=== PATIENT | male | born 1950 | race Caucasian/White ===

== ENCOUNTER → 2020-02-13 14:30 | Outpatient (BNVA) | payer OTHER, SELFPAY | PROVIDERS: PCP Internal Medicine; Visit Provider Internal Medicine | DX: I26.99 Other pulmonary embolism without acute cor pulmonale (principal); Z79.01 Long term (current) use of anticoagulants; Z51.81 Encounter for therapeutic drug level monitoring | CPT/HCPCS: 85610 ==

== ENCOUNTER → 2020-02-27 14:15 | Outpatient (BNVA) | payer OTHER, SELFPAY | PROVIDERS: PCP Internal Medicine; Visit Provider Internal Medicine | DX: I26.99 Other pulmonary embolism without acute cor pulmonale (principal); Z79.01 Long term (current) use of anticoagulants; Z51.81 Encounter for therapeutic drug level monitoring | CPT/HCPCS: 85610 ==

== ENCOUNTER → 2020-03-12 16:04 | Outpatient (BNVA) | payer OTHER, SELFPAY | PROVIDERS: PCP Internal Medicine; Visit Provider Internal Medicine | DX: I26.99 Other pulmonary embolism without acute cor pulmonale (principal); Z51.81 Encounter for therapeutic drug level monitoring; Z79.01 Long term (current) use of anticoagulants | CPT/HCPCS: 85610; 99211 ==

== ENCOUNTER → 2020-04-09 16:26 | Outpatient (BNVA) | payer OTHER, SELFPAY | PROVIDERS: PCP Internal Medicine; Visit Provider Internal Medicine | DX: I26.99 Other pulmonary embolism without acute cor pulmonale (principal); Z79.01 Long term (current) use of anticoagulants; Z51.81 Encounter for therapeutic drug level monitoring | CPT/HCPCS: 85610 ==

== ENCOUNTER → 2020-06-04 09:57 | Outpatient (BNVA) | payer OTHER, SELFPAY | PROVIDERS: PCP Internal Medicine; Visit Provider Internal Medicine | DX: I26.99 Other pulmonary embolism without acute cor pulmonale (principal); Z51.81 Encounter for therapeutic drug level monitoring; Z79.01 Long term (current) use of anticoagulants | CPT/HCPCS: 85610; 99211 ==

== ENCOUNTER → 2020-06-09 11:05 | Outpatient (BNVA) | payer OTHER, SELFPAY | PROVIDERS: PCP Internal Medicine; Visit Provider Internal Medicine | DX: I26.99 Other pulmonary embolism without acute cor pulmonale (principal); Z51.81 Encounter for therapeutic drug level monitoring; Z79.01 Long term (current) use of anticoagulants | CPT/HCPCS: 85610; 99211 ==

== ENCOUNTER → 2020-06-15 10:11 | Outpatient (BNVA) | payer OTHER, SELFPAY | PROVIDERS: PCP Internal Medicine; Visit Provider Internal Medicine | DX: I26.99 Other pulmonary embolism without acute cor pulmonale (principal); Z51.81 Encounter for therapeutic drug level monitoring; Z79.01 Long term (current) use of anticoagulants | CPT/HCPCS: 85610; 99211 ==

== ENCOUNTER → 2020-08-02 12:26 | Outpatient (BNVA) | payer OTHER, SELFPAY | PROVIDERS: PCP Internal Medicine; Visit Provider Internal Medicine | DX: I26.99 Other pulmonary embolism without acute cor pulmonale (principal); Z79.01 Long term (current) use of anticoagulants; Z51.81 Encounter for therapeutic drug level monitoring | CPT/HCPCS: Q3014 ==

== ENCOUNTER → 2020-08-06 14:45 | Outpatient (BNVA) | payer OTHER, SELFPAY | PROVIDERS: PCP Internal Medicine; Visit Provider Internal Medicine | DX: I26.99 Other pulmonary embolism without acute cor pulmonale (principal); Z79.01 Long term (current) use of anticoagulants; Z51.81 Encounter for therapeutic drug level monitoring | CPT/HCPCS: Q3014 ==

== ENCOUNTER → 2020-08-13 12:04 | Outpatient (BNVA) | payer OTHER, SELFPAY | PROVIDERS: PCP Internal Medicine; Visit Provider Internal Medicine | DX: I26.99 Other pulmonary embolism without acute cor pulmonale (principal); Z79.01 Long term (current) use of anticoagulants; Z51.81 Encounter for therapeutic drug level monitoring | CPT/HCPCS: Q3014 ==

== ENCOUNTER → 2020-08-20 11:40 | Outpatient (BNVA) | payer OTHER, SELFPAY | PROVIDERS: PCP Internal Medicine; Visit Provider Internal Medicine | DX: Z51.81 Encounter for therapeutic drug level monitoring (principal); Z79.01 Long term (current) use of anticoagulants | CPT/HCPCS: Q3014 ==

== ENCOUNTER → 2020-08-27 11:23 | Outpatient (BNVA) | payer OTHER, SELFPAY | PROVIDERS: PCP Internal Medicine; Visit Provider Internal Medicine | DX: I26.99 Other pulmonary embolism without acute cor pulmonale (principal); Z79.01 Long term (current) use of anticoagulants; Z51.81 Encounter for therapeutic drug level monitoring | CPT/HCPCS: 85610; 99211 ==

== ENCOUNTER → 2020-09-09 15:03 | Outpatient (BNVA) | payer OTHER, SELFPAY | PROVIDERS: PCP Internal Medicine; Visit Provider Internal Medicine | DX: I26.99 Other pulmonary embolism without acute cor pulmonale (principal); Z51.81 Encounter for therapeutic drug level monitoring; Z79.01 Long term (current) use of anticoagulants | CPT/HCPCS: 85610; 99211 ==

== ENCOUNTER → 2020-10-07 15:58 | Outpatient (BNVA) | payer OTHER, SELFPAY | PROVIDERS: PCP Internal Medicine; Visit Provider Internal Medicine | DX: I26.99 Other pulmonary embolism without acute cor pulmonale (principal); Z51.81 Encounter for therapeutic drug level monitoring; Z79.01 Long term (current) use of anticoagulants | CPT/HCPCS: 85610; 99211 ==

== ENCOUNTER → 2020-11-09 16:08 | Outpatient (BNVA) | payer OTHER, SELFPAY | PROVIDERS: PCP Internal Medicine; Visit Provider Internal Medicine | DX: I26.99 Other pulmonary embolism without acute cor pulmonale (principal); Z51.81 Encounter for therapeutic drug level monitoring; Z79.01 Long term (current) use of anticoagulants | CPT/HCPCS: 85610; 99211 ==

== ENCOUNTER → 2020-12-07 16:00 | Outpatient (BNVA) | payer OTHER, SELFPAY | PROVIDERS: PCP Internal Medicine; Visit Provider Internal Medicine | DX: I26.99 Other pulmonary embolism without acute cor pulmonale (principal); Z51.81 Encounter for therapeutic drug level monitoring; Z79.01 Long term (current) use of anticoagulants | CPT/HCPCS: 85610; 99211 ==

== ENCOUNTER → 2020-12-10 09:50 | Outpatient (BNVA) | payer OTHER, SELFPAY | PROVIDERS: PCP Internal Medicine; Visit Provider Physician Assistant Medical | DX: S06.9X0A Unspecified intracranial injury without loss of consciousness, initial encounter (principal); S39.012A Strain of muscle, fascia and tendon of lower back, initial encounter; S43.402A Unspecified sprain of left shoulder joint, initial encounter; S70.02XA Contusion of left hip, initial encounter; W18.39XA Other fall on same level, initial encounter; W17.89XA Other fall from one level to another, initial encounter | CPT/HCPCS: 70450; 73030; 99204 ==

== ENCOUNTER → 2020-12-15 09:33 | Outpatient (BNVA) | payer OTHER, SELFPAY | PROVIDERS: PCP Internal Medicine; Visit Provider Physician Assistant Medical | DX: S06.9X0A Unspecified intracranial injury without loss of consciousness, initial encounter (principal); S49.92XA Unspecified injury of left shoulder and upper arm, initial encounter; S39.012A Strain of muscle, fascia and tendon of lower back, initial encounter; S70.02XA Contusion of left hip, initial encounter; W17.89XA Other fall from one level to another, initial encounter | CPT/HCPCS: 99213 ==

== ENCOUNTER → 2021-01-04 16:06 | Outpatient (BNVA) | payer OTHER, SELFPAY | PROVIDERS: PCP Internal Medicine; Visit Provider Internal Medicine | DX: I26.99 Other pulmonary embolism without acute cor pulmonale (principal); Z51.81 Encounter for therapeutic drug level monitoring; Z79.01 Long term (current) use of anticoagulants | CPT/HCPCS: 85610; 99211 ==

== ENCOUNTER → 2021-02-01 16:06 | Outpatient (BNVA) | payer OTHER, SELFPAY | PROVIDERS: PCP Internal Medicine; Visit Provider Internal Medicine | DX: I26.99 Other pulmonary embolism without acute cor pulmonale (principal); Z51.81 Encounter for therapeutic drug level monitoring; Z79.01 Long term (current) use of anticoagulants | CPT/HCPCS: 85610; 99211 ==

== ENCOUNTER → 2021-03-14 16:05 | Outpatient (BNVA) | payer OTHER, SELFPAY | PROVIDERS: PCP Internal Medicine; Visit Provider Internal Medicine | DX: I26.99 Other pulmonary embolism without acute cor pulmonale (principal); Z51.81 Encounter for therapeutic drug level monitoring; Z79.01 Long term (current) use of anticoagulants | CPT/HCPCS: 85610; 99211 ==

== ENCOUNTER → 2021-03-21 16:00 | Outpatient (BNVA) | payer OTHER, SELFPAY | PROVIDERS: PCP Internal Medicine; Visit Provider Internal Medicine | DX: I26.99 Other pulmonary embolism without acute cor pulmonale (principal); Z51.81 Encounter for therapeutic drug level monitoring; Z79.01 Long term (current) use of anticoagulants | CPT/HCPCS: 85610; 99211 ==

== ENCOUNTER → 2021-04-25 16:08 | Outpatient (BNVA) | payer OTHER, SELFPAY | PROVIDERS: PCP Internal Medicine; Visit Provider Internal Medicine | DX: I26.99 Other pulmonary embolism without acute cor pulmonale (principal); Z51.81 Encounter for therapeutic drug level monitoring; Z79.01 Long term (current) use of anticoagulants | CPT/HCPCS: 85610; 99211 ==

== ENCOUNTER → 2021-05-23 16:11 | Outpatient (BNVA) | payer OTHER, SELFPAY | PROVIDERS: PCP Internal Medicine; Visit Provider Internal Medicine | DX: I26.99 Other pulmonary embolism without acute cor pulmonale (principal); Z51.81 Encounter for therapeutic drug level monitoring; Z79.01 Long term (current) use of anticoagulants | CPT/HCPCS: 85610; 99211 ==

== ENCOUNTER → 2021-06-08 16:12 | Outpatient (BNVA) | payer OTHER, SELFPAY | PROVIDERS: PCP Internal Medicine; Visit Provider Internal Medicine | DX: I26.99 Other pulmonary embolism without acute cor pulmonale (principal); Z51.81 Encounter for therapeutic drug level monitoring; Z79.01 Long term (current) use of anticoagulants | CPT/HCPCS: 85610; 99211 ==

== ENCOUNTER → 2021-06-23 16:00 | Outpatient (BNVA) | payer OTHER, SELFPAY | PROVIDERS: PCP Internal Medicine; Visit Provider Internal Medicine | DX: I26.99 Other pulmonary embolism without acute cor pulmonale (principal); Z51.81 Encounter for therapeutic drug level monitoring; Z79.01 Long term (current) use of anticoagulants | CPT/HCPCS: 85610; 99211 ==

== ENCOUNTER → 2021-06-30 16:08 | Outpatient (BNVA) | payer OTHER, SELFPAY | PROVIDERS: PCP Internal Medicine; Visit Provider Internal Medicine | DX: I26.99 Other pulmonary embolism without acute cor pulmonale (principal); Z51.81 Encounter for therapeutic drug level monitoring; Z79.01 Long term (current) use of anticoagulants | CPT/HCPCS: 85610; 99211 ==

== ENCOUNTER → 2021-07-07 15:55 | Outpatient (BNVA) | payer OTHER, SELFPAY | PROVIDERS: PCP Internal Medicine; Visit Provider Internal Medicine | DX: I26.99 Other pulmonary embolism without acute cor pulmonale (principal); Z79.01 Long term (current) use of anticoagulants; Z51.81 Encounter for therapeutic drug level monitoring | CPT/HCPCS: 85610; 99211 ==

== ENCOUNTER → 2021-07-14 15:59 | Outpatient (BNVA) | payer OTHER, SELFPAY | PROVIDERS: PCP Internal Medicine; Visit Provider Internal Medicine | DX: I26.99 Other pulmonary embolism without acute cor pulmonale (principal); Z51.81 Encounter for therapeutic drug level monitoring; Z79.01 Long term (current) use of anticoagulants | CPT/HCPCS: 85610; 99211 ==

== ENCOUNTER → 2021-07-21 12:12 | Outpatient (BNVA) | payer OTHER, SELFPAY | PROVIDERS: PCP Internal Medicine; Visit Provider Internal Medicine | DX: I26.99 Other pulmonary embolism without acute cor pulmonale (principal); Z51.81 Encounter for therapeutic drug level monitoring; Z79.01 Long term (current) use of anticoagulants | CPT/HCPCS: Q3014 ==

== ENCOUNTER → 2021-07-26 15:42 | Outpatient (BNVA) | payer OTHER, SELFPAY | PROVIDERS: PCP Internal Medicine; Visit Provider Internal Medicine | DX: I26.99 Other pulmonary embolism without acute cor pulmonale (principal); Z51.81 Encounter for therapeutic drug level monitoring; Z79.01 Long term (current) use of anticoagulants | CPT/HCPCS: 85610; 99211 ==

== ENCOUNTER → 2021-08-05 13:44 | Outpatient (BNVA) | payer OTHER, SELFPAY | PROVIDERS: PCP Internal Medicine; Visit Provider Internal Medicine | DX: I26.99 Other pulmonary embolism without acute cor pulmonale (principal); Z79.01 Long term (current) use of anticoagulants; Z51.81 Encounter for therapeutic drug level monitoring | CPT/HCPCS: 85610; 99211 ==

== ENCOUNTER → 2021-08-19 16:04 | Outpatient (BNVA) | payer OTHER, SELFPAY | PROVIDERS: PCP Internal Medicine; Visit Provider Internal Medicine | DX: I26.99 Other pulmonary embolism without acute cor pulmonale (principal); Z79.01 Long term (current) use of anticoagulants; Z51.81 Encounter for therapeutic drug level monitoring | CPT/HCPCS: 85610; 99211 ==

== ENCOUNTER → 2021-09-01 15:59 | Outpatient (BNVA) | payer OTHER, SELFPAY | PROVIDERS: PCP Internal Medicine; Visit Provider Internal Medicine | DX: I26.99 Other pulmonary embolism without acute cor pulmonale (principal); Z79.01 Long term (current) use of anticoagulants; Z51.81 Encounter for therapeutic drug level monitoring | CPT/HCPCS: 85610; 99211 ==

== ENCOUNTER → 2021-09-15 16:03 | Outpatient (BNVA) | payer OTHER, SELFPAY | PROVIDERS: PCP Internal Medicine; Visit Provider Internal Medicine | DX: I26.99 Other pulmonary embolism without acute cor pulmonale (principal); Z79.01 Long term (current) use of anticoagulants; Z51.81 Encounter for therapeutic drug level monitoring | CPT/HCPCS: 85610; 99211 ==

== ENCOUNTER → 2021-10-06 16:02 | Outpatient (BNVA) | payer OTHER, SELFPAY | PROVIDERS: PCP Internal Medicine; Visit Provider Internal Medicine | DX: I26.99 Other pulmonary embolism without acute cor pulmonale (principal); Z79.01 Long term (current) use of anticoagulants; Z51.81 Encounter for therapeutic drug level monitoring | CPT/HCPCS: 85610; 99211 ==

== ENCOUNTER → 2021-11-07 09:53 | Outpatient (BNVA) | payer OTHER, SELFPAY | PROVIDERS: PCP Internal Medicine; Visit Provider Internal Medicine | DX: S61.210A Laceration without foreign body of right index finger without damage to nail, initial encounter (principal); W26.9XXA Contact with unspecified sharp object(s), initial encounter | CPT/HCPCS: 12002; 99203 ==

== ENCOUNTER → 2021-11-10 08:19 | Outpatient (BNVA) | payer OTHER, SELFPAY | PROVIDERS: PCP Internal Medicine; Visit Provider Internal Medicine | DX: I26.99 Other pulmonary embolism without acute cor pulmonale (principal); Z51.81 Encounter for therapeutic drug level monitoring; Z79.01 Long term (current) use of anticoagulants | CPT/HCPCS: 85610; 99211 ==

== ENCOUNTER → 2021-11-10 13:11 | Outpatient (BNVA) | payer OTHER, SELFPAY | PROVIDERS: PCP Internal Medicine; Visit Provider Internal Medicine | DX: S61.210A Laceration without foreign body of right index finger without damage to nail, initial encounter (principal); W26.9XXA Contact with unspecified sharp object(s), initial encounter | CPT/HCPCS: 99213 ==

== ENCOUNTER → 2021-11-15 07:39 | Outpatient (BNVA) | payer OTHER, SELFPAY | PROVIDERS: PCP Internal Medicine; Visit Provider Internal Medicine | DX: S61.210A Laceration without foreign body of right index finger without damage to nail, initial encounter (principal); W26.9XXA Contact with unspecified sharp object(s), initial encounter | CPT/HCPCS: 99212; 99213 ==

== ENCOUNTER → 2021-11-24 15:57 | Outpatient (BNVA) | payer OTHER, SELFPAY | PROVIDERS: PCP Internal Medicine; Visit Provider Internal Medicine | DX: I26.99 Other pulmonary embolism without acute cor pulmonale (principal); Z51.81 Encounter for therapeutic drug level monitoring; Z79.01 Long term (current) use of anticoagulants | CPT/HCPCS: 85610; 99211 ==

== ENCOUNTER → 2021-11-28 15:53 | Outpatient (BNVA) | payer OTHER, SELFPAY | PROVIDERS: PCP Internal Medicine; Visit Provider Internal Medicine | DX: I26.99 Other pulmonary embolism without acute cor pulmonale (principal); Z51.81 Encounter for therapeutic drug level monitoring; Z79.01 Long term (current) use of anticoagulants | CPT/HCPCS: 85610; 99211 ==

== ENCOUNTER → 2021-12-20 16:02 | Outpatient (BNVA) | payer OTHER, SELFPAY | PROVIDERS: PCP Internal Medicine; Visit Provider Internal Medicine | DX: I26.99 Other pulmonary embolism without acute cor pulmonale (principal); Z51.81 Encounter for therapeutic drug level monitoring; Z79.01 Long term (current) use of anticoagulants | CPT/HCPCS: 85610; 99211 ==

== ENCOUNTER → 2022-01-12 15:55 | Outpatient (BNVA) | payer OTHER, SELFPAY | PROVIDERS: PCP Internal Medicine; Visit Provider Internal Medicine | DX: I26.99 Other pulmonary embolism without acute cor pulmonale (principal); Z51.81 Encounter for therapeutic drug level monitoring; Z79.01 Long term (current) use of anticoagulants | CPT/HCPCS: 85610; 99211 ==

== ENCOUNTER → 2022-02-06 15:59 | Outpatient (BNVA) | payer OTHER, SELFPAY | PROVIDERS: PCP Internal Medicine; Visit Provider Internal Medicine | DX: I26.99 Other pulmonary embolism without acute cor pulmonale (principal); Z79.01 Long term (current) use of anticoagulants; Z51.81 Encounter for therapeutic drug level monitoring | CPT/HCPCS: 85610; 99211 ==

== ENCOUNTER → 2022-03-10 15:59 | Outpatient (BNVA) | payer OTHER, SELFPAY | PROVIDERS: PCP Internal Medicine; Visit Provider Internal Medicine | DX: I26.99 Other pulmonary embolism without acute cor pulmonale (principal); Z51.81 Encounter for therapeutic drug level monitoring; Z79.01 Long term (current) use of anticoagulants | CPT/HCPCS: 85610; 99211 ==

== ENCOUNTER → 2022-04-13 15:59 | Outpatient (BNVA) | payer OTHER, SELFPAY | PROVIDERS: PCP Internal Medicine; Visit Provider Internal Medicine | DX: I26.99 Other pulmonary embolism without acute cor pulmonale (principal); Z79.01 Long term (current) use of anticoagulants; Z51.81 Encounter for therapeutic drug level monitoring | CPT/HCPCS: 85610; 99211 ==

== ENCOUNTER → 2022-05-11 15:57 | Outpatient (BNVA) | payer OTHER, SELFPAY | PROVIDERS: PCP Internal Medicine; Visit Provider Internal Medicine | DX: I26.99 Other pulmonary embolism without acute cor pulmonale (principal); Z51.81 Encounter for therapeutic drug level monitoring; Z79.01 Long term (current) use of anticoagulants | CPT/HCPCS: 85610; 99211 ==

== ENCOUNTER → 2022-06-01 16:07 | Outpatient (BNVA) | payer BC, SELFPAY | PROVIDERS: PCP Internal Medicine; Visit Provider Internal Medicine | DX: I26.99 Other pulmonary embolism without acute cor pulmonale (principal); Z51.81 Encounter for therapeutic drug level monitoring; Z79.01 Long term (current) use of anticoagulants | CPT/HCPCS: 85610; 99211 ==

== ENCOUNTER → 2022-07-05 09:59 | Outpatient (BNVA) | payer OTHER, SELFPAY | PROVIDERS: PCP Internal Medicine; Visit Provider Internal Medicine | DX: I26.99 Other pulmonary embolism without acute cor pulmonale (principal); Z51.81 Encounter for therapeutic drug level monitoring; Z79.01 Long term (current) use of anticoagulants | CPT/HCPCS: 85610; 99211 ==

== ENCOUNTER → 2022-08-03 13:40 | Outpatient (BNVA) | payer OTHER, SELFPAY | PROVIDERS: PCP Internal Medicine; Visit Provider Internal Medicine | DX: I26.99 Other pulmonary embolism without acute cor pulmonale (principal); Z51.81 Encounter for therapeutic drug level monitoring; Z79.01 Long term (current) use of anticoagulants | CPT/HCPCS: 85610; 99211 ==

== ENCOUNTER → 2022-09-01 11:05 | Outpatient (BNVA) | payer MEDICARE, SELFPAY | PROVIDERS: PCP Internal Medicine; Visit Provider Internal Medicine | DX: I26.99 Other pulmonary embolism without acute cor pulmonale (principal); Z51.81 Encounter for therapeutic drug level monitoring; Z79.01 Long term (current) use of anticoagulants | CPT/HCPCS: 85610; 99211 ==

== ENCOUNTER → 2022-10-05 15:30 | Outpatient (BNVA) | payer OTHER, SELFPAY | PROVIDERS: PCP Internal Medicine; Visit Provider Internal Medicine | DX: Z51.81 Encounter for therapeutic drug level monitoring (principal); Z79.01 Long term (current) use of anticoagulants; I26.99 Other pulmonary embolism without acute cor pulmonale | CPT/HCPCS: 85610; 99211 ==

== ENCOUNTER 2022-11-07 15:17 | Outpatient (AMB) | payer MEDICARE, OTHER, SELFPAY ==
--- NOTE | 2022-11-07 15:22 | MHC.OFFVISCO ---
Intake Intake Visit Reasons: Anticoagulation Allergies No Known Allergies Allergy (Mild, Verified 10/05/22 15:30) N/A Medication List - Last Reconciled 11/07/22 by Macey Riley RN amoxicillin 2,000 mg PO ONCE cetirizine 10 mg PO DAILY folic acid 1 mg PO DAILY hydrochlorothiazide 12.5 mg PO DAILY insulin lispro subcut loperamide 4 mg PO BID metformin 1,000 mg PO BID omeprazole 20 mg PO DAILY pregabalin 150 mg PO BID simvastatin 10 mg PO BEDTIME tamsulosin 0.8 mg PO DAILY tirzepatide (Mounjaro) 5 mg subcut QWEEK tramadol 50 mg PO Q6H PRN warfarin 2.5 mg See Protocol PO DAILY warfarin 5 mg See Protocol PO DAILY Nursing Note INR: 2.3- in therapeutic range Medications and supplements reviewed No changes in health, diet, medications, or supplements, Denies any signs and symptoms of bleeding or bruising or clotting. Bleeding, bruising, clotting discussed Nutritional guidance given Dose: 7.5mg x 2, 5mg x 5 F/U INR: 4 weeks Patient verbalizes understanding of instructions given Coding Level of Care Code Est Patient Level 1 Diagnoses Current use of anticoagulant therapy Z79.01 Results AMB INR Fingerstick AMB INR Fingerstick 2.3 Last Edit by Macey Riley RN on 11/07/22 15:23 Assessment & Plan Assessment & Plan (1) Current use of anticoagulant therapy: Code(s): Z79.01 - parts counterman (current) use of anticoagulants Category: Medical
[2022-11-07 15:23] LABS: Prothrombin Time Whole Bld POC 27.8 sec (11.1-13.5); ~PT, ~INR - Anti Coag Clinic 2.3 (0.9-1.1)
== END 2022-11-07 15:28 | disposition home or self-care (01) ==
LOC: HO.ACS 15:17
PROVIDERS: PCP Internal Medicine; Visit Provider Internal Medicine
DX: Z79.01 Long term (current) use of anticoagulants (principal)

== ENCOUNTER → 2022-11-07 15:17 | Outpatient (BNVA) | payer MEDICARE, SELFPAY | PROVIDERS: PCP Internal Medicine; Visit Provider Internal Medicine | DX: I26.99 Other pulmonary embolism without acute cor pulmonale (principal); Z79.01 Long term (current) use of anticoagulants; Z51.81 Encounter for therapeutic drug level monitoring | CPT/HCPCS: 85610; 99211 ==

== ENCOUNTER 2022-12-08 15:04 | Outpatient (AMB) | payer MEDICARE, OTHER, SELFPAY ==
[2022-12-08 15:11] LABS: Prothrombin Time Whole Bld POC 32.5 sec (11.1-13.5); ~PT, ~INR - Anti Coag Clinic 2.7 (0.9-1.1)
--- NOTE | 2022-12-08 15:18 | MHC.OFFVISCO ---
Intake Intake Visit Reasons: Anticoagulation Allergies No Known Allergies Allergy (Mild, Verified 12/08/22 15:11) N/A Medication List - Last Reconciled 12/08/22 by Itzel Staley RN amoxicillin 2,000 mg PO ONCE cetirizine 10 mg PO DAILY folic acid 1 mg PO DAILY hydrochlorothiazide 12.5 mg PO DAILY insulin lispro subcut loperamide 4 mg PO BID metformin 1,000 mg PO BID omeprazole 20 mg PO DAILY pregabalin 150 mg PO BID simvastatin 10 mg PO BEDTIME tamsulosin 0.8 mg PO DAILY tirzepatide (Mounjaro) 5 mg subcut QWEEK tramadol 50 mg PO Q6H PRN warfarin 2.5 mg See Protocol PO DAILY warfarin 5 mg See Protocol PO DAILY Nursing Note INR: 2.7 in therapeutic range Medications and supplements reviewed No changes in health, diet, medications, or supplements, Denies any signs and symptoms of bleeding or bruising or clotting. Bleeding, bruising, clotting discussed Nutritional guidance given Dose: KEEP SAME DOSE- 7.5MG X 2 DAYS/ 5MG X 5 DAYS F/U INR: 1 MONTH Patient verbalizes understanding of instructions given PT STATED HIS DAUGHTER WAS BORN WITH HEART DEFECT AND JUST HAD A MECHANICAL HEART VALVE PLACE AND NOW IS ON WARFARIN. AN EDUCATION FOLDER WAS GIVEN TO HIM FOR HER (AND ALSO FOR HIM TO REVIEW) HE STATED HE REFERRED HER TO [facility] Coding Level of Care Code Est Patient Level 1 Diagnoses Current use of anticoagulant therapy Z79.01 Assessment & Plan Assessment & Plan (1) Current use of anticoagulant therapy: Code(s): Z79.01 - jail (current) use of anticoagulants Category: Medical
== END 2022-12-08 15:22 | disposition home or self-care (01) ==
LOC: HO.ACS 15:04
PROVIDERS: PCP Internal Medicine; Visit Provider Internal Medicine
DX: Z79.01 Long term (current) use of anticoagulants (principal)

== ENCOUNTER → 2022-12-08 15:04 | Outpatient (BNVA) | payer MEDICARE, SELFPAY | PROVIDERS: PCP Internal Medicine; Visit Provider Internal Medicine | DX: I26.99 Other pulmonary embolism without acute cor pulmonale (principal); Z79.01 Long term (current) use of anticoagulants; Z51.81 Encounter for therapeutic drug level monitoring | CPT/HCPCS: 85610; 99211 ==

== ENCOUNTER 2023-01-16 15:44 | Outpatient (AMB) | payer MEDICARE, SELFPAY ==
[2023-01-16 16:01] LABS: Prothrombin Time Whole Bld POC 41.5 sec (11.1-13.5); ~PT, ~INR - Anti Coag Clinic 3.5 (0.9-1.1)
--- NOTE | 2023-01-16 16:14 | MHC.OFFVISCO ---
Intake Intake Visit Reasons: Anticoagulation Allergies No Known Allergies Allergy (Mild, Verified 01/16/23 15:45) N/A Medication List - Last Reconciled 01/16/23 by Cintia Singh RN amoxicillin 2,000 mg PO ONCE cetirizine 10 mg PO DAILY folic acid 1 mg PO DAILY hydrochlorothiazide 12.5 mg PO DAILY insulin lispro subcut loperamide 4 mg PO BID metformin 1,000 mg PO BID omeprazole 20 mg PO DAILY pregabalin 150 mg PO BID simvastatin 10 mg PO BEDTIME tamsulosin 0.8 mg PO DAILY tirzepatide (Mounjaro) 5 mg subcut QWEEK tramadol 50 mg PO Q6H PRN warfarin 2.5 mg See Protocol PO DAILY warfarin 5 mg See Protocol PO DAILY Nursing Note Amb to [facility] feeling ok Medications and supplements reviewed, sts stopped his mounjaro (tirzepatide) about 2 weeks ago due to cost, sts his PCP is aware and is looking for alternatives for him No other changes in health, diet, medications, or supplements Denies any unusual signs and symptoms of bruising, bleeding Denies any new Chest pain, SOB, or clotting INR: 3.5 above therapeutic range Nutritional guidance given: good green today then balance greens and reds in diet Dose: decrease dose today to 2.5mg then resume usual dosing; 7.5mg x 2 days and 5mg x 5 days F/U INR: 2 weeks to monitor effects of no mounjaro (possible raise or longer) Patient verbalizes understanding of instructions given with accurate read back/ teach back of dosing Coding Level of Care Code Est Patient Level 1 Diagnoses Current use of anticoagulant therapy Z79.01 Time Spent (min) 15 Results AMB INR Fingerstick AMB INR Fingerstick 3.5 Last Edit by Cintia Singh RN on 01/16/23 16:02 interface failure Assessment & Plan Assessment & Plan (1) Current use of anticoagulant therapy: Code(s): Z79.01 - vermin exterminator (current) use of anticoagulants Category: Medical
== END 2023-01-16 16:25 | disposition home or self-care (01) ==
LOC: HO.ACS 15:44
PROVIDERS: PCP Internal Medicine; Visit Provider Internal Medicine
DX: Z79.01 Long term (current) use of anticoagulants (principal)

== ENCOUNTER → 2023-01-16 15:44 | Outpatient (BNVA) | payer MEDICARE, SELFPAY | PROVIDERS: PCP Internal Medicine; Visit Provider Internal Medicine | DX: I26.99 Other pulmonary embolism without acute cor pulmonale (principal); Z79.01 Long term (current) use of anticoagulants; Z51.81 Encounter for therapeutic drug level monitoring | CPT/HCPCS: 85610; 99211 ==

== ENCOUNTER 2023-02-02 15:54 | Outpatient (AMB) | payer MEDICARE, SELFPAY ==
--- NOTE | 2023-02-02 15:59 | MHC.OFFVISCO ---
Intake Intake Visit Reasons: Anticoagulation Allergies No Known Allergies Allergy (Mild, Verified 02/02/23 15:54) N/A Medication List - Last Reconciled 02/02/23 by Macey Riley RN amoxicillin 2,000 mg PO ONCE cetirizine 10 mg PO DAILY folic acid 1 mg PO DAILY hydrochlorothiazide 12.5 mg PO DAILY insulin lispro subcut lisinopril 10 mg PO DAILY loperamide 4 mg PO BID metformin 1,000 mg PO BID omeprazole 20 mg PO DAILY pregabalin 150 mg PO BID simvastatin 10 mg PO BEDTIME tamsulosin 0.8 mg PO DAILY tirzepatide (Mounjaro) 5 mg subcut QWEEK tramadol 50 mg PO Q6H PRN warfarin 2.5 mg See Protocol PO DAILY warfarin 5 mg See Protocol PO DAILY Nursing Note INR: 3.0-in therapeutic range Medications and supplements reviewed- pt back on lisinopril 10mg daily he states for kidney protection- no interaction with warfarin per micromedex No changes in health, diet, medications, or supplements, Denies any signs and symptoms of bleeding or bruising or clotting. Bleeding, bruising, clotting discussed Nutritional guidance given - eat greens today Dose: 7.5mg x 2, 5mg x 5 F/U INR: pt req 4 weeks Patient verbalizes understanding of instructions given Coding Level of Care Code Est Patient Level 1 Diagnoses Current use of anticoagulant therapy Z79.01 Assessment & Plan Assessment & Plan (1) Current use of anticoagulant therapy: Code(s): Z79.01 - ad terminal makeup operator (current) use of anticoagulants Category: Medical
[2023-02-02 16:00] LABS: Prothrombin Time Whole Bld POC 35.9 sec (11.1-13.5)
== END 2023-02-02 16:05 | disposition home or self-care (01) ==
LOC: HO.ACS 15:54
PROVIDERS: PCP Internal Medicine; Visit Provider Internal Medicine
DX: Z79.01 Long term (current) use of anticoagulants (principal)

== ENCOUNTER → 2023-02-02 15:54 | Outpatient (BNVA) | payer MEDICARE, SELFPAY | PROVIDERS: PCP Internal Medicine; Visit Provider Internal Medicine | DX: I26.99 Other pulmonary embolism without acute cor pulmonale (principal); Z79.01 Long term (current) use of anticoagulants; Z51.81 Encounter for therapeutic drug level monitoring | CPT/HCPCS: 85610; 99211 ==

== ENCOUNTER 2023-03-02 15:22 | Outpatient (AMB) | payer MEDICARE, SELFPAY ==
[2023-03-02 15:31] LABS: Prothrombin Time Whole Bld POC 35.8 sec (11.1-13.5)
--- NOTE | 2023-03-02 15:38 | MHC.OFFVISCO ---
Intake Intake Visit Reasons: Anticoagulation Allergies No Known Allergies Allergy (Mild, Verified 03/02/23 15:22) N/A Medication List - Last Reconciled 03/02/23 by Itzel Staley RN amoxicillin 2,000 mg PO ONCE cetirizine 10 mg PO DAILY erythromycin ophthalmic (eye) folic acid 1 mg PO DAILY hydrochlorothiazide 12.5 mg PO DAILY insulin lispro subcut lisinopril 10 mg PO DAILY loperamide 4 mg PO BID metformin 1,000 mg PO BID omeprazole 20 mg PO DAILY pregabalin 150 mg PO BID simvastatin 10 mg PO BEDTIME tamsulosin 0.8 mg PO DAILY tirzepatide (Mounjaro) 5 mg subcut QWEEK tramadol 50 mg PO Q6H PRN warfarin 2.5 mg See Protocol PO DAILY warfarin 5 mg See Protocol PO DAILY Nursing Note INR 3.0 out of therapeutic range Medications and supplements reviewed Patient status: WELL, HAD EYE CYST REMOVED Medications or supplements: EYE GTTS, Diet: GOOD, ENC OOKED GREENS Denies any signs and symptoms of bleeding or clotting or unusual bruising Bleeding, bruising, clotting discussed Nutritional guidance given: COOKED GREENS LOWE THE INR MORE Dose: 7.5MG X 2 DAYS/ 5MG X 5 DAYS F/U INR Date : 4 WEEKS ?? Patient verbalizing understanding of instructions given. Coding Level of Care Code Est Patient Level 1 Diagnoses Current use of anticoagulant therapy Z79.01 Assessment & Plan Assessment & Plan (1) Current use of anticoagulant therapy: Code(s): Z79.01 - manager terminal (current) use of anticoagulants Category: Medical
== END 2023-03-02 15:43 | disposition home or self-care (01) ==
LOC: HO.ACS 15:22
PROVIDERS: PCP Internal Medicine; Visit Provider Internal Medicine
DX: Z79.01 Long term (current) use of anticoagulants (principal)

== ENCOUNTER → 2023-03-02 15:22 | Outpatient (BNVA) | payer MEDICARE, SELFPAY | PROVIDERS: PCP Internal Medicine; Visit Provider Internal Medicine | DX: I26.99 Other pulmonary embolism without acute cor pulmonale (principal); Z79.01 Long term (current) use of anticoagulants; Z51.81 Encounter for therapeutic drug level monitoring | CPT/HCPCS: 85610; 99211 ==

== ENCOUNTER 2023-03-30 15:42 | Outpatient (AMB) | payer MEDICARE, SELFPAY ==
--- NOTE | 2023-03-30 15:46 | MHC.OFFVISCO ---
Intake Intake Visit Reasons: Anticoagulation Allergies No Known Allergies Allergy (Mild, Verified 03/30/23 15:43) N/A Medication List - Last Reconciled 03/30/23 by Macey Riley RN amoxicillin 2,000 mg PO ONCE cetirizine 10 mg PO DAILY erythromycin ophthalmic (eye) folic acid 1 mg PO DAILY hydrochlorothiazide 12.5 mg PO DAILY insulin lispro subcut lisinopril 10 mg PO DAILY loperamide 4 mg PO BID metformin 1,000 mg PO BID omeprazole 20 mg PO DAILY pregabalin 150 mg PO BID simvastatin 10 mg PO BEDTIME tamsulosin 0.8 mg PO DAILY tirzepatide (Mounjaro) 5 mg subcut QWEEK tramadol 50 mg PO Q6H PRN warfarin 2.5 mg See Protocol PO DAILY warfarin 5 mg See Protocol PO DAILY Nursing Note INR: 2.4- in therapeutic range of 2-3 Medications and supplements reviewed- no chagnes No changes in health, diet, medications, or supplements, Denies any signs and symptoms of bleeding or bruising or clotting. Bleeding, bruising, clotting discussed Nutritional guidance given Dose: 7.5mg x 2, 5mg x 5 F/U INR: 4 weeks Patient verbalizes understanding of instructions given Coding Level of Care Code Est Patient Level 1 Diagnoses Current use of anticoagulant therapy Z79.01 Results AMB INR Fingerstick AMB INR Fingerstick 2.4 Last Edit by Macey Riley RN on 03/30/23 15:47 Assessment & Plan Assessment & Plan (1) Current use of anticoagulant therapy: Code(s): Z79.01 - petroleum terminal plant operator (current) use of anticoagulants Category: Medical
[2023-03-30 15:48] LABS: Prothrombin Time Whole Bld POC 29.4 sec (11.1-13.5); ~PT, ~INR - Anti Coag Clinic 2.4 (0.9-1.1)
== END 2023-03-30 15:50 | disposition home or self-care (01) ==
LOC: HO.ACS 15:42
PROVIDERS: PCP Internal Medicine; Visit Provider Internal Medicine
DX: Z79.01 Long term (current) use of anticoagulants (principal)

== ENCOUNTER → 2023-03-30 15:42 | Outpatient (BNVA) | payer MEDICARE, SELFPAY | PROVIDERS: PCP Internal Medicine; Visit Provider Internal Medicine | DX: I26.99 Other pulmonary embolism without acute cor pulmonale (principal); Z79.01 Long term (current) use of anticoagulants; Z51.81 Encounter for therapeutic drug level monitoring | CPT/HCPCS: 85610; 99211 ==

== ENCOUNTER 2023-04-26 13:32 | Outpatient (AMB) | payer MEDICARE, SELFPAY ==
--- NOTE | 2023-04-26 13:54 | MHC.OFFVISCO ---
Intake Intake Visit Reasons: Anticoagulation Allergies No Known Allergies Allergy (Mild, Verified 04/26/23 13:40) N/A Medication List - Last Reconciled 04/26/23 by Itzel Staley RN amoxicillin 2,000 mg PO ONCE cetirizine 10 mg PO DAILY erythromycin ophthalmic (eye) fluticasone propionate 50 mcg/actuation 1 spray intranasal DAILY folic acid 1 mg PO DAILY hydrochlorothiazide 12.5 mg PO DAILY insulin lispro subcut lisinopril 5 mg PO DAILY loperamide 4 mg PO BID metformin 1,000 mg PO BID omeprazole 20 mg PO DAILY pregabalin 150 mg PO BID simvastatin 10 mg PO BEDTIME tamsulosin 0.8 mg PO DAILY tirzepatide (Mounjaro) 5 mg subcut QWEEK tramadol 50 mg PO Q6H PRN warfarin 2.5 mg See Protocol PO DAILY warfarin 5 mg See Protocol PO DAILY Nursing Note INR: 2.8 in therapeutic range Medications and supplements reviewed No changes in health, diet, medications, or supplements, Denies any signs and symptoms of bleeding or bruising or clotting. Bleeding, bruising, clotting discussed Nutritional guidance given Dose: 7.5MG X 2 DAYS/ 5MG X 5DAYS F/U INR: 1 MONTH Patient verbalizes understanding of instructions given Coding Level of Care Code Est Patient Level 1 Diagnoses Current use of anticoagulant therapy Z79.01 Results AMB INR Fingerstick AMB INR Fingerstick 2.8 Last Edit by Itzel Staley RN on 04/26/23 13:49 MANUAL ENTRY NO INTERACING Assessment & Plan Assessment & Plan (1) Current use of anticoagulant therapy: Code(s): Z79.01 - manager long term care (current) use of anticoagulants Category: Medical
== END 2023-04-26 13:58 | disposition home or self-care (01) ==
LOC: HO.ACS 13:32
PROVIDERS: PCP Internal Medicine; Visit Provider Internal Medicine
DX: Z79.01 Long term (current) use of anticoagulants (principal)

== ENCOUNTER → 2023-04-26 13:32 | Outpatient (BNVA) | payer MEDICARE, SELFPAY | PROVIDERS: PCP Internal Medicine; Visit Provider Internal Medicine | DX: I26.99 Other pulmonary embolism without acute cor pulmonale (principal); Z79.01 Long term (current) use of anticoagulants; Z51.81 Encounter for therapeutic drug level monitoring | CPT/HCPCS: 85610; 99211 ==

== ENCOUNTER 2023-04-27 15:31 | Outpatient (AMB) | payer MEDICARE, SELFPAY ==
--- NOTE | 2023-04-27 15:37 | MHC.OFFVIS ---
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 Pt is currently on CPAP. He reports he gets his equipment through [facility]. 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 He was evaluated for DEBI in 2018 in [facility]. Pt's PSG sleep study result was mild degree of sleep apnea. The AHI was 14/hr and oxygen prasanna was 83%. He has been using CPAP at [id number]. Pt reports his CPAP works fine, and he uses almost every night. However, he had sinus infection during March, and could not use it about 2 weeks. The CPAP compliance and therapy response (01/27/23-04/26/23) reviewed. The usage days 70% and the average usage hours 8 hrs. The max pressure was 9.4 and the AHI was 0.9/hr. Pt reports difficulty falling asleep. He is retired and does not need to go bed early, and stays late watching TV. He tried melatonin 10 mg in the past, and it helped him to sleep well. [facility] Surgical History (Updated 04/27/23 @ 16:00 by Kiya Escalera CMA) History of knee replacement History of nasal septoplasty Hx of tonsillectomy H/O uvulectomy H/O hernia repair History of intestinal surgery Family History (Updated 04/27/23 @ 16:02 by Kiya Escalera CMA) Father No problems noted. Mother No problems noted. Social History (Updated 04/27/23 @ 16:01 by Kiya Escaelra CMA) Household Members: Spouse Housing: House Alcohol intake: never Patient Tobacco Use Status: Never used Tobacco Review of Systems Const All systems reviewed & are unremarkable except as noted in HPI and below Physical Exam Vital Signs: Last Vital Signs Pulse 88 04/27/23 15:52 Resp 17 04/27/23 15:52 BP 122/64 04/27/23 15:52 Pulse Ox 96 04/27/23 15:52 Oxygen Delivery Method Room Air 04/27/23 15:52 BMI result Body Mass Index 34.4 Const General: cooperative Nutritional Appearance: obese Orientation/consciousness: patient oriented x3 Neck Neck: Yes full ROM and Yes supple Resp Effort & Inspection: normal respiratory effort Neuro General: patient oriented x3 and gait normal Cranial nerves: Yes CN's II-XII intact bilaterally Gait exam (Neuro): Normal gait present Motor exam (neuro): 5/5 motor strength present throughout, Pronator motor function not present and no tremor noted Psych Appearance: grossly normal Mental Status: mental status grossly normal Speech and movement: Normal speech and movement present Affect: normal affect Attitude: cooperative Assessment & Plan Assessment & Plan (1) DEBI on CPAP: Code(s): G47.33 - Obstructive sleep apnea (adult) (pediatric) (2) Difficulty sleeping: Code(s): G47.9 - Sleep disorder, unspecified Plan Advised patient to continue to use APAP at [id number] as patient experiences good clinical effects. He may eligible for a new CPAP, and advised patient to call his home care company to check what he needs to have new CPAP. Wt reduction advised. Sleep hygiene education provided. Encouraged patient to have routine sleep schedule. Try melatonin 10 mg q HS as needed. Medications: New melatonin 10 mg PO BEDTIME 90 days PRN 90 tabs 1RF sleep Coding Level of Care Code New Pt Level 3 (44845) Diagnoses DEBI on CPAP G47.33 Difficulty sleeping G47.9
[2023-04-27 15:52] VITALS: BP 122/64; PULSE 88; RESP 17; O2SAT 96; BMI 34.4
== END 2023-04-27 16:23 | disposition home or self-care (01) ==
PROVIDERS: PCP Internal Medicine; Visit Provider Nurse Practitioner Family
DX: G47.33 Obstructive sleep apnea (adult) (pediatric) (principal); G47.9 Sleep disorder, unspecified
CPT/HCPCS: 99203

== ENCOUNTER → 2023-04-27 15:31 | Outpatient (BNVA) | payer MEDICARE, SELFPAY | PROVIDERS: PCP Internal Medicine; Visit Provider Nurse Practitioner Family | DX: G47.33 Obstructive sleep apnea (adult) (pediatric) (principal); G47.9 Sleep disorder, unspecified | CPT/HCPCS: 99202 ==

== ENCOUNTER 2023-05-24 13:25 | Outpatient (AMB) | payer MEDICARE, SELFPAY ==
[2023-05-24 13:34] LABS: Prothrombin Time Whole Bld POC 21.5 sec (11.1-13.5); ~PT, ~INR - Anti Coag Clinic 1.8 (0.9-1.1)
--- NOTE | 2023-05-24 13:45 | MHC.OFFVISCO ---
Intake Intake Visit Reasons: Anticoagulation Allergies No Known Allergies Allergy (Mild, Verified 05/24/23 13:27) N/A Medication List - Last Reconciled 05/24/23 by Itzel Staley RN cetirizine 10 mg PO DAILY erythromycin ophthalmic (eye) fluticasone propionate 50 mcg/actuation 1 spray intranasal DAILY folic acid 1 mg PO DAILY hydrochlorothiazide 12.5 mg PO DAILY insulin lispro subcut lisinopril 5 mg PO DAILY loperamide 4 mg PO BID melatonin 10 mg PO BEDTIME PRN 90 days metformin 1,000 mg PO BID omeprazole 20 mg PO DAILY pregabalin 150 mg PO BID simvastatin 10 mg PO BEDTIME tamsulosin 0.8 mg PO DAILY tramadol 50 mg PO Q6H PRN warfarin 2.5 mg See Protocol PO DAILY warfarin 5 mg See Protocol PO DAILY Nursing Note INR 1.8 out of therapeutic range Medications and supplements reviewed Patient status: EXERCISINING MORE AND MAY HAVE HAD MORE CHOCOLATE Medications or supplements: NO CHANGES Diet: GOOD EATING HEALTHIER Denies any signs and symptoms of bleeding or clotting or unusual bruising Bleeding, bruising, clotting discussed Nutritional guidance given: EAT MORE ORANGE AND REDS WHILE EXERCISING MORE, LIKE CARROTS AND CELERY AND GRAPES TO HELP KEEP INR UP Dose: INCREASE DOSE THIS WEEK 7.5MG X 3 DAYS THEN RESUME 7.5MG X 2 DAYS/ 5MG X 5 DAYS , IF INR STILL OW NEXT VISIT INCREASE WEEKLY DOSE F/U INR Date : 4 WEEKS - REFUSED SOONER APPT DUE TO COST OF COPAYS, PT AWARE OR RISKS ?? Patient verbalizing understanding of instructions given. Anti-Coag Initial Assessment Social Hx Patient Tobacco Use Status: Never used Tobacco alcohol intake: never Coding Level of Care Code Est Patient Level 1 Diagnoses Current use of anticoagulant therapy Z79.01 Results AMB INR Fingerstick AMB INR Fingerstick 1.8 Last Edit by Itzel Staley RN on 05/24/23 13:37 MANUAL ENTRY Assessment & Plan Assessment & Plan (1) Current use of anticoagulant therapy: Code(s): Z79.01 - [facility] (current) use of anticoagulants Category: Medical
== END 2023-05-24 13:49 | disposition home or self-care (01) ==
LOC: HO.ACS 13:25
PROVIDERS: PCP Internal Medicine; Visit Provider Internal Medicine
DX: Z79.01 Long term (current) use of anticoagulants (principal)

== ENCOUNTER → 2023-05-24 13:25 | Outpatient (BNVA) | payer MEDICARE, SELFPAY | PROVIDERS: PCP Internal Medicine; Visit Provider Internal Medicine | DX: I26.99 Other pulmonary embolism without acute cor pulmonale (principal); Z51.81 Encounter for therapeutic drug level monitoring; Z79.01 Long term (current) use of anticoagulants | CPT/HCPCS: 85610; 99211 ==

== ENCOUNTER 2023-06-21 13:25 | Outpatient (AMB) | payer MEDICARE, SELFPAY ==
[2023-06-21 13:33] LABS: Prothrombin Time Whole Bld POC 20.9 sec (11.1-13.5); ~PT, ~INR - Anti Coag Clinic 1.7 (0.9-1.1)
--- NOTE | 2023-06-21 13:41 | MHC.OFFVISCO ---
Intake Intake Visit Reasons: Anticoagulation Allergies No Known Allergies Allergy (Mild, Verified 06/21/23 13:26) N/A Medication List - Last Reconciled 06/21/23 by Itzel Staley RN cetirizine 10 mg PO DAILY ergocalciferol (vitamin D2) PO erythromycin ophthalmic (eye) fluticasone propionate 50 mcg/actuation 1 spray intranasal DAILY folic acid 1 mg PO DAILY hydrochlorothiazide 12.5 mg PO DAILY insulin lispro subcut lisinopril 5 mg PO DAILY loperamide 4 mg PO BID melatonin 10 mg PO BEDTIME PRN 90 days metformin 1,000 mg PO BID omeprazole 20 mg PO DAILY pregabalin 150 mg PO BID simvastatin 10 mg PO BEDTIME tamsulosin 0.8 mg PO DAILY tramadol 50 mg PO Q6H PRN warfarin 2.5 mg See Protocol PO DAILY warfarin 5 mg See Protocol PO DAILY Nursing Note INR 1.7 out of therapeutic range Medications and supplements reviewed Patient status: EXERCISING MORE Medications or supplements: NO CHANGES Diet: GOOD Denies any signs and symptoms of bleeding or clotting or unusual bruising Bleeding, bruising, clotting discussed Nutritional guidance given: AVOID GREENS X 2 DAYS, EAT MORE ORANGE AND RED VEGETABLES Dose: DUE TO LOW INR X 2 MONTHS INCREASE WEEKLY DOSE 7.5MG X 3 DAYS/ 5MG X 4 DAYS F/U INR Date : PT REFUSES SOONER APPT K 4 WEEKS 07/19/23 ?? Patient verbalizing understanding of instructions given. Anti-Coag Initial Assessment Social Hx Patient Tobacco Use Status: Never used Tobacco alcohol intake: never Coding Level of Care Code Est Patient Level 1 Diagnoses Current use of anticoagulant therapy Z79.01 Assessment & Plan Assessment & Plan (1) Current use of anticoagulant therapy: Code(s): Z79.01 - prison (current) use of anticoagulants Category: Medical
== END 2023-06-21 13:55 | disposition home or self-care (01) ==
LOC: HO.ACS 13:25
PROVIDERS: PCP Internal Medicine; Visit Provider Internal Medicine
DX: Z79.01 Long term (current) use of anticoagulants (principal)

== ENCOUNTER → 2023-06-21 13:25 | Outpatient (BNVA) | payer MEDICARE, SELFPAY | PROVIDERS: PCP Internal Medicine; Visit Provider Internal Medicine | DX: I26.99 Other pulmonary embolism without acute cor pulmonale (principal); Z79.01 Long term (current) use of anticoagulants; Z51.81 Encounter for therapeutic drug level monitoring | CPT/HCPCS: 85610; 99211 ==

== ENCOUNTER 2023-07-23 13:01 | Outpatient (AMB) | payer MEDICARE, SELFPAY ==
[2023-07-23 13:07] LABS: Prothrombin Time Whole Bld POC 35.1 sec (11.1-13.5); ~PT, ~INR - Anti Coag Clinic 2.9 (0.9-1.1)
--- NOTE | 2023-07-23 13:10 | MHC.OFFVISCO ---
Intake Intake Visit Reasons: Anticoagulation Allergies No Known Allergies Allergy (Mild, Verified 07/23/23 13:02) N/A Medication List - Last Reconciled 07/23/23 by Cintia Martel RN cetirizine 10 mg PO DAILY ergocalciferol (vitamin D2) PO erythromycin ophthalmic (eye) fluticasone propionate 50 mcg/actuation 1 spray intranasal DAILY folic acid 1 mg PO DAILY hydrochlorothiazide 12.5 mg PO DAILY insulin lispro subcut lisinopril 5 mg PO DAILY loperamide 4 mg PO BID melatonin 10 mg PO BEDTIME PRN 90 days metformin 1,000 mg PO BID omeprazole 20 mg PO DAILY pregabalin 150 mg PO BID simvastatin 10 mg PO BEDTIME tamsulosin 0.8 mg PO DAILY tramadol 50 mg PO Q6H PRN warfarin 2.5 mg See Protocol PO DAILY warfarin 5 mg See Protocol PO DAILY Nursing Note INR: 2.9 in therapeutic range of 2-3 Medications and supplements reviewed: no changes No changes in health, diet, medications, or supplements, Denies any signs and symptoms of bleeding or bruising or clotting. Bleeding, bruising, clotting discussed Nutritional guidance given to cont to balance reds and greens Dose: 7.5mg X 3 days and 5mg X4 days F/U INR: 4 weeks, 08/20/23 Patient verbalizes understanding of instructions given Anti-Coag Initial Assessment Social Hx Patient Tobacco Use Status: Never used Tobacco alcohol intake: never Coding Level of Care Code Est Patient Level 1 Diagnoses Current use of anticoagulant therapy Z79.01 Assessment & Plan Assessment & Plan (1) Current use of anticoagulant therapy: Code(s): Z79.01 - group home (current) use of anticoagulants Category: Medical
== END 2023-07-23 13:12 | disposition home or self-care (01) ==
LOC: HO.ACS 13:01
PROVIDERS: PCP Internal Medicine; Visit Provider Internal Medicine
DX: Z79.01 Long term (current) use of anticoagulants (principal)

== ENCOUNTER → 2023-07-23 13:01 | Outpatient (BNVA) | payer MEDICARE, SELFPAY | PROVIDERS: PCP Internal Medicine; Visit Provider Internal Medicine | DX: I26.99 Other pulmonary embolism without acute cor pulmonale (principal); Z51.81 Encounter for therapeutic drug level monitoring; Z79.01 Long term (current) use of anticoagulants | CPT/HCPCS: 85610; 99211 ==

== ENCOUNTER 2023-09-07 11:17 | Outpatient (AMB) | payer MEDICARE, SELFPAY ==
[2023-09-07 11:25] LABS: Prothrombin Time Whole Bld POC 36.4 sec (11.1-13.5)
--- NOTE | 2023-09-07 11:29 | MHC.OFFVISCO ---
Intake Intake Visit Reasons: Anticoagulation Allergies No Known Allergies Allergy (Mild, Verified 09/07/23 11:18) N/A Medication List - Last Reconciled 09/07/23 by Cintia Singh RN cetirizine 10 mg PO DAILY ergocalciferol (vitamin D2) PO erythromycin ophthalmic (eye) fluticasone propionate 50 mcg/actuation 1 spray intranasal DAILY folic acid 1 mg PO DAILY hydrochlorothiazide 12.5 mg PO DAILY insulin lispro subcut lisinopril 5 mg PO DAILY loperamide 4 mg PO BID melatonin 10 mg PO BEDTIME PRN 90 days metformin 1,000 mg PO BID omeprazole 20 mg PO DAILY pregabalin 150 mg PO BID simvastatin 10 mg PO BEDTIME tamsulosin 0.8 mg PO DAILY tramadol 50 mg PO Q6H PRN warfarin 2.5 mg See Protocol PO DAILY warfarin 5 mg See Protocol PO DAILY Nursing Note Amb to [facility] feeling well has not been here since 07/22, sts he is retired but started a job to help pay for his diabetes medications and has had some issues with a neighbor and was unable to make scheduled appointment Medications and supplements reviewed No other changes in health, diet, medications, or supplements, Denies any signs and symptoms of bleeding, bruising or clotting. 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
== END 2023-09-07 11:38 | disposition home or self-care (01) ==
LOC: HO.ACS 11:17
PROVIDERS: PCP Internal Medicine; Visit Provider Internal Medicine
DX: Z79.01 Long term (current) use of anticoagulants (principal)

== ENCOUNTER → 2023-09-07 11:17 | Outpatient (BNVA) | payer MEDICARE, SELFPAY | PROVIDERS: PCP Internal Medicine; Visit Provider Internal Medicine | DX: I26.99 Other pulmonary embolism without acute cor pulmonale (principal); Z79.01 Long term (current) use of anticoagulants; Z51.81 Encounter for therapeutic drug level monitoring | CPT/HCPCS: 85610; 99211 ==

== ENCOUNTER 2023-10-08 10:46 | Outpatient (AMB) | payer MEDICARE, SELFPAY ==
[2023-10-08 11:05] LABS: Prothrombin Time Whole Bld POC 38.5 sec (11.1-13.5); ~PT, ~INR - Anti Coag Clinic 3.2 (0.9-1.1)
--- NOTE | 2023-10-08 11:15 | MHC.OFFVISCO ---
Intake Intake Visit Reasons: Anticoagulation Allergies No Known Allergies Allergy (Mild, Verified 10/08/23 10:49) N/A Medication List - Last Reconciled 10/08/23 by Itzel Staley RN cetirizine 10 mg PO DAILY ergocalciferol (vitamin D2) PO erythromycin ophthalmic (eye) fluticasone propionate 50 mcg/actuation 1 spray intranasal DAILY folic acid 1 mg PO DAILY hydrochlorothiazide 12.5 mg PO DAILY insulin lispro subcut lisinopril 5 mg PO DAILY loperamide 4 mg PO BID melatonin 10 mg PO BEDTIME PRN 90 days metformin 1,000 mg PO BID omeprazole 20 mg PO DAILY pregabalin 150 mg PO BID simvastatin 10 mg PO BEDTIME tamsulosin 0.8 mg PO DAILY tramadol 50 mg PO Q6H PRN warfarin 2.5 mg See Protocol PO DAILY warfarin 5 mg See Protocol PO DAILY Nursing Note INR: 3.2 ALMOST in therapeutic range Medications and supplements reviewed No changes in health, diet, medications, or supplements, Denies any signs and symptoms of bleeding or bruising or clotting. Bleeding, bruising, clotting discussed Nutritional guidance given - ENC TO EAT COOKED GREENS TO LOWER THE INR MORE Dose: 7.5MG X 3 DAYS/ 5MG X 4 DAYS F/U INR: 4 WEEKS Patient verbalizes understanding of instructions given Anti-Coag Initial Assessment Social Hx Patient Tobacco Use Status: Never used Tobacco alcohol intake: never Questionnaires HAS-BLED Does the patient had uncontrolled Hypertension?: No Does the patient have renal disease?: Yes Does the patient have liver disease?: No Does the patient have a history of stroke?: No Has the patient had major bleeding or predisposition to bleeding?: No Does the patient have labile INRs?: Yes Is the patient over 65 years of age?: Yes Is the patient on medications that gives them a predisposition to bleeding?: Yes Does the patient use alcohol?: No HAS-BLED Score: 4 CHADSVASC Age: 66-74 Gender: Male Does the patient have a history of CHF?: No Does the patient have a history of Hypertension?: Yes Does the patient have a history of Stroke/TIA/Thromboembolism?: Yes Does the patient have a history of Vascular Disease (prior AK, PAD or aortic plaque)?: No Does the patient have a history of Diabetes?: Yes CHADS VACS Score: 5 Bashir Prediction Score Rsk VTE Active Cancer: No Previous VTE, excluding superficial vein thrombosis: Yes Reduced mobility: No Already known Thrombophilic Condition: Yes With-in last month Trauma and/or Surgery: No Elderly 70 year or older: Yes Heart and/or Respiratory Failure: No Acute Myocardial infarction and/or Ischemic Stroke: No Acute Infection and/or Rheumatologic Disorder: No Obesity (BMI 30 or greater): No Ongoing Hormonal Treatment: No Score: 7 Bashir Score less than 4; Low Risk of VTE Bashir Score 4 or greater; High Risk of VTE Coding Level of Care Code Est Patient Level 1 Diagnoses Current use of anticoagulant therapy Z79.01 Results AMB INR Fingerstick AMB INR Fingerstick 3.2 Last Edit by Itzel Staley RN on 10/08/23 11:05 MANAUL ENTRY Assessment & Plan Assessment & Plan (1) Current use of anticoagulant therapy: Code(s): Z79.01 - emt intermediate (current) use of anticoagulants Category: Medical
== END 2023-10-08 11:25 | disposition home or self-care (01) ==
LOC: HO.ACS 10:46
PROVIDERS: PCP Internal Medicine; Visit Provider Internal Medicine
DX: Z79.01 Long term (current) use of anticoagulants (principal)

== ENCOUNTER → 2023-10-08 10:46 | Outpatient (BNVA) | payer MEDICARE, SELFPAY | PROVIDERS: PCP Internal Medicine; Visit Provider Internal Medicine | DX: I26.99 Other pulmonary embolism without acute cor pulmonale (principal); Z79.01 Long term (current) use of anticoagulants; Z51.81 Encounter for therapeutic drug level monitoring | CPT/HCPCS: 85610; 99211 ==

== ENCOUNTER 2023-11-09 11:00 | Outpatient (AMB) | payer MEDICARE, SELFPAY ==
[2023-11-09 11:08] LABS: Prothrombin Time Whole Bld POC 38.8 sec (11.1-13.5); ~PT, ~INR - Anti Coag Clinic 3.2 (0.9-1.1)
--- NOTE | 2023-11-09 11:08 | MHC.OFFVISCO ---
Intake Intake Visit Reasons: Anticoagulation Allergies No Known Allergies Allergy (Mild, Verified 11/09/23 11:03) N/A Medication List - Last Reconciled 11/09/23 by Macey Riley RN cetirizine 10 mg PO DAILY ergocalciferol (vitamin D2) PO erythromycin ophthalmic (eye) fluticasone propionate 50 mcg/actuation 1 spray intranasal DAILY folic acid 1 mg PO DAILY hydrochlorothiazide 12.5 mg PO DAILY insulin lispro subcut lisinopril 5 mg PO DAILY loperamide 4 mg PO BID melatonin 10 mg PO BEDTIME PRN 90 days metformin 1,000 mg PO BID omeprazole 20 mg PO DAILY pregabalin 150 mg PO BID simvastatin 10 mg PO BEDTIME tamsulosin 0.8 mg PO DAILY tramadol 50 mg PO Q6H PRN warfarin 2.5 mg See Protocol PO DAILY warfarin 5 mg See Protocol PO DAILY Nursing Note INR 3.2-? out of therapeutic range of 2-3 Medications and supplements reviewed Patient status: no c.o Medications or supplements: no changes Diet: same Denies any signs and symptoms of bleeding or clotting or unusual bruising Bleeding, bruising, clotting discussed Nutritional guidance given: food list provided and reviewed with pt- increase greens in weekly diet Dose: 7.5mg x 3, 5mg x 4 F/U INR Date : 3 weeks? Patient verbalizing understanding of instructions given. Anti-Coag Initial Assessment Social Hx Patient Tobacco Use Status: Never used Tobacco alcohol intake: never Coding Level of Care Code Est Patient Level 1 Diagnoses Current use of anticoagulant therapy Z79.01 Assessment & Plan Assessment & Plan (1) Current use of anticoagulant therapy: Code(s): Z79.01 - termite control technician (current) use of anticoagulants Category: Medical
== END 2023-11-09 11:17 | disposition home or self-care (01) ==
PROVIDERS: PCP Internal Medicine; Visit Provider Internal Medicine
DX: Z79.01 Long term (current) use of anticoagulants (principal)

== ENCOUNTER → 2023-11-09 11:00 | Outpatient (BNVA) | payer MEDICARE, SELFPAY | PROVIDERS: PCP Internal Medicine; Visit Provider Internal Medicine | DX: I26.99 Other pulmonary embolism without acute cor pulmonale (principal); Z79.01 Long term (current) use of anticoagulants; Z51.81 Encounter for therapeutic drug level monitoring | CPT/HCPCS: 85610; 99211 ==

== ENCOUNTER 2023-12-04 11:01 | Outpatient (AMB) | payer MEDICARE, SELFPAY ==
--- NOTE | 2023-12-04 11:06 | MHC.OFFVISCO ---
Intake Intake Visit Reasons: Anticoagulation Allergies No Known Allergies Allergy (Mild, Verified 12/04/23 11:02) N/A Medication List - Last Reconciled 12/04/23 by Macey Riley RN cetirizine 10 mg PO DAILY ergocalciferol (vitamin D2) PO erythromycin ophthalmic (eye) fluticasone propionate 50 mcg/actuation 1 spray intranasal DAILY folic acid 1 mg PO DAILY hydrochlorothiazide 12.5 mg PO DAILY insulin lispro subcut lisinopril 5 mg PO DAILY loperamide 4 mg PO BID melatonin 10 mg PO BEDTIME PRN 90 days metformin 1,000 mg PO BID omeprazole 20 mg PO DAILY pregabalin 150 mg PO BID simvastatin 10 mg PO BEDTIME tamsulosin 0.8 mg PO DAILY tramadol 50 mg PO Q6H PRN warfarin 2.5 mg See Protocol PO DAILY warfarin 5 mg See Protocol PO DAILY Nursing Note INR: 2.8- in therapeutic range of 2-3 Medications and supplements reviewed- no changes No changes in health, diet, medications, or supplements, Denies any signs and symptoms of bleeding or bruising or clotting. Bleeding, bruising, clotting discussed Nutritional guidance given Dose: 7.5mg x 3, 5mg x 4 F/U INR: pt req 4 week f/u Patient verbalizes understanding of instructions given Anti-Coag Initial Assessment Social Hx Patient Tobacco Use Status: Never used Tobacco alcohol intake: never Coding Level of Care Code Est Patient Level 1 Diagnoses Current use of anticoagulant therapy Z79.01 Assessment & Plan Assessment & Plan (1) Current use of anticoagulant therapy: Code(s): Z79.01 - assisted (current) use of anticoagulants Category: Medical
[2023-12-04 11:07] LABS: Prothrombin Time Whole Bld POC 33.4 sec (11.1-13.5); ~PT, ~INR - Anti Coag Clinic 2.8 (0.9-1.1)
== END 2023-12-04 11:13 | disposition home or self-care (01) ==
LOC: HO.ACS 11:01
PROVIDERS: PCP Internal Medicine; Visit Provider Internal Medicine
DX: Z79.01 Long term (current) use of anticoagulants (principal)

== ENCOUNTER → 2023-12-04 11:01 | Outpatient (BNVA) | payer MEDICARE, SELFPAY | PROVIDERS: PCP Internal Medicine; Visit Provider Internal Medicine | DX: I26.99 Other pulmonary embolism without acute cor pulmonale (principal); Z79.01 Long term (current) use of anticoagulants; Z51.81 Encounter for therapeutic drug level monitoring | CPT/HCPCS: 85610; 99211 ==

== ENCOUNTER 2023-12-18 11:45 | Outpatient (AMB) | payer MEDICARE, SELFPAY ==
[2023-12-18 11:47] VITALS: BP 118/60; PULSE 95; O2SAT 97; BMI 35.5
--- NOTE | 2023-12-18 11:47 | HO.NEPHOV ---
Vital Signs 12/18/23 11:47 Height 5 ft 6 in Weight 220 lb BMI 35.5 BP 118/60 Blood Pressure Location Lt brachial Position Sitting Pulse 95 Pulse Source Pulse Oximeter Pulse Oximetry (%) 97 Oxygen Delivery Method Room Air Intake Visit Reasons: Previous Patient/ Conf Monorail Helper Required: No Accompanied by: Self / Same As Patient Allergies No Known Allergies Allergy (Mild, Verified 12/18/23 11:52) N/A Medication List - Last Reconciled 12/18/23 by Neftaly Sorensen MD cetirizine 10 mg PO DAILY ergocalciferol (vitamin D2) PO DAILY erythromycin ophthalmic (eye) fluticasone propionate 50 mcg/actuation 1 spray intranasal DAILY folic acid 0.8 mg PO DAILY hydrochlorothiazide 12.5 mg PO DAILY insulin lispro subcut lisinopril 5 mg PO DAILY loperamide 4 mg PO BID magnesium glycinate 400 mg PO DAILY melatonin 10 mg PO BEDTIME PRN 90 days metformin 1,000 mg PO BID omeprazole 20 mg PO DAILY pregabalin 150 mg PO BID simvastatin 10 mg PO BEDTIME tamsulosin 0.8 mg PO DAILY tramadol 50 mg PO Q6H PRN warfarin 2.5 mg See Protocol PO DAILY warfarin 5 mg See Protocol PO DAILY HPI Comments Details: Fede is a 73-year-old man with history of hypertension diabetes mellitus and chronic kidney disease. He was usually in [facility] for a insect bite in his legs. He was asked to go for renal follow-up. He was seen by me for the last several years in my previous practice and he has decided to stay with me. He is unhappy with the care provided by the nurse practitioner at [facility] Surgical History History of knee replacement History of nasal septoplasty Hx of tonsillectomy H/O uvulectomy H/O hernia repair History of intestinal surgery Family History Father No problems noted. Mother No problems noted. Social History Household Members: Spouse Housing: House Alcohol intake: never Patient Tobacco Use Status: Never used Tobacco Physical Exam Vital Signs: Last Vital Signs Pulse 95 12/18/23 11:47 BP 118/60 12/18/23 11:47 Pulse Ox 97 12/18/23 11:47 Oxygen Delivery Method Room Air 12/18/23 11:47 BMI result Body Mass Index 35.5 Const General: comfortable; No acute distress Orientation/consciousness: patient oriented x3 Eyes General: appearance normal, both eyes and all related structures Visual John: normal visual john by confrontation Neck Neck: Yes supple and Yes no JVD Resp Effort & Inspection: normal respiratory effort and respiratory effort not decreased Auscultation: rhonchi Cardio Palpation: no palpable S3 and no palpable S4 Heart sounds: no rubs GI Inspection: Yes normal to inspection Palpation (GI): Soft to palpation Percussion: Yes normal to percussion Auscultation: normal bowel sounds General: Yes no CVA tenderness Back/Spine/Pelvis Back: no CVA tenderness Skin General skin exam: no petechiae and no purpura Neuro General: patient oriented x3 and no focal motor deficits Extrem General: No clubbing and No edema Results Reviewed Results Reviewed: Labs reviewed creatinine 1.2 Nephrology Results: No Data to Display Assessment & Plan Assessment & Plan (1) CKD (chronic kidney disease): Code(s): N18.9 - Chronic kidney disease, unspecified Category: Medical Plan 73-year-old man with CKD in a setting of longstanding diabetes mellitus hypertension. He has stage III CKD. Renal function stable. Goal is to slow the portion disease. Maintain blood pressure less than 130/80 and A1c less than 7%. Continue with Kentrell inhibitors for renal protection. He will benefit from SGLT2 inhibitors. I have encouraged him to stay on low-sodium diet. Continue to avoid nephrotoxic agents including NSAIDs. She will follow along with the team and monitor renal function as needed. Orders: Orders Complete Blood Count Auto Diff 3 Weeks N18.9 - Chronic kidney disease, unspecified UA and rflx microscopic 3 Weeks N18.9 - Chronic kidney disease, unspecified Creatinine Urine 3 Weeks N18.9 - Chronic kidney disease, unspecified Basic Metabolic Panel 3 Weeks N18.9 - Chronic kidney disease, unspecified Total Protein Urine Random 3 Weeks N18.9 - Chronic kidney disease, unspecified Coding Level of Care Code Est Pt Level 4 (20979) Diagnoses CKD (chronic kidney disease) N18.9
== END 2023-12-18 12:06 | disposition home or self-care (01) ==
PROVIDERS: PCP Internal Medicine; Visit Provider Internal Medicine Hypertension Specialist
DX: N18.9 Chronic kidney disease, unspecified (principal)
CPT/HCPCS: 99214

== ENCOUNTER → 2023-12-18 11:45 | Outpatient (BNVA) | payer MEDICARE, SELFPAY | PROVIDERS: PCP Internal Medicine; Visit Provider Internal Medicine Hypertension Specialist | DX: E11.22 Type 2 diabetes mellitus with diabetic chronic kidney disease (principal); I12.9 Hypertensive chronic kidney disease with stage 1 through stage 4 chronic kidney disease, or unspecified chronic kidney disease; N18.9 Chronic kidney disease, unspecified | CPT/HCPCS: 99212 ==

== ENCOUNTER 2024-01-01 11:03 | Outpatient (AMB) | payer MEDICARE, SELFPAY ==
--- NOTE | 2024-01-01 11:12 | MHC.OFFVISCO ---
Intake Intake Visit Reasons: Anticoagulation Allergies No Known Allergies Allergy (Mild, Verified 01/01/24 11:07) N/A Medication List - Last Reconciled 01/01/24 by Macey Riley RN cetirizine 10 mg PO DAILY ergocalciferol (vitamin D2) PO DAILY erythromycin ophthalmic (eye) fluticasone propionate 50 mcg/actuation 1 spray intranasal DAILY folic acid 0.8 mg PO DAILY hydrochlorothiazide 12.5 mg PO DAILY insulin lispro subcut lisinopril 5 mg PO DAILY loperamide 4 mg PO BID magnesium glycinate 400 mg PO DAILY melatonin 10 mg PO BEDTIME PRN 90 days metformin 1,000 mg PO BID omeprazole 20 mg PO DAILY pregabalin 150 mg PO BID simvastatin 10 mg PO BEDTIME tamsulosin 0.8 mg PO DAILY tramadol 50 mg PO Q6H PRN warfarin 2.5 mg See Protocol PO DAILY warfarin 5 mg See Protocol PO DAILY Nursing Note INR 3.5-? out of therapeutic range of 2-3 Medications and supplements reviewed Patient status: no c.o Medications or supplements: no changes, pt states finished antibiotics approx 2 weeks ago Diet: appetite is good Denies any signs and symptoms of bleeding or clotting or unusual bruising Bleeding, bruising, clotting discussed Nutritional guidance given: eat greens to lower inr, no reds for 2 days Dose: reduce today to 2.5mg then cont prev dosing 7.5mg x 3, 5mg x 4 F/U INR Date : pt ref earlier appt than 3 weeks? Patient verbalizing understanding of instructions given. Anti-Coag Initial Assessment Social Hx Patient Tobacco Use Status: Never used Tobacco alcohol intake: never Coding Level of Care Code Est Patient Level 1 Diagnoses Current use of anticoagulant therapy Z79.01 Results AMB INR Fingerstick AMB INR Fingerstick 3.5 Last Edit by Macey Riley RN on 01/01/24 11:14 interface delay Assessment & Plan Assessment & Plan (1) Current use of anticoagulant therapy: Code(s): Z79.01 - management scientist (current) use of anticoagulants Category: Medical
[2024-01-01 11:13] LABS: Prothrombin Time Whole Bld POC 41.5 sec (11.1-13.5); ~PT, ~INR - Anti Coag Clinic 3.5 (0.9-1.1)
== END 2024-01-01 11:22 | disposition home or self-care (01) ==
LOC: HO.ACS 11:03
PROVIDERS: PCP Internal Medicine; Visit Provider Internal Medicine
DX: Z79.01 Long term (current) use of anticoagulants (principal)

== ENCOUNTER → 2024-01-01 11:03 | Outpatient (BNVA) | payer MEDICARE, SELFPAY | PROVIDERS: PCP Internal Medicine; Visit Provider Internal Medicine | DX: I26.99 Other pulmonary embolism without acute cor pulmonale (principal); Z79.01 Long term (current) use of anticoagulants; Z51.81 Encounter for therapeutic drug level monitoring | CPT/HCPCS: 85610; 99211 ==

== ENCOUNTER 2024-01-22 11:05 | Outpatient (AMB) | payer MEDICARE, SELFPAY ==
[2024-01-22 11:11] LABS: Prothrombin Time Whole Bld POC 34.4 sec (11.1-13.5); ~PT, ~INR - Anti Coag Clinic 2.9 (0.9-1.1)
--- NOTE | 2024-01-22 11:11 | MHC.OFFVISCO ---
Intake Intake Visit Reasons: Anticoagulation Allergies No Known Allergies Allergy (Mild, Verified 01/22/24 11:06) N/A Medication List - Last Reconciled 01/22/24 by Macey Riley RN cetirizine 10 mg PO DAILY ergocalciferol (vitamin D2) PO DAILY erythromycin ophthalmic (eye) fluticasone propionate 50 mcg/actuation 1 spray intranasal DAILY folic acid 0.8 mg PO DAILY hydrochlorothiazide 12.5 mg PO DAILY insulin lispro subcut lisinopril 5 mg PO DAILY loperamide 4 mg PO BID magnesium glycinate 400 mg PO DAILY melatonin 10 mg PO BEDTIME PRN 90 days metformin 1,000 mg PO BID omeprazole 20 mg PO DAILY pregabalin 150 mg PO BID simvastatin 10 mg PO BEDTIME tamsulosin 0.8 mg PO DAILY tramadol 50 mg PO Q6H PRN warfarin 2.5 mg See Protocol PO DAILY warfarin 5 mg See Protocol PO DAILY Nursing Note INR: 2.9- in therapeutic range of 2-3 Medications and supplements reviewed No changes in health, diet, medications, or supplements, Denies any signs and symptoms of bleeding or bruising or clotting. Bleeding, bruising, clotting discussed Nutritional guidance given Dose: 7.5mg x 3, 5mg x 4 F/U INR: pt req 4 weeks Patient verbalizes understanding of instructions given Anti-Coag Initial Assessment Social Hx Patient Tobacco Use Status: Never used Tobacco alcohol intake: never Coding Level of Care Code Est Patient Level 1 Diagnoses Current use of anticoagulant therapy Z79.01 Assessment & Plan Assessment & Plan (1) Current use of anticoagulant therapy: Code(s): Z79.01 - oil heaterman (current) use of anticoagulants Category: Medical
== END 2024-01-22 11:19 | disposition home or self-care (01) ==
LOC: HO.ACS 11:05
PROVIDERS: PCP Internal Medicine; Visit Provider Internal Medicine
DX: Z79.01 Long term (current) use of anticoagulants (principal)

== ENCOUNTER → 2024-01-22 11:05 | Outpatient (BNVA) | payer MEDICARE, SELFPAY | PROVIDERS: PCP Internal Medicine; Visit Provider Internal Medicine | DX: I26.99 Other pulmonary embolism without acute cor pulmonale (principal); Z79.01 Long term (current) use of anticoagulants; Z51.81 Encounter for therapeutic drug level monitoring | CPT/HCPCS: 85610; 99211 ==

== ENCOUNTER 2024-02-19 11:01 | Outpatient (AMB) | payer MEDICARE, SELFPAY ==
[2024-02-19 11:09] LABS: Prothrombin Time Whole Bld POC 30.8 sec (11.1-13.5); ~PT, ~INR - Anti Coag Clinic 2.6 (0.9-1.1)
--- NOTE | 2024-02-19 11:14 | MHC.OFFVISCO ---
Intake Intake Visit Reasons: Anticoagulation Allergies No Known Allergies Allergy (Mild, Verified 02/19/24 11:04) N/A Medication List - Last Reconciled 02/19/24 by Cintia Martel RN cetirizine 10 mg PO DAILY ergocalciferol (vitamin D2) PO DAILY erythromycin ophthalmic (eye) fluticasone propionate 50 mcg/actuation 1 spray intranasal DAILY folic acid 0.8 mg PO DAILY hydrochlorothiazide 12.5 mg PO DAILY insulin lispro subcut lisinopril 5 mg PO DAILY loperamide 4 mg PO BID magnesium glycinate 400 mg PO DAILY melatonin 10 mg PO BEDTIME PRN 90 days metformin 1,000 mg PO BID omeprazole 20 mg PO DAILY pregabalin 150 mg PO BID simvastatin 10 mg PO BEDTIME tamsulosin 0.8 mg PO DAILY tramadol 50 mg PO Q6H PRN warfarin 2.5 mg See Protocol PO DAILY warfarin 5 mg See Protocol PO DAILY Nursing Note INR: 2.6 in therapeutic range of 2-3 Medications and supplements reviewed No changes in health, diet, medications, or supplements, Denies any signs and symptoms of bleeding or bruising or clotting. Bleeding, bruising, clotting discussed Nutritional guidance given Dose: 5mg X 4 and 7.5mg X 3 F/U INR: 4 weeks Patient verbalizes understanding of instructions given Anti-Coag Initial Assessment Social Hx Patient Tobacco Use Status: Never used Tobacco alcohol intake: never Coding Level of Care Code Est Patient Level 1 Diagnoses Current use of anticoagulant therapy Z79.01 Assessment & Plan Assessment & Plan (1) Current use of anticoagulant therapy: Code(s): Z79.01 - manager terminal (current) use of anticoagulants Category: Medical
== END 2024-02-19 11:21 | disposition home or self-care (01) ==
LOC: HO.ACS 11:01
PROVIDERS: PCP Internal Medicine; Visit Provider Internal Medicine
DX: Z79.01 Long term (current) use of anticoagulants (principal)

== ENCOUNTER → 2024-02-19 11:01 | Outpatient (BNVA) | payer MEDICARE, SELFPAY | PROVIDERS: PCP Internal Medicine; Visit Provider Internal Medicine | DX: I26.99 Other pulmonary embolism without acute cor pulmonale (principal); Z79.01 Long term (current) use of anticoagulants; Z51.81 Encounter for therapeutic drug level monitoring | CPT/HCPCS: 85610; 99211 ==

== ENCOUNTER 2024-03-24 11:18 | Outpatient (AMB) | payer MEDICARE, SELFPAY ==
[2024-03-24 11:32] LABS: Prothrombin Time Whole Bld POC 37.5 sec (11.1-13.5); ~PT, ~INR - Anti Coag Clinic 3.1 (0.9-1.1)
--- NOTE | 2024-03-24 11:37 | MHC.OFFVISCO ---
Intake Intake Visit Reasons: Anticoagulation Allergies No Known Allergies Allergy (Mild, Verified 03/24/24 11:19) N/A Medication List - Last Reconciled 03/24/24 by Cintia Martel RN cetirizine 10 mg PO DAILY ergocalciferol (vitamin D2) PO DAILY erythromycin ophthalmic (eye) fluticasone propionate 50 mcg/actuation 1 spray intranasal DAILY folic acid 0.8 mg PO DAILY hydrochlorothiazide 12.5 mg PO DAILY insulin lispro subcut lisinopril 5 mg PO DAILY loperamide 4 mg PO BID magnesium glycinate 400 mg PO DAILY melatonin 10 mg PO BEDTIME PRN 90 days metformin 1,000 mg PO BID omeprazole 20 mg PO DAILY pregabalin 150 mg PO BID simvastatin 10 mg PO BEDTIME tamsulosin 0.8 mg PO DAILY tramadol 50 mg PO Q6H PRN warfarin 2.5 mg See Protocol PO DAILY warfarin 5 mg See Protocol PO DAILY Nursing Note INR 3.1?out of therapeutic range of 2-3 Medications and supplements reviewed Patient status: well Medications or supplements: no changes Diet: usual diet for pt Denies any signs and symptoms of bleeding or clotting or unusual bruising Bleeding, bruising, clotting discussed Nutritional guidance given: to have a serving of greens today Dose: continue same dose of 5mg X 4 days and 7.5mg X 3 days F/U INR Date : 4 weeks Patient verbalizing understanding of instructions given. Anti-Coag Initial Assessment Social Hx Patient Tobacco Use Status: Never used Tobacco alcohol intake: never Coding Level of Care Code Est Patient Level 1 Diagnoses Current use of anticoagulant therapy Z79.01 Results AMB INR Fingerstick AMB INR Fingerstick 3.1 Last Edit by Cintia Martel RN on 03/24/24 11:24 interface delay Assessment & Plan Assessment & Plan (1) Current use of anticoagulant therapy: Code(s): Z79.01 - termite control service representative (current) use of anticoagulants Category: Medical
== END 2024-03-24 11:41 | disposition home or self-care (01) ==
LOC: HO.ACS 11:18
PROVIDERS: PCP Internal Medicine; Visit Provider Internal Medicine
DX: Z79.01 Long term (current) use of anticoagulants (principal)

== ENCOUNTER → 2024-03-24 11:18 | Outpatient (BNVA) | payer MEDICARE, SELFPAY | PROVIDERS: PCP Internal Medicine; Visit Provider Internal Medicine | DX: I26.99 Other pulmonary embolism without acute cor pulmonale (principal); Z79.01 Long term (current) use of anticoagulants; Z51.81 Encounter for therapeutic drug level monitoring | CPT/HCPCS: 85610; 99211 ==

== ENCOUNTER 2024-03-28 11:26 | Outpatient (AMB) | payer MEDICARE, SELFPAY ==
--- NOTE | 2024-03-28 11:46 | MHC.OFFVISCO ---
Intake Intake Visit Reasons: Anticoagulation Allergies No Known Allergies Allergy (Mild, Verified 03/28/24 11:27) N/A Medication List - Last Reconciled 03/28/24 by Itzel Staley RN cetirizine 10 mg PO DAILY ergocalciferol (vitamin D2) PO DAILY erythromycin ophthalmic (eye) fluticasone propionate 50 mcg/actuation 1 spray intranasal DAILY folic acid 0.8 mg PO DAILY hydrochlorothiazide 12.5 mg PO DAILY insulin lispro subcut lisinopril 5 mg PO DAILY loperamide 4 mg PO BID magnesium glycinate 400 mg PO DAILY melatonin 10 mg PO BEDTIME PRN 90 days metformin 1,000 mg PO BID omeprazole 20 mg PO DAILY pregabalin 150 mg PO BID simvastatin 10 mg PO BEDTIME tamsulosin 0.8 mg PO DAILY tramadol 50 mg PO Q6H PRN warfarin 2.5 mg See Protocol PO DAILY warfarin 5 mg See Protocol PO DAILY Nursing Note INR: 2.5 in therapeutic range Medications and supplements reviewed- NO CHANGES IN MEDS PT HAD HEMATURIA YESTERDAY LATER AFTER CUTTING BRANCHES- HE CALLED HIS PCP AND UROLOGIST WARFARIN IS BEING HELD BY MD X 2 WEEKS - AND TO HAVE CYSTOSCOPY DUE TO HX OF DVT AND PE PT ENC TO CALL MD BACK AND ASK IF OK TO START WARFARIN BACK IF NO BLEEDING 24-48 HOURS EXPLAINING THAT BLEEDING MAY HAVE BEEN CAUSED BY HEAVY LIFTING/ He was still enc to have the cystoscopy to make sure everything ok. Denies any signs and symptoms of bleeding or bruising or clotting. Bleeding, bruising, clotting discussed Nutritional guidance given Dose: WARFARIN ON HOLD PER MD IF RESUMES ENC TO START 5MG DAILY THEN IF NO BLEEDING RESUME USUAL DOSE 7.5MG X 3 DAYS/ 5MG X 4 DAYS F/U INR: 04/21/24 TENTATIVE DATE - OR PRN WHEN RESUME WARFARIN OR FOR PRIOR PROCEDURE Patient verbalizes understanding of instructions given Anti-Coag Initial Assessment Social Hx Patient Tobacco Use Status: Never used Tobacco alcohol intake: never Coding Level of Care Code Est Patient Level 1 Diagnoses Current use of anticoagulant therapy Z79.01 Results AMB INR Fingerstick AMB INR Fingerstick 2.5 Last Edit by Itzel Staley RN on 03/28/24 11:35 MANUAL ENTRY Assessment & Plan Assessment & Plan (1) Current use of anticoagulant therapy: Code(s): Z79.01 - detention (current) use of anticoagulants Category: Medical
[2024-03-28 12:34] LABS: Prothrombin Time Whole Bld POC 30.2 sec (11.1-13.5); ~PT, ~INR - Anti Coag Clinic 2.5 (0.9-1.1)
== END 2024-03-28 11:54 | disposition home or self-care (01) ==
LOC: HO.ACS 11:26
PROVIDERS: PCP Internal Medicine; Visit Provider Internal Medicine
DX: Z79.01 Long term (current) use of anticoagulants (principal)

== ENCOUNTER → 2024-03-28 11:26 | Outpatient (BNVA) | payer MEDICARE, SELFPAY | PROVIDERS: PCP Internal Medicine; Visit Provider Internal Medicine | DX: I26.99 Other pulmonary embolism without acute cor pulmonale (principal); Z79.01 Long term (current) use of anticoagulants; Z51.81 Encounter for therapeutic drug level monitoring | CPT/HCPCS: 85610; 99211 ==

== ENCOUNTER → 2024-04-14 10:15 | Outpatient (BNVA) | payer MEDICARE, SELFPAY | PROVIDERS: PCP Internal Medicine; Visit Provider Internal Medicine ==

== ENCOUNTER 2024-04-21 11:04 | Outpatient (AMB) | payer MEDICARE, SELFPAY ==
--- NOTE | 2024-04-21 11:09 | HO.NEPHOV_ITS ---
Vital Signs 04/21/24 11:10 Height 5 ft 6 in Weight 230 lb 2 oz BMI 37.1 BP 120/60 Blood Pressure Location Lt brachial Position Sitting Pulse 68 Pulse Source Pulse Oximeter Pulse Oximetry (%) 95 Oxygen Delivery Method Room Air Intake Visit Reasons: CKD/ LVM Turn Operator Required: No Accompanied by: Self / Same As Patient Allergies No Known Allergies Allergy (Mild, Verified 04/21/24 11:10) N/A Medication List - Last Reconciled 04/21/24 by Neftaly Sorensen MD cetirizine 10 mg PO DAILY ergocalciferol (vitamin D2) PO DAILY erythromycin ophthalmic (eye) fluticasone propionate 50 mcg/actuation 1 spray intranasal DAILY folic acid 0.8 mg PO DAILY hydrochlorothiazide 12.5 mg PO DAILY insulin lispro subcut lisinopril 5 mg PO DAILY loperamide 4 mg PO BID magnesium glycinate 400 mg PO DAILY melatonin 10 mg PO BEDTIME PRN 90 days metformin 1,000 mg PO BID omeprazole 20 mg PO DAILY pregabalin 150 mg PO BID simvastatin 10 mg PO BEDTIME tamsulosin 0.8 mg PO DAILY tramadol 50 mg PO Q6H PRN warfarin 2.5 mg See Protocol PO DAILY warfarin 5 mg See Protocol PO DAILY HPI Comments Details: Fede is a 73-year-old man with history of hypertension diabetes mellitus and chronic kidney disease. He was usually in [facility] for a insect bite in his legs. He was asked to go for renal follow-up. He was seen by me for the last several years in my previous practice and he has decided to stay with me. He is unhappy with the care provided by the nurse practitioner at [facility] 04/21/24 4 weeks ago he had hematuria Painless Underwent CT and Cystoscopy - reportedly normal Currently resolved [facility] Surgical History History of knee replacement History of nasal septoplasty Hx of tonsillectomy H/O uvulectomy H/O hernia repair History of intestinal surgery Family History Father No problems noted. Mother No problems noted. Social History Household Members: Spouse Housing: House Alcohol intake: never Patient Tobacco Use Status: Never used Tobacco Physical Exam Vital Signs: Last Vital Signs Pulse 68 04/21/24 11:10 BP 120/60 04/21/24 11:10 Pulse Ox 95 04/21/24 11:10 Oxygen Delivery Method Room Air 04/21/24 11:10 BMI result Body Mass Index 37.1 Comfortable Neck supple no JVD. Lungs entry equal no rales. Heart S1-S2 heard no gallop or rub. Abdomen soft nontender. Neuro alert awake oriented. No asterixis. Extremities no edema. Results Reviewed Results Reviewed: 04/01/24 Cr 1.21 Nephrology Results: No Data to Display Assessment & Plan Assessment & Plan (1) CKD (chronic kidney disease): Code(s): N18.9 - Chronic kidney disease, unspecified Category: Medical Plan 73-year-old man with CKD in a setting of longstanding diabetes mellitus hype rtension. He has stage III CKD. Renal function stable. Goal is to slow the portion disease. Maintain blood pressure less than 130/80 and A1c less than 7%. Continue with Kentrell inhibitors for renal protection. He will benefit from SGLT2 inhibitors. I have encouraged him to stay on low-sodium diet. Continue to avoid nephrotoxic agents including NSAIDs. I will follow along with the team and monitor renal function as needed. Orders: Orders Basic Metabolic Panel 4 Months N18.9 - Chronic kidney disease, unspecified Coding Level of Care Code Est Pt Level 4 (62095) Diagnoses CKD (chronic kidney disease) N18.9
[2024-04-21 11:10] VITALS: BP 120/60; PULSE 68; O2SAT 95; BMI 37.1
== END 2024-04-21 11:27 | disposition home or self-care (01) ==
PROVIDERS: PCP Internal Medicine; Visit Provider Internal Medicine Hypertension Specialist
DX: I12.9 Hypertensive chronic kidney disease with stage 1 through stage 4 chronic kidney disease, or unspecified chronic kidney disease (principal); E11.22 Type 2 diabetes mellitus with diabetic chronic kidney disease; N18.30 Chronic kidney disease, stage 3 unspecified
CPT/HCPCS: 99214

== ENCOUNTER → 2024-04-21 11:04 | Outpatient (BNVA) | payer MEDICARE, SELFPAY | PROVIDERS: PCP Internal Medicine; Visit Provider Internal Medicine Hypertension Specialist | DX: N18.9 Chronic kidney disease, unspecified (principal) | CPT/HCPCS: 99212 ==

== ENCOUNTER 2024-04-22 10:06 | Outpatient (AMB) | payer MEDICARE, SELFPAY ==
[2024-04-22 10:20] LABS: Prothrombin Time Whole Bld POC 22.9 sec (11.1-13.5); ~PT, ~INR - Anti Coag Clinic 1.9 (0.9-1.1)
--- NOTE | 2024-04-22 10:30 | MHC.OFFVISCO ---
Intake Intake Visit Reasons: Anticoagulation Allergies No Known Allergies Allergy (Mild, Verified 04/22/24 10:12) N/A Medication List - Last Reconciled 04/22/24 by Cleo Canales RN cetirizine 10 mg PO DAILY ergocalciferol (vitamin D2) PO DAILY erythromycin ophthalmic (eye) fluticasone propionate 50 mcg/actuation 1 spray intranasal DAILY folic acid 0.8 mg PO DAILY hydrochlorothiazide 12.5 mg PO DAILY insulin lispro subcut lisinopril 5 mg PO DAILY loperamide 4 mg PO BID magnesium glycinate 400 mg PO DAILY melatonin 10 mg PO BEDTIME PRN 90 days metformin 1,000 mg PO BID omeprazole 20 mg PO DAILY pregabalin 150 mg PO BID simvastatin 10 mg PO BEDTIME tamsulosin 0.8 mg PO DAILY tramadol 50 mg PO Q6H PRN warfarin 2.5 mg See Protocol PO DAILY warfarin 5 mg See Protocol PO DAILY Nursing Note PT.STATES THAT HE HAS HAD NO FURTHER HEMATURIA. HE WAS OFF WARFARIN FOR 2 WEEKS AND RESTARTED AT USUAL DOSE ON 04/10. PT.DENIES ANY CP,SOB ,MED CHANGES,FALLS OR FURTHER SX OF BLEEDING. BOOST TO 7.5MGM TODAY THEN RESUME USUAL DOSE AND FOLLOW-UP IN 4 WEEKS(PT.REFUSES SOONER APPT.DUE TO FINANCIAL CONCERNS AND CO-PAYS) GOOD UNDERSTANDING OF DOSING INSTR. TO CALL [facility] IF ANY QUESTIONS/CONCERNS ARISE. Anti-Coag Initial Assessment Social Hx Patient Tobacco Use Status: Never used Tobacco alcohol intake: never Coding Level of Care Code Est Patient Level 1 Diagnoses Current use of anticoagulant therapy Z79.01 Assessment & Plan Assessment & Plan (1) Current use of anticoagulant therapy: Code(s): Z79.01 - terminal gauger (current) use of anticoagulants Category: Medical
== END 2024-04-22 10:48 | disposition home or self-care (01) ==
LOC: HO.ACS 10:06
PROVIDERS: PCP Internal Medicine; Visit Provider Internal Medicine
DX: Z79.01 Long term (current) use of anticoagulants (principal)

== ENCOUNTER → 2024-04-22 10:06 | Outpatient (BNVA) | payer MEDICARE, SELFPAY | PROVIDERS: PCP Internal Medicine; Visit Provider Internal Medicine | DX: I26.99 Other pulmonary embolism without acute cor pulmonale (principal); Z79.01 Long term (current) use of anticoagulants; Z51.81 Encounter for therapeutic drug level monitoring | CPT/HCPCS: 85610; 99211 ==

== ENCOUNTER 2024-05-20 11:00 | Outpatient (AMB) | payer MEDICARE, SELFPAY ==
[2024-05-20 11:09] LABS: Prothrombin Time Whole Bld POC 35.2 sec (11.1-13.5); ~PT, ~INR - Anti Coag Clinic 2.9 (0.9-1.1)
--- NOTE | 2024-05-20 11:10 | MHC.OFFVISCO ---
Intake Intake Visit Reasons: Anticoagulation Allergies No Known Allergies Allergy (Mild, Verified 05/20/24 11:03) N/A Medication List - Last Reconciled 05/20/24 by Cintia Singh RN cetirizine 10 mg PO DAILY ergocalciferol (vitamin D2) PO DAILY fluticasone propionate 50 mcg/actuation 1 spray intranasal DAILY folic acid 0.8 mg PO DAILY hydrochlorothiazide 12.5 mg PO DAILY insulin lispro subcut lisinopril 5 mg PO DAILY loperamide 4 mg PO BID magnesium glycinate 400 mg PO DAILY melatonin 10 mg PO BEDTIME PRN 90 days metformin 1,000 mg PO BID omeprazole 20 mg PO DAILY pregabalin 150 mg PO BID simvastatin 10 mg PO BEDTIME tamsulosin 0.8 mg PO DAILY tramadol 50 mg PO Q6H PRN warfarin 2.5 mg See Protocol PO DAILY warfarin 5 mg See Protocol PO DAILY Nursing Note Amb to [facility] feeling well Medications and supplements reviewed No changes in health, diet, medications, or supplements, Denies any signs and symptoms of bleeding, bruising, or clotting. Bleeding, bruising, clotting discussed Nutritional guidance given INR: 2.9 in therapeutic range Dose: continue usual dosing 7.5mg x 3 days and 5mg x 4 days balancce greens and reds in diet, be consistent F/U INR: 4 weeks Patient verbalizes understanding of instructions given Anti-Coag Initial Assessment Social Hx Patient Tobacco Use Status: Never used Tobacco alcohol intake: never Coding Level of Care Code Est Patient Level 1 Diagnoses Current use of anticoagulant therapy Z79.01 Time Spent (min) 15 Assessment & Plan Assessment & Plan (1) Current use of anticoagulant therapy: Code(s): Z79.01 - terminal clerk (current) use of anticoagulants Category: Medical
--- OUTSIDE RECORDS SUMMARY | 2024-05-20 12:14 | XMS_ITS | Clinical Summary ---
Author Organization [address] [facility] Address [address] [place] [address] Phone Care Team Providers Care Hamper Maker Name Role Phone Unavailable Primary Care Provider Unavailabl e Encounters Date Type Department Care Team Description 04/03/2024 Lab Requisition [facility] - Main Lab [address] [facility] [place] [address] Edvin Pham PA Gross hematuria from Last 3 Months Surgical History Surgery Date Site/Laterality Comments OTHER SURGICAL HISTORY PROCEDURE: MD UVULECTOMY EXCISION UVULA; COMMENT: for sleep apnea Medical History Medical History Date Comments Unspecified sleep apnea 01/16/2006 DX:Unspe cified sleep apnea Other chronic sinusitis 01/16/2006 DX:Other chronic sinusitis Family History Medical History Relation Name Comments Diabetes Maternal Grandfather Other cancer Mother cancer of uteru s Relation Name Status Comments Maternal Grandfather Mother Social History Tobacco Use Types Packs/Day Years Used Date Smoking Tobacco: Never Alcohol Use Standard Drinks/Week Comments Not Asked 0 (1 standard drink = 0.6 oz pur e alcohol) Sex and Gender Information Value Date Recorded Sex Assigned at Not on file Gender Identity Not on file Sexual Orientation Not on file Obstetrics History Plan of Treatment Health Maintenance Due Date Last Done Comments Diabetes: Annual GFR (Glomer ular Filtration Rate) 1952 Diabetes: Annual Foot Exam 01/22/1962 Diabetes: Annual Retina Eye Exam 01/22/1962 DTaP,Tdap,and Td Vaccines (1 - Tdap) 01/22/1971 Zoster Vaccines (1 of 2) 01/22/2002 Pneumococcal Vaccine: 65+ Ye ars (2 of 2 - PCV) 01/22/2017 03/20/2003 Abdominal Aortic Aneurysm (A AA) Screen 03/22/2022 Cholesterol Screening (Lipid Panel) 03/22/2022 Colorectal Cancer Screening: Colonoscopy 03/22/2022 Depression Screening 03/22/2022 Falls Risk Assessment 03/22/2022 Hepatitis C Screening 03/22/2022 Medicare Annual Wellness Visit 03/22/2022 Social Influencers of Health Screening 03/22/2022 Diabetes: Annual Urine Albumin-Creatinine Ratio (uACR) 04/06/2022 Diabetes: Blood Sugar Contro l Test (HGBA1C) 04/06/2022 COVID-19 Vaccine ( - 2023-2 5 season) 2023 Influenza Vaccine (#1) 2023 RSV Immunization Patients 60 + Years Old (1 - 1-dose 75+ series) 01/22/2027 HIB Vaccines Aged Out No longer eligi ble based on patient's age to complete this topic HPV Vaccines Aged Out No longer eligi ble based on patient's age to complete this topic Hepatitis A Vaccines Aged Out No long er eligible based on patient's age to complete this topic Hepatitis B Vaccines Aged Out No long er eligible based on patient's age to complete this topic IPV Vaccines Aged Out No longer eligi ble based on patient's age to complete this topic MMR Vaccines Aged Out No longer eligi ble based on patient's age to complete this topic Meningococcal ACWY Vaccine Aged Out N o longer eligible based on patient's age to complete this topic RSV Immunization Patients Un angelito 20 months Aged Out No longer eligible b ased on patient's age to complete this topic Varicella Vaccines Aged Out No longer eligible based on patient's age to complete this topic Procedures Procedure Name Priority Date/Time Associated Diagnosis Comments AP OUTSIDE CONSULT Routine 03/27/2024 12 :00 AM EST Gross hematuria from Last 3 Months Results * Anatomic pathology outside consult (03/27/2024 12:00 AM EST) Addendum Results of UroVysion fluorescence in situ hybridization (FISH) testing: CEP3: Normal CEP7: Normal CEP17: Normal LSI 9p21: Normal Interpretation: Normal profile Controls stained appropriately. Note: The results are intended as a screening device and should be interpreted in association with other clinical and pathological findings. 04/21/2024 4:03 PM EST [facility] Addendum electronically signed by Becky Christian MD on 04/21/2024 at 4:03 PM Final Diagnosis Urine, Voided ([id number]): Negative for high grade urothelial carcinoma. Note: UroVysion testing to follow. 04/21/2024 4:03 PM EST [facility] Clinical Information [id number] Urine cytology/urine FISH 04/21/2024 4:03 PM [facility] Gross Description A. Urine, Voided, : [id number] RECD 1 TP CYTO 1 TP FISH. 04/21/2024 4:03 PM [facility] Disclaimer Unless otherwise specified, all tissue is 10% NB formalin fixed and paraffin embedded. Technical pathology services provided by [facility] [address] [address] (CLIA #[id number] Pittman MD, Consumer Safety Inspector) 04/21/2024 4:03 PM [facility] Tissue Urine specimen from urethra / Unknown 03/27/2024 04/03/2024 1:33 PM EST Edvin LYNCH LAB PATHOLOGY ORDERABLES [facility] [address] [place] [address], from Last 3 Months
--- OUTSIDE RECORDS SUMMARY | 2024-05-20 12:14 | XMS_ITS ---
[facility] Address [address] [facility] [place] [address] Care Team Providers Care Product Safety Compliance Leader Name Role Phone Dallin Flores Primary Care Provider Stefan Heller Unavailable [phone] Ruchi Castro Unavailable [phone] Allergies No Known Allergies REASON FOR VISIT At Risk Footcare Medications Medication SIG (Take, Route, Frequency, Duration) Notes Start Date End Date Status Pregabalin Not-Magdalene faustin Work Note . . . return to work o n 01/23/19 01/14/2019 Not-Taking Extra Depth Orthopedic Shoes (1 Pair) with Customized Heat Molded Multidensity Innersoles (3 Pair) as directed Dx: IDDM/Polyneuropathy (E10.42), Hammertoe Foot Deformity (M20.41,M20.42), Preulcerative Skin Lesion(s) (L85.1) 01/14/2019 Not-Taking Warfarin Sodium 5 MG 1 tablet Orally Onc e a day for 30 day(s) Not-Taking Simvastatin 10 MG 1 tablet in the even ing Orally Once a day for 30 day(s) Not-Taking Omeprazole 20 MG 1 capsule Orally Onc e a day for 30 day(s) Not-Taking metFORMIN HCl 1000 MG 1 tablet with a me al Orally Once a day for 30 day(s) 01/01/2019 Not-Taking Loperamide HCl 2 MG 1 tablet as needed Orally Four times a day 01/01/2019 Not-Sheela hunter amLODIPine Besy-Benazepril HCl 2.5-10 MG as directed Orally Not-Magdalene faustin Custom Orthotics as directed A ctive amLODIPine Besylate 2.5 MG 1 tablet Orally Once a day for 30 day(s) Active Insulin pump Active Folic Acid 1 MG 1 tablet Orally Once a day for 30 day(s) Not-Taking Lisinopril 10 MG 1 tablet Orally Once a day for 30 day(s) 01/01/2019 Not-Taking Clindamycin HCl Acti ve Warfarin Sodium 2.5 MG 1 tablet Orally O nce a day for 30 day(s) Active Folic Acid 1 MG 1 tablet Orally Once a day for 30 day(s) Active Simvastatin 10 MG 1 tablet in the even ing Orally Once a day for 30 day(s) Active Omeprazole 20 MG 1 capsule Orally Onc e a day for 30 day(s) Active Lisinopril 10 MG 1 tablet Orally Once a day for 30 day(s) Active Pregabalin 150 MG 1 capsule Orally Onc e a day Active Loperamide HCl 2 MG 1 tablet as needed Orally Four times a day Active metFORMIN HCl 1000 MG 1 tablet with a me al Orally Once a day for 30 day(s) Active Ozempic Active Social History Tobacco Use: Social History Observation Description Date Details (start date - stop date) Never Smoker NA - NA Tobacco Use/Smoking Question Answer Notes Are you a: nonsmoker Additional Findings: Tobacco Non-User Current no n-smoker Tobacco use other than smoking: Question Answer Notes Are you an other tobacco user? No AUDIT-C (Standard) Question Answer Notes Did you have a drink containing alcohol in the p ast year? No Points 0 Interpretation Negative Problems Problem Type SNOMED Code ICD Code Onset Dates Problem Status W/U Status Risk Notes Problem Polyneuropathy due to type 2 diabetes mellitus (378214913) Type 2 diabetes mellitus with diabetic polyneuropathy (E11.42) Active confirmed Vital Signs Height 5ft 7in in 03/18/2024 Weight 210 lbs 03/18/2024 BMI 32.89 kg/m2 03/18/2024 Procedures Procedure Date Ordered Date Performed Result Body Sit e 55547-EBUXRPX NAIL, 6 OR MORE 03/18/2024 N/A 84601-ALKO SKIN LESIONS, OVER 4 03/18/2024 N/A Encounters Encounter Location Date Provider Diagnosis [facility] [address] [address] 03/18/2024 Ruchi Castro Type 2 diabetes mellitus with diabetic polyneuropathy E11.42 and Tinea unguium B35.1 Assessments Encounter Date Diagnosis (ICD Code) Assessment Notes Treatment Notes Treatment Clinical Notes Section Notes 03/18/2024 Type 2 diabetes mellitus with diabetic polyneuropathy (ICD-10 - E11.42) 03/18/2024 Tinea unguium (ICD-10 - B35.1) Plan Of Treatment Pending Test Test Name Order Date [id number] NAIL, 6 OR MORE 03/18/2024 86729-XGDG SKIN LESIONS, OVER 4 03/18/20 24 Next Appt Details Follow Up: 4 Months, Reason: Provider Name:Ruchi chamberlain, 08/01/2024 11:15:00 AM, [address] , [address], [place], [address], Procedure Notes * Category Sub-Category Detail Notes Debride Nail 6-10 Nail debridement Performance o f this nail treatment by a nonprofessional would put this patients foot and overall health at risk. Therefore, debridement to affected nail(s), as described in exam, was performed extensively to reduce/remove overall nail length, girth, thickness, subungual debris, and necrotic tissue, by manual and/or electrical means through the use of a nail nipper and/or dremel-type floor grinder, to a more viable healthy nail plate or bed tissue 6-10 nails in total. Silver nitrate was used for any petechial bleeding as necessary. Definitive antifungal treatment options, both pharmaceutical and surgical, have been reviewed and discussed with the patient. The patient solely prefers the use of intermittent/as needed professional debridement services for their nail condition and understands the need for additional periodic treatments to maintain effectiveness in symptomatic relief - 08338 Keratoma Treatment Parring or Cutting o f Benign Hyperkeratotic Lesion(s) (-57) More than 4 Lesions - The Benign hyperkeratotic lesions, ( 5) in total, locations as stated and described in exam, were pared, and/or cut utilizing a sterile 15 blade, tissue nippers, and/or power dremel instrumentation - 45960 Progress Notes * Fede ESTRADADOB:1950 (74 yo M)Acc No.[id number]:03/18/2024 Progress Note Patient:?Fede ESTRADA Provider:?Ruchi Castro DPM :1950???Age:74 Y???Sex:Male Joseph e:03/18/2024 Address:[address], [place] Pcp:Dallin Flores Subjective: * Chief Complaints: * ???At Risk Footcare * HPI: ???At Risk footcare:?Pt States Last PCP Visit:?Date?02/11/2024 * ROS:?General/Constitutional:?Nausea?denies.?Vomiting?denies.?Hunger Thirst?denies.?Loss appetite?denies.?Chills?denies.?Fatigue?denies.?Fever?denies.?Night Sweats?denies.?Unexplained weight loss?denies.?Unexplained weight gain?denies.?HEENTM:?Dentures?denies.?Dizziness?denies.?Glasses/contacts?denies.?Retinopathy?de nies.?Blurred/double vision?denies.?TMJ?denies.?Discharge/drainage?denies.?Implants?denies.?Sore throat?denies.?Dental implants?denies.?Hard of hearing ?denies.?Difficulty chewing/swallowing/speaking?denies.?Nose bleeds?denies.?Sore mouth?denies.?Respiratory:?On Oxygen?denies.?Pneumonia/pleurisy?denies.?Bronchitis?denies.?Emphysema?denies.?C oughing?denies.?Cough blood?denies.?Shortness of breath?denies.?Wheezing?denies.?Cardiovascular:?Pacemaker?denies.?MVP?denies.?WPW?denies.?CHF?denies.?Heart attack?denies.?Septal defect?denies.?Rapid beat?denies.?Chest pain ?denies.?Atrial Fib.?denies.?Murmur/Palpitations?denies.?Gastrointestinal:?Hemorrhoids?denies.?Stomach/Abdominal pain?denies.?Dark blood stool?denies.?Irritable bowel ?denies.?Constipation?denies.?Diarrhea?denies.?Hematology:?Swelling?denies.?Clots?denies.?Varicose Veins?denies.?Bruising?denies.?Bleeding problem?denies.?Genitourinary:?Blood urine?denies.?Frequent/Painfu/urination/bladder control?denies.?Kidney stones?denies.?Infection (UTI)?denies.?Nephropathy?denies.?sex trans dis (STD)?denies.?Prostate?denies.?Musculoskeletal:?Hammertoes?admits.?Bunions?denies.?Back Pain?denies.?Muscle Cramps/ Resting?denies.?Muscle cramps / walking?denies.?Generalized aches and pains?denies.?Weakness?denies.?Integ.:?Young?denies.?Scars?denies.?Corns/calluses?denies.?Ingrown nails?denies.?Painful nails?denies.?Open Sores?denies.?Rashes?denies.?Neurologic:?Difficulty sleeping?denies.?Brain disorder?denies.?Numbness?denies.?Balance trouble?denies.?Confusion?denies.?Fainting/blackouts?denies.?Tingling?denies.?Tr emors?denies.? * Medical History:? * Surgical History:?intestinal surgery-large intestine removed 2014hernia 2017uvula removed * Hospitalization/Major Diagno stic Procedure:?[facility]- Infected toe 12/31/2018[facility]- wire caught on leg 01/2024 * Family History:?Mother: dece ased, diagnosed with Other malignant neoplasm of unspecified site.?Father: , high blood pressure, diagnosed with Unspecified essential hypertension.?Maternal Grand Father: Foot Problems, diagnosed with Diabetic - NIDDM.?Siblings: diagnosed with Diabetic - NIDDM.? * Social History:?Tobacco Use:?Tobacco Use/Smoking?Are you a:?nonsmoker ?Additional Findings: Tobacco Non-User?Current non-smoker ?Tobacco use other than smoking?Are you an other tobacco user??No ???Drugs/Alcohol:?Drugs?Have you used drugs other than those for medical reasons in the past 12 months??No ???Miscellaneous:?Caffeine: yes, 1-2 cups per day. ?Children: yes, 2. ?Exercise: yes. ?Marital status: single. ?Occupation: works full-time. ???Drug/Alcohol:?AUDIT-C (Standard)?Did you have a drink containing alcohol in the past year??No ?Points?0 ?Interpretation?Negative * Medications:?TakingOzempic m etFORMIN HCl 1000 MG Tablet 1 tablet with a meal Orally Once a day Loperamide HCl 2 MG Tablet 1 tablet as needed Orally Four times a day Pregabalin 150 MG Capsule 1 capsule Orally Once a day Lisinopril 10 MG Tablet 1 tablet Orally Once a day Omeprazole 20 MG Capsule Delayed Release 1 capsule Orally Once a day Simvastatin 10 MG Tablet 1 tablet in the evening Orally Once a day Folic Acid 1 MG Tablet 1 tablet Orally Once a day Warfarin Sodium 2.5 MG Tablet 1 tablet Orally Once a day amLODIPine Besylate 2.5 MG Tablet 1 tablet Orally Once a day Clindamycin HCl Insulin , Notes to Pharmacist: pumpCustom Orthotics as directed Taking Ozempic Taking metFORMIN HCl 1000 MG Tablet 1 tablet with a meal Orally Once a day Taking Loperamide HCl 2 MG Tablet 1 tablet as needed Orally Four times a day Taking Pregabalin 150 MG Capsule 1 capsule Orally Once a day Taking Lisinopril 10 MG Tablet 1 tablet Orally Once a day Taking Omeprazole 20 MG Capsule Delayed Release 1 capsule Orally Once a day Taking Simvastatin 10 MG Tablet 1 tablet in the evening Orally Once a day Taking Folic Acid 1 MG Tablet 1 tablet Orally Once a day Taking Warfarin Sodium 2.5 MG Tablet 1 tablet Orally Once a day Taking amLODIPine Besylate 2.5 MG Tablet 1 tablet Orally Once a day Taking Clindamycin HCl Taking Insulin , Notes to Pharmacist: pumpTaking Custom Orthotics as directed Not- Taking/PRNLisinopril 10 MG Tablet 1 tablet Orally Once a day Folic Acid 1 MG Tablet 1 tablet Orally Once a day amLODIPine Besy-Benazepril HCl 2.5-10 MG Capsule as directed Orally Loperamide HCl 2 MG Tablet 1 tablet as needed Orally Four times a day metFORMIN HCl 1000 MG Tablet 1 tablet with a meal Orally Once a day Omeprazole 20 MG Capsule Delayed Release 1 capsule Orally Once a day Pregabalin Simvastatin 10 MG Tablet 1 tablet in the evening Orally Once a day Warfarin Sodium 5 MG Tablet 1 tablet Orally Once a day Extra Depth Orthopedic Shoes (1 Pair) with Customized Heat Molded Multidensity Innersoles (3 Pair) as directed Dx: IDDM/Polyneuropathy (E10.42), Hammertoe Foot Deformity (M20.41,M20.42), Preulcerative Skin Lesion(s) (L85.1) Work Note . . . . return to work on 01/23/19 Medication List reviewed and reconciled with the patientNot-Taking/PRN Lisinopril 10 MG Tablet 1 tablet Orally Once a day Not-Taking/PRN Folic Acid 1 MG Tablet 1 tablet Orally Once a day Not-Taking/PRN amLODIPine Besy-Benazepril HCl 2.5-10 MG Capsule as directed Orally Not- Taking/PRN Loperamide HCl 2 MG Tablet 1 tablet as needed Orally Four times a day Not- Taking/PRN metFORMIN HCl 1000 MG Tablet 1 tablet with a meal Orally Once a day Not- Taking/PRN Omeprazole 20 MG Capsule Delayed Release 1 capsule Orally Once a day Not- Taking/PRN Pregabalin Not-Taking/PRN Simvastatin 10 MG Tablet 1 tablet in the evening Orally Once a day Not-Taking/PRN Warfarin Sodium 5 MG Tablet 1 tablet Orally Once a day Not-Taking/PRN Extra Depth Orthopedic Shoes (1 Pair) with Customized Heat Molded Multidensity Innersoles (3 Pair) as directed Dx: IDDM/Polyneuropathy (E10.42), Hammertoe Foot Deformity (M20.41,M20.42), Preulcerative Skin Lesion(s) (L85.1) Not-Taking/PRN Work Note . . . . return to work on 01/23/19 Medication List reviewed and reconciled with the patient * Allergies:?N.K.D.A.yes[Aller gies Verified] Objective: * Vitals:?Ht: 5ft 7in, Wt:210, BMI:32.89, Shoe size: 10 extra wide, BS: 140, Ht- cm: 170.18 cm, Wt-k.25 kg. * ???Past Orders: ???Lab:HEMOGLOBIN A1C (GLYCO HEMOGLOBIN) (Order Date - 03/18/2024) (Collection Date & Time - 03/18/2024 10:51 AM) ? Value Reference Range ?TOTAL HEMOGLOBIN (HGBA1C) 7.8 * Examination: ???General Examination: ?GENERAL APPEARANCE:?Reveals a pleasant, alert, well nourished, well- developed, well hydrated individual, who demonstrates proper attention to hygiene/body habitus, and is in no acute distress, Pt serves as own historian for office visit today.?ORIENTED:?person, place, and time.?Neurological: ?SENSORY:? Neurological exam demonstrates, reduced light touch sensation, reduced sharp/dull pin prick discrimination , B/L, 5.07 monofilament test performed at plantar aspects of 5 varied sites per foot shows sensation, reduced , B/L.?Dermatologic: ?SKIN FINDINGS:?Skin exam reveals Keratotic lesion(s) located at sub 1st metatarsal head B/L, plantar lateral heels B/L, medial IPJ T5.?Nails: ?NAILS are:?Elongated, overgrown, dystrophic, lytic, greater than 3mm thick, discolored and friable with crumbly malodorous subungual debris ,with dull to no pain on palpation due to neuropathy,?TA, T1, T2, T3, T4 ,T6, T7 , T8, T9.?Ophthalmology Referral: ?DIABETES EYE EXAM?Orthopedic: ?MUSCLE STRENGTH:?5/5 all groups in a symmetrical fashion, B/L.? Assessment: * Assessment: 1.?Type 2 diabetes mellitus with diabetic polyneuropathy - E11.42 (Primary)???2.?Tinea unguium - B35.1??? Plan: * Treatment: * Procedures:?Debride Nail 6-10:?Nail debridement?Performance of this nail treatment by a nonprofessional would put this patients foot and overall health at risk. Therefore, debridement to affected nail(s), as described in exam, was performed extensively to reduce/remove overall nail length, girth, thickness, subungual debris, and necrotic tissue, by manual and/or electrical means through the use of a nail nipper and/or dremel-type floor grinder, to a more viable healthy nail plate or bed tissue 6-10 nails in total. Silver nitrate was used for any petechial bleeding as necessary. Definitive antifungal treatment options, both pharmaceutical and surgical, have been reviewed and discussed with the patient. The patient solely prefers the use of intermittent/as needed professional debridement services for their nail condition and understands the need for additional periodic treatments to maintain effectiveness in symptomatic relief - 41209.?Keratoma Treatment:?Parring or Cutting of Benign Hyperkeratotic Lesion(s)?(-57) More than 4 Lesions - The Benign hyperkeratotic lesions, ( 5) in total, locations as stated and described in exam, were pared, and/or cut utilizing a sterile 15 blade, tissue nippers, and/or power dremel instrumentation - 61633.? * Procedure Codes:?31833 DEBRI DE NAIL, 6 OR MORE, Modifiers: XS 85737 TRIM SKIN LESIONS, OVER 4, Modifiers: XS * Follow Up:?4 Months * Images: * Sign off status: Completed true * Provider:?Ruchi Castro DPM Date:?1 05/18/2023 Generated for Matt hunter/Cecilio/Jake on:?05/20/2024 12:14 PM EST History and Physical Notes * HPI (History of Present Illness) Category Sub-Category Detail Notes Category Not es At Risk footcare Pt States Last PCP Visit: Date: 4 Examination Category Sub-Category Detail Notes Category Not es Neurological SENSORY: Neurological exa m demonstrates, reduced light touch sensation, reduced sharp/dull pin prick discrimination , B/L, 5.07 monofilament test performed at plantar aspects of 5 varied sites per foot shows sensation, reduced , B/L Dermatologic SKIN FINDINGS: Skin exam reveal s Keratotic lesion(s) located at sub 1st metatarsal head B/L, plantar lateral heels B/L, medial IPJ T5 Orthopedic MUSCLE STRENGTH: 5/5 all groups in a symmetrical fashion, B/L General Examination GENERAL APPEARANCE: Reveals a pleasant, alert, well nourished, well-developed, well hydrated individual, who demonstrates proper attention to hygiene/body habitus, and is in no acute distress, Pt serves as own historian for office visit today ORIENTED: person, place, and t blayne Ophthalmology Referral DIABETES EYE EXAM Diabetic Retinopa thy Screening:: Yes Findings of Diabetic Eye Exam:: no retin opathy Nails NAILS are: Elongated, overg rown, dystrophic, lytic, greater than 3mm thick, discolored and friable with crumbly malodorous subungual debris ,with dull to no pain on palpation due to neuropathy, TA, T1, T2, T3, T4 ,T6, T7 , T8, T9
--- OUTSIDE RECORDS SUMMARY | 2024-05-20 12:14 | XMS_ITS | Continuity of Care Document ---
Author Organization [facility] Address [address] [place] [address] Phone Care Team Providers Care Casting Associate Name Role Phone Oly ESPINOSA, Maureen Unavailable Unavailable Allergies, Adverse Reactions, Alerts Substance Reaction Status Criticality No Known Allergies Active No Inform ation Medications Medication Instructions Dosage Effective Dates (start - stop) Status Comments PRILOSEC OTC (unknown strength) as needed Not Available - Active Probiotic 10 billion cell capsule - Active Lipitor 10 mg tablet - Active Procedures Procedure Date Varithena, Single Truncal Vein Duplex Scan-extrem Veins; Uni/ Unlisted Proc Vascular Surg Endovenous Rf, 1st Vein Office/Oupt E&M New Pt 45 Mins Duplex Scan-extrem Veins; Comp Office/Outpt E&M Established 15 Mins May Duplex Scan-extrem Veins; Comp 20 No Charge For Services No Charge For Services No Charge For Services No Charge For Services Office/Outpt E&M Established 10 Mins Nov Duplex Scan-extrem Veins; Comp 19 Duplex Scan-extrem Veins; Uni/ 19 Inj Scleros Solut; Mx Veins 1 9 Ultrason Guidan Needle Bx-rad 9 Duplex Scan-extrem Veins; Comp 19 Inj Scleros Solut; Mx Veins 1 9 Ultrason Guidan Needle Bx-rad 9 Duplex Scan-extrem Veins; Uni/ 19 Unlisted Proc Vascular Surg Duplex Scan-extrem Veins; Uni/ Unlisted Proc Vascular Surg Endovenous Rf, 1st Vein Duplex Scan-extrem Veins; Uni/ Endovenous Rf, 1st Vein Unlisted Proc Vascular Surg Office/Outpt E&M Established 10 Mins August Office/Oupt E&M New Pt 45 Mins Duplex Scan-extrem Veins; Comp Advance Directives Directive Yes / No Effective Date File Name No Information Encounters Encounter Description Practice Location Reason(s) For Visit Diagnoses Date Provider Providers Copied on Encounter [facility], [address] [place] [address] [address], [id number], [place] tel:[phone] [facility]ose [facility] of left lower extremity with other complications 5 Oly Reddy. [address] [place] [address], [id number] , [place]. [phone] [facility], [address] [place] [address] Dr [address] 1000[place], [id number], tel:[phone] [place] Encounter for follow-up examination after completed treatment for conditions other than malignant neoplasmVaricose veins of right lower extremity with other complications 5 Oly Reddy. [address] [place] [address], [id number] , [place]. tel:[phone] Referring Provider: Maureen Aldridge MD, [address] [place] [address], [address] . 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 [facility] [facility], [place] [address], [place], [place], [id number] , [place]. tel: [phone] [facility], [address] [place] [address] Dr Ly 1000[facility] [place], [id number], tel:[phone] [place] Varicose veins of right lower extremity with other complications 5 Oly Reddy. [address] [place] [address], [id number] , [place]. tel:[phone] Office/Oupt E&M New Pt 45 Mins [facility], [address] [place] [address] Dr [address] [address], [id number], tel:[phone] [facility] Varicose veins of bilateral lower extremities with other complications 4 Jany Valdivia. [address] [place] [address], [place] [address], [place], [place], [id number] , [place]. tel:[phone] Referring Provider: Steph LYNCH, [address], [place], [address]. tel:[phone] [facility], [address] [place] [address] Dr Ly 1000Suite [place], [id number], [place] tel:[phone] [place] Varicose veins of bilateral lower extremities with other complications 4 Milind Finney. [address] [place], [place], [id number] , [place]. tel: [phone] Referring Provider: Steph LYNCH, [address], [place], [address]. tel:[phone] Office/Outpt E&M Established 15 Mins [facility], [address] [place] [address] Dr Ly [address] 1000[place], [id number], [place] tel:[phone] [facility] [place] Body mass index (BMI) 27.0-27.9, adultVenous insufficiency (chronic) (peripheral)Varico se veins of bilateral lower extremities with pain 0 Cristal [place] Archana. [address] [facility], [address] [place] [address], [facility], [place]. [phone] Referring Provider: Steph LYNCH, [address], [place], [address]. tel:[phone] [facility], [address] [place] [address] Dr [address] 1000[place], [id number], [place] [phone] [facility] [place] Varicose veins of bi low extrem w oth complications 0 Milind Finney. [address] [facility], [place], [place], [id number] , [place]. tel:[phone] Referring Provider: Steph LYNCH, [address], [place], [address]. tel:[phone] [facility], [address] [place] [address] Dr [address] 1000Suite 1000[place], [id number], [place] [phone] [facility] Spider Veins - (Telangiectasia) 9 [place] Archana. [address] [facility], Suite [facility], [place], [address], [place]. [phone] Referring Provider: Steph LYNCH, Ed[address], [place], [address]. tel:[phone] [facility], [address] [place] [address] Dr [address] 1000[place], [id number], [place] [phone] [facility] [place] Spider Veins - (Telangiectasia) [address] [place] Archana. [address] [facility], [address], [place], [address], . tel:[phone] Referring Provider: Steph LYNCH, [address], [place], [address]. tel:[phone] [facility], [address] [place] [address] Dr [address], [place], [id number], tel:[phone] [facility] Spider Veins - (Telangiectasia) 9 [facility]. [address] [facility], [address], [place], [facility], . [phone] Referring Provider: Steph LYNCH, [address], [address], [place], [address]. tel:[phone] [facility], [address] [place] [address] Dr [address], [place], [id number], [place] tel:[phone] [facility] [place] Spider Veins - (Telangiectasia) 9 [facility]. [address] [facility], [address], [place], [place], [facility], [place]. [phone] Referring Provider: Steph LYNCH, [address], [address], [place], [address]. tel:[phone] Office/Outpt E&M Established 10 Mins [facility], [address] [place] [address] Dr Ly 1000[address] 1000[place], [id number], [place] tel:[phone] [facility] [place] Essential (primary) hypertensionVarico se veins of bi low extrem w oth complicationsVenou s insufficiency (chronic) (peripheral) 9 [facility]. [address] [facility], [address], [place], [address], [place]. tel:[phone] Referring Provider: Steph LYNCH, [address], [address], [place], [address]. tel:[phone] [facility] [place], [address] [place] [address] Dr Ly [address], [place], [id number], [place] tel:[phone] [facility] [place] Varicose veins of bi low extrem w oth complications 9 Bud Robbins. [address] [facility], [address], [place], [place], [id number] , [place]. tel:[phone] Referring Provider: Steph LYNCH, [address], [place], [address]. tel:[phone] [facility], [address] [place] [address] Dr [address], [place], [id number], [place] tel:[phone] [facility] [place] Encntr for f/u exam aft trtmt for cond oth than malig neoplmVaricose veins of right low extrm w oth complications 9 Bud Robbins. [address] [facility], [address], [place], [place], [id number] , [place]. [phone] Referring Provider: Steph LYNCH, [address], [place], [address]. tel:[phone] [facility], [address] [place] [address] Dr [address], [place], [id number], [place] tel:[phone] [facility] [place] Varicose veins of right low extrm w oth complications 9 Oly Reddy. [address] [facility], [address], [place], [place], [id number] , [place]. [phone] Referring Provider: Steph LYNCH, [address], [place], [address]. tel:[phone] [facility], [address] [place] [address] Dr [address] 1000Suite 1000[place], [id number], [place] tel:[phone] [facility] Encntr for f/u exam aft trtmt for cond oth than malig neoplmVaricose veins of bi low extrem w oth complications 9 Bud Robbins. [address] [facility], [address], [place], [place], [id number] , [place]. [phone] Referring Provider: Steph LYNCH, [address], [place], [address]. tel:[phone] [facility], [address], [place], [id number], [place] tel:[phone] [facility] Varicose veins of left lower extremities w oth complications 9 Oly Reddy. [address] [place] [address], [address], [place], [place], [id number] , [place]. tel:[phone] Referring Provider: Steph LYNCH, [address], [place], [address]. tel:[phone] [facility], [address], [place], [id number], [place] tel:[phone] [facility] Pain in left leg 9 Bud Robbins. [address] [facility], [address], [place], [place], [id number] , [place]. [phone] Referring Provider: Steph LYNCH, [address], [place], [address]. tel:[phone] [facility], [address], [id number], [place] tel:[phone] [facility] Varicose veins of right low extrm w oth complications 9 Oly Reddy. [address] [facility], [address], [place], [place], [id number] , [place]. [phone] Referring Provider: Steph LYNCH, [address], [address], [place], [address]. tel:[phone] [facility], [address] [place] [address] Aliyah 1000[address] 1000[place], [id number], [place] tel:[phone] [facility] Encntr for f/u exam aft trtmt for cond oth than malig neoplmVaricose veins of right low extrm w oth complications 9 Bud Robbins. [address] [facility], [address], [place], [place], [id number] , [place]. [phone] Referring Provider: Steph LYNCH, [address], [address], [place], [address]. tel:[phone] [facility], [address] [place] [address] [address] 1000[place], [id number], [place] tel:[phone] [facility] Varicose veins of left lower extremities w oth complications 9 Oly Reddy. [facility] [facility], [address], [place], [place], [id number] , [place]. [phone] Referring Provider: Steph LYNCH, [address], [address], [place], [address]. tel:[phone] [facility], [address] [place] [address] Dr [address], [place], [id number], [place] tel:[phone] [facility] Varicose veins of right low extrm w oth complications 9 Oly Reddy. [address] [facility], [address], [place], [place], [id number] , [place]. [phone] Referring Provider: Steph LYNCH, [address], [place], [address]. tel:[phone] [facility], [address] [place] [address] Dr [address] 1000[place], [id number], [place] tel:[phone] [facility] [place] Encntr for f/u exam aft trtmt for cond oth than malig neoplmVaricose veins of left lower extremities w oth complications 9 Bud Robbins. [address] [facility], [address], [place], [place], [id number] , [place]. tel:[phone] Referring Provider: Steph LYNCH, [address], [place], [address]. tel:[phone] [facility], [address] [place] [address] [address], [place], [id number], [place] tel:[phone] [facility] Varicose veins of left lower extremities w oth complications 9 Oly Reddy. [address] [facility], [address], [place], [place], [id number] , [place]. tel:[phone] Referring Provider: Steph LYNCH, [address], [place], [address]. tel:[phone] Office/Outpt E&M Established 10 Mins [facility], [address] [place] [address] [address], [place], [id number], [place] tel:[phone] [facility] Chronic venous htn w oth comp of bilateral low extrmBody mass index (BMI) 26.0-26.9, adult 9 Silvestre Jay. [address] [place] [address], [address], [place], [address], [place]. tel:[phone] Referring Provider: Steph LYNCH, [address], [place], [address]. tel:[phone] Office/Oupt E&M New Pt 45 Mins [facility], [address], [place], [id number], [place] tel:[phone] [facility] Body mass index (BMI) 26.0-26.9, adultVaricose veins of bi low extrem w oth complicationsVenou s insufficiency (chronic) (peripheral) 9 Oly Reddy. [facility] [facility], [address], [place], [place], [id number] , [place]. tel:[phone] Referring Provider: Steph LYNCH, [address], [place], [address]. tel:[phone] [facility], [address] [place] [address] [address], [place], [id number], [place] tel:[phone] CVR - [facility] Varicose veins of bi low extrem w oth complications 9 Bud Robbins. [address] [facility], [facility] [place], [id number] , [place]. tel:[phone] Referring Provider: Steph LYNCH, [address], [place], [address]. tel:[phone] Family History Family Member Type Diagnosis Age At Onset No Information Payers Payer name Insurance type Covered green party ID Bruna mireles(s) BS [facility] Medicare Plus Blue [id number] Social History Type Description Quantity Date Captured Comments Sex Male Smoking Status No Information Chief Complaint And Reason For Visit No Information Reason For Referral Reason For Referral No Information Plan Of Treatment Date Type Action Status Goal Diet education completed Goal Tobacco cessation counseling completed Goal Diet education completed Goal Diet education completed Goal Tobacco cessation counseling completed Goal Diet education completed Goal Tobacco cessation counseling completed Goal Diet education completed Referral Ordered: Weight management: Referral to physician timeframe: 3 Months (related to Body mass index (BMI) 26.0-26.9, adult) ordered Referral Ordered: Steph LYNCH timeframe: 1 Month. (related to Essential (primary) hypertension) ordered Referral Ordered: Duplex Scan-extrem Veins; Comp ordered Referral Ordered: Duplex Scan-extrem Veins; Comp Bilateral ordered Appointment Fede Estrada *1-9 BOOKED Appointment Fede Estrada BOOKED Appointment Fede Estrada BOOKED Appointment Fede Estrada BOOKED Appointment Fede Estrada BOOKED Appointment Fede Estrada *r/s Appt On BOOKED Appointment Fede Estrada BOOKED Appointment Fede Estrada*unable To Reac h-disconnected #'s* BOOKED Appointment Fede Estrada BOOKED Appointment Fede Estrada BOOKED History Of Present Illness Encounter Date Complaint History Of Prese nt Illness No Information Functional Status Date Functional Assessmen t No Information Instructions Date Instruction Additional Infor luciana Diet education Related to Body mass index (BMI) 26.0-26.9, adult Giving Encouragement to exercise Related to Body mass index (BMI) 26.0-26.9, adult Lifestyle education Related to B monique mass index (BMI) 26.0-26.9, adult Patient education booklet given Related to Varicose veins of bilateral lower extremities with other complications Pre and post instruc tions reviewed and provided Related to Varicose veins of bilateral lower extremities with other complications Giving Encouragement to Exercise Related to Body mass index (BMI) 27.0-27.9, adult Diet education Related to Body mass index (BMI) 27.0-27.9, adult Patient education booklet given Related to Venous Insufficiency (Chronic / Peripheral) Continue compression stocking us e Related to Venous Insufficiency (Chronic / Peripheral) Exercise education Related to Es sential (primary) hypertension Diet education Related to Essen tial (primary) hypertension Lifestyle education Related to E ssential (primary) hypertension Pre and post instruc tions reviewed and provided Related to V V w/Othr Complictns (Kahn-Xldga-Ljsstzxa); BILAT Patient education booklet given Related to V V w/Othr Complictns (Xyjg-Hompu-Phlmtysb); BILAT Giving Encouragement to Exercise Related to Body mass index (BMI) 26.0-26.9, adult Diet education Related to Body mass index (BMI) 26.0-26.9, adult Pre and post instruc tions reviewed and provided Related to Chrn Vns Hyprtnsn w/Compl (Pain Edema Swelling); BILAT Continue compression stocking us e Related to Chrn Vns Hyprtnsn w/Compl (Pain Edema Swelling); BILAT Giving Encouragement to Exercise Related to Body mass index (BMI) 26.0-26.9, adult Diet education Related to Body mass index (BMI) 26.0-26.9, adult Patient education booklet given Related to V V w/Othr Complictns (Tnmz-Ekkja-Gphgcoln); BILAT Pre and post instruc tions reviewed and provided Related to V V w/Othr Complictns (Vlfa-Awsam-Fangaeyq); BIL Assessments Type Assessment Date No Information Patient Care Teams Name Effective Dates (start - stop) Status Members No Information
--- OUTSIDE RECORDS SUMMARY | 2024-05-20 12:14 | XMS_ITS | Patient Health Record ---
Author Organization [facility] Address [address] [place] [address] Care Team Providers Care Survey Supervisor Name Role Phone Dallin Flores Primary Care Provider Stefan Heller Unavailable [phone] Ruchi Castro Unavailable [phone] Allergies No Known Allergies Results Component Value Reference Range Notes HEMOGLOBIN A1C (GLYCOHEMOGLO BIN) Reviewed date:03/18/2024 10:51:47 AM Interpretation: Performing Lab: Notes/Report: TOTAL HEMOGLOBIN (HGBA1C) 7.8 Reason For Referral No Information Medications Medication SIG (Take, Route, Frequency, Duration) Notes Start Date End Date Status Lisinopril 10 MG 1 tablet Orally Once a day for 30 day(s) Active amLODIPine Besy-Benazepril HCl 2.5-10 MG as directed Orally Not-Takin g Pregabalin 150 MG 1 capsule Orally Onc e a day Active Custom Orthotics as directed A ctive Loperamide HCl 2 MG 1 tablet as needed Orally Four times a day Active Insulin pump Active metFORMIN HCl 1000 MG 1 tablet with a me al Orally Once a day for 30 day(s) Active Folic Acid 1 MG 1 tablet Orally Once a day for 30 day(s) Not-Taking Work Note . . . return to work o n 01/23/19 01/14/2019 Not-Taking Ozempic Active Lisinopril 10 MG 1 tablet Orally Once a day for 30 day(s) 01/01/2019 Not-Taking Extra Depth Orthopedic Shoes (1 Pair) with Customized Heat Molded Multidensity Innersoles (3 Pair) as directed Dx: IDDM/Polyneuropathy (E10.42), Hammertoe Foot Deformity (M20.41,M20.42), Preulcerative Skin Lesion(s) (L85.1) 01/14/2019 Not-Taking Clindamycin HCl Acti ve Warfarin Sodium 5 MG 1 tablet Orally Onc e a day for 30 day(s) Not-Taking Simvastatin 10 MG 1 tablet in the even ing Orally Once a day for 30 day(s) Not-Taking amLODIPine Besylate 2.5 MG 1 tablet Orally Once a day for 30 day(s) Active Warfarin Sodium 2.5 MG 1 tablet Orally O nce a day for 30 day(s) Active Pregabalin Not-Takin g Folic Acid 1 MG 1 tablet Orally Once a day for 30 day(s) Active Omeprazole 20 MG 1 capsule Orally Onc e a day for 30 day(s) Not-Taking Simvastatin 10 MG 1 tablet in the even ing Orally Once a day for 30 day(s) Active metFORMIN HCl 1000 MG 1 tablet with a me al Orally Once a day for 30 day(s) 01/01/2019 Not-Taking Omeprazole 20 MG 1 capsule Orally Onc e a day for 30 day(s) Active Loperamide HCl 2 MG 1 tablet as needed Orally Four times a day 01/01/2019 Not-Taki ng Social History Tobacco Use: Social History Observation [...] Polyneuropathy due to type 2 diabetes mellitus (725018563) Type 2 diabetes mellitus with diabetic polyneuropathy (E11.42) Active confirmed Problem Localized, primary osteoarthritis of the ankle and/or foot (982130960) Primary osteoarthritis, right ankle and foot (M19.071) Active confirmed Problem Acquired hammer toe of right foot (8933691277707378 ) Other hammer toe(s) (acquired), right foot (M20.41) Active confirmed Problem Acquired hammer toe of left foot (6085607465801895 ) Other hammer toe(s) (acquired), left foot (M20.42) Active confirmed Problem Polyneuropathy due to diabetes mellitus type I (208133425) Type 1 diabetes mellitus with diabetic polyneuropathy (E10.42) Active confirmed Problem 514871391 Hammer toe of right foot (M20.41) Active confirmed Vital Signs Height 5ft 7in in 03/18/2024 Weight 210 lbs 03/18/2024 BMI 32.89 kg/m2 03/18/2024 Procedures Procedure Date Ordered Date Performed Result Body Sit e 55482-IHJWXHG NAIL, 6 OR MORE 03/18/2024 N/A 78106-DLHW SKIN LESIONS, OVER 4 03/18/2024 N/A Encounters Encounter Location Date Provider Diagnosis [facility] [address] 12/21/2023 Stefan Marshall Type 1 diabetes mellitus with diabetic polyneuropathy E10.42 ; Pain in left toe(s) M79.675 ; Pain in right toe(s) M79.674 ; Tinea unguium B35.1 ; Other hammer toe(s) (acquired), right foot M20.41 ; Metatarsalgia, left foot M77.42 ; Metatarsalgia, right foot M77.41 ; Other hammer toe(s) (acquired), left foot M20.42 and Subungual hematoma of toenail of left foot, initial encounter S90.222A [facility] [address] 03/18/2024 Ruchi Castro Type 2 diabetes mellitus with diabetic polyneuropathy E11.42 and Tinea unguium B35.1 Assessments Encounter Date Diagnosis (ICD Code) Assessment Notes Treatment Notes Treatment Clinical Notes Section Notes 12/21/2023 Pain in left toe(s) (ICD-10 - M79.675) 12/21/2023 Type 1 diabetes mellitus with diabetic polyneuropathy (ICD-10 - E10.42) 03/18/2024 Type 2 diabetes mellitus with diabetic polyneuropathy (ICD-10 - E11.42) 03/18/2024 Tinea unguium (ICD-10 - B35.1) 12/21/2023 Pain in right toe(s) (ICD-10 - M79.674) 12/21/2023 Tinea unguium (ICD-10 - B35.1) 12/21/2023 Other hammer toe(s) (acquired), right foot (ICD-10 - M20.41) 12/21/2023 Metatarsalgia, left foot (ICD-10 - M77.42) 12/21/2023 Metatarsalgia, right foot (ICD-10 - M77.41) 12/21/2023 Other hammer toe(s) (acquired), left foot (ICD-10 - M20.42) 12/21/2023 Subungual hematoma of toenail of left foot, initial encounter (ICD-10 - S90.222A) Plan Of Treatment Pending Test Test Name Order Date X ray : Foot, left 3V 02/28/2022 X ray : Foot, right 3V 02/28/2022 X ray : Foot, right 3V 06/17/2019 35407-IHQXWND NAIL, 6 OR MORE 03/18/2024 71903- I&D ABSCESS-COMPLICATED,MULTI 02/2019 95850-XZWY SKIN LESIONS, OVER 4 01/15/20 19 29701-DKDC SKIN LESIONS, OVER 4 02/29/20 22 98070-QMFD SKIN LESIONS, OVER 4 08/30/19 23 24355-IYBN SKIN LESIONS, OVER 4 03/18/20 24 07124, I7400-RAQDP/INJECT, JOINT/BURSA 0 06/17/2019 Next Appt Details Provider Name:Ruchi Kerrwilly chamberlain, 08/01/2024 11:15:00 AM, [facility], [place] [address], [place], [address], Insurance Providers Payer Name Payer Address Payer Phone Subscriber Number Group Number Insured Name Patient Relationship to Insured Coverage Start Date Coverage End Date Medicare National [employer] [address] [place] [address] [id number] Fede Estrada Self - patient is the insured Medical (General) History Medical History History ICD Code Back,Hip,and Knee pain CAD (Cholesterol) Cataracts Diabetic High blood pressure Numbness Reflux ( GERD) chronic sinusitis Vascular phlebitis (clots) Measles Mumps Chicken pox Surgical History Surgery Date(Month/Year) intestinal surgery-large intestine remov ed 2014 hernia 2018 uvula removed Hospitalization History Reason Date(Month/Year) [facility]- wire caught on leg 01/2024 [facility]- Infected toe 01/2019
--- OUTSIDE RECORDS SUMMARY | 2024-05-20 12:14 | XMS_ITS | Encounter Summary ---
Author Organization [facility] Address [address] [place] [address] Phone Care Team Providers Care Supervisor Stitching Department Name Role Phone Dallin Flores MD Primary Care Provider [phone] Encounter Details Date Type Department Care Team (Late st Contact Info) Description 04/10/2022 Telephone [facility] [address] [place] [phone] Neftaly Sorensen MD Social History Tobacco Use Types Packs/Day Years Used Date Smoking Tobacco: Never Smokeless Tobacco: Never Alcohol Use Standard Drinks/Week Comments Yes 0 (1 standard drink = 0.6 oz pure alcohol) Alcoholic Drinks/day: Occasional social drink Sex and Gender Information Value Date Recorded Sex Assigned at Not on file Legal Sex Male 5:07 PM EST Gender Identity Not on file Sexual Orientation Not on file documented as of this encounter Miscellaneous Notes * Telephone Encounter - Lyudmila Fairbanks - 04/10/2022 11:03 AM EST I've advised xochilt and she's working on it * Telephone Encounter - Yessenia Prince - 04/10/2022 9:07 AM EST Pt called, he is requesting a back to work note for light duty. Please let him know once done. Thank you documented in this encounter Plan of Treatment Not on file documented as of this encounter Visit Diagnoses Not on filedocumented in this encounter Care Teams Supervisor Stitching Department Relationship Specialty Start Date End Date Dallin Flores MD [address] [place] [address], [address] [place] [id number] PCP - General 05/03/20 documented as of this encounter
--- OUTSIDE RECORDS SUMMARY | 2024-05-20 12:14 | XMS_ITS | Encounter Summary ---
Author Organization [facility] Address [address] [place] [address] Phone Care Team Providers Care Horse Rancher Name Role Phone Dallin Flores MD Primary Care Provider [phone] Encounter Details Date Type Department Care Team (Late st Contact Info) Description 09/15/2020 Orders Only [facility] [address] [place] [phone] Neftaly Sorensen MD Stage 3a chronic kidney disease (HCC) Social History Tobacco Use Types Packs/Day Years [...] on file documented as of this encounter Plan of Treatment Not on file documented as of this encounter Visit Diagnoses Diagnosis Stage 3a chronic kidney disease (HCC) documented in this encounter Care Teams Horse Rancher Relationship Specialty Start Date End Date Dallin Flores MD [address] [place] [address], [address] [place], [place] [id number] PCP - General 05/03/20 documented as of this encounter
--- OUTSIDE RECORDS SUMMARY | 2024-05-20 12:14 | XMS_ITS | Encounter Summary ---
Author Organization [facility] Address [address] [place] [address] Phone Care Team Providers Care Watch Adjuster Name Role Phone Dallin Flores MD Primary Care Provider [phone] Encounter Details Date Type Department Care Team (Late st Contact Info) Description 04/23/2024 Orders Only [facility] [address] [place] [address] Chayito Pearce ARNP [address] [facility] [address] [place] [phone] Chronic kidney disease, stage 2 (mild); Hypertension; Vitamin D deficiency, not otherwise specified Social History Tobacco Use Types Packs/Day Years [...] as of this encounter Visit Diagnoses Diagnosis Chronic kidney disease, stage 2 (mild) Hypertension Vitamin D deficiency, not otherwise specified documented in this encounter Care Teams Watch Adjuster Relationship Specialty Start Date End Date Dallin Flores MD [address] [place] [address], [address] [place], [place] [phone] PCP - General 05/03/20 documented as of this encounter
--- OUTSIDE RECORDS SUMMARY | 2024-05-20 12:15 | XMS_ITS | Encounter Summary ---
Author Organization [facility] Address [address] [place] [address] Care Team Providers Care Office Copy Selector Name Role Phone Unavailable Primary Care Provider Unavailabl e Encounter Details Date Type Department Care Team (Late st Contact Info) Description 04/03/2024 Lab Requisition [facility] - Main Lab [address] [facility] [place] [place] [address] Edvin Pham PA [address] [phone] Gross hematuria Social History Tobacco Use Types Packs/Day Years [...] on file documented as of this encounter Procedures Procedure Name Priority Date/Time Associated Diagnosis Comments AP OUTSIDE CONSULT Routine 03/27/2024 12 :00 AM EST Gross hematuria documented in this encounter Results * Anatomic pathology outside consult (03/27/2024 12:00 AM EST) Addendum Results of UroVysion fluorescence in situ hybridization (FISH) testing: CEP3: Normal CEP7: Normal CEP17: Normal LSI 9p21: Normal Interpretation: Normal profile Controls stained appropriately. Note: The results are intended as a screening device and should be interpreted in association with other clinical and pathological findings. 04/21/2024 4:03 PM EST [facility] ([facility]) [facility] Addendum electronically signed by Becky Christian MD on 04/21/2024 at 4:03 PM Final Diagnosis Urine, Voided ([id number]): Negative for high grade urothelial carcinoma. Note: UroVysion testing to follow. 04/21/2024 4:03 PM EST [facility] Clinical Information [id number] Urine cytology/urine FISH 04/21/2024 4:03 PM [facility] Gross Description A. Urine, Voided, : [id number] RECD 1 TP CYTO 1 TP FISH. 04/21/2024 4:03 PM [facility] Disclaimer Unless otherwise specified, all tissue is 10% NB formalin fixed and paraffin embedded. Technical pathology services provided by [facility] at [address] [place] [address] [address], [place] [address] (CLIA #[id number]/July Pittman MD, Residential Sales Executive) 04/21/2024 4:03 PM [facility] Tissue Urine specimen from urethra / Unknown 03/27/2024 04/03/2024 1:33 PM EST Edvin LYNCH LAB PATHOLOGY ORDERABLES [facility] [address] [place] [address], documented in this encounter Visit Diagnoses Diagnosis Gross hematuria documented in this encounter
--- OUTSIDE RECORDS SUMMARY | 2024-05-20 12:15 | XMS_ITS | Clinical Summary ---
Author Organization [facility] Address [address] [address] Phone Care Team Providers Care Butt Sawyer Name Role Phone Dallin Flores MD Primary Care Provider [phone] Allergies Active Allergy Reactions Criticality Noted Date Comments Azathioprine 08/04/2020 Medications insulin lispro (HumaLOG) 100 UNIT/ML injection Inject 70 Units under the skin daily 0 Active loperamide (IMODIUM A-D) 2 MG tablet Take 3 tablets by mouth 2 (two) times a day Active omeprazole (PriLOSEC) [address] capsule Take 20 mg by mouth daily 0 Active simvastatin (ZOCOR) 10 MG tablet Take 1 tablet by mouth 1 (one) time each day 0 Active tamsulosin (FLOMAX) 0.4 MG 24 hr capsule Take 0.4 mg by mouth daily Active cetirizine (ZyrTEC) 10 MG tablet Take 10 mg by mouth 1 (one) time each day 1 Active folic acid (FOLVITE) 1 MG tablet Take 1,000 mcg by mouth daily 1 Active warfarin (COUMADIN) 2.5 MG tablet Take 2.5 mg by mouth 1 (one) time each day 2 Active warfarin (COUMADIN) 5 MG tablet 2 Active metFORMIN (GLUCOPHAGE) 1000 MG tablet Take 1 tablet by mouth in the morning and 1 tablet in the evening. Take with meals. 2 Active pregabalin (LYRICA) 150 MG capsule Take 150 mg by mouth in the morning and 150 mg in the evening. 2 Active Tirzepatide 5 MG/0.5ML solution pen-injector Inject 5 mg under the skin 1 (one) time per week 3 Active ergocalciferol (Drisdol) 1.25 MG (25648 UT) capsuleIndicati ons:Chronic kidney disease, stage 2 (mild),Vitamin D deficiency, not otherwise specified Take 1 capsule (50,000 Units total) by mouth 1 (one) time per week 12 capsule 3 4 05/24/19 25 Active hydroCHLOROthia zide 12.5 MG tablet Take 1 tablet (12.5 mg total) by mouth 1 (one) time each day 90 tablet 3 4 Active fluticasone (FLONASE) 50 MCG/ACT nasal spray Administer 1 spray into each nostril 1 (one) time each day Active Magnesium 400 MG tablet Take 400 mg by mouth 1 (one) time each day Active Multiple Vitamin (multivitamin) capsule Take 1 capsule by mouth 1 (one) time each day Active Active Problems Problem Noted Date Diagnosed Date Type 2 diabetes mellitus wit h complication, not otherwise specified 09/21/2021 Edema, not otherwise specified 09/21/2021 Chronic kidney disease 08/04/2020 Acute nontraumatic kidney injury 08/04/2020 Hypertension 04/09/2017 Overview (08/04/2020): Last Assessment & Plan: Blood pressure is well controlled, continues on ACEi Resolved Problems Problem Noted Date Diagnosed Date Resolved Date History of total knee arthroplasty 07/12/2020 02/02/2021 Primary gonarthrosis, 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 He has a recent right forearm infection which has resolved. He is on chronic anticoagulant for history of recurrent pulmonary emboli, but he can hold his warfarin for 4-5 days preoperatively if desired by the surgeon. He is also a diabetic and uses an insulin pump as well as metformin. He should stop both on the morning of surgery to prevent hypoglycemia, and may resume after when eating and drinking. Renal disorder due to type 1 diabetes mellitus 09/24/2017 09/21/2021 Overview (08/04/2020): Proteinuria averaging 1.5g protein. Sees dr Gonsalez Last Assessment & Plan: Microalbuminuria Recent GFR 69 On lisinopril therapy Blood pressure is well controlled Type 2 diabetes mellitus 08/21/2017 Overview (08/04/2020): Doing quite well on his home insulin pump, has a CGM which controls his insulin dose Last Assessment & Plan: [place] continues to do his best with healthy lifestyle, his activity has been limited due to chronic knee pain from arthritis, he has had his first TKR recently and has his next upcoming He has maintained reasonable control and will likely see improvement in this after his upgrade to Tandem X2 with CIQ [place] has a localized skin infection related to infusion site, antibiotic prescription has been provided, encouraged to continue to keep area clean and apply antibacterial ointment Encouraged to contact me with any questions or concerns, we will follow up in September Family history of hemochromatosis 06/01/2017 02/02/2021 Overview (08/04/2020): Last Assessment & Plan: We discussed that there is no need to do genetic testing for Fede. His daughter is a mayers known to have the disease. He has no known history of hemochromatosis, but we could check a ferritin in the future. Doing while anticoagulated will make the test unreliable. Injury of right rotator cuff 06/01/2017 02/02/2021 Overview (08/04/2020): He is at low to moderate risk for the planned surgical procedure. He will come off of his anticoagulation today, and should be reversed with normal INR at the time of surgery. He has diabetes, which she controls with an insulin pump, and will be nothing by mouth on the day of surgery and can turn off his insulin basal rate and have his blood sugars monitored perioperatively. Further details of insulin management if needed can come from Dr. Rivas. Anticoagulant effect 04/09/2017 Overview (08/04/2020): INR being followed at home by [facility] after hosp dc. Gastroesophageal reflux disease 04/09/2017 02/02/2021 H/O: pulmonary embolus 04/09/201702/02 Overview (08/04/2020): Had 2 pulm emboli, one discovered incidentally. 2nd P.E. Was after his hernia surgery, started with DVT LE. Last Assessment & Plan: He has had 2 prior episodes, the most recent of which was 2 years ago. Sign of current disease. History of hypercoagulable state 04/09/2017 02/02/2021 Overview (08/04/2020): Last Assessment & Plan: Will stop Coumadin now, can be off for 4 days until surgery. He can have a PT/INR the day prior to surgery to make sure his anticoagulation is reversed. After surgery, he should be bridged with Lovenox as he restarts Coumadin. I will write a prescription for Lovenox for him to have to start the evening after surgery, if okayed by Dr. Christiansen. He is not taking Plavix. Hypertriglyceridemia 04/09/2017 Overview (08/04/2020): Last Assessment & Plan: Continues on low intensity statin therapy, LDL at goal TG was elevated on most recent lipid panel dated September 2018, due for updated routine labs including lipids Insulin pump present 04/09/2017 Overview (08/04/2020): Last Assessment & Plan: Current insulin pump setting Time Basal Rates? Time ICR Time ISF Time Target IOB 12am 2.0u/hr 12am 10 12am 40 12am 100mg/dl 4hrs ? 12pm 11 ? 430p 10 ? We discussed adjustment to afternoon/evening I:C ratio to reduce risk for low blood sugars in evenings Will be upgrading to Tandem X2 and Dexcom in CIQ tomorrow, aware that pump changes may need to be made based on patterns using the new system group home current use of insulin 04/09/2017 02/02/2021 Obesity 04/09/2017 02/02/2021 Prostate specific antigen ab ove reference range 04/09/2017 02/02/2021 Overview (08/04/2020): eval'd by Dr Box Repeat PSA 2.63 in 2016. TURP around 2001 with nl biopsies. Last Assessment & Plan: He had Urology eval with Dr Box, was told he is ok. PSA 2/3 in Apr 2016 Ulcerative colitis 04/09/2017 Overview (08/04/2020): Hx colectomy 2012. Now bowel fx is normal, with soft liquidy stools 5-8x/day Encounters Date Type Department Care Team Description 04/23/2024 Orders Only [facility] [address] [place] [address] Chayito Pearce ARNP Chronic kidney disease, stage 2 (mild); Hypertension; Vitamin D deficiency, not otherwise specified from Last 3 Months Immunizations Name Administration Dates Next Due Influenza (IM) Preservative Free 01/21/2015 Influenza Split High Dose Pr eservative Free IM 03/06/2019,02/20/2018,02/07/2017 Influenza Split Preservative Free ID 03/19/2016 Influenza, Quadrivalent, Pre servative Free 03/02/2021 Influenza, Unspecified 02/10/2020,02/24/2010 Pfizer SARS-COV-2 08/15/2020,07/24/2020 Pneumococcal Conjugate 13-Valent 09/24/2017 Pneumococcal Polysaccharide 09/30/2018,0 12/01/2013,02/24/2010,03/20 Td 10/29/2019 Tdap 06/23/2018 Zoster 10/30/2017, 8,03/19/2016,03/18 Family History Medical History Relation Comments Diabetes Brother Heart attack Brother Heart disease Brother Hyperlipidemia Brother Hypertension Brother Heart disease Child Alcohol abuse Father Hypertension Father Cancer Mother Diabetes Other 1 Hyperlipidemia Other 1 Hypertension Other 1 Diabetes Other 2 Hyperlipidemia Other 2 Hypertension Other 2 Diabetes Sibling 1 Gout Sibling 2 Relation Status Comments Brother Child Father Unknown Mother Other 1 Alive Other 2 Alive Sibling 1 Sibling 2 Social History Tobacco Use Types Packs/Day Years Used Date Smoking Tobacco: Never Smokeless Tobacco: Never Tobacco Cessation:Counseling Given: Not Answered Alcohol Use Standard Drinks/Week Comments Yes 0 (1 standard drink = 0.6 oz pure alcohol) Alcoholic Drinks/day: Occasional social drink Sex and Gender Information Value Date Recorded Sex Assigned at Not on file Legal Sex Male 5:07 PM EST Gender Identity Not on file Sexual Orientation Not on file Last Filed Vital Signs Vital Sign Reading Time Taken Comments Blood Pressure 115/58 11/20/2023 12:28 PM EDT Pulse 80 11/20/2023 12:28 PM EDT Temperature - - Respiratory Rate - - Oxygen Saturation 100% 05/15/2023 10:34 AM EST Inhaled Oxygen Concentration - - Weight 102 kg (225 lb) 11/20/2023 12:28 PM EDT Height 172.7 cm (5' 8 ) 08/04/2020 2:29 PM EDT Body Mass Index 34.21 08/04/2020 2:29 PM EDT Plan of Treatment Health Maintenance Due Date Last Done Comments Colorectal Cancer Screening: Annual FOBT 01/22/2001 Colorectal Cancer Screening: Colonoscopy 01/22/2001 Colorectal Cancer Screening: Sigmoidoscopy 01/22/2001 Diabetes: Ophthalmology Exam 08/04/2020 Diabetes: Pedal Pulse Checked 08/04/2020 Diabetes: Sensory Foot Exam 08/04/2020 Diabetes: Visual Foot Exam 08/04/2020 Influenza Vaccine (#1) 2023 3, 03/02/2021, 02/10/2020, Additional history exists Diabetes: Hemoglobin A1C 07/30/2024 025, 09/04/2023, 04/24/2023, Additional history exists Pneumococcal Vaccine: 65+ Years Completed 09/30/2018, 09/24/2017, 12/01/2013, Additional history exists Hepatitis B Vaccine Aged Out No longe r eligible based on patient's age to complete this topic Procedures Procedure Name Priority Date/Time Associated Diagnosis Comments EXT RESULT ENTRY Routine 04/01/2024 from Last 3 Months Results * (ABNORMAL) EXT RESULT ENTRY (04/01/2024) WBC 11.9(A) 3.3 - 10.0 10*3/ML Red Blood Cell Count 4.95 Hemoglobin 14.8 13.5 - 17.5 Hematocrit 44.8 41.0 - 53.0 Platelets 234 150 - 399 10*3/UL Sodium 142 137 - 147 Potassium 4.3 3.4 - 5.5 Anion Gap 16 <=30 MMOL/L Glucose 168 60 - 200 BUN 23(A) 4 - 21 mg/dL Creatinine 1.21 0.60 - 1.30 mg/dL Calcium 10.4 8.7 - 10.7 mg/dL eGFR Non-Afr [place] Island[place] 64 04/01/2024 us Historical Provider LAB BLOOD ORDERABLES Carolina l Result from Last 3 Months Insurance MEDICARE MEDICARE Care Teams Butt Sawyer Relationship Specialty Start Date End Date Dallin Flores MD [address] [place] [address], [address] [place] [address] PCP - General 05/03/20
--- OUTSIDE RECORDS SUMMARY | 2024-05-20 12:15 | XMS_ITS ---
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 Medications Medication SIG (Take, Route, Frequency, Duration) Notes Start Date End Date Status Work Note . . . return to work o n 01/23/19 01/14/2019 Not-Taking Simvastatin 10 MG 1 tablet in the even ing Orally Once a day for 30 day(s) Not-Taking Ozempic Active Extra Depth Orthopedic Shoes (1 Pair) with Customized Heat Molded Multidensity Innersoles (3 Pair) as directed Dx: IDDM/Polyneuropathy (E10.42), Hammertoe Foot Deformity (M20.41,M20.42), Preulcerative Skin Lesion(s) (L85.1) 01/14/2019 Not-Taking Warfarin Sodium 5 MG 1 tablet Orally Onc e a day for 30 day(s) Not-Taking amLODIPine Besy-Benazepril HCl 2.5-10 MG as directed Orally Not-Takin g Pregabalin Not-Takin g Omeprazole 20 MG 1 capsule Orally Onc e a day for 30 day(s) Not-Taking metFORMIN HCl 1000 MG 1 tablet with a me al Orally Once a day for 30 day(s) 01/01/2019 Not-Taking Loperamide HCl 2 MG 1 tablet as needed Orally Four times a day 01/01/2019 Not-Taki ng Insulin Active Folic Acid 1 MG 1 tablet Orally Once a day for 30 day(s) Active Custom Orthotics as directed A ctive Lisinopril 10 MG 1 tablet Orally Once a day for 30 day(s) 01/01/2019 Active Clindamycin HCl Acti ve amLODIPine Besylate 2.5 MG 1 tablet Orally [...] Once a day for 30 day(s) Active Lisinopril 10 MG 1 tablet Orally Once a day for 30 day(s) Active Pregabalin 150 MG 1 capsule Orally Onc e a day Active Social History Tobacco Use: Social History Observation Description Date Details (start date - stop date) Never Smoker NA - NA Tobacco Use/Smoking Question Answer Notes Are you a: nonsmoker Additional Findings: Tobacco Non-User Current no n-smoker Alcohol Screen Question Answer Notes Did you have a drink containing alcohol in the p ast year? Yes Points 0 Interpretation Negative Tobacco use other than smoking: Question Answer Notes Are you an other tobacco user? No Vital Signs Height 5ft 7in in 12/21/2023 Weight 218 lbs 12/21/2023 BMI 34.14 kg/m2 12/21/2023 Encounters Encounter Location Date Provider Diagnosis [facility] [address] [address] 12/21/2023 Stefan Marshall Type 1 diabetes mellitus [...] toenail of left foot, initial encounter S90.222A Assessments Encounter Date Diagnosis (ICD Code) Assessment Notes Treatment Notes Treatment Clinical Notes Section Notes 12/21/2023 Type 1 diabetes mellitus with diabetic polyneuropathy (ICD-10 - E10.42) 12/21/2023 Pain in left toe(s) (ICD-10 - M79.675) 12/21/2023 Pain in right toe(s) (ICD-10 - [...] encounter (ICD-10 - S90.222A) Plan Of Treatment Next Appt Details Follow Up: 3 Months, Reason: Provider Name:Ruchi Weinberg cintia, 08/01/2024 11:15:00 AM, [facility], [address], [place], [address], Procedure Notes * Category Sub-Category Detail Notes Debride Nail 6-10 Nail debridement Nail debridem ent performed extensively to reduce/remove overall nail length and girth, subungual debris, and necrotic tissue, by manual and electrical means with use of a nail nipper and/or dremel, to more viable healthy nail plate or bed tissue 6-10. Silver nitrate used for any petechial bleeding as necessary. Patient chooses, no pharmaceutical tx (13879) Keratoma Treatment Parring or Cutting o f Benign Hyperkeratotic Lesion(s) 02722 ( >4 Lesions) - The Benign hyperkeratotic lesions, as described above were pared, and/or cut utilizing a sterile #15 blade, tissue nippers, and/or dremel Progress Notes * Fede ESTRADADOB:1950 (73 yo M)Acc No.[id number]:12/21/2023 Progress Note Patient:?Fede Estrada Provider:?Stefan Marshall DPM :1950???Age:73 Y???Sex:Male Joseph e:12/21/2023 Address:[address] [place] [address], [id number] Pcp:Dallin Flores Subjective: * Chief Complaints: * ???PCP 07/2022 Painful nail(s ) aggrevated by shoes and causing difficulty standing/walking.PCP 07/2022 Painful nail(s) aggrevated by shoes and causing difficulty standing/walking. 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.?Painful Nails:?Pt States Last PCP Visit:?Date:?08/21/2023 * ROS:?General/Constitutional:?Nausea?denies, denies.?Vomiting?denies, denies.?Hunger Thirst?denies, denies.?Loss appetite?denies, denies.?Chills?denies, denies.?Fatigue?denies, denies.?Fever?denies, denies.?Night Sweats denies, denies.?Unexplained weight loss?denies, denies.?Unexplained weight gain?denies, denies.?HEENTM:?Dentures?denies, denies.?Dizziness?denies, denies.?Glasses/contacts?denies, denies.?Retinopathy?denies, denies.?Blurred/double vision?denies, denies.?TMJ?denies, denies.?Discharge/drainage?denies, denies.?Implants?denies, denies.?Sore throat?denies, denies.?Dental implants?denies, denies.?Hard of hearing ?denies, denies.?Difficulty chewing/swallowing/speaking?denies, denies.?Nose bleeds?denies, denies.?Sore mouth?denies, denies.?Respiratory:?On Oxygen?denies, denies.?Pneumonia/pleurisy?denies, denies.?Bronchitis?denies, denies.?Emphysema?denies, denies.?Coughing?denies, denies.?Cough blood?denies, denies.?Shortness of breath?denies, denies.?Wheezing?denies, denies.?Cardiovascular:?Pacemaker?denies, denies.?MVP?denies, denies.?WPW?denies, denies.?CHF?denies, denies.?Heart attack?denies, denies.?Septal defect?denies, denies.?Rapid beat?denies, denies.?Chest pain ?denies, denies.?Atrial Fib.?denies, denies.?Murmur/Palpitations?denies, denies.?Gastrointestinal:?Hemorrhoids?denies, denies.?Stomach/Abdominal pain?denies, denies.?Dark blood stool?denies, denies.?Irritable bowel ?denies, denies.?Constipation?denies, denies.?Diarrhea?denies, denies.?Hematology:?Swelling?denies, denies.?Clots?denies, denies.?Varicose Veins?denies, denies.?Bruising?denies, denies.?Bleeding problem?denies, denies.?Genitourinary:?Blood urine?denies, denies.?Frequent/Painfu/urination/bladder control?denies, denies.?Kidney stones?denies, denies.?Infection (UTI)?denies, denies.?Nephropathy?denies, denies.?sex trans dis (STD)?denies, denies.?Prostate?denies, denies.?Musculoskeletal:?Hammertoes?admits, admits.?Bunions?denies, denies.?Back Pain?denies, denies.?Muscle Cramps/ Resting?denies, denies.?Muscle cramps / walking?denies, denies.?Generalized aches and pains?denies, denies.?Weakness?denies, denies.?Integ.:?Young?denies, denies.?Scars?denies, denies.?Corns/calluses?denies, denies.?Ingrown nails?denies, denies.?Painful nails?denies, denies.?Open Sores?denies, denies.?Rashes?denies, denies.?Neurologic:?Difficulty sleeping?denies, denies.?Brain disorder?denies, denies.?Numbness?denies, denies.?Balance trouble?denies, denies.?Confusion?denies, denies.?Fainting/blackouts?denies, denies.?Tingling?denies, denies.?Tremors?denies, denies.? * Medical History:? * Surgical History:?intestinal surgery-large intestine removed 2014hernia 2018uvula removed * Hospitalization/Major Diagno stic Procedure:?[facility]- Infected toe 12/31/2018 * Family History:?Mother: dece ased, diagnosed with Other malignant neoplasm of unspecified site.?Father: , high blood pressure, diagnosed with Unspecified essential hypertension.?Maternal Grand Father: Foot Problems, diagnosed with Diabetic - NIDDM.?Siblings: diagnosed with Diabetic - NIDDM.? * Social History:?Tobacco Use:?Tobacco Use/Smoking?Are you a:?nonsmoker ?Additional Findings: Tobacco Non-User?Current non-smoker ?Tobacco use other than smoking?Are you an other tobacco user??No ???Sexual History:?Tobacco Use/Smoking: Are you a:: nonsmoker , Additional Findings: Tobacco Non-User: Current non-smoker. ?Tobacco use other than smoking: Are you an other tobacco user? No. ???Miscellaneous:?Caffeine: yes, 1-2 cups per day. ?Children: yes, 2. ?Exercise: yes. ?Marital status: single. ?Occupation: works full-time. * Medications:?TakingOzempic m etFORMIN HCl 1000 MG Tablet 1 tablet with a meal Orally Once a dayLoperamide HCl 2 MG Tablet 1 tablet as needed Orally Four times a dayPregabalin 150 MG Capsule 1 capsule Orally Once a dayLisinopril 10 MG Tablet 1 tablet Orally Once a dayOmeprazole 20 MG Capsule Delayed Release 1 capsule Orally Once a daySimvastatin 10 MG Tablet 1 tablet in the evening Orally Once a dayFolic Acid 1 MG Tablet 1 tablet Orally Once a dayWarfarin Sodium 2.5 MG Tablet 1 tablet Orally Once a dayamLODIPine Besylate 2.5 MG Tablet 1 tablet Orally Once a dayClindamycin HCl Lisinopril 10 MG Tablet 1 tablet Orally Once a dayFolic Acid 1 MG Tablet 1 tablet Orally Once a dayInsulin Custom Orthotics as directed Taking Ozempic Taking metFORMIN HCl 1000 MG Tablet 1 tablet with a meal Orally Once a dayTaking Loperamide HCl 2 MG Tablet 1 tablet as needed Orally Four times a dayTaking Pregabalin 150 MG Capsule 1 capsule Orally Once a dayTaking Lisinopril 10 MG Tablet 1 tablet Orally Once a dayTaking Omeprazole 20 MG Capsule Delayed Release 1 capsule Orally Once a dayTaking Simvastatin 10 MG Tablet 1 tablet in the evening Orally Once a dayTaking Folic Acid 1 MG Tablet 1 tablet Orally Once a dayTaking Warfarin Sodium 2.5 MG Tablet 1 tablet Orally Once a dayTaking amLODIPine Besylate 2.5 MG Tablet 1 tablet Orally Once a dayTaking Clindamycin HCl Taking Lisinopril 10 MG Tablet 1 tablet Orally Once a dayTaking Folic Acid 1 MG Tablet 1 tablet Orally Once a dayTaking Insulin Taking Custom Orthotics as directed Not-Taking/PRNamLODIPine Besy-Benazepril HCl 2.5-10 MG Capsule as directed Orally Loperamide HCl 2 MG Tablet 1 tablet as needed Orally Four times a daymetFORMIN HCl 1000 MG Tablet 1 tablet with a meal Orally Once a dayOmeprazole 20 MG Capsule Delayed Release 1 capsule Orally Once a dayPregabalin Simvastatin 10 MG Tablet 1 tablet in the evening Orally Once a dayWarfarin Sodium 5 MG Tablet 1 tablet Orally Once a dayExtra Depth Orthopedic Shoes (1 Pair) with Customized Heat Molded Multidensity Innersoles (3 Pair) as directed Dx: IDDM/Polyneuropathy (E10.42), Hammertoe Foot Deformity (M20.41,M20.42), Preulcerative Skin Lesion(s) (L85.1)Work Note . . . . return to work on 01/23/19Medication List reviewed and reconciled with the patientNot-Taking/PRN amLODIPine Besy- Benazepril HCl 2.5-10 MG Capsule as directed Orally Not-Taking/PRN Loperamide HCl 2 MG Tablet 1 tablet as needed Orally Four times a dayNot-Taking/PRN metFORMIN HCl 1000 MG Tablet 1 tablet with a meal Orally Once a dayNot-Taking/PRN Omeprazole 20 MG Capsule Delayed Release 1 capsule Orally Once a dayNot-Taking/PRN Pregabalin Not-Taking/PRN Simvastatin 10 MG Tablet 1 tablet in the evening Orally Once a dayNot-Taking/PRN Warfarin Sodium 5 MG Tablet 1 tablet Orally Once a dayNot-Taking/PRN Extra Depth Orthopedic Shoes (1 Pair) with Customized Heat Molded Multidensity Innersoles (3 Pair) as directed Dx: IDDM/Polyneuropathy (E10.42), Hammertoe Foot Deformity (M20.41,M20.42), Preulcerative Skin Lesion(s) (L85.1)Not-Taking/PRN Work Note . . . . return to work on 01/23/19Medication List reviewed and reconciled with the patient * Allergies:?N.K.D.A.yes[Aller gies Verified] Objective: * Vitals:?Ht: 5ft 7in, Wt:218, BMI:34.14, Shoe size:10 extra wide, BS:130. * ???Past Orders: ???Lab:HEMOGLOBIN A1C (GLYCO HEMOGLOBIN) (Order Date - 08/29/2022) (Collection Date - 08/29/2022) ? Value Reference Range ?HEMOGLOBIN A1C % (HH) 6.1 * Examination: ???Ophthalmology Referral: ?DIABETES EYE EXAM?Orthopedic: ?MUSCLE STRENGTH:?5/5 all groups in a symmetrical fashion , B/L.?MPJ PATHOLOGY:? Pain, swelling, and inflammation to dorsal MPJ(s), 2-5 charles.?General Examination: ?GENERAL APPEARANCE:?Reveals a pleasant, alert, well nourished, well developed, well hydrated individual, who demonstrates proper attention to hygene/body habitus, and is in no acute distress.?ORIENTED:?person, place, and time.?FOOT EXAM:?Neurological: ?SENSORY:?Neurological exam demonstrates, 5.07 monofilament test performed at plantar aspects of 5 varied sites per foot shows sensation, reduced , B/L.?DEEP TENDON REFLEXES:?Achilles, 2/4, B/L.?Neuroma Pain: ?PALPATION:? Pain with direct palpation of the intermetatarsal space, 4th interspace, RIGHT.?Vascular: ?DP PULSES:? 2/4, B/L.?PT PULSES:? 2/4, B/L.?CAPILLARY FILL TIME:?immediate, all digits, B/L.?SKIN TEMPERTURE GRADIENT OF THE LOWER EXTERMITIES:?warm to cool, proximal to distal, B/L.?HAIR GROWTH/TEXTURE/ELASTICITY/TURGOR:?normal, B/L.?PIGMENTATION:?normal, B/L.?EDEMA:?absent, B/L.?Dermatologic: ?SKIN FINDINGS:? Skin exam reveals Keratotic lesion(s) located at, Medial plantar, IPJ, TA, T5, SUB MTH (s), 1, B/L , Heel(s), B/L .?Nails: ?NAILS are:?Elongated, overgrown, dystrophic, lytic, greater than 3mm thick, discolored and friable with crumbly malodorous subungual debris, with dull to no pain on palpation due to neuropathy, 1-3 B/L, There is evidence of pain on palpation, and an area of subungual HEMORRAGHIC fluid with a pre-operative size measuring approximately (?6 ) mm square, T1.? Assessment: * Assessment: 1.?Pain in left toe(s) - M79 .675?2.?Type 1 diabetes mellitus with diabetic polyneuropathy - E10.42 (Primary)?3.?Pain in right toe(s) - M79.674?4.?Tinea unguium - B35.1?5.?Other hammer toe(s) (acquired), right foot - M20.41?6.?Metatarsalgia, left foot - M77.42?7.?Metatarsalgia, right foot - M77.41?8.?Other hammer toe(s) (acquired), left foot - M20.42?9.?Subungual hematoma of toenail of left foot, initial encounter - S90.222A? Plan: * Treatment: * Procedures:?Debride Nail 6-10:?Nail debridement?Nail debridement performed extensively to reduce/remove overall nail length and girth, subungual debris, and necrotic tissue, by manual and electrical means with use of a nail nipper and/or dremel, to more viable healthy nail plate or bed tissue 6-10. Silver nitrate used for any petechial bleeding as necessary. Patient chooses, no pharmaceutical tx (78010).?Keratoma Treatment:?Parring or Cutting of Benign Hyperkeratotic Lesion(s)?79577 ( >4 Lesions) - The Benign hyperkeratotic lesions, as described above were pared, and/or cut utilizing a sterile #15 blade, tissue nippers, and/or dremel.? * Procedure Codes:?53875 DEBRI DE NAIL, 6 OR MORE, Modifiers: XS 70771 TRIM SKIN LESIONS, OVER 4, Modifiers: XS * Preventive Medicine:? ??Counseling:?Discussion:?-13: Office or other outpatient visit for the evaluation and management of an established patient, which required a medically appropriate history and/or examination and LOW level of DECISION MAKING for: 1 STABLE ACUTE UNCOMPLICATED PROBLEM, 2 OR MORE MINOR PROBLEMS, OR 1 STABLE CHRONIC PROBLEM, THAT POSE(S) A LOW RISK FOR MORBIDITY/MORTALITY. The visit on the day of the encounter encompassed interpreting the data and educating the patient as to the nature of their condition, treatment options available according to their individual PMH, meds, allergies, and overall health/living conditions, as well as any potential risks or complications that may occur from a failure to adhere to, and participate in, the recommended course of therapy. The discussion included a complete verbal, and/or written explanation of the examination results, any x-rays taken, the proposed diagnosis, and outline of the treatment plan. A schedule for future care needs was also explained. The patient verbalized an understanding of the instructions at this time and agreed to be an active participant in their treatment. If the patient should think of any questions or concerns after the visit, I have encouraged the patient to call the office.? * Follow Up:?3 Months * Images: * Sign off status: Completed true * Provider:?Stefan Marshall DPM Date:? 024 Generated for Matt hunter/Faxing/eTransmitting on:?05/20/2024 12:14 PM EST History and Physical Notes * HPI (History of Present Illness) Category Sub-Category Detail Notes Category Not es Painful Nails Pt States Last PCP Visit: Date:: 08/21/2023 Foot Pain Nature: sharp Location: B/L, Forefoot, Top, Bottom Duration: several years Onset: DPN Course: improved with p4k10 cream Aggravated: any pressure, standi ng, walking Treatments: change in shoes, innersoles ; p4k10 cream Severity/Quality: 6, scale 1-10 Misc: pt works in [employer] shoes standing on concrete all day long Examination Category Sub-Category Detail Notes Category Not es Neuroma Pain PALPATION: Pain with direct palpation of the intermetatarsal space, 4th interspace, RIGHT Neurological SENSORY: Neurological exa m demonstrates, 5.07 monofilament test performed at plantar aspects of 5 varied sites per foot shows sensation, reduced , B/L DEEP TENDON REFLEXES: Achilles, 2/4, B/L Dermatologic SKIN FINDINGS: Skin exam reveal s Keratotic lesion(s) located at, Medial plantar, IPJ, TA, T5, SUB MTH (s), 1, B/L , Heel(s), B/L Orthopedic MPJ PATHOLOGY: Pain, swelling, and inflammation to dorsal MPJ(s), 2-5 charles MUSCLE STRENGTH: 5/5 all groups in a symmetrical fashion , B/L General Examination GENERAL APPEARANCE: Reveals a pleasant, alert, well nourished, well developed, well hydrated individual, who demonstrates proper attention to hygene/body habitus, and is in no acute distress FOOT EXAM: Lower Extremity Neurological Exa m performed:: Yes Visual exam of foot performed:: Yes Date: 12/21/2023 Sensory testing performed:: sensations d iminished Pedal pulse taking performed:: 2+ ORIENTED: person, place, and t blayne Ophthalmology Referral DIABETES EYE EXAM Diabetic Retinopa thy Screening:: No Findings of Diabetic Eye Exam:: no retin opathy Vascular DP PULSES (B): 2/4, B/L PT PULSES (B): 2/4, B/L CAPILLARY FILL TIME: immediate, all digi ts, B/L TEMPERTURE GRADIENT (C): warm to cool, p roximal to distal, B/L TROPHIC CONDITION-TEXTURE/ELASTICITY/TURGOR/HAIR GROWTH (B): normal, B/L EDEMA (C): absent, B/L PIGMENTATION: normal, B/L Nails NAILS are: Elongated, overg rown, dystrophic, lytic, greater than 3mm thick, discolored and friable with crumbly malodorous subungual debris, with dull to no pain on palpation due to neuropathy, 1-3 B/L, There is evidence of pain on palpation, and an area of subungual HEMORRAGHIC fluid with a pre-operative size measuring approximately ( 6 ) mm square, T1
--- OUTSIDE RECORDS SUMMARY | 2024-05-20 12:15 | XMS_ITS ---
Author Organization [facility] Address [address] [address] Care Team Providers Care Artificial Glass Eye Maker Name Role Phone Dallin Flores Primary Care Provider Stefan Heller Unavailable [phone] REASON FOR VISIT PCP 07/2022, Painful nail(s) aggrevated by shoes and causing difficulty standing/walking. Encounters Encounter Location Date [facility] [address] [address] 11/21/2022 Stefan Marshall Type 1 diabetes mellitus with diabetic polyneuropathy E10.42 ; Pain in left toe(s) M79.675 ; Pain in right toe(s) M79.674 ; Tinea unguium B35.1 ; Other hammer toe(s) (acquired), right foot M20.41 ; Metatarsalgia, left foot M77.42 ; Metatarsalgia, right foot M77.41 and Other hammer toe(s) (acquired), left foot M20.42 Assessments Encounter Date Diagnosis (ICD Code) Assessment Notes Treatment Notes Treatment Clinical Notes Section Notes 11/21/2022 Type 1 diabetes mellitus with diabetic polyneuropathy (ICD-10 - E10.42) 11/21/2022 Pain in left toe(s) (ICD-10 - M79.675) 11/21/2022 Pain in right toe(s) (ICD-10 - M79.674) 11/21/2022 Tinea unguium (ICD-10 - B35.1) 11/21/2022 Other hammer toe(s) (acquired), right foot (ICD-10 - M20.41) 11/21/2022 Metatarsalgia, left foot (ICD-10 - M77.42) 11/21/2022 Metatarsalgia, right foot (ICD-10 - M77.41) 11/21/2022 Other hammer toe(s) (acquired), left foot (ICD-10 - M20.42) Plan Of Treatment Next Appt Details Follow Up: 3 Months, Reason: Provider Name:Ruchi Weinberg cintia, 08/01/2024 11:15:00 AM, [address] , [address], [place], [address], Procedure Notes * Category Sub-Category Detail Notes [...] as necessary. Patient chooses, no pharmaceutical tx (15087) Keratoma Treatment Parring or Cutting o f Benign Hyperkeratotic Lesion(s) 47907 ( >4 Lesions) - The Benign hyperkeratotic lesions, as described above were pared, and/or cut utilizing a sterile #15 blade, tissue nippers, and/or dremel Progress Notes * Fede ESTRADADOB:1950 (74 yo M)Acc No.[id number]:11/21/2022 Progress Note Patient:?Fede ESTRADA Provider:?Stefan Marshall DPM :1950???Age:72 Y???Sex:Male Joseph e:11/21/2022 Address:[address] [place] [address], [place], [place] Pcp:Dallin Flores Subjective: * Chief Complaints: * ???1. PCP 07/2022. 2. Painful nail(s) aggrevated by shoes and causing difficulty standing/walking.. 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denies.?Sore mouth?denies.?Respiratory:?On Oxygen?denies.?Pneumonia/pleurisy?denies.?Bronchitis?denies.?Emphysema?denies.?C oughing?denies.?Cough blood?denies.?Shortness of breath?denies.?Wheezing?denies.?Cardiovascular:?Pacemaker?denies.?MVP?denies.?WPW?denies.?CHF?denies.?Heart attack?denies.?Septal defect?denies.?Rapid beat?denies.?Chest pain ?denies.?Atrial Fib.?denies.?Murmur/Palpitations?denies.?Gastrointestinal:?Hemorrhoids?denies.?Stomach/Abdominal pain?denies.?Dark blood stool?denies.?Irritable bowel ?denies.?Constipation?denies.?Diarrhea?denies.?Hematology:?Swelling?denies.?Clots?denies.?Varicose Veins?denies.?Bruising?denies.?Bleeding problem?denies.?Genitourinary:?Blood urine?denies.?Frequent/Painfu/urination/bladder control?denies.?Kidney stones?denies.?Infection (UTI)?denies.?Nephropathy?denies.?sex trans dis (STD)?denies.?Prostate?denies.?Musculoskeletal:?Hammertoes?admits.?Bunions?denies.?Back Pain?denies.?Muscle Cramps/ Resting?denies.?Muscle cramps / walking?denies.?Generalized aches and pains?denies.?Weakness?denies.?Integ.:?Young?denies.?Scars?denies.?Corns/calluses?denies.?Ingrown nails?denies.?Painful nails?denies.?Open Sores?denies.?Rashes?denies.?Neurologic:?Difficulty sleeping?denies.?Brain disorder?denies.?Numbness?denies.?Balance trouble?denies.?Confusion?denies.?Fainting/blackouts?denies.?Tingling?denies.?Tr emors?denies.? * Medical History:? Objective: * Vitals:? * Examination: ???Ophthalmology Referral: ?DIABETES EYE EXAM?Orthopedic: ?MUSCLE STRENGTH:?5/5 all groups in a symmetrical fashion , B/L.?MPJ PATHOLOGY:? Pain, swelling, and inflammation to dorsal MPJ(s), 2-5 charles.?General Examination: ?GENERAL APPEARANCE:?Reveals a pleasant, alert, well nourished, well developed, well hydrated individual, who demonstrates proper attention to hygene/body habitus, and is in no acute distress.?ORIENTED:?person, place, and time.?Neurological: ?SENSORY:?Neurological exam demonstrates, 5.07 monofilament test performed at plantar aspects of 5 varied sites per foot shows sensation, reduced , B/L, Neurological exam demonstrates mild?pop plantar charles 2-5 mtpj's.?DEEP TENDON REFLEXES:?Achilles, 2/4, B/L.?Neuroma Pain: ?PALPATION:? Pain with direct palpation of the intermetatarsal space, 4th interspace, RIGHT.?Vascular: ?DP PULSES (B):? 2/4, B/L.?PT PULSES (B):? 2/4, B/L.?CAPILLARY FILL TIME:?immediate, all digits, B/L.?TROPHIC CONDITION-TEXTURE/ELASTICITY/TURGOR/HAIR GROWTH (B):?normal, B/L.?TEMPERTURE GRADIENT (C):?warm to cool, proximal to distal, B/L.?PIGMENTATION:?normal, B/L.?EDEMA (C):?absent, B/L.?Dermatologic: ?SKIN FINDINGS:? Skin exam reveals Keratotic lesion(s) located at, Medial plantar, IPJ, TA, T5, SUB MTH (s), 1, B/L , Heel(s), B/L .?ULCER:? preulcer distal , T6.?Nails: ?NAILS are:?Elongated, overgrown, dystrophic, lytic, greater than 3mm thick, discolored and friable with crumbly malodorous subungual debris, with dull to no pain on palpation due to neuropathy, 1-3 B/L.? Assessment: * Assessment: 1.?Type 1 diabetes mellitus with diabetic polyneuropathy - E10.42 (Primary)???2.?Pain in left toe(s) - M79.675???3.?Pain in right toe(s) - M79.674???4.?Tinea unguium - B35.1???5.?Other hammer toe(s) (acquired), right foot - M20.41???6.?Metatarsalgia, left foot - M77.42???7.?Metatarsalgia, right foot - M77.41???8.?Other hammer toe(s) (acquired), left foot - M20.42??? Plan: * Treatment: * Procedures:?Debride Nail 6-10:?Nail debridement?Nail debridement performed extensively to reduce/remove overall nail length and girth, subungual debris, and necrotic tissue, by manual and electrical means with use of a nail nipper and/or dremel, to more viable healthy nail plate or bed tissue 6-10. Silver nitrate used for any petechial bleeding as necessary. Patient chooses, no pharmaceutical tx (22135).?Keratoma Treatment:?Parring or Cutting of Benign Hyperkeratotic Lesion(s)?86335 ( >4 Lesions) - The Benign hyperkeratotic lesions, as described above were pared, and/or cut utilizing a sterile #15 blade, tissue nippers, and/or dremel.? * Procedure Codes:?46157 DEBRI DE NAIL, 6 OR MORE, Modifiers: XS , 85566 TRIM SKIN LESIONS, OVER 4, Modifiers: XS * Follow Up:?3 Months * Images: * The named appointment provid er may or may not be the originator of this progress note, and it is not deemed complete until electronically signed by the appointment provider. Sign off status: Pending * Provider:Sissy Marshall DPM Date:? 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 Examination Category Sub-Category Detail Notes Category Not es Neuroma Pain PALPATION: Pain with direct palpation of the intermetatarsal space, 4th interspace, RIGHT Neurological SENSORY: Neurological exa m demonstrates, 5.07 monofilament test performed at plantar aspects of 5 varied sites per foot shows sensation, reduced , B/L, Neurological exam demonstrates mild pop plantar charles 2-5 mtpj's DEEP TENDON REFLEXES: Achilles, 2/4, B/L Dermatologic SKIN FINDINGS: Skin exam reveal s Keratotic lesion(s) located at, Medial plantar, IPJ, TA, T5, SUB MTH (s), 1, B/L , Heel(s), B/L ULCER: preulcer distal , T6 Orthopedic MPJ PATHOLOGY: Pain, swelling, and inflammation to dorsal MPJ(s), 2-5 charles MUSCLE STRENGTH: 5/5 all groups in a symmetrical fashion , B/L General Examination GENERAL APPEARANCE: Reveals a pleasant, alert, well nourished, well developed, well hydrated individual, who demonstrates proper attention to hygene/body habitus, and is in no acute distress ORIENTED: person, place, and t blayne Ophthalmology Referral DIABETES EYE EXAM Diabetic Retinopa thy Screening:: Yes Vascular DP PULSES (B): 2/4, B/L PT [...] pain on palpation due to neuropathy, 1-3 B/L
== END 2024-05-20 11:16 | disposition home or self-care (01) ==
LOC: HO.ACS 11:00
PROVIDERS: PCP Internal Medicine; Visit Provider Internal Medicine
DX: Z79.01 Long term (current) use of anticoagulants (principal)

== ENCOUNTER 2024-06-18 11:11 | Outpatient (AMB) | payer MEDICARE, SELFPAY ==
[2024-06-18 11:16] LABS: Prothrombin Time Whole Bld POC 28.1 sec (11.1-13.5); ~PT, ~INR - Anti Coag Clinic 2.3 (0.9-1.1)
--- NOTE | 2024-06-18 11:18 | MHC.OFFVISCO ---
Intake Intake Visit Reasons: Anticoagulation Allergies No Known Allergies Allergy (Mild, Verified 05/20/24 11:03) N/A Nursing Note NO CP,SOB,DIET/MED CHANGES,FALLS OR SX OF BLEEDING. CONTINUE PRESENT DOSE AND FOLLOW2-UP IN 4 WEEKS. GOOD UNDERSTANDING OF DOSING INSTR. Anti-Coag Initial Assessment Social Hx Patient Tobacco Use Status: Never used Tobacco alcohol intake: never Coding Level of Care Code Est Patient Level 1 Diagnoses Current use of anticoagulant therapy Z79.01 Assessment & Plan Assessment & Plan (1) Current use of anticoagulant therapy: Code(s): Z79.01 - skilled nursing (current) use of anticoagulants Category: Medical
--- OUTSIDE RECORDS SUMMARY | 2024-06-18 14:00 | XMS_ITS ---
Author Organization [facility] Address [address] [place] [address] Care Team Providers Care Founder Name Role Phone Dallin Flores Primary Care Provider Stefan Heller Unavailable [phone] Ruchi Castro Unavailable [phone] Allergies No Known Allergies REASON FOR VISIT [...] Polyneuropathy due to type 2 diabetes mellitus (280971381) Type 2 diabetes mellitus with diabetic polyneuropathy (E11.42) Active confirmed Vital Signs Height 5ft 7in in 03/18/2024 Weight 210 lbs 03/18/2024 BMI 32.89 kg/m2 03/18/2024 Procedures Procedure Date Ordered Date Performed Result Body Sit e 32437-MQLOTGG NAIL, 6 OR MORE 03/18/2024 N/A 62618-PNVN SKIN LESIONS, OVER 4 03/18/2024 N/A Encounters Encounter Location Date Provider Diagnosis [facility] [address] [address] 03/18/2024 Ruchi Castro Type 2 diabetes mellitus with diabetic polyneuropathy E11.42 and Tinea unguium B35.1 Assessments Encounter Date Diagnosis (ICD Code) Assessment Notes Treatment Notes Treatment Clinical Notes Section Notes 03/18/2024 Type 2 diabetes mellitus with diabetic polyneuropathy (ICD-10 - E11.42) 03/18/2024 Tinea unguium (ICD-10 - B35.1) Plan Of Treatment Pending Test Test Name Order Date 32714-YUEQWEB NAIL, 6 OR MORE 03/18/2024 33776-EZLO SKIN LESIONS, OVER 4 03/18/20 24 Next Appt Details Follow Up: 4 Months, Reason: Provider Name:Ruchi chamberlain, 08/01/2024 11:15:00 AM, [address] , [address], [place], [address], Procedure Notes * Category Sub-Category Detail Notes [...] use of a nail nipper and/or dremel-type rubber roller grinder operator, to a more viable healthy nail plate [...] to maintain effectiveness in symptomatic relief - 63370 Keratoma Treatment Parring or Cutting o f Benign Hyperkeratotic Lesion(s) (-57) More than 4 Lesions - The Benign hyperkeratotic lesions, ( 5) in total, locations as stated and described in exam, were pared, and/or cut utilizing a sterile 15 blade, tissue nippers, and/or power dremel instrumentation - 06545 Progress Notes * Fede ESTRADADOB:1950 (74 yo M)Acc No.[id number]:03/18/2024 Progress Note Patient:?Fede ESTRADA Provider:?Ruchi Castro DPM :1950???Age:74 Y???Sex:Male Joseph e:03/18/2024 Address:[address], [place] Pcp:Dallin Flores Subjective: * Chief Complaints: * [...] 2014hernia 2017uvula removed * Hospitalization/Major Diagno stic Procedure:?[facility]- Infected toe 12/31/2018[facility]- wire caught on [...] T7 , T8, T9.?Ophthalmology Referral: ?DIABETES EYE EXAM?Diabetic Retinopathy Screening:?Yes ?Findings of Diabetic Eye Exam:?no retinopathy?Orthopedic: ?MUSCLE STRENGTH:?5/5 all groups in a symmetrical [...] use of a nail nipper and/or dremel-type rubber roller grinder operator, to a more viable healthy nail plate [...] to maintain effectiveness in symptomatic relief - 37861.?Keratoma Treatment:?Parring or Cutting of Benign Hyperkeratotic Lesion(s)?(-57) More than 4 Lesions - The Benign hyperkeratotic lesions, ( 5) in total, locations as stated and described in exam, were pared, and/or cut utilizing a sterile 15 blade, tissue nippers, and/or power dremel instrumentation - 43044.? * Procedure Codes:?82247 DEBRI DE NAIL, 6 OR MORE, Modifiers: XS 86445 TRIM SKIN LESIONS, OVER 4, Modifiers: XS * Follow Up:?4 Months * Images: * Sign off status: Completed true * Provider:?Ruchi Castro DPM Date:?05/18/2023 Generated for Matt hunter/Cecilio/Jake on:?06/18/2024 02:00 PM EST History and Physical Notes * [...]
--- OUTSIDE RECORDS SUMMARY | 2024-06-18 14:00 | XMS_ITS | Encounter Summary ---
Author Organization [facility] Address [address] [place] [address] Phone Care Team Providers Care Inter Com Servicer Name Role Phone Dallin Flores MD Primary Care Provider Encounter Details Date Type Department Care Team (Late st Contact Info) Description 04/10/2022 Telephone [facility] [address] [place] [id number] Neftaly Sorensen MD Social History Tobacco Use [...] on filedocumented in this encounter Care Teams Inter Com Servicer Relationship Specialty Start Date End Date Dallin Flores MD [address] [place] [address], [address] [place] [phone] PCP - General 05/03/20 documented as of this encounter
--- OUTSIDE RECORDS SUMMARY | 2024-06-18 14:00 | XMS_ITS | Patient Health Record ---
Author Organization [facility] Address [address] [place] [address] Care Team Providers Care Corporate Director Name Role Phone Dallin Flores Primary Care Provider Stefan Heller Unavailable [phone] Ruchi Castro Unavailable [phone] Allergies No Known Allergies Results Component Value [...] Polyneuropathy due to type 2 diabetes mellitus (739671462) Type 2 diabetes mellitus with diabetic polyneuropathy (E11.42) Active confirmed Problem Localized, primary osteoarthritis of the ankle and/or foot (415966962) Primary osteoarthritis, right ankle and foot (M19.071) Active confirmed Problem Acquired hammer toe of right foot (8981346931494927 ) Other hammer toe(s) (acquired), right foot (M20.41) Active confirmed Problem Acquired hammer toe of left foot (7248912483869742 ) Other hammer toe(s) (acquired), left foot (M20.42) Active confirmed Problem Polyneuropathy due to diabetes mellitus type I (058264930) Type 1 diabetes mellitus with diabetic polyneuropathy (E10.42) Active confirmed Problem 784072592 Hammer toe of right foot (M20.41) Active confirmed Vital Signs Height 5ft 7in in 03/18/2024 Weight 210 lbs 03/18/2024 BMI 32.89 kg/m2 03/18/2024 Procedures Procedure Date Ordered Date Performed Result Body Sit e 59945-OZWKAGW NAIL, 6 OR MORE 03/18/2024 N/A 99212-FNFW SKIN LESIONS, OVER 4 03/18/2024 N/A Encounters Encounter Location Date Provider Diagnosis [facility] [address] 12/21/2023 Stefan Marshall Type 1 diabetes mellitus [...] toenail of left foot, [facility].222[facility] [address] 03/18/2024 Ruchi Castro Type 2 diabetes mellitus [...] X ray : Foot, right 3V 06/17/2019 10381-RTTVNBO NAIL, 6 OR MORE 03/18/2024 46937- I&D ABSCESS-COMPLICATED,MULTI 02/2019 99720-EJQF SKIN LESIONS, OVER 4 01/15/20 19 48460-ZHJK SKIN LESIONS, OVER 4 02/29/20 22 84867-QTDF SKIN LESIONS, OVER 4 08/30/19 23 19595-NKTT SKIN LESIONS, OVER 4 03/18/20 24 80997, Z5372-DMFDD/INJECT, JOINT/BURSA 0 06/17/2019 Next Appt Details Provider Name:Ruchi Kerrwilly chamberlain, 08/01/2024 11:15:00 AM, [facility], [address] [place] [address], [place], [address], Insurance Providers Payer Name Payer Address Payer Phone Subscriber Number Group Number Insured Name Patient Relationship to Insured Coverage Start Date Coverage End Date Medicare National [employer] [address] [place] [address] [id number] Fede Estrada Self - patient is the insured Medical (General) History Medical History History ICD Code Back,Hip,and Knee pain CAD (Cholesterol) Cataracts Diabetic High blood pressure Numbness Reflux ( GERD) chronic sinusitis Vascular phlebitis (clots) Measles Mumps Chicken pox Surgical History Surgery Date(Month/Year) intestinal surgery-large intestine remov ed 2014 hernia 2018 uvula removed Hospitalization History Reason Date(Month/Year) [facility]- wire caught on leg 01/2024 [facility]- Infected toe 01/2019
--- OUTSIDE RECORDS SUMMARY | 2024-06-18 14:00 | XMS_ITS | Clinical Summary ---
Author Organization [address] [facility] Address [address] [place] [address] Phone Care Team Providers Care Pearl Stringer Name Role Phone Unavailable Primary Care Provider Unavailabl e Encounters Date Type Department Care Team Description 04/03/2024 Lab Requisition [facility] Lab [address] [facility] [address] Edvin Pham PA Gross hematuria from Last 3 Months Surgical History Surgery Date Site/Laterality Comments OTHER SURGICAL HISTORY PROCEDURE: [place] UVULECTOMY EXCISION UVULA; COMMENT: for sleep apnea [...] at Not on file Legal Sex Male 6:57 AM EST Gender Identity Not on file Sexual Orientation Not on file Obstetrics History Plan of Treatment Health Maintenance Due Date Last Done Comments Diabetes: Annual GFR (Glomer ular Filtration Rate) 1950 Diabetes: Annual Foot Exam 01/22/1962 Diabetes: Annual Retina Eye Exam 01/22/1962 DTaP,Tdap,and Td Vaccines (1 - Tdap) 01/22/1971 Zoster Vaccines (1 of 2) 01/22/2002 Pneumococcal Vaccine: 50+ Ye ars (2 of 2 - PCV) 03/20/2004 03/20/2003 Abdominal Aortic Aneurysm (A AA) Screen 03/22/2022 Cholesterol Screening (Lipid Panel) 03/22/2022 Colorectal Cancer Screening: Colonoscopy 03/22/2022 Depression Screening 03/22/2022 Falls Risk Assessment 03/22/2022 Hepatitis C Screening 03/22/2022 Medicare Annual Wellness Visit 03/22/2022 Social Influencers of Health Screening 03/22/2022 Diabetes: Annual Urine Albumin-Creatinine Ratio (uACR) 04/06/2022 Diabetes: Blood Sugar Contro l Test (HGBA1C) 04/06/2022 COVID-19 Vaccine (2023-2 5 season) 2023 Influenza Vaccine (#1) 2023 [...] patient's age to complete this topic Meningococcal B Vacine Aged Out No lo nger eligible based on patient's age to complete [...] and pathological findings. 04/21/2024 4:03 PM EST [facility] Addendum electronically signed by Becky Christian MD on 04/21/2024 at 4:03 PM Final Diagnosis Urine, Voided ([id number]): Negative for high grade urothelial carcinoma. Note: UroVysion testing to follow. 04/21/2024 4:03 PM [facility] Clinical Information [id number] Urine cytology/urine FISH 04/21/2024 4:03 PM [facility] Gross Description A. Urine, Voided, : [id number] RECD 1 TP CYTO 1 TP FISH. 04/21/2024 4:03 PM [facility] Disclaimer Unless otherwise specified, all tissue is 10% NB formalin fixed and paraffin embedded. Technical pathology services provided by [facility] [address] [address] (CLIA #[id number] Pittman MD, Appeals Specialist) 04/21/2024 4:03 PM [facility] Tissue Urine specimen from urethra / Unknown 03/27/2024 04/03/2024 1:33 PM EST [facility] PATHOLOGY ORDERAB LES Edited Result - Final [facility] [address] [place] [address], from Last 3 Months Insurance MEDICARE
--- OUTSIDE RECORDS SUMMARY | 2024-06-18 14:01 | XMS_ITS ---
Author Organization [facility] Address [address] [address] Care Team Providers Care Crossbow Maker Name Role Phone Dallin Flores Primary Care Provider Stefan Heller Unavailable [phone] Allergies No Known Allergies REASON FOR VISIT [...] 12/21/2023 Encounters Encounter Location Date Provider Diagnosis [facility] [address] [address] 12/21/2023 Stefan Marshall Type 1 diabetes mellitus [...] Provider Name:Ruchi Weinberg cintia, 08/01/2024 11:15:00 AM, [facility], [address], [place], [address], Procedure Notes * Category Sub-Category Detail Notes [...] as necessary. Patient chooses, no pharmaceutical tx (48240) Keratoma Treatment Parring or Cutting o f Benign Hyperkeratotic Lesion(s) 06950 ( >4 Lesions) - The Benign hyperkeratotic lesions, as described above were pared, and/or cut utilizing a sterile #15 blade, tissue nippers, and/or dremel Progress Notes * Fede ESTRADADOB:1950 (73 yo M)Acc No.[id number]:12/21/2023 Progress Note Patient:?Fede Estrada Provider:?Stefan Marshall DPM :1950???Age:73 Y???Sex:Male Joseph e:12/21/2023 Address:[address] [place] [address], [facility] Pcp:Dallin Flores Subjective: * Chief Complaints: * [...] 2014hernia 2018uvula removed * Hospitalization/Major Diagno stic Procedure:?[facility]- Infected toe 12/31/2018 * Family History:?Mother: dece [...] 6.1 * Examination: ???Ophthalmology Referral: ?DIABETES EYE EXAM?Diabetic Retinopathy Screening:?No ?Findings of Diabetic Eye Exam:?no retinopathy?Orthopedic: ?MUSCLE STRENGTH:?5/5 all groups in a symmetrical fashion , B/L.?MPJ PATHOLOGY:? Pain, swelling, and inflammation to dorsal MPJ(s), 2-5 charles.?General Examination: ?GENERAL APPEARANCE:?Reveals a pleasant, alert, well nourished, well developed, well hydrated individual, who demonstrates proper attention to hygene/body habitus, and is in no acute distress.?ORIENTED:?person, place, and time.?FOOT EXAM:?Lower Extremity Neurological Exam performed:?Yes ?Visual exam of foot performed:?Yes ?Date?12/21/2023 ?Sensory testing performed:?sensations diminished ?Pedal pulse taking performed:?2+?Neurological: ?SENSORY:?Neurological exam demonstrates, 5.07 monofilament test performed [...] as necessary. Patient chooses, no pharmaceutical tx (56845).?Keratoma Treatment:?Parring or Cutting of Benign Hyperkeratotic Lesion(s)?73568 ( >4 Lesions) - The Benign hyperkeratotic lesions, as described above were pared, and/or cut utilizing a sterile #15 blade, tissue nippers, and/or dremel.? * Procedure Codes:?39745 DEBRI DE NAIL, 6 OR MORE, Modifiers: XS 67890 TRIM SKIN LESIONS, OVER 4, Modifiers: XS [...] Provider:?Stefan Marshall DPM Date:? 024 Generated for Printi ng/Faxing/eTransmitting on:?06/18/2024 02:00 PM EST History and Physical [...]
--- OUTSIDE RECORDS SUMMARY | 2024-06-18 14:01 | XMS_ITS | Clinical Summary ---
Author Organization [facility] Address [address] [address] Phone Care Team Providers Care Key Account Manager Name Role Phone Dallin Flroes MD Primary Care Provider [phone] Allergies Active Allergy Reactions Criticality Noted Date [...] 1 (one) time per week 3 Active hydroCHLOROthia zide 12.5 MG tablet Take [...] mouth 1 (one) time each day Active ergocalciferol (Drisdol) 1.25 MG (15836 UT) capsuleIndicati ons:Chronic kidney disease, stage 2 (mild),Vitamin D deficiency, not otherwise specified Take 1 capsule (50,000 Units total) by mouth 1 (one) time per week 12 capsule 3 4 05/24/19 25 Active Problems Problem Noted Date Diagnosed Date [...] (08/04/2020): INR being followed at home by [facility] after hosp dc. Gastroesophageal reflux disease [...] based on patterns using the new system ferry terminal agent current use of insulin 04/09/2017 02/02/2021 Obesity [...] Of [place] [address] [place] [address] Chayito Pearce ARNP Chronic kidney [...] 10.4 8.7 - 10.7 mg/dL eGFR Non-Afr Kosovan 64 04/01/2024 Historical Provider LAB BLOOD ORDERABLES Carolina l Result from Last 3 Months Insurance MEDICARE MEDICARE Care Teams Key Account Manager Relationship Specialty Start Date End Date Dallin Flores MD [address] [place] [address], [address] [place], [place] [phone] PCP - General 05/03/20
--- OUTSIDE RECORDS SUMMARY | 2024-06-18 14:01 | XMS_ITS | Encounter Summary ---
Author Organization [facility] Address [address] [place] [address] Care Team Providers Care Walking Dragline Oiler Name Role Phone Unavailable Primary Care Provider Unavailabl e Encounter Details Date Type Department Care Team (Late st Contact Info) Description 04/03/2024 Lab Requisition [facility] - Main Lab [address] [facility] [place] [address] Edvin Pham PA [address] [address] Gross hematuria Social History Tobacco Use Types [...] pathological findings. 04/21/2024 4:03 PM EST [facility] ([facility]) [facility] Addendum electronically signed by Becky Christian MD on 04/21/2024 at 4:03 PM Final Diagnosis Urine, Voided ([id number]): Negative for high grade urothelial carcinoma. Note: UroVysion testing to follow. 04/21/2024 4:03 PM EST [facility] Clinical Information [id number] Urine cytology/urine FISH 04/21/2024 4:03 PM [facility] Gross Description A. Urine, Voided, : [id number] RECD 1 TP CYTO 1 TP FISH. 04/21/2024 4:03 PM [facility] Disclaimer Unless otherwise specified, all tissue is 10% NB formalin fixed and paraffin embedded. Technical pathology services provided by [facility] at [address] [place] [address] [address], [place] [address] (CLIA #[id number] Pittman MD, Database Specialist) 04/21/2024 4:03 PM EST [facility] Tissue Urine specimen from urethra / Unknown 03/27/2024 04/03/2024 1:33 PM EST us Edvin LYNCH LAB PATHOLOGY ORDERAB LES Edited Result - Final [facility] [address] [place] [address], documented in this encounter Visit Diagnoses Diagnosis Gross hematuria documented in this encounter
--- OUTSIDE RECORDS SUMMARY | 2024-06-18 14:01 | XMS_ITS | Encounter Summary ---
Author Organization [facility] Address [address] [place] [address] Phone Care Team Providers Care Concrete Block Plant Supervisor Name Role Phone Daliln Flores MD Primary Care Provider Encounter Details Date Type Department Care Team (Late st Contact Info) Description 09/15/2020 Orders Only [facility] [address] [place] [address] Neftaly Sorensen MD Stage 3a chronic kidney [...] (HCC) documented in this encounter Care Teams Concrete Block Plant Supervisor Relationship Specialty Start Date End Date Dallin Flores MD [address] [place] [address], [address] [place], [place] [phone] PCP - General 05/03/20 documented as of this encounter
== END 2024-06-18 11:27 | disposition home or self-care (01) ==
LOC: HO.ACS 11:11
PROVIDERS: PCP Internal Medicine; Visit Provider Internal Medicine
DX: Z79.01 Long term (current) use of anticoagulants (principal)

== ENCOUNTER → 2024-06-18 11:11 | Outpatient (BNVA) | payer MEDICARE, SELFPAY | PROVIDERS: PCP Internal Medicine; Visit Provider Internal Medicine | DX: I26.99 Other pulmonary embolism without acute cor pulmonale (principal); Z79.01 Long term (current) use of anticoagulants; Z51.81 Encounter for therapeutic drug level monitoring | CPT/HCPCS: 85610; 99211 ==

== ENCOUNTER 2024-07-16 11:06 | Outpatient (AMB) | payer MEDICARE, SELFPAY ==
[2024-07-16 11:20] LABS: Prothrombin Time Whole Bld POC 40.5 sec (11.1-13.5); ~PT, ~INR - Anti Coag Clinic 3.4 (0.9-1.1)
--- NOTE | 2024-07-16 11:25 | MHC.OFFVISCO ---
Intake Intake Visit Reasons: Anticoagulation Allergies No Known Allergies Allergy (Mild, Verified 07/16/24 11:11) N/A Medication List - Last Reconciled 07/16/24 by Cleo Canales RN cetirizine 10 mg PO DAILY ergocalciferol (vitamin D2) PO DAILY fluticasone propionate 50 mcg/actuation 1 spray intranasal DAILY folic acid 0.8 mg PO DAILY hydrochlorothiazide 12.5 mg PO DAILY insulin lispro subcut lisinopril 5 mg PO DAILY loperamide 4 mg PO BID magnesium glycinate 400 mg PO DAILY melatonin 10 mg PO BEDTIME PRN 90 days metformin 1,000 mg PO BID omeprazole 20 mg PO DAILY pregabalin 150 mg PO BID simvastatin 10 mg PO BEDTIME tamsulosin 0.8 mg PO DAILY tramadol 50 mg PO Q6H PRN warfarin 2.5 mg See Protocol PO DAILY warfarin 5 mg See Protocol PO DAILY Nursing Note PT.STATES THAT HE MAY HAVE HAD SOME DIET CHANGES IN THE PAST WEEK. NO CP,SOB ,MED CHANGES OR SX OF BLEEDING. HOLD WARFARIN TODAY THEN RESUME USUAL DOSING AND FOLLOW-UP IN 4 WEEKS. GOOD UNDERSTANDING OF DOSING INSTR. Anti-Coag Initial Assessment Social Hx Patient Tobacco Use Status: Never used Tobacco alcohol intake: never Coding Level of Care Code Est Patient Level 1 Diagnoses Current use of anticoagulant therapy Z79.01 Assessment & Plan Assessment & Plan (1) Current use of anticoagulant therapy: Code(s): Z79.01 - USP (current) use of anticoagulants Category: Medical
--- OUTSIDE RECORDS SUMMARY | 2024-07-16 13:23 | XMS_ITS | Clinical Summary ---
Author Organization [address] [facility] Address [address] [place] [address] Phone Care Team Providers Care Dental Office Coordinator Name Role Phone Unavailable Primary Care Provider Unavailabl e Surgical History Surgery Date Site/Laterality Comments OTHER SURGICAL HISTORY PROCEDURE: [place] UVULECTOMY EXCISION UVULA; COMMENT: for sleep apnea [...] on patient's age to [place] [id number]
--- OUTSIDE RECORDS SUMMARY | 2024-07-16 13:23 | XMS_ITS | Patient Health Record ---
Author Organization [facility] Address [address] [place] [address] Care Team Providers Care Professor Of Physics Name Role Phone Dallin Flores Primary Care Provider Stefan Heller Unavailable [phone] Ruchi Castro Unavailable [phone] Allergies No Known Allergies Results Component Value [...] Polyneuropathy due to type 2 diabetes mellitus (400481638) Type 2 diabetes mellitus with diabetic polyneuropathy (E11.42) Active confirmed Problem Localized, primary osteoarthritis of the ankle and/or foot (982310106) Primary osteoarthritis, right ankle and foot (M19.071) Active confirmed Problem Acquired hammer toe of right foot (4339725740487124 ) Other hammer toe(s) (acquired), right foot (M20.41) Active confirmed Problem Acquired hammer toe of left foot (8242070141311869 ) Other hammer toe(s) (acquired), left foot (M20.42) Active confirmed Problem Polyneuropathy due to diabetes mellitus type I (235658684) Type 1 diabetes mellitus with diabetic polyneuropathy (E10.42) Active confirmed Problem 970662417 Hammer toe of right foot (M20.41) Active confirmed Vital Signs Height 5ft 7in in 03/18/2024 Weight 210 lbs 03/18/2024 BMI 32.89 kg/m2 03/18/2024 Procedures Procedure Date Ordered Date Performed Result Body Sit e 28338-QHGFVRT NAIL, 6 OR MORE 03/18/2024 N/A 18216-TZHW SKIN LESIONS, OVER 4 03/18/2024 N/A Encounters Encounter Location Date Provider Diagnosis [facility] [address] 12/21/2023 Stefan Marshall Type 1 diabetes mellitus [...] toenail of left foot, [facility] [address] 03/18/2024 Ruchi Castro Type 2 diabetes mellitus [...] X ray : Foot, right 3V 06/17/2019 53707-DGQBWCR NAIL, 6 OR MORE 03/18/2024 94768- I&D ABSCESS-COMPLICATED,MULTI 02/2019 70868-LDLC SKIN LESIONS, OVER 4 01/15/20 19 10915-YWEV SKIN LESIONS, OVER 4 02/29/20 22 36809-NLWX SKIN LESIONS, OVER 4 08/30/19 23 26683-QHAP SKIN LESIONS, OVER 4 03/18/20 24 95555, M7642-AQBLI/INJECT, JOINT/BURSA 0 06/17/2019 Next Appt Details Provider Name:Ruchi Kerrwilly chamberlain, 08/01/2024 11:15:00 AM, [facility], [place] [address], [place], [address], Insurance Providers Payer Name Payer Address Payer Phone Subscriber Number Group Number Insured Name Patient Relationship to Insured Coverage Start Date Coverage End Date Medicare National Govt Sv[employer] [address] [place] [address] [id number] Fede Estrada Self - patient is the insured Medical (General) History Medical History History ICD Code Back,Hip,and Knee pain CAD (Cholesterol) Cataracts Diabetic High blood pressure Numbness Reflux ( GERD) chronic sinusitis Vascular phlebitis (clots) Measles Mumps Chicken pox Surgical History Surgery Date(Month/Year) intestinal surgery-large intestine remov ed 2014 hernia 2018 uvula removed Hospitalization History Reason Date(Month/Year) [facility]- wire caught on leg 01/2024 [facility]- Infected toe 01/2019
--- OUTSIDE RECORDS SUMMARY | 2024-07-16 13:24 | XMS_ITS | Encounter Summary ---
Author Organization [facility] Address [address] [place] [address] Phone Care Team Providers Care Veterinary Toxicologist Name Role Phone Dallin Flores MD Primary Care Provider [phone] Encounter Details Date Type Department Care Team (Late st Contact Info) Description 09/15/2020 Orders Only [facility] [address] [place] [address] Neftaly Sorensen MD Stage 3a chronic kidney [...] (HCC) documented in this encounter Care Teams Veterinary Toxicologist Relationship Specialty Start Date End Date Dallin Flores MD [address] [place] [address], [address] [place], [place] [phone] PCP - General 05/03/20 documented as of this encounter
--- OUTSIDE RECORDS SUMMARY | 2024-07-16 13:24 | XMS_ITS | Encounter Summary ---
Author Organization [facility] Address [address] [place] [address] Phone Care Team Providers Care Flight Operations Coordinator Name Role Phone Dallin Flores MD Primary Care Provider [phone] Encounter Details Date Type Department Care Team (Late st Contact Info) Description 04/10/2022 Telephone [facility] [address] [place] [address] Neftaly Sorensen MD Social History Tobacco Use [...] on filedocumented in this encounter Care Teams Flight Operations Coordinator Relationship Specialty Start Date End Date Dallin Flores MD [address] [place] [address], [address] [place] [id number] PCP - General 05/03/20 documented as of this encounter
--- OUTSIDE RECORDS SUMMARY | 2024-07-16 13:24 | XMS_ITS | Encounter Summary ---
Author Organization [facility] Address [address] [place] [address] Care Team Providers Care Regional Vice President Surgical Sales Name Role Phone Unavailable Primary Care Provider Unavailabl e Encounter Details Date Type Department Care Team (Late st Contact Info) Description 04/03/2024 Lab Requisition [facility] - Main Lab [address] [facility] [place] [address] Edvin Pham PA [address] [address] Gross hematuria Social History Tobacco [...] and pathological findings. 04/21/2024 4:03 PM EST [facility] Addendum electronically signed by Becky Christian MD on 04/21/2024 at 4:03 PM Final Diagnosis Urine, Voided ([id number]): Negative for high grade urothelial carcinoma. Note: UroVysion testing to follow. 04/21/2024 4:03 PM EST [facility] Clinical Information [id number] Urine cytology/urine FISH 04/21/2024 4:03 PM [facility] Gross Description A. Urine, Voided, : [id number] RECD 1 TP CYTO 1 TP FISH. 04/21/2024 4:03 PM [facility] Disclaimer Unless otherwise specified, all tissue is 10% NB formalin fixed and paraffin embedded. Technical pathology services provided by [facility] at [address] [place] [address] [address], [place] [address] (CLIA #[id number] Pittman MD, Fagot Maker) 04/21/2024 4:03 PM EST [facility] Tissue Urine specimen from urethra / Unknown 03/27/2024 04/03/2024 1:33 PM EST us Edvin LYNCH LAB PATHOLOGY ORDERAB LES Edited Result - Final [facility] [address] [place] [address], documented in this encounter Visit Diagnoses Diagnosis Gross hematuria documented in this encounter
--- OUTSIDE RECORDS SUMMARY | 2024-07-16 13:24 | XMS_ITS | Encounter Summary ---
Author Organization [facility] Address [address] [facility] [address] [place] [address] Phone Care Team Providers Care Fine Grade Bulldozer Operator Name Role Phone Dallin Flores MD Primary Care Provider [phone] Reason for Visit * Reason Comments Med Refill Encounter Details Date Type Department Care Team (Late st Contact Info) Description 07/08/2024 Refill [facility] [address] [place] [address] Chayito Pearce ARNP [address] [facility] [address] [place] [address] Social History Tobacco Use Types Packs/Day Years [...] on filedocumented in this encounter Care Teams Fine Grade Bulldozer Operator Relationship Specialty Start Date End Date Dallin Flores MD [address] [place] [address], [address] [place] [address] PCP - General 05/03/20 documented as of this encounter
--- OUTSIDE RECORDS SUMMARY | 2024-07-16 13:24 | XMS_ITS ---
Author Organization [facility] Address [address] [facility] [place] [address] Care Team Providers Care Tumbling Instructor Name Role Phone Dallin Flores Primary Care Provider Stefan Heller Unavailable [phone] Ruchi Castro Unavailable [phone] Allergies No Known Allergies REASON FOR VISIT [...] Polyneuropathy due to type 2 diabetes mellitus (977740842) Type 2 diabetes mellitus with diabetic polyneuropathy (E11.42) Active confirmed Vital Signs Height 5ft 7in in 03/18/2024 Weight 210 lbs 03/18/2024 BMI 32.89 kg/m2 03/18/2024 Procedures Procedure Date Ordered Date Performed Result Body Sit e 71087-BNEVKQW NAIL, 6 OR MORE 03/18/2024 N/A 77581-TGZV SKIN LESIONS, OVER 4 03/18/2024 N/A Encounters Encounter Location Date Provider Diagnosis [facility] [address] [address] 03/18/2024 Ruchi Castro Type 2 diabetes mellitus with diabetic polyneuropathy E11.42 and Tinea unguium B35.1 Assessments Encounter Date Diagnosis (ICD Code) Assessment Notes Treatment Notes Treatment Clinical Notes Section Notes 03/18/2024 Type 2 diabetes mellitus with diabetic polyneuropathy (ICD-10 - E11.42) 03/18/2024 Tinea unguium (ICD-10 - B35.1) Plan Of Treatment Pending Test Test Name Order Date 45742-UAYZGLD NAIL, 6 OR MORE 03/18/2024 11248-NKSP SKIN LESIONS, OVER 4 03/18/20 24 Next Appt Details Follow Up: 4 Months, Reason: Provider Name:Ruchi chamberlain, 08/01/2024 11:15:00 AM, [address], [place], [address], Procedure Notes * Category Sub-Category Detail Notes [...] a nail nipper and/or dremel-type rubber roller grinder, to a more viable healthy nail [...] to maintain effectiveness in symptomatic relief - 92294 Keratoma Treatment Parring or Cutting o f Benign Hyperkeratotic Lesion(s) (-57) More than 4 Lesions - The Benign hyperkeratotic lesions, ( 5) in total, locations as stated and described in exam, were pared, and/or cut utilizing a sterile 15 blade, tissue nippers, and/or power dremel instrumentation - 83398 Progress Notes * Fede ESTRADADOB:1950 (74 yo M)Acc No.[id number]:03/18/2024 Progress Note Patient:?Fede ESTRADA Provider:?Ruchi Castro DPM :1950???Age:74 Y???Sex:Male Joseph e:03/18/2024 Address:[address], [place] Pcp:Dallin Flores Subjective: * Chief Complaints: * [...] 2014hernia 2017uvula removed * Hospitalization/Major Diagno stic Procedure:?[facility]- Infected toe 12/31/2018[facility]- wire caught on [...] a nail nipper and/or dremel-type rubber roller grinder, to a more viable healthy nail [...] to maintain effectiveness in symptomatic relief - 70584.?Keratoma Treatment:?Parring or Cutting of Benign Hyperkeratotic Lesion(s)?(-57) More than 4 Lesions - The Benign hyperkeratotic lesions, ( 5) in total, locations as stated and described in exam, were pared, and/or cut utilizing a sterile 15 blade, tissue nippers, and/or power dremel instrumentation - 40196.? * Procedure Codes:?01350 DEBRI DE NAIL, 6 OR MORE, Modifiers: XS 63118 TRIM SKIN LESIONS, OVER 4, Modifiers: XS * Follow Up:?4 Months * Images: * Sign off status: Completed true * Provider:?Rucih Castro DPM Date:?05/18/2023 Generated for Matt hunter/Cecilio/eTkiannaitting on:?07/16/2024 01:23 PM EDT History and Physical Notes * HPI (History [...]
--- OUTSIDE RECORDS SUMMARY | 2024-07-16 13:24 | XMS_ITS ---
Author Organization [facility] Address [address] [address] Care Team Providers Care Data Center Architect Name Role Phone Dallin Flores Primary Care Provider Stefan Heller Unavailable [phone] Allergies No Known Allergies REASON FOR VISIT [...] 12/21/2023 Encounters Encounter Location Date Provider Diagnosis [facility] [address] [address] 12/21/2023 Stefan Marshall Type 1 diabetes mellitus [...] Provider Name:Ruchi Weinberg cintia, 08/01/2024 11:15:00 AM, [facility] [place], [address], [place], [address], Procedure Notes * Category Sub-Category Detail Notes [...] as necessary. Patient chooses, no pharmaceutical tx (06187) Keratoma Treatment Parring or Cutting o f Benign Hyperkeratotic Lesion(s) 23464 ( >4 Lesions) - The Benign hyperkeratotic lesions, as described above were pared, and/or cut utilizing a sterile #15 blade, tissue nippers, and/or dremel Progress Notes * Fede ESTRADADOB:1950 (73 yo M)Acc No.[id number]:12/21/2023 Progress Note Patient:?Fede Estrada Provider:?Stefan Marshall DPM :1950???Age:73 Y???Sex:Male Joseph e:12/21/2023 Address:[address] [place] [address], [facility] Pcp:Dallin Flores Subjective: * Chief Complaints: * [...] 2014hernia 2018uvula removed * Hospitalization/Major Diagno stic Procedure:?[facility]- Infected toe 12/31/2018 * Family History:?Mother: dece [...] as necessary. Patient chooses, no pharmaceutical tx (89092).?Keratoma Treatment:?Parring or Cutting of Benign Hyperkeratotic Lesion(s)?03588 ( >4 Lesions) - The Benign hyperkeratotic lesions, as described above were pared, and/or cut utilizing a sterile #15 blade, tissue nippers, and/or dremel.? * Procedure Codes:?16766 DEBRI DE NAIL, 6 OR MORE, Modifiers: XS 65624 TRIM SKIN LESIONS, OVER 4, Modifiers: XS [...] DPM Date:? 024 Generated for Printi ng/Faxing/eTransmitting on:?07/16/2024 01:23 PM EDT History and Physical [...]
--- OUTSIDE RECORDS SUMMARY | 2024-07-16 13:24 | XMS_ITS | Clinical Summary ---
Author Organization [facility] Address [address] [address] Phone Care Team Providers Care Manager Inspection Name Role Phone Dallin Flores MD Primary Care Provider [phone] Allergies Active Allergy Reactions Criticality Noted Date Comments Azathioprine 08/04/2020 Medications insulin lispro (HumaLOG) 100 UNIT/ML injection Inject 70 Units under the skin daily 04/20/20 20 Active loperamide (IMODIUM A-D) 2 MG tablet Take 3 tablets by mouth 2 (two) times a day Active omeprazole (PriLOSEC) [address] capsule Take 20 mg by mouth daily 11/13/19 20 Active simvastatin (ZOCOR) 10 MG tablet Take 1 tablet by mouth 1 (one) time each day 12/05/19 20 Active tamsulosin (FLOMAX) 0.4 MG 24 hr capsule Take 0.4 mg by mouth daily Active cetirizine (ZyrTEC) 10 MG tablet Take 10 mg by mouth 1 (one) time each day 08/17/19 21 Active folic acid (FOLVITE) 1 MG tablet Take 1,000 mcg by mouth daily 09/11/19 21 Active warfarin (COUMADIN) 2.5 MG tablet Take 2.5 mg by mouth 1 (one) time each day 08/19/19 22 Active warfarin (COUMADIN) 5 MG tablet 08/17/19 22 Active metFORMIN (GLUCOPHAGE) 1000 MG tablet Take 1 tablet by mouth in the morning and 1 tablet in the evening. Take with meals. 12/20/19 22 Active pregabalin (LYRICA) 150 MG capsule Take 150 mg by mouth in the morning and 150 mg in the evening. 07/13/19 22 Active Tirzepatide 5 MG/0.5ML solution pen-injector Inject 5 mg under the skin 1 (one) time per week 07/28/19 23 Active fluticasone (FLONASE) 50 MCG/ACT nasal spray Administer 1 spray into each nostril 1 (one) time each day Active Magnesium 400 MG tablet Take 400 mg by mouth 1 (one) time each day Active Multiple Vitamin (multivitamin) capsule Take 1 capsule by mouth 1 (one) time each day Active hydroCHLOROthi azide 12.5 MG tablet TAKE 1 TABLET DAILY 90 tablet 3 07/09/19 25 Active hydroCHLOROthi azide 12.5 MG tablet Take 1 tablet (12.5 mg total) by mouth 1 (one) time each day 90 tablet 3 07/24/19 24 025 Discontinued Active Problems Problem Noted Date Diagnosed Date [...] Primary gonarthrosis, 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 Gastroesophageal reflux [...] labs including lipids Insulin pump present 04/09/2017 021 Overview (08/04/2020): Last Assessment & Plan: Current [...] based on patterns using the new system [facility] current use of insulin 04/09/2017 02/02/2021 Obesity [...] Encounters Date Type Department Care Team Description 07/08/2024 Refill [facility] [address] [place] [address] Chayito Pearce ARNP 04/23/2024 Orders Only [facility] [address] [place] [address] Chayito Pearce ARNP Chronic kidney disease, stage [...] age to complete this topic Insurance [place] [id number] Care Teams Manager Inspection Relationship Specialty Start Date End Date Dallin Flores MD [address] [place] [address], [address] [place] [address] PCP - General 05/03/20
== END 2024-07-16 11:28 | disposition home or self-care (01) ==
LOC: HO.ACS 11:06
PROVIDERS: PCP Internal Medicine; Visit Provider Internal Medicine Medical Oncology
DX: Z79.01 Long term (current) use of anticoagulants (principal)

== ENCOUNTER → 2024-07-16 11:06 | Outpatient (BNVA) | payer MEDICARE, SELFPAY | PROVIDERS: PCP Internal Medicine; Visit Provider Internal Medicine Medical Oncology | DX: I26.99 Other pulmonary embolism without acute cor pulmonale (principal); Z79.01 Long term (current) use of anticoagulants; Z51.81 Encounter for therapeutic drug level monitoring | CPT/HCPCS: 85610; 99211 ==

== ENCOUNTER 2024-07-23 11:27 | Outpatient (AMB) | payer MEDICARE, SELFPAY ==
--- NOTE | 2024-07-23 11:28 | A.OFFVIS_ITS ---
Vital Signs 07/23/24 11:33 Height 5 ft 6 in Weight 238 lb BMI 38.4 BP 124/72 Blood Pressure Location Rt brachial Position Sitting Pulse 70 Pulse Source Pulse Oximeter Pulse Oximetry (%) 93 Oxygen Delivery Method Room Air Intake Visit Reasons: Follow up Intake Note: Patient presents follow up DEBI medication. No compliance patient states he hasn't been using machine in over 7 months due to congestion Allergies No Known Allergies Allergy (Mild, Verified 07/23/24 11:34) N/A Medication List - Last Reconciled 07/23/24 by MAURY Scruggs cetirizine 10 mg PO DAILY ergocalciferol (vitamin D2) PO DAILY fluticasone propionate 50 mcg/actuation 1 spray intranasal DAILY folic acid 0.8 mg PO DAILY hydrochlorothiazide 12.5 mg PO DAILY insulin lispro subcut lisinopril 5 mg PO DAILY loperamide 4 mg PO BID magnesium glycinate 400 mg PO DAILY melatonin 10 mg PO BEDTIME PRN 90 days metformin 1,000 mg PO BID omeprazole 20 mg PO DAILY pregabalin 150 mg PO BID simvastatin 10 mg PO BEDTIME tamsulosin 0.8 mg PO DAILY tramadol 50 mg PO Q6H PRN warfarin 2.5 mg See Protocol PO DAILY warfarin 5 mg See Protocol PO DAILY HPI Comments Details: History of Present Illness The patient is a 74-year-old male presenting with obstructive sleep apnea. He reports a 7-8 month history of nasal congestion inhibiting CPAP use. Recent improvement noted after using Mucinex at bedtime, unaware of exact formulation strength. He uses Flonase with doubts about its efficacy. Allergic rhinitis history confirmed by prior tests showing environmental allergies. Past allergy shots discontinued due to financial reasons. Surgical history includes UPPP, potentially decreasing in efficacy with age. Reports excessive snoring. Desires to resume CPAP use. Shows interest in new antihistamine nasal spray for congestion. Review of Systems - Respiratory: Reports chronic nasal blockage; improvement with OTC Mucinex. - ENT: Reports excessive mucus production, history of allergic rhinitis. CPAP compliance review: Does patient have sufficient PAP supplies? Yes Does patient clean PAP supplies on a regular basis? Yes Does the patient use distilled water in their PAP machine water reservoir? Patient does not currently use water in his CPAP water reservoir, as he found it difficult to regularly obtain distilled water. however, he states he tolerates it well, when he does use it, even without using water PAP compliance report: no recent report available [facility] Surgical History History of knee replacement History of nasal septoplasty Hx of tonsillectomy H/O uvulectomy H/O hernia repair History of intestinal surgery Family History Father No problems noted. Mother No problems noted. Social History Household Members: Spouse Housing: House Alcohol intake: never Patient Tobacco Use Status: Never used Tobacco Physical Exam Vital Signs: Last Vital Signs Pulse 70 07/23/24 11:33 BP 124/72 07/23/24 11:33 Pulse Ox 93 07/23/24 11:33 Oxygen Delivery Method Room Air 07/23/24 11:33 BMI result Body Mass Index 38.4 Const General: no acute distress Orientation/consciousness: patient oriented x3 Resp Effort & Inspection: normal respiratory effort and able to speak in complete sentences Neuro General: patient oriented x3 Psych Mental Status: mental status grossly normal Speech and movement: Clear speech present Attitude: cooperative Assessment & Plan Assessment & Plan (1) DEBI on CPAP: Code(s): G47.33 - Obstructive sleep apnea (adult) (pediatric) Category: Medical (2) Environmental and seasonal allergies: Code(s): J30.89 - Other allergic rhinitis Category: Medical (3) Allergic rhinitis: Code(s): J30.9 - Allergic rhinitis, unspecified Category: Medical Plan Discussion Notes I discussed with the patient the importance of resuming CPAP therapy given a history of obstructive sleep apnea and cardiac issues. We considered further management of nasal congestion using a new antihistamine nasal spray to facilitate CPAP use, emphasizing the technique and potential side effects, such as sleepiness. I recommended thorough cleaning of CPAP equipment using hot soapy water and line drying techniques. I advised the patient to ensure the use of distilled water, if he does resume using water with his CPAP reservoir, to avoid contamination. Follow-up in six months was suggested to assess CPAP efficacy and nasal spray?s impact on tolerance. We also considered prescription arrangements through potential local pharmacy options. Plan Management includes resuming CPAP therapy for obstructive sleep apnea. Continue Mucinex at bedtime; initiate antihistamine nasal spray post-Flonase with side effects briefing. Ensure CPAP cleanliness and distilled water use if/when patient begins to use humidification feature again. Evaluate sleep apnea therapy tolerance and efficacy in six months. Arrange prescription dispensing locally for convenience. - Resume use of APAP 5-13phA1K nightly with a goal of greater than 4 hours nightly, as patient is experiencing good clinical effect from use. - Clean and change PAP supplies routinely, including filters, masks, tubing, and water reservoir. - Use distilled water in PAP water reservoir- if/when you begin to use humidification feature again Patient was informed and verbally consented to the use of an ambient scribe for clinic note documentation during this visit. Medications: New azelastine administer into each nostril 2 sprays intranasal Q12H 30 days 30 mL 6RF Coding Level of Care Code Est Pt Level 4 (34922) Diagnoses DEBI on CPAP G47.33 Environmental and seasonal allergies J30.89 Allergic rhinitis J30.9
[2024-07-23 11:33] VITALS: BP 124/72; PULSE 70; O2SAT 93; BMI 38.4
--- OUTSIDE RECORDS SUMMARY | 2024-07-23 14:00 | XMS_ITS | Clinical Summary ---
Author Organization [address] [facility] Address [address] [place] [address] Phone Care Team Providers Care Telephone Interceptor Operator Name Role Phone Unavailable Primary Care Provider Unavailabl e Surgical History Surgery Date Site/Laterality Comments OTHER SURGICAL HISTORY PROCEDURE: CT UVULECTOMY EXCISION UVULA; COMMENT: for sleep apnea [...] 2023 Influenza Vaccine (#1) 2023 RSV Immunization Adult Patie nts (1 - 1-dose 75+ series) 01/22/2027 HIB [...]
--- OUTSIDE RECORDS SUMMARY | 2024-07-23 14:00 | XMS_ITS ---
Author Organization [facility] Address [address] [facility] [place] [address] Care Team Providers Care Corporate Representative Name Role Phone Dallin Flores Primary Care Provider Stefan Heller Unavailable [phone] Ruchi Castro Unavailable [phone] Allergies No Known Allergies REASON FOR VISIT [...] Polyneuropathy due to type 2 diabetes mellitus (960976727) Type 2 diabetes mellitus with diabetic polyneuropathy (E11.42) Active confirmed Vital Signs Height 5ft 7in in 03/18/2024 Weight 210 lbs 03/18/2024 BMI 32.89 kg/m2 03/18/2024 Procedures Procedure Date Ordered Date Performed Result Body Sit e 44427-PSURRPV NAIL, 6 OR MORE 03/18/2024 N/A 41244-FUUK SKIN LESIONS, OVER 4 03/18/2024 N/A Encounters Encounter Location Date Provider Diagnosis [facility] [address] [address] 03/18/2024 Ruchi Castro Type 2 diabetes mellitus with diabetic polyneuropathy E11.42 and Tinea unguium B35.1 Assessments Encounter Date Diagnosis (ICD Code) Assessment Notes Treatment Notes Treatment Clinical Notes Section Notes 03/18/2024 Type 2 diabetes mellitus with diabetic polyneuropathy (ICD-10 - E11.42) 03/18/2024 Tinea unguium (ICD-10 - B35.1) Plan Of Treatment Pending Test Test Name Order Date 10053-IWNCHBC NAIL, 6 OR MORE 03/18/2024 35494-AWKX SKIN LESIONS, OVER 4 03/18/20 24 Next Appt Details Follow Up: 4 Months, Reason: Provider Name:Ruchi chamberlain, 08/01/2024 11:15:00 AM, [address], [place], [address], Procedure Notes * Category Sub-Category Detail Notes [...] use of a nail nipper and/or dremel-type surface grinder, to a more viable healthy nail [...] to maintain effectiveness in symptomatic relief - 40030 Keratoma Treatment Parring or Cutting o f Benign Hyperkeratotic Lesion(s) (-57) More than 4 Lesions - The Benign hyperkeratotic lesions, ( 5) in total, locations as stated and described in exam, were pared, and/or cut utilizing a sterile 15 blade, tissue nippers, and/or power dremel instrumentation - 67949 Progress Notes * Fede ESTRADADOB:1950 (74 yo M)Acc No.[id number]:03/18/2024 Progress Note Patient:?Fede ESTRADA Provider:?Ruchi Castro DPM :1950???Age:74 Y???Sex:Male Joseph e:03/18/2024 Address:[address], [place] Pcp:Dallin Flores Subjective: * Chief Complaints: * [...] 2014hernia 2017uvula removed * Hospitalization/Major Diagno stic Procedure:?[facility]- Infected toe 12/31/2018[facility]- wire caught on [...] use of a nail nipper and/or dremel-type surface grinder, to a more viable healthy nail [...] to maintain effectiveness in symptomatic relief - 39102.?Keratoma Treatment:?Parring or Cutting of Benign Hyperkeratotic Lesion(s)?(-57) More than 4 Lesions - The Benign hyperkeratotic lesions, ( 5) in total, locations as stated and described in exam, were pared, and/or cut utilizing a sterile 15 blade, tissue nippers, and/or power dremel instrumentation - 71750.? * Procedure Codes:?97078 DEBRI DE NAIL, 6 OR MORE, Modifiers: XS 04750 TRIM SKIN LESIONS, OVER 4, Modifiers: XS * Follow Up:?4 Months * Images: * Sign off status: Completed true * Provider:?Ruchi Castro DPM Date:?05/18/2023 Generated for Matt hunter/Cecilio/eTransmitting on:?07/23/2024 02:00 PM EDT History and Physical Notes * [...]
--- OUTSIDE RECORDS SUMMARY | 2024-07-23 14:00 | XMS_ITS | Patient Health Record ---
Author Organization [facility] Address [address] [place] [address] Care Team Providers Care Traffic Circuit Engineer Name Role Phone Dallin Flores Primary Care Provider Stefan Heller Unavailable [phone] Ruchi Castro Unavailable [phone] Allergies No Known Allergies Results Component Value [...] Polyneuropathy due to type 2 diabetes mellitus (037063096) Type 2 diabetes mellitus with diabetic polyneuropathy (E11.42) Active confirmed Problem Localized, primary osteoarthritis of the ankle and/or foot (757109625) Primary osteoarthritis, right ankle and foot (M19.071) Active confirmed Problem Acquired hammer toe of right foot (8291481594770398 ) Other hammer toe(s) (acquired), right foot (M20.41) Active confirmed Problem Acquired hammer toe of left foot (3580901182803333 ) Other hammer toe(s) (acquired), left foot (M20.42) Active confirmed Problem Polyneuropathy due to diabetes mellitus type I (675478133) Type 1 diabetes mellitus with diabetic polyneuropathy (E10.42) Active confirmed Problem 634880209 Hammer toe of right foot (M20.41) Active confirmed Vital Signs Height 5ft 7in in 03/18/2024 Weight 210 lbs 03/18/2024 BMI 32.89 kg/m2 03/18/2024 Procedures Procedure Date Ordered Date Performed Result Body Sit e 71049-ZHKEWEZ NAIL, 6 OR MORE 03/18/2024 N/A 44632-QPIZ SKIN LESIONS, OVER 4 03/18/2024 N/A Encounters Encounter Location Date Provider Diagnosis [facility] [address] 12/21/2023 Stefan Marshall Type 1 diabetes mellitus [...] toenail of left foot, [facility] [address] 03/18/2024 Ruchi Castro Type 2 diabetes mellitus [...] X ray : Foot, right 3V 06/17/2019 38253-LCKWOGF NAIL, 6 OR MORE 03/18/2024 95197- I&D ABSCESS-COMPLICATED,MULTI 02/2019 64373-IYMS SKIN LESIONS, OVER 4 01/15/20 19 53692-MCYZ SKIN LESIONS, OVER 4 02/29/20 22 18118-ADUT SKIN LESIONS, OVER 4 08/30/19 23 20176-GVPR SKIN LESIONS, OVER 4 03/18/20 24 24716, A8251-JEWDI/INJECT, JOINT/BURSA 0 06/17/2019 Next Appt Details Provider Name:Ruchi Kerrwilly chamberlain, 08/01/2024 11:15:00 AM, On license of [facility], [place] [address], [place], [address], Insurance Providers Payer Name Payer Address Payer Phone Subscriber Number Group Number Insured Name Patient Relationship to Insured Coverage Start Date Coverage End Date Medicare National [employer] [address] [place] [address] [id number] Fede Estrada Self - patient is the insured Medical (General) History Medical History History ICD Code Back,Hip,and Knee pain CAD (Cholesterol) Cataracts Diabetic High blood pressure Numbness Reflux ( GERD) chronic sinusitis Vascular phlebitis (clots) Measles Mumps Chicken pox Surgical History Surgery Date(Month/Year) intestinal surgery-large intestine remov ed 2014 hernia 2018 uvula removed Hospitalization History Reason Date(Month/Year) [facility]- wire caught on leg 01/2024 [facility] [place]- Infected toe 01/2019
--- OUTSIDE RECORDS SUMMARY | 2024-07-23 14:01 | XMS_ITS ---
Author Organization [facility] Address [address] [address] Care Team Providers Care Research Manager Name Role Phone Dallin Flores Primary Care Provider Stefan Heller Unavailable [phone] Allergies No Known Allergies REASON FOR VISIT [...] 12/21/2023 Encounters Encounter Location Date Provider Diagnosis [facility] [address] [address] 12/21/2023 Stefan Marshall Type 1 diabetes mellitus [...] Provider Name:Ruchi Weinberg cintia, 08/01/2024 11:15:00 AM, [facility], [address], [place], [address], Procedure Notes * Category Sub-Category Detail Notes [...] as necessary. Patient chooses, no pharmaceutical tx (88608) Keratoma Treatment Parring or Cutting o f Benign Hyperkeratotic Lesion(s) 17992 ( >4 Lesions) - The Benign hyperkeratotic lesions, as described above were pared, and/or cut utilizing a sterile #15 blade, tissue nippers, and/or dremel Progress Notes * Fede ESTRADADOB:1950 (73 yo M)Acc No.[id number]:12/21/2023 Progress Note Patient:?Fede Estrada Provider:?Stefan Marshall DPM :1950???Age:73 Y???Sex:Male Joseph e:12/21/2023 Address:[address] [place] [address], [facility] Pcp:Dallin Flores Subjective: * Chief Complaints: * [...] 2014hernia 2018uvula removed * Hospitalization/Major Diagno stic Procedure:?[facility]- Infected toe 12/31/2018 * Family History:?Mother: [...] as necessary. Patient chooses, no pharmaceutical tx (60972).?Keratoma Treatment:?Parring or Cutting of Benign Hyperkeratotic Lesion(s)?75439 ( >4 Lesions) - The Benign hyperkeratotic lesions, as described above were pared, and/or cut utilizing a sterile #15 blade, tissue nippers, and/or dremel.? * Procedure Codes:?00193 DEBRI DE NAIL, 6 OR MORE, Modifiers: XS 65435 TRIM SKIN LESIONS, OVER 4, Modifiers: XS [...] DPM Date:? 024 Generated for Printi ng/Faxing/eTransmitting on:?07/23/2024 02:00 PM EDT History and Physical [...]
--- OUTSIDE RECORDS SUMMARY | 2024-07-23 14:01 | XMS_ITS | Clinical Summary ---
Author Organization [facility] Address [address] [address] Phone Care Team Providers Care Logistics Engineer Name Role Phone Dallin Flores MD Primary Care Provider [phone] Allergies Active Allergy Reactions Criticality Noted Date [...] (08/04/2020): INR being followed at home by [facility] after hosp dc. Gastroesophageal reflux [...] based on patterns using the new system residential current use of insulin 04/09/2017 02/02/2021 Obesity [...] [place] [address] [place] [address] Chayito Pearce ARNP from Last 3 Months Immunizations Name Administration [...] to complete this topic Insurance MEDICARE MEDICARE Care Teams Logistics Engineer Relationship Specialty Start Date End Date Elsea, Peter A, MD [address] [place] [address], [address] [place] [address] PCP - General 05/03/20
--- OUTSIDE RECORDS SUMMARY | 2024-07-23 14:01 | XMS_ITS | Encounter Summary ---
Author Organization [facility] Address [address] [place] [address] Phone Care Team Providers Care Show Worker Name Role Phone Dallin Flores MD Primary Care Provider [phone] Encounter Details Date Type Department Care Team (Late st Contact Info) Description 09/15/2020 Orders Only [facility] [address] [place] [id number] Neftaly Sorensen MD Stage 3a chronic kidney [...] (HCC) documented in this encounter Care Teams Show Worker Relationship Specialty Start Date End Date Dallin Flores MD [address] [place] [address], [address] [place], [place] [id number] PCP - General 05/03/20 documented as of this encounter
--- OUTSIDE RECORDS SUMMARY | 2024-07-23 14:01 | XMS_ITS | Encounter Summary ---
Author [facility] Address [address] [place] [address] Care Team Providers Care Parole Board Member Name Role Phone Unavailable Primary Care Provider Unavailabl e Encounter Details Date Type Department Care Team (Late st Contact Info) Description 04/03/2024 Lab Requisition [facility] [address] [facility] [place] [address] Edvin Pham PA [address] [address] Gross hematuria Social History Tobacco [...] and pathological findings. 04/21/2024 4:03 PM EST [facility] ([facility]) [facility] Addendum electronically signed by Becky Christian MD on 04/21/2024 at 4:03 PM Final Diagnosis Urine, Voided ([id number]): Negative for high grade urothelial carcinoma. Note: UroVysion testing to follow. 04/21/2024 4:[address] [facility] Clinical Information [id number] Urine cytology/urine FISH 04/21/2024 4:03 PM [facility] Gross Description A. Urine, Voided, : [id number] RECD 1 TP CYTO 1 TP FISH. 04/21/2024 4:03 PM [facility] Disclaimer Unless otherwise specified, all tissue is 10% NB formalin fixed and paraffin embedded. Technical pathology services provided by [facility] at [address] [place] [address] [address] [address] (CLIA #[id number] Pittman MD, Mamma Logist) 04/21/2024 4:[address] [facility] Tissue Urine specimen from urethra / Unknown 03/27/2024 04/03/2024 1:33 PM EST us [facility] ORDERAB LES Edited Result - Final [facility] [address] [place] [address], documented in this encounter Visit Diagnoses Diagnosis Gross hematuria documented in this encounter
--- OUTSIDE RECORDS SUMMARY | 2024-07-23 14:01 | XMS_ITS | Encounter Summary ---
Author Organization [facility] Address [address] [place] [address] Phone Care Team Providers Care Paint Booth Operator Name Role Phone Dallin Flores MD Primary Care Provider [phone] Encounter Details Date Type Department Care Team (Late st Contact Info) Description 04/10/2022 Telephone [facility] [address] [place] [phone] Neftaly Sorensen MD Social History Tobacco Use [...] on filedocumented in this encounter Care Teams Paint Booth Operator Relationship Specialty Start Date End Date Dallin Flores MD [address] [place] [address], [address] [place] [phone] PCP - General 05/03/20 documented as of this encounter
== END 2024-07-23 12:04 | disposition home or self-care (01) ==
LOC: HO.HSMS 11:27
PROVIDERS: PCP Internal Medicine; Visit Provider Nurse Practitioner Family
DX: G47.33 Obstructive sleep apnea (adult) (pediatric) (principal); J30.89 Other allergic rhinitis; J30.9 Allergic rhinitis, unspecified
CPT/HCPCS: 99214

== ENCOUNTER → 2024-07-23 11:27 | Outpatient (BNVA) | payer MEDICARE, SELFPAY | PROVIDERS: PCP Internal Medicine; Visit Provider Nurse Practitioner Family | DX: G47.33 Obstructive sleep apnea (adult) (pediatric) (principal); J30.89 Other allergic rhinitis; Z99.89 Dependence on other enabling machines and devices | CPT/HCPCS: 99212 ==

== ENCOUNTER 2024-08-04 10:02 | Outpatient (REF) | payer MEDICARE, SELFPAY ==
--- OUTSIDE RECORDS SUMMARY | 2024-08-04 11:21 | XMS_ITS | Patient Health Record ---
Author Organization [facility] Address [address] [place] [address] Care Team Providers Care French Edge Operator Name Role Phone Dallin Flores Primary Care Provider Stefan Heller Unavailable [phone] Ruchi Castro Unavailable [phone] Allergies No Known Allergies Results Component Value Reference Range Notes HEMOGLOBIN A1C (GLYCOHEMOGLO BIN) Reviewed date:08/01/2024 11:29:42 AM Interpretation: Performing Lab: Notes/Report: HEMOGLOBIN A1C % (HH) 7.4 HEMOGLOBIN A1C (GLYCOHEMOGLO BIN) Reviewed date:03/18/2024 10:51:47 AM Interpretation: Performing Lab: Notes/Report: TOTAL HEMOGLOBIN (HGBA1C) 7.8 Reason For Referral No Information Medications Medication SIG (Take, Route, Frequency, Duration) Notes Start Date End Date Status amLODIPine Besy-Benazepril HCl 2.5-10 MG as directed Orally Not-Takin g Custom Orthotics as directed A ctive Insulin pump Active Folic Acid 1 MG 1 tablet Orally Once a day for 30 day(s) Not-Taking Lisinopril 10 MG 1 tablet Orally Once a day for 30 day(s) 01/01/2019 Not-Taking Clindamycin HCl Acti ve amLODIPine Besylate 2.5 [...] Once a day for 30 day(s) Active Work Note . . . return to work o n 01/23/19 01/14/2019 Not-Taking Ozempic Active Extra Depth Orthopedic Shoes [...] Once a day for 30 day(s) Not-Taking Extra Depth Orthopedic Shoes (1 Pair) with Customized Heat Molded Multidensity Innersoles (3 Pair) as directed Dx: IDDM/Polyneuropathy (E10.42), Hammertoe Foot Deformity (M20.41,M20.42), Preulcerative Skin Lesion(s) (L85.1) 08/01/2024 Active Pregabalin Not-Takin g Omeprazole 20 MG 1 capsule Orally Onc e a day for 30 day(s) Not-Taking metFORMIN HCl 1000 MG 1 tablet with a me al Orally Once a day for 30 day(s) 01/01/2019 Not-Taking Loperamide HCl 2 MG 1 tablet as needed Orally Four times a day 01/01/2019 Not-Takjosiane hunter Social History Tobacco Use: Social History Observation Description Date Details (start date - stop date) Never Smoker NA - NA Tobacco use other than smoking: Question Answer Notes Are you an other tobacco user? No Tobacco Control (Standard) Question Answer Notes Tobacco use: Nonsmoker Additional Findings: Tobacco non-user Current no nsmoker AUDIT-C (Standard) Question Answer Notes Did you have a drink containing alcohol in the p ast year? No Points 0 Interpretation Negative Problems Problem Type SNOMED Code ICD Code Onset Dates Problem Status W/U Status Risk Notes Problem Polyneuropathy due to type 2 diabetes mellitus (167970187) Type 2 diabetes mellitus with diabetic polyneuropathy (E11.42) Active confirmed Vital Signs Height 5ft 7in in 08/01/2024 Weight 210 lbs 08/01/2024 BMI 32.89 kg/m2 08/01/2024 Procedures Procedure Date Ordered Date Performed Result Body Sit e 10371-OAMHZCF NAIL, 6 OR MORE 03/18/2024 N/A 25107-OOBG SKIN LESIONS, OVER 4 03/18/2024 N/A Encounters Encounter Location Date Provider Diagnosis [address] [address] 12/21/2023 StefanStorey Type 1 diabetes mellitus with diabetic polyneuropathy E10.42 ; Pain in left toe(s) M79.675 ; Pain in right toe(s) M79.674 ; Tinea unguium B35.1 ; Other hammer toe(s) (acquired), right foot M20.41 ; Metatarsalgia, left foot M77.42 ; Metatarsalgia, right foot M77.41 ; Other hammer toe(s) (acquired), left foot M20.42 and Subungual hematoma of toenail of left foot, initial encounter S90.222A [address] [address] 03/18/2024 Ruchi Castro Type 2 diabetes mellitus with diabetic polyneuropathy E11.42 and Tinea unguium B35.[address] [address] 08/01/2024 Ruchi Castro Other hammer toe(s) (acquired), right foot M20.41 ; Other hammer toe(s) (acquired), left foot M20.42 ; Type 2 diabetes mellitus with diabetic polyneuropathy E11.42 and Tinea unguium B35.1 Assessments Encounter Date Diagnosis (ICD Code) Assessment Notes Treatment Notes Treatment Clinical Notes Section Notes 12/21/2023 Pain in left toe(s) (ICD-10 - M79.675) 12/21/2023 Type 1 diabetes mellitus with diabetic polyneuropathy (ICD-10 - E10.42) 03/18/2024 Type 2 diabetes mellitus with diabetic polyneuropathy (ICD-10 - E11.42) 03/18/2024 Tinea unguium (ICD-10 - B35.1) 08/01/2024 Other hammer toe(s) (acquired), right foot (ICD-10 - M20.41) Patient Educated with: DIABETIC FOOT CARE INSTRUCTIONS. pdf (DIABETIC FOOT CARE INSTRUCTIONS. pdf) 08/01/2024 Other hammer toe(s) (acquired), left foot (ICD-10 - M20.42) 12/21/2023 Pain in right toe(s) (ICD-10 - M79.674) 12/21/2023 Tinea unguium (ICD-10 - B35.1) 08/01/2024 Type 2 diabetes mellitus with diabetic polyneuropathy (ICD-10 - E11.42) 08/01/2024 Tinea unguium (ICD-10 - B35.1) 12/21/2023 Other [...] X ray : Foot, right 3V 06/17/2019 14552-CAEAHNC NAIL, 6 OR MORE 03/18/2024 05977- I&D ABSCESS-COMPLICATED,MULTI 02/2019 45549-ZDRA SKIN LESIONS, OVER 4 01/15/20 19 92981-JIMU SKIN LESIONS, OVER 4 02/29/20 22 20949-OISY SKIN LESIONS, OVER 4 08/30/19 23 96182-HPDA SKIN LESIONS, OVER 4 03/18/20 24 52062, D5901-WVAAP/INJECT, JOINT/BURSA 0 06/17/2019 Next Appt Details Provider Name:Ruchi chamberlain, 11/07/2024 11:00:00 AM, [address] [facility], [address], [place], [address], Insurance Providers Payer Name Payer Address Payer Phone Subscriber Number Group Number Insured Name Patient Relationship to Insured Coverage Start Date Coverage End Date Medicare National [employer] [address] [place] [address] [id number] Fede Estrada Self - patient is the insured Medical (General) History Medical History History ICD Code Back,Hip,and Knee pain CAD (Cholesterol) Cataracts Diabetic High blood pressure Numbness Reflux ( GERD) chronic sinusitis Vascular phlebitis (clots) Measles Mumps Chicken pox Surgical History Surgery Date(Month/Year) intestinal surgery-large intestine remov ed 2014 hernia 2018 uvula removed Hospitalization History Reason Date(Month/Year) [facility]- wire caught on leg 01/2024 [facility]- Infected toe 01/2019
--- OUTSIDE RECORDS SUMMARY | 2024-08-04 11:21 | XMS_ITS | Clinical Summary ---
Author Organization [address] [facility] Address [address] [place] [address] Phone Care Team Providers Care Head Filter Press Tender Name Role Phone Unavailable Primary Care Provider Unavailabl e Surgical History Surgery Date Site/Laterality Comments OTHER SURGICAL HISTORY PROCEDURE: HI UVULECTOMY EXCISION UVULA; COMMENT: for sleep apnea [...] - 2023-2 5 season) 2023 Influenza Vaccine (Season Ended) 2024 RSV Immunization Adult Patie nts (1 - [...] age to complete this topic Meningococcal B Vaccine Aged Out No l onger eligible based on patient's age to complete this topic RSV Immunization Patients Un angelito 20 months Aged Out No longer eligible b ased on patient's age to complete this topic Varicella Vaccines Aged Out No longer eligible based on patient's age to complete this topic Insurance MEDICARE
--- OUTSIDE RECORDS SUMMARY | 2024-08-04 11:21 | XMS_ITS ---
Author Organization [facility] Address [address] [facility] [place] [address] Care Team Providers Care Novelty Printing Machine Operator Name Role Phone Dallin Flores Primary Care Provider Stefan Heller Unavailable [phone] Ruchi Castro Unavailable [phone] Allergies No Known Allergies REASON FOR VISIT [...] Polyneuropathy due to type 2 diabetes mellitus (316524034) Type 2 diabetes mellitus with diabetic polyneuropathy (E11.42) Active confirmed Vital Signs Height 5ft 7in in 03/18/2024 Weight 210 lbs 03/18/2024 BMI 32.89 kg/m2 03/18/2024 Procedures Procedure Date Ordered Date Performed Result Body Sit e 72755-KWCOICL NAIL, 6 OR MORE 03/18/2024 N/A 97854-ATFS SKIN LESIONS, OVER 4 03/18/2024 N/A Encounters Encounter Location Date Provider Diagnosis [facility] [address] [address] 03/18/2024 Ruchi Castro Type 2 diabetes mellitus with diabetic polyneuropathy E11.42 and Tinea unguium B35.1 Assessments Encounter Date Diagnosis (ICD Code) Assessment Notes Treatment Notes Treatment Clinical Notes Section Notes 03/18/2024 Type 2 diabetes mellitus with diabetic polyneuropathy (ICD-10 - E11.42) 03/18/2024 Tinea unguium (ICD-10 - B35.1) Plan Of Treatment Pending Test Test Name Order Date 00465-SKCMQIH NAIL, 6 OR MORE 03/18/2024 43688-TJIM SKIN LESIONS, OVER 4 03/18/20 24 Next Appt Details Follow Up: 4 Months, Reason: Provider Name:Ruchi chamberlain, 11/07/2024 11:00:00 AM, [address], [place], [address], Procedure Notes * Category Sub-Category Detail Notes [...] use of a nail nipper and/or dremel-type sausage grinder, to a more viable healthy nail [...] to maintain effectiveness in symptomatic relief - 65673 Keratoma Treatment Parring or Cutting o f Benign Hyperkeratotic Lesion(s) (-57) More than 4 Lesions - The Benign hyperkeratotic lesions, ( 5) in total, locations as stated and described in exam, were pared, and/or cut utilizing a sterile 15 blade, tissue nippers, and/or power dremel instrumentation - 15305 Progress Notes * Fede ESTRADADOB:1950 (74 yo M)Acc No.[id number]:03/18/2024 Progress Note Patient:?Fede ESTRADA Provider:?Ruchi Castro DPM :1950???Age:74 Y???Sex:Male Joseph e:03/18/2024 Address:[address], [id number] Pcp:Dallin Flores Subjective: * Chief Complaints: * [...] 2014hernia 2017uvula removed * Hospitalization/Major Diagno stic Procedure:?[facility]- Infected toe 12/31/2018[facility]- wire caught on leg [...] use of a nail nipper and/or dremel-type sausage grinder, to a more viable healthy nail [...] to maintain effectiveness in symptomatic relief - 81479.?Keratoma Treatment:?Parring or Cutting of Benign Hyperkeratotic Lesion(s)?(-57) More than 4 Lesions - The Benign hyperkeratotic lesions, ( 5) in total, locations as stated and described in exam, were pared, and/or cut utilizing a sterile 15 blade, tissue nippers, and/or power dremel instrumentation - 41577.? * Procedure Codes:?75755 DEBRI DE NAIL, 6 OR MORE, Modifiers: XS 32166 TRIM SKIN LESIONS, OVER 4, Modifiers: XS * Follow Up:?4 Months * Images: * Sign off status: Completed true * Provider:?Ruchi Castro DPM Date:?05/18/2023 Generated for Matt hunter/Cecilio/eTransmitting on:?08/04/2024 11:21 AM EDT History and Physical Notes * HPI [...]
--- OUTSIDE RECORDS SUMMARY | 2024-08-04 11:22 | XMS_ITS | Clinical Summary ---
Author Organization [facility] Address [address] [address] Phone Care Team Providers Care Miniature Model Maker Name Role Phone Dallin Flores MD Primary Care Provider [phone] Allergies Active Allergy Reactions Criticality Noted Date [...] (08/04/2020): INR being followed at home by [facility] after hosp dc. Gastroesophageal reflux disease [...] based on patterns using the new system prison current use of insulin 04/09/2017 02/02/2021 Obesity [...] Of [place] [address] [place] [address] Chayito Pearce ARNP from Last 3 Months Immunizations Immunization Administration Dates Next Due Influenza (IM) Preservative [...] Exam 08/04/2020 Diabetes: Visual Foot Exam 08/04/2020 Diabetes: Hemoglobin A1C 07/30/2024 025, 09/04/2023, 04/24/2023, Additional history exists Influenza Vaccine (Season Ended) 2024 01/17/2023, 03/02/2021, 02/10/2020, Additional history exists Pneumococcal Vaccine: 50+ Years Completed 09/30/2018, 09/24/2017, 12/01/2013, Additional history exists Pneumococcal Vaccine: Peds (0 to 5 Years) and At-Risk Patients (6 to 49 Years) Discontinued 09/30/2018, 09/24/2017, 12/01/2013, Additional history exists Hepatitis B Vaccine Aged Out No longe r eligible based on patient's age to complete this topic Insurance Medicare Medicare Care Teams Miniature Model Maker Relationship Specialty Start Date End Date Dallin Flores MD [address] [place] [address], [address] [place] [address] PCP - General 05/03/20
--- OUTSIDE RECORDS SUMMARY | 2024-08-04 11:22 | XMS_ITS | Encounter Summary ---
Author Organization [facility] Address [address] [place] [address] Care Team Providers Care Admission Discharge Rn Name Role Phone Unavailable Primary Care Provider Unavailabl e Encounter Details Date Type Department Care Team (Late st Contact Info) Description 04/03/2024 Lab Requisition [facility] [address] [facility] [place] [address] Edvin Pham PA [address] [address] Gross hematuria Social History Tobacco [...] and pathological findings. 04/21/2024 4:03 PM EST [facility] Addendum electronically signed by Becky Christian MD on 04/21/2024 at 4:03 PM Final Diagnosis Urine, Voided ([id number]): Negative for high grade urothelial carcinoma. Note: UroVysion testing to follow. 04/21/2024 4:03 PM EST [facility] Clinical Information [id number] Urine cytology/urine FISH 04/21/2024 4:03 PM [facility] Gross Description A. Urine, Voided, : [id number] RECD 1 TP CYTO 1 TP FISH. 04/21/2024 4:03 PM [facility] Disclaimer Unless otherwise specified, all tissue is 10% NB formalin fixed and paraffin embedded. Technical pathology services provided by [facility] at [address] [place] [address] [address], [place] [address] (CLIA #[id number] Pittman MD, Drum Carrier) 04/21/2024 4:03 PM EST [facility] Tissue Urine specimen from urethra / Unknown 03/27/2024 04/03/2024 1:33 PM EST us [facility] PATHOLOGY ORDERAB LES Edited Result - Final [facility] [address] [place] [address], documented in this encounter Visit Diagnoses Diagnosis Gross hematuria documented in this encounter
--- OUTSIDE RECORDS SUMMARY | 2024-08-04 11:22 | XMS_ITS ---
Author Organization [facility] Address [address] [facility] [place] [address] Care Team Providers Care Die Finisher Forging Name Role Phone Dallin Flores Primary Care Provider Stefan Heller Unavailable [phone] Ruchi Castro Unavailable [phone] Allergies No Known Allergies REASON FOR VISIT Toe Irritation, At risk footcare Medications Medication SIG (Take, Route, Frequency, Duration) Notes Start Date End Date Status amLODIPine Besy-Benazepril HCl 2.5-10 MG as directed Orally Not-Takin g Custom Orthotics as directed A ctive Insulin pump Active Folic Acid 1 MG 1 tablet Orally Once a day for 30 day(s) Not-Taking Lisinopril 10 MG 1 tablet Orally Once a day for 30 day(s) 01/01/2019 Not-Taking Simvastatin 10 MG 1 tablet in the even ing Orally Once a day for 30 day(s) Active Clindamycin HCl Acti ve amLODIPine Besylate [...] e a day for 30 day(s) Not-Taking Extra Depth Orthopedic Shoes (1 Pair) with Customized Heat Molded Multidensity Innersoles (3 Pair) as directed Dx: IDDM/Polyneuropathy (E10.42), Hammertoe Foot Deformity (M20.41,M20.42), Preulcerative Skin Lesion(s) (L85.1) 08/01/2024 Active metFORMIN HCl 1000 MG 1 tablet with a me al Orally Once a day for 30 day(s) 01/01/2019 Not-Taking Loperamide HCl 2 MG 1 tablet as needed Orally Four times a day 01/01/2019 Not-Taki ng Simvastatin 10 MG 1 tablet in the even ing Orally Once a day for 30 day(s) Not-Taking Pregabalin Not-Takin g Omeprazole 20 MG 1 capsule Orally Onc e a day for 30 day(s) Not-Taking Social History Tobacco Use: Social History Observation [...] ast year? No Points 0 Interpretation Negative Vital Signs Height 5ft 7in in 08/01/2024 Weight 210 lbs 08/01/2024 BMI 32.89 kg/m2 08/01/2024 Encounters Encounter Location Date Provider Diagnosis [facility] [address] [address] 08/01/2024 Ruchi Castro Other hammer toe(s) (acquired), right foot M20.41 ; Other hammer toe(s) (acquired), left foot M20.42 ; Type 2 diabetes mellitus with diabetic polyneuropathy E11.42 and Tinea unguium B35.1 Assessments Encounter Date Diagnosis (ICD Code) Assessment Notes Treatment Notes Treatment Clinical Notes Section Notes 08/01/2024 Other hammer toe(s) (acquired), right foot (ICD-10 - M20.41) Patient Educated with: DIABETIC FOOT CARE INSTRUCTIONS. pdf (DIABETIC FOOT CARE INSTRUCTIONS. pdf) 08/01/2024 Other hammer toe(s) (acquired), left foot (ICD-10 - M20.42) 08/01/2024 Type 2 diabetes mellitus with diabetic polyneuropathy (ICD-10 - E11.42) 08/01/2024 Tinea unguium (ICD-10 - B35.1) Plan Of Treatment Medication Medication Name Sig Start Date Stop Date Notes Extra Depth Orthopedic Shoes (1 Pair) with Customized Heat Molded Multidensity Innersoles (3 Pair) as directed Dx: IDDM/Polyneuropathy (E10.42), Hammertoe Foot Deformity (M20.41,M20.42), Preulcerative Skin Lesion(s) (L85.1) 08/01/2024 Treatment Notes Assessment Notes Other hammer toe(s) (acquired), right fo ot Patient Educated with: DIABETIC FOOT CARE INSTRUCTIONS.pdf (DIABETIC FOOT CARE INSTRUCTIONS.pdf) Next Appt Details Follow Up: 3 Months, Reason: Provider Name:Ruchimariah chamberlain, 11/07/2024 11:00:00 AM, [address] [facility], [address], [place], [address], Procedure Notes * Category Sub-Category Detail Notes Debride Nail 6-10 Nail debridement Due to the cl inical pathology outlined in the exam findings, performance of this nail treatment is medically necessary as its management by an unskilled/untrained nonprofessional would put this patients foot and overall health at risk. Therefore, debridement to affected nail(s), as described in exam ( TA, T1, T2, T3, T4 ,T6, T7 , T8, T9 ), was performed exclusively by the physician of record to reduce/remove overall nail length, girth, thickness, subungual debris, and necrotic tissue, by manual and/or electrical means through the use of a nail nipper and/or dremel-type blanchard grinder operator, to a more viable healthy [...] to maintain effectiveness in symptomatic relief - 69689 Keratoma Treatment Parring or Cutting o f Benign Hyperkeratotic Lesion(s) (-57) More than 4 Lesions - Due to the at risk nature of the patients medical condition as documented in the exam findings, performance of this keratoderma treatment is medically necessary as its management by an unskilled/untrained nonprofessional would put this patients foot and overall health at risk. Therefore, the benign hyperkeratotic lesions, (5) in total, locations as stated and described in the exam (sub 1st metatarsal head B/L, plantar lateral heels B/L, medial IPJ T5), were pared, and/or cut utilizing a sterile 15 blade, tissue nippers, and/or power dremel instrumentation by the physician of record - 46043 Progress Notes * Fede ESTRADADOB:1950 (74 yo M)Acc No.[id number]:08/01/2024 Progress Note Patient:?Fede ESTRADA Provider:?Ruchi Castro DPM :1950???Age:74 Y???Sex:Male Joseph e:08/01/2024 Address:[address] [place], [place] [id number] Pcp:Dallin Flores Subjective: * Chief Complaints: * ???Toe IrritationAt risk abi tcare * HPI: ???At Risk footcare:?Pt States Last PCP Visit:?Date?04/25/2024 ???Toe pain:?Location:?B/L feet.?Duration:?several years.?Course:?worse.?Aggravated by:?shoes, any pressure.?Treatments:?change in shoes.? * ROS:?General/Constitutional:?Nausea?denies.?Vomiting?denies.?Hunger Thirst?denies.?Loss appetite?denies.?Chills?denies.?Fatigue?denies.?Fever?denies.?Night Sweats?denies.?Unexplained weight loss?denies.?Unexplained weight gain?denies.?HEENTM:?Dentures?denies.?Dizziness?denies.?Glasses/contacts?denies.?Retinopathy?den ies.?Blurred/double vision?denies.?TMJ?denies.?Discharge/drainage?denies.?Implants?denies.?Sore throat?denies.?Dental implants?denies.?Hard of hearing ?denies.?Difficulty chewing/swallowing/speaking?denies.?Nose bleeds?denies.?Sore mouth?denies.?Respiratory:?On O xygen?denies.?Pneumonia/pleurisy?denies.?Bronchitis?denies.?Emphysema?denies.?Co ughing?denies.?Cough blood?denies.?Shortness of breath?denies.?Wheezing?denies.?Cardiovascular:?Pacemaker?denies.?MVP?denies.?WPW?denies.?CHF?denies.?Heart attack?denies.?Septal defect?denies.?Rapid beat?denies.?Chest pain ?denies.?Atrial Fib.?denies.?Murmur/Palpitations?denies.?Gastrointestinal:?Hemorrhoids?denies.?Stomach/Abdominal pain?denies.?Dark blood stool?denies.?Irritable bowel ?denies.?Constipation?denies.?Diarrhea?denies.?Hematology:?Swelling?denies.?Clots?denies.?Varicose Veins?denies.?Bruising?denies.?Bleeding problem?denies.?Genitourinary:?Blood urine?denies.?Frequent/Painfu/urination/bladder control?denies.?Kidney stones?denies.?Infection (UTI)?denies.?Nephropathy?denies.?sex trans dis (STD)?denies.?Prostate?denies.?Musculoskeletal:?Hammertoes?admits.?Bunions?denies.?Back Pain?denies.?Muscle Cramps/ Resting?denies.?Muscle cramps / walking?denies.?Generalized aches and pains?denies.?Weakness?denies.?Integ.:?Yuong?denies.?Scars?denies.?Corns/calluses?denies.?Ingrown nails?denies.?Painful nails?denies.?Open Sores?denies.?Rashes?denies.?Neurologic:?Difficulty sleeping?denies.?Brain disorder?denies.?Numbness?denies.?Balance t rouble?denies.?Confusion?denies.?Fainting/blackouts?denies.?Tingling?denies.?Rod mors?denies.? * Medical History:? * Surgical History:?intestinal surgery-large intestine removed 2015hernia 2018uvula removed * Hospitalization/Major Diagno stic Procedure:?[facility]- Infected toe 12/31/2018BM- wire caught on leg 01/2024 * Family History:?Mother: dece ased, diagnosed with Other malignant neoplasm of unspecified site.?Father: , high blood pressure, diagnosed with Unspecified essential hypertension.?Maternal Grand Father: Foot Problems, diagnosed with Diabetic - NIDDM.?Siblings: diagnosed with Diabetic - NIDDM.? * Social History:?Tobacco Use:?Tobacco use other than smoking?Are you an other tobacco user??No ?Tobacco Control (Standard)?Tobacco use:?Nonsmoker ?Additional Findings: Tobacco non-user?Current nonsmoker ???Drugs/Alcohol:?Drugs?Have you used drugs other than those [...] patient * Allergies:?N.K.D.A.yes[Aller gies Verified] Objective: * Vitals:?Ht:5ft 7in, Wt:210, BMI:32.89, Shoe size:10 extra wide, BS:110, Ht-cm: 170.18 cm, Wt-k.26 kg. * ???Past Orders: ???Lab:HEMOGLOBIN A1C (GLYCO HEMOGLOBIN) (Order Date - 07/31/2024) (Collection Date & Time - 08/01/2024 11:29 AM) ? Value Reference Range ?HEMOGLOBIN A1C % (HH) 7.4 * Examination: ???Ophthalmology Referral: ?DIABETES EYE EXAM?Procedure Performed:?Yes ?Date of Exam Performed?03/24/2024 ?Diabetic Retinopathy Screening:?Yes ?Retinal Screening Performed:?Yes ?Findings of Diabetic Eye Exam:?no retinopathy?Orthopedic: ?DIGITAL DEFORMITIES:?Digital contracture, PIPJ, 2-5 B/L, incompl-reducible to push-up test, no over, nor underlapping,?there is?evidence of shoe producing skin irritation.?FOOTWEAR EVALUATION:?worn, non-supportive, shoe gear properties exacerbate patient's foot/toe deformity.?General Examination: ?FOOT EXAM:?Lower Extremity Neurological Exam performed:?Yes Date 08/01/24 ?Visual exam of foot performed:?Yes ?Date?08/01/2024 ?Sensory testing performed:?sensations diminished ?Sensory and motor testing performed:?strength normal ?Pedal pulse taking performed:?2+ ?Footwear Evaluation?Footwear Evaluation performed:?Yes?Neurological: ?SENSORY:? Neurological exam demonstrates, reduced light touch [...] T2, T3, T4 ,T6, T7 , T8, T9.?Vascular: ?DP PULSES (B):? 2/4, B/L.?PT PULSES (B):? 2/4, B/L.?CAPILLARY FILL TIME:?immediate, all digits, B/L.?TROPHIC CONDITION-TEXTURE/ELASTICITY/TURGOR/HAIR GROWTH (B):?normal, B/L.?TEMPERTURE GRADIENT (C):?warm to cool, proximal to distal, B/L.?PIGMENTATION:?normal, B/L.?EDEMA (C):?absent, B/L.? Assessment: * Assessment: 1.?Other hammer toe(s) (acqu ired), right foot - M20.41 (Primary)???Specify :Chronic problem, Worse (4),Rx Management (4)???2.?Other hammer toe(s) (acquired), left foot - M20.42???Specify :Chronic problem, Worse (4),Rx Management (4)???3.?Type 2 diabetes mellitus with diabetic polyneuropathy - E11.42???4.?Tinea unguium - B35.1??? Plan: * Treatment: * Procedures:?Debride Nail 6-10:?Nail debridement?Due to the clinical pathology outlined in the exam findings, performance of this nail treatment is medically necessary as its management by an unskilled/untrained nonprofessional would put this patients foot and overall health at risk. Therefore, debridement to affected nail(s), as described in exam (?TA, T1, T2, T3, T4 ,T6, T7 , T8, T9 ), was performed exclusively by the physician of record to reduce/remove overall nail length, girth, thickness, subungual debris, and necrotic tissue, by manual and/or electrical means through the use of a nail nipper and/or dremel-type blanchard grinder operator, to a more viable healthy nail plate or bed tissue 6- 10 nails in total. Silver nitrate was used for any petechial bleeding as necessary. Definitive antifungal treatment options, both pharmaceutical and surgical, have been reviewed and discussed with the patient. The patient solely prefers the use of intermittent/as needed professional debridement services for their nail condition and understands the need for additional periodic treatments to maintain effectiveness in symptomatic relief - 59078.?Keratoma Treatment:?Parring or Cutting of Benign Hyperkeratotic Lesion(s)?(-57) More than 4 Lesions - Due to the at risk nature of the patients medical condition as documented in the exam findings, performance of this keratoderma treatment is medically necessary as its management by an unskilled/untrained nonprofessional would put this patients foot and overall health at risk. Therefore, the benign hyperkeratotic lesions, (5) in total, locations as stated and described in the exam (sub 1st metatarsal head B/L, plantar lateral heels B/L, medial IPJ T5), were pared, and/or cut utilizing a sterile 15 blade, tissue nippers, and/or power dremel instrumentation by the physician of record - 00829.? * Procedure Codes:?62341 DEBRI DE NAIL, 6 OR MORE, Modifiers: XS 53915 TRIM SKIN LESIONS, OVER 4, Modifiers: XS 3044F HG A1C LEVEL LT 7.0% * Preventive Medicine:? ??Counseling:?Discussion:?-14: Office or other outpatient visit for the evaluation and management of an established patient, which required a medically appropriate history and/or examination and MODERATE level of DECISION MAKING for: 1 OR MORE CHRONIC PROBLEM(S) THATS WORSENING, 2 STABLE CHRONIC PROBLEMS, A NEWLY DIAGNOSED PROBLEM WITH UNCERTAIN PROGNOSIS, AN ACUTE COMPLICATED INJURY WITH MULTIPLE TREATMENT OPTIONS, OR AN ACUTE PROBLEM WITH ACCOMPANYING SYSTEMIC SYMPTOMS, THAT POSE(S) A MODERATE RISK OF MORBIDITY. THIS CONDITION MAY ALSO INCLUDE RX DRUG MANAGEMENT, OR A DECISON FOR MINOR SURGERY. The visit on the day of the [...] have encouraged the patient to call the office.?Digital Surgery:?Digital surgery was discussed with the patient, We elected to try conservative treatment at the present time, due to the patients medical history and increased asssociated post-operative risks.?Digital Treatment:?HT- I explained to the patient the possible etiologies of Hammertoes, including genetics/foot type/shoegear/activity level/exercise routine and the risks/benefits of all the different treatment options for their pain including: No treatment at all, Rest, Ice, New/supportive/wider/deeper Shoegear, Digital Padding/Strapping/Taping/Bracing/Gel protective sleeves, Foot/Ankle AFO Bracing, Stretching exercises, Deep Tissue Massage, Arch support/shoe inserts with splay metatarsal padding, and Custom orthoses. I insisted that any digital devices be removed daily and not worn overnight for safety. The patient is to carefully examine the toes daily for any skin irritation while using any splinting or padding device. The advantages and disadvantages of each option were discussed and the patients questions re: shoegear, padding, custom vs prefabricated inserts, activity level, and consistency in home treatment regimens for optimal success were answered to their verbally confirmed satisfaction.?Shoe Gear Counseling:?SHOE Rx - The patient was counseled in great detail on their muscoloskeletal foot and toe deformities which coincided with the dermatological presentations visualized on exam. We discussed how their deformities put the integrity of their feet at risk for potential pedal complications which makes the accomidative diabetic shoes and cutomizable inserts medically necessary. We discussed the different shoe and insert treatment types and options, as well as the important advantages for adhering to regularly wearing these accomidative devices daily. The patient was made aware of the fact that a failure to abide by these recommedations may be deleterious to their foot health as they are able to prevent many pedal complications such as skin irritation, skin ulceration, infection, and even loss of toe/foot/leg/or life. Time was also spent with the patient dispensing and discussing proper diabetic footcare techniques including daily skin moisturization, daily foot inspection for any interruption in skin integrity including open lesions, or sign of infection such as redness/malodor/drainage/swelling. Also discussed and recommended were procedures regarding daily shoe inspection for the presence of internal foreign bodies as well as any visualized irregular shoe or insert wear. Patient questions re: shoes, inserts, and self foot inspections were answered to their satisfaction as the patient verbally confirmed a full understanding of the above information. A Rx for Extra Depth Orthopedic Shoes with 3 pair of custom heat-molded inserts was dispensed.? ??Screening/Special Tests:?Fall Risk?Screening:?No falls in the past year ?FALLS: Screening for Future Fall Risk?Have you had any falls with injury in the past year??No * Follow Up:?3 Months * Images: * Sign off status: Completed true * Provider:?Ruchi Castro DPM Date:?0 08/01/2024 Generated for Matt hunter/Cecilio/eTransmitting on:?08/04/2024 11:21 AM EDT History and Physical Notes * HPI (History of Present Illness) Category Sub-Category Detail Notes Category Not es Toe pain Location: B/L feet Duration: several years Course: worse Aggravated by: shoes, any pressure Treatments: change in shoes At Risk footcare Pt States Last PCP Visit: Date: 5 Examination Category Sub-Category Detail Notes Category Not [...] lateral heels B/L, medial IPJ T5 Orthopedic FOOTWEAR EVALUATION: worn, non-s upportive, shoe gear properties exacerbate patient's foot/toe deformity DIGITAL DEFORMITIES: Digital contracture , PIPJ, 2-5 B/L, incompl-reducible to push-up test, no over, nor underlapping, there is evidence of shoe producing skin irritation General Examination FOOT EXAM: Lower Extrem ity Neurological Exam performed:: Yes Date 08/01/24 Visual exam of foot performed:: Yes Date: 08/01/2024 Sensory testing performed:: sensations d iminished Sensory and motor testing performed:: [facility] normal Pedal pulse taking performed:: 2+ Footwear Evaluation Footwear Evaluation performe d:: Yes Ophthalmology Referral DIABETES EYE EXAM Procedure Perform ed:: Yes ?Date of Exam Performed: 03/24/2024 Diabetic Retinopathy Screening:: Yes Retinal Screening Performed:: Yes Findings of Diabetic Eye Exam:: no [...]
--- OUTSIDE RECORDS SUMMARY | 2024-08-04 11:22 | XMS_ITS ---
Author Organization [facility] Address [address] [address] Care Team Providers Care Early Breastfeeding Care Specialist Name Role Phone Dallin Flores Primary Care Provider Stefan Heller Unavailable [phone] Allergies No Known Allergies REASON FOR VISIT [...] 12/21/2023 Encounters Encounter Location Date Provider Diagnosis [facility] [address] [address] 12/21/2023 Stefan Marshall Type 1 diabetes mellitus [...] Follow Up: 3 Months, Reason: Provider Name:Ruchi Weinbegr cintia, 11/07/2024 11:00:00 AM, [facility], [facility] [address], [place], [address], Procedure Notes * Category Sub-Category Detail Notes [...] as necessary. Patient chooses, no pharmaceutical tx (24791) Keratoma Treatment Parring or Cutting o f Benign Hyperkeratotic Lesion(s) 31921 ( >4 Lesions) - The Benign hyperkeratotic lesions, as described above were pared, and/or cut utilizing a sterile #15 blade, tissue nippers, and/or dremel Progress Notes * Fede ESTRADADOB:1950 (73 yo M)Acc No.[id number]:12/21/2023 Progress Note Patient:?Fede Estrada Provider:?Stefan Marshall DPM :1950???Age:73 Y???Sex:Male Joseph e:12/21/2023 Address:[address] [place] [address], [facility] Pcp:Dallin Flores Subjective: * Chief Complaints: * [...] 2014hernia 2018uvula removed * Hospitalization/Major Diagno stic Procedure:?[facility]- Infected toe 12/31/2018 * Family History:?Mother: [...] as necessary. Patient chooses, no pharmaceutical tx (41522).?Keratoma Treatment:?Parring or Cutting of Benign Hyperkeratotic Lesion(s)?87513 ( >4 Lesions) - The Benign hyperkeratotic lesions, as described above were pared, and/or cut utilizing a sterile #15 blade, tissue nippers, and/or dremel.? * Procedure Codes:?49784 DEBRI DE NAIL, 6 OR MORE, Modifiers: XS 95911 TRIM SKIN LESIONS, OVER 4, Modifiers: XS [...] DPM Date:? 024 Generated for Printi ng/Faxing/eTransmitting on:?08/04/2024 11:22 AM EDT History and Physical Notes * [...]
--- OUTSIDE RECORDS SUMMARY | 2024-08-04 11:22 | XMS_ITS | Encounter Summary ---
Author Organization [facility] Address [address] [place] [address] Phone Care Team Providers Care Bill Board Poster Name Role Phone Dallin Flores MD Primary Care Provider [phone] Encounter Details Date Type Department Care Team (Late st Contact Info) Description 09/15/2020 Orders Only [facility] [address] [place] [phone] Neftaly Sorensen MD Stage 3a chronic kidney [...] (HCC) documented in this encounter Care Teams Bill Board Poster Relationship Specialty Start Date End Date Dallin Flores MD [address] [place] [address], [address] [place], [place] [phone] PCP - General 05/03/20 documented as of this encounter
--- OUTSIDE RECORDS SUMMARY | 2024-08-04 11:22 | XMS_ITS | Encounter Summary ---
Author Organization [facility] Address [address] [place] [address] Phone Care Team Providers Care Parts Runner Name Role Phone Dallin Flores MD Primary Care Provider [phone] Encounter Details Date Type Department Care Team (Late st Contact Info) Description 04/10/2022 Telephone [facility] [address] [place] [id number] Neftaly Sorensen MD Social History Tobacco Use [...] on filedocumented in this encounter Care Teams Parts Runner Relationship Specialty Start Date End Date Dallin Flores MD [address] [place] [address], [address] [place] [phone] PCP - General 05/03/20 documented as of this encounter
--- OUTSIDE RECORDS SUMMARY | 2024-08-04 11:22 | XMS_ITS | Continuity of Care Document ---
Author Organization [facility] Address [address] [place] [address] Phone Care Team Providers Care Credit And Collection Manager Name Role Phone Shea Carmichael PA-C Unavailable Unavailable Allergies, Adverse Reactions, Alerts Substance Reaction Status Criticality No Known Allergies Active No Inform ation Medications Medication Instructions Dosage Effective Dates (start - stop) Status Comments PRILOSEC OTC (unknown strength) as needed Not Available - Active Probiotic 10 billion cell capsule - Active Lipitor 10 mg tablet - Active Procedures Procedure Date Office/Outpt E&M Established 15 Mins Jun Duplex Scan-extrem Veins; Comp Duplex Scan-extrem Veins; / Duplex Scan-extrem Veins; Inj Scleros Solut; Mx Veins 1 5 Ultrason Guidan Needle Bx-rad Duplex Scan-extrem Veins; Inj Scleros Solut; Mx Veins 1 5 Ultrason Guidan Needle Bx-rad 5 Endovenous Rf, 1st Vein Unlisted Proc Vascular Surg Duplex Scan-extrem Veins; / Varithena, Single Truncal Vein Duplex Scan-extrem Veins; Unlisted Proc Vascular Surg Endovenous Rf, 1st Vein Office/Oupt E&M New Pt 45 Mins Duplex Scan-extrem Veins; Comp Office/Outpt E&M Established 15 Mins May Duplex Scan-extrem Veins; Comp No Charge For Services No Charge For Services No Charge For Services No Charge For Services Office/Outpt E&M Established 10 Mins Nov Duplex Scan-extrem Veins; Comp Duplex Scan-extrem Veins; Uni/ Inj Scleros Solut; Mx Veins 1 9 Ultrason Guidan Needle Bx-rad 9 Duplex Scan-extrem Veins; Comp Inj Scleros Solut; Mx Veins 1 9 Ultrason Guidan Needle Bx-rad 9 Duplex Scan-extrem Veins; / Unlisted Proc Vascular Surg Duplex Scan-extrem Veins; / Unlisted Proc Vascular Surg Endovenous Rf, 1st Vein Duplex Scan-extrem Veins; / 19 Endovenous Rf, 1st Vein Unlisted Proc Vascular Surg Office/Outpt E&M Established 10 Mins August Office/Oupt E&M New Pt 45 Mins Duplex Scan-extrem Veins; Comp Advance Directives Directive Yes / No Effective Date File Name Other Directive No 07/15/2024 N/A WARNING:The information contained in this section is historical and is provided for information only and does not constitute a legal document or any assurance that the information is still accurate. Please verify the information with the momin of the legal document before using it for clinical purposes. Encounters Encounter Description Practice Location Reason(s) For Visit Diagnoses Date Provider Providers Copied on Encounter Office/Outpt E&M Established 15 Mins [facility], [address], [place], [id number], [place] tel:[phone] CVR - [place] - [place] Venous insufficiency (chronic) (peripheral) 5 Jany Valdivia. [facility], [address] [facility], [place], [place], [id number] , [place]. tel: [phone] [facility], [address] [place] [address] [address], [id number], [place] tel:[phone] CVR - [place] - Warner Varicose veins of bilateral lower extremities with other complications 5 Oly Reddy. [address] [place] [address], Suite [facility], [place], [place], [id number] , [place]. tel: [phone] Referring Provider: Maureen Aldridge MD, [address] [place] [address], [address] . tel:[phone] [facility], [address] [place] [address] [facility] [address], [place], [id number], [place] tel:[phone] CVR - [place] - Warner Encounter for follow-up examination after completed treatment for conditions other than malignant neoplasmVaricose veins of left lower extremity with other complications 5 Oly Reddy. [address] [place] [address], Suite [facility], [place], [place], [id number] , [place]. tel: [phone] Referring Provider: Maureen Aldridge MD, [address] [place] [address], [address] . tel:[phone] [facility], [address] [place] [address] [address], [id number], [place] tel:[phone] CVR - [place] - Warner Encounter for follow-up examination after completed treatment for conditions other than malignant neVaricose veins of right lower extremity with other complications 5 Oly Reddy. [address] [place] [address], Suite [facility], [place], [place], [id number] , [place]. tel: [phone] Referring Provider: Maureen Aldridge MD, [address] [place] [address] Suite [facility], [place], [address] . tel:[phone] [facility], [address] [place] [address] [address], [place], [id number], tel:[phone] CVR - [place] - Warner Varicose veins of left lower extremity with other complications Feb-2 0- 5 Oly Reddy. [address] [place] [address], Suite [facility], [place], [place], [id number] , [place]. tel:[phone] Referring Provider: Maureen Aldridge MD, [address] [place] [address], [address] . tel:[phone] [facility], [address] [place] [address] [address], [place], [id number], [place] tel:[phone] CVR - [place] - Warner Encounter for follow-up examination after completed treatment for conditions other than malignant neVaricose veins of right lower extremity with other complications Feb- 5 Oly Reddy. [address] [place] [address], Suite [facility], [place], [place], [id number] , [place]. tel:[phone] Referring Provider: Maureen Aldridge MD, [address] [place] [address] [address] [facility], [place], [address] . tel:[phone] [facility], [address] [place] [address] [address], [place], [id number], [place] tel:[phone] CVR - HI - Warner Varicose veins of right lower extremity with other complications Feb- 5 Oly Reddy. [address] [place] [address], [place] [address], [place], [place], [id number] , [place]. tel:[phone] Referring Provider: Maureen Aldridge MD, [address] [place] [address] [address] [facility], [place], [address] . tel:[phone] [facility], [address] [place] [address] [address], [employer], [id number], [place] tel:[phone] CVR - HI - Warner Varicose veins of right lower extremity with other complications 5 Oly Reddy. [facility], [place] [address], [place], [place], [id number] , [place]. tel: [phone] [facility], [address] [place] [address] [address], [id number], [place] tel:[phone] CVR - HI - Warner Encounter for follow-up examination after completed treatment for conditions other than malignant neoplasmVaricose veins of left lower extremity with other complications 5 Oly Reddy. [address] [place] [address], [address], [id number] , [place]. tel: [phone] Referring Provider: Maureen Aldridge MD, [address] [place] [address], [address] . tel:[phone] [facility], [address] [place] [address] [address] 1000[place], [id number], [place] tel:[phone] CVR - HI - Warner Varicose veins of left lower extremity with other complications 5 Oly Reddy. [address] [place] [address], [place] [address], [place], [place], [id number] , [place]. tel: [phone] [facility], [address] [place] [address] [address], [id number], [place] tel:[phone] CVR - HI - Warner Varicose veins of left lower extremity with other complications 5 Oly Reddy. [address] [place] [address], [address], [id number] , [place]. tel: [phone] [facility] [place]EL, [address] [place] [address] Dr [address] 1000[place], [id number], [place] tel:[phone] CVR - HI - Warner Encounter for follow-up examination after completed treatment for conditions other than malignant neoplasmVaricose veins of right lower extremity with other complications 5 Oly Reddy. [address] [place] [address], [address], [id number] , [place]. tel:[phone] Referring Provider: Maureen Aldridge MD, [address] [place] [address], [address] . tel:[phone] [facility], [address] [place] [address] [address] 1000[place], [id number], [place] tel:[phone] CVR - HI - Warner Varicose veins of right lower extremity with other complications 5 Oly Reddy. [address] [place] [address], [address], [id number] , [place]. tel: [phone] [facility], [address] [place] [address] [facility] [address], [place], [id number], [place] tel:[phone] CVR - HI - Warner Varicose veins of right lower extremity with other complications 5 Oly Reddy. [address] [place] [address], [address], [id number] , [place]. tel:[phone] Office/Oupt E&M New Pt 45 Mins [facility], [address] [place] [address] [address] 1000[place], [id number], [place] tel:[phone] CVR - HI - Warner Varicose veins of bilateral lower extremities with other complications 4 Jany Valdivia. [address] [place] [address], [address], [id number] , [place]. tel:[phone] Referring Provider: Steph LYNCH, [address], [place], [address]. tel:[phone] [facility], [address] [place] [address] Dr [address]Suite [place], [id number], [place] tel:[phone] CVR - HI - Warner Varicose veins of bilateral lower extremities with other complications 4 Milind Finney. [address] [place], [place], [id number] , [place]. [phone] Referring Provider: Steph LYNCH, [address], [place], [address]. tel:[phone] Office/Outpt E&M Established 15 Mins [facility] [place]EL, [address] [place] [address] Dr [address]Suite [place], [id number], [place] tel:[phone] CVR - [place] - Warner Body mass index (BMI) 27.0-27.9, adultVenous insufficiency (chronic) (peripheral)Varico se veins of bilateral lower extremities with pain 0 Cristal Magaña. [address], [address], [place], [address], [place]. [phone] Referring Provider: Steph LYNCH, [address], [place], [address]. tel:[phone] [facility], [address] [place] [address] Dr [address]Suite [place], [id number], [place] tel:[phone] CVR - HI - Warner Varicose veins of bi low extrem w oth complications 0 Milind Finney. [address] [place], [place], [id number] , [place]. [phone] Referring Provider: Steph LYNCH, [address], [place], [address]. tel:[phone] [facility], [address] [place] [address] Dr [address]Suite [place], [id number], [place] tel:[phone] CVR - HI - Warner Spider Veins - (Telangiectasia) 9 Cristal PA Archana. [address], [address] [facility], [place], [address], . tel:[phone] Referring Provider: Steph LYNCH, [address], [place], [address]. tel:[phone] [facility], [address] [place] [address] [address] 1000[place], [id number], [phone] CVR - HI - Warner Spider Veins - (Telangiectasia) 9 Cristal PA Archana. [address], [address] [place] [address], [address], . [phone] Referring Provider: Steph LYNCH, Edgardo[address], [place], [address]. tel:[phone] [facility], [address] [place] [address] [address], [place], [id number], [place] tel:[phone] CVR - HI - Warner Spider Veins - (Telangiectasia) 9 Lindsay PA Archana. [facility], [address] [facility], [place], [address], [place]. [phone] Referring Provider: Steph LYNCH, Edgardo[address], [place], [address]. tel:[phone] [facility], [address] [place] [address] [address] 1000[place], [id number], [place] tel:[phone] CVR - HI - Warner Spider Veins - (Telangiectasia) 9 Lindsay PA Archana. [address], [address], [place], [address], [place]. tel:[phone] Referring Provider: Steph LYNCH, Edgardo[address], [place], [address]. tel:[phone] Office/Outpt E&M Established 10 Mins [facility] MD [facility]EL, [address] [place] [address] [address] 1000[place], [id number], [place] tel:[phone] CVR - [place] - Warner Essential (primary) hypertensionVarico se veins of bi low extrem w oth complicationsVenou s insufficiency (chronic) (peripheral) 9 Cristal Magaña. [address], [address], [place], [address], [place]. [phone] Referring Provider: Steph LYNCH, Ed[address]ardo[address], [place], [address]. tel:[phone] [facility] [place] [facility], [address] [place] [address] [address] 1000Suite 1000[place], [id number], [place] tel:[phone] CVR - HI - Warner Varicose veins of bi low extrem w oth complications 9 Bud Robbins. [address] [facility] [facility] [address], [place], [place], [id number] , [place]. tel:[phone] Referring Provider: Steph LYNCH, [address], [place], [address]. tel:[phone] [facility] MD [facility]EL, [address] [place] [address] Dr [address] 1000Suite 1000[place]te [place], [id number], [place] tel:[phone] CVR - HI - Warner Encntr for f/u exam aft trtmt for cond oth than malig neoplmVaricose veins of right low extrm w oth complications 9 Bud Robbins. [address] [facility], [address], [place], [place], [id number] , [place]. tel:[phone] Referring Provider: Steph LYNCH, [address], [place], [address]. tel:[phone] [facility] MD [facility]EL, [address] [place] [address] Dr [address] 1000Suite 1000[place], [id number], [place] tel:[phone] CVR - HI - Warner Varicose veins of right low extrm w oth complications 9 Oly Reddy. [address], [address], [place], [place], [id number] , [place]. [phone] Referring Provider: Steph LYNCH, [address], [place], [address]. tel:[phone] [facility], [address] [place] [address] [address], [place], [id number], [place] tel:[phone] CVR - HI - Warner Encntr for f/u exam aft trtmt for cond oth than malig neoplmVaricose veins of bi low extrem w oth complications 9 Bud Robbins. [address] [facility], [address], [place], [place], [id number] , [place]. tel:[phone] Referring Provider: Steph LYNCH, [address], [place], [address]. tel:[phone] [facility] MD [facility]EL, [address] [place] [address] [address] 1000[place], [id number], [place] tel:[phone] CVR - HI - Warner Pain in left leg 9 Bud Robbins. [address] [facility], [address], [place], [place], [id number] , [place]. [phone] Referring Provider: Steph LYCNH, [address], [place], [address]. tel:[phone] [facility] MD IS[place]EL, [address] 1000[place], [id number], [place] tel:[phone] CVR - HI - Warner Varicose veins of left lower extremities w oth complications 9 Oly Reddy. [address], [address], [place], [place], [id number] , [place]. tel:[phone] Referring Provider: Steph LYNCH, [address], [place], [address]. tel:[phone] [facility] MD [facility]EL, [address] [place] [address] [address], [place], [id number], [place] [phone] CVR - HI - Warner Varicose veins of right low extrm w oth complications 9 Oly Reddy. [facility], [address], [place], [place], [id number] , [place]. tel:[phone] Referring Provider: Steph LYNCH, [address], [place], [address]. tel:[phone] [facility], [address] [place] [address] [address], [place], [id number], [place] [phone] CVR - HI - Warner Encntr for f/u exam aft trtmt for cond oth than malig neoplmVaricose veins of right low extrm w oth complications 9 Bud Robbins. [address] [facility], [address], [place], [place], [id number] , [place]. tel:[phone] Referring Provider: Steph LYNCH, [address], [place], [address]. tel:[phone] [facility], [address] [place] [address] [address], [place], [id number], [place] tel:[phone] CVR - HI - Warner Varicose veins of left lower extremities w oth complications 9 Oly Reddy. [address], [address], [place], [place], [id number] , [place]. tel:[phone] Referring Provider: Steph LYNCH, [address], [place], [address]. tel:[phone] [facility] MD [facility]EL, [address] [place] [address] [address], [place], [id number], [place] tel:[phone] CVR - HI - Warner Varicose veins of right low extrm w oth complications 0 9 Oly Reddy. [facility], [address], [place], [place], [id number] , [place]. tel:[phone] Referring Provider: Steph LYNCH, [address], [place], [address]. tel:[phone] [facility] MD [facility]EL, [address] [place] [address] [address], [place], [id number], [place] tel:[phone] CVR - HI - Warner Encntr for f/u exam aft trtmt for cond oth than malig neoplmVaricose veins of left lower extremities w oth complications 0 9 Bud Robbins. [address] [facility], [address], [place], [place], [id number] , [place]. tel:[phone] Referring Provider: Steph LYNCH, [address], [place], [address]. tel:[phone] [facility] MD [facility]EL, [address] [place] [address] [address], [place], [id number], [place] tel:[phone] CVR - HI - Warner Varicose veins of left lower extremities w oth complications 9 Oly Reddy. [facility], [address], [place], [place], [address] , [place]. tel:[phone] Referring Provider: Steph LYNCH, [address], [place], [address]. tel:[phone] Office/Outpt E&M Established 10 Mins [facility] MD [facility]EL, [address] [place] [address] [address] 1000[place], [id number], [place] tel:[phone] CVR - [place] - Warner Chronic venous htn w oth comp of bilateral low extrmBody mass index (BMI) 26.0-26.9, adult 9 Silvestre Jay. [address], [address], [place], [address], [place]. tel:[phone] Referring Provider: Steph LYNCH, [address], [place], [address]. tel:[phone] Office/Oupt E&M New Pt 45 Mins [facility] [place] [facility]EL, [address] [place] [address] [address], [place], [id number], [place] tel:[phone] CVR - [place] - Warner Body mass index (BMI) 26.0-26.9, adultVaricose veins of bi low extrem w oth complicationsVenou s insufficiency (chronic) (peripheral) 9 Oly Reddy. [address], [address], [place], [place], [id number] , [place]. tel:[phone] Referring Provider: Steph LYNCH, [address], [place], [address]. tel:[phone] [facility] MD [facility]EL, [address] [place] [address] [address] 1000[place], [id number], [place] tel:[phone] CVR - HI - Warner Varicose veins of bi low extrem w oth complications 9 Bud Robbins. [address] [facility], [address], [place], [place], [id number] , [place]. tel:[phone] Referring Provider: Steph LYNCH, [address], [place], [address]. tel:[phone] Family History Family Member Type Diagnosis Age At Onset No Information Payers Payer name Insurance type Covered constitution party ID Authoriza tion(s) BCBS BCN Medicare Plus Blue MB [id number] Social History Type Description Quantity Date Captured Comments Alcohol Use Details Unknown Caffeine Use Details Unknown Tobacco Use Status No Information Smoking Status Former Smoker Non-Smoking Tobacco Use Details : No Details Available : No Details Available Sex Male Vital Signs Date / Time: Height Weight BMI Pulse Rate Blood Pressure Temperature Respiratory Rate Body Surface Area Head Circumference Head Circ. Percentile Wt./Ricardo. Percentile BMI percentile Pulse Ox Inhaled Ox 92.990 kg (205.00 lbs) 26.3 4 kg/m eter (2) 138/82 mm[Hg] Chief Complaint And Reason For Visit No [...] index (BMI) 26.0-26.9, adult) ordered Referral Ordered: Weight management: Referral to physician timeframe: 3 Months (related to Body mass index (BMI) 26.0-26.9, adult) ordered Referral Ordered: Steph LYNCH timeframe: 1 Month. (related to Essential (primary) hypertension) ordered Referral Ordered: Duplex Scan-extrem Veins; Comp ordered Referral Ordered: Duplex Scan-extrem Veins; Comp Bilateral ordered Appointment Fede EstradaN/C BOOKED History Of Present Illness Encounter Date Complaint History Of Prese nt Illness No Information Functional Status Date Functional Assessmen t No Information Instructions Date Instruction Additional Infor mation Diet education Related to Body mass index (BMI) 26.0-26.9, adult Giving Encouragement to exercise Related to Body mass index (BMI) 26.0-26.9, adult Lifestyle education Related to B monique mass index (BMI) 26.0-26.9, adult Patient education booklet given Related to Venous insufficiency (chronic) (peripheral) Diet education Related to Body mass index [...] provided Related to V V w/Othr Complictns (Yikl-Nnjub-Yifirsww); BILAT Patient education booklet given Related to V V w/Othr Complictns (Pekf-Ovbjt-Skpqrnhi); BILAT Giving Encouragement to Exercise Related to [...] given Related to V V w/Othr Complictns (Clsm-Dljtq-Mzrjelpf); BILAT Pre and post instruc tions reviewed and provided Related to V V w/Othr Complictns (Kqao-Wxhvw-Ncsmnucu); BILAT Assessments Type Assessment Date No Information Patient Care Teams Name Effective Dates (start - stop) Status Members No Information
[2024-08-04 11:38] LABS: Anion Gap 14 (12-20); Blood Urea Nitrogen 26 mg/dL (9-16); Calcium 10.1 mg/dL (8.4-10.2); Carbon Dioxide 21 mmol/L (22-29); Chloride 114 mmol/L (96-108); Estimated Glomerular Filt Rate 52; Glucose Random 183 mg/dL (60-115); Potassium 4.7 mmol/L (3.3-5.1); Sodium 144 mmol/L (135-145)
== END 2024-08-04 10:03 | disposition home or self-care (01) ==
LOC: HO.LAB 10:02
PROVIDERS: PCP Internal Medicine; Visit Provider Internal Medicine Hypertension Specialist
DX: N18.9 Chronic kidney disease, unspecified (principal)
CPT/HCPCS: 36415; 80048

== ENCOUNTER 2024-08-28 13:26 | Outpatient (AMB) | payer MEDICARE, SELFPAY ==
[2024-08-28 13:51] LABS: Prothrombin Time Whole Bld POC 13.2 sec (11.1-13.5); ~PT, ~INR - Anti Coag Clinic 1.1 (0.9-1.1)
--- NOTE | 2024-08-28 14:02 | MHC.OFFVISCO ---
Intake Intake Visit Reasons: Anticoagulation Allergies No Known Allergies Allergy (Mild, Verified 08/28/24 13:38) N/A Medication List - Last Reconciled 08/28/24 by Itzel Staley RN atorvastatin 20 mg PO DAILY cetirizine 10 mg PO DAILY doxycycline hyclate 100 mg PO BID enoxaparin mg subcut ergocalciferol (vitamin D2) PO DAILY fluticasone propionate 50 mcg/actuation 1 spray intranasal DAILY folic acid 0.8 mg PO DAILY hydrochlorothiazide 12.5 mg PO DAILY insulin lispro subcut lisinopril 5 mg PO DAILY loperamide 4 mg PO BID PRN magnesium glycinate 400 mg PO DAILY metformin 1,000 mg PO BID omeprazole 20 mg PO DAILY pregabalin 150 mg PO BID tamsulosin 0.8 mg PO DAILY warfarin 2.5 mg See Protocol PO DAILY warfarin 5 mg See Protocol PO DAILY Nursing Note INR: 1.1 OUT of therapeutic range- s/p admission for bowel obstruction s/p years of J pouch scaring- plus was going through s/sx of sinus infection and was on antbx at time of admission, and has resumed is doxycycline which can raise the INR, taking bowel regime for regularity. Medications and supplements reviewed- and updated Denies any signs and symptoms of bleeding or bruising or clotting. Bleeding, bruising, clotting discussed Nutritional guidance given - diet has improved - enc to avoid all greens - to eat foods to help raise the INR Dose: increase dose from 5mg to 7.5mg today F/U INR: tomorrow Patient verbalizes understanding of instructions given with read back Anti-Coag Initial Assessment Social Hx Patient Tobacco Use Status: Never used Tobacco alcohol intake: never Coding Level of Care Code Est Patient Level 1 Diagnoses Current use of anticoagulant therapy Z79.01 Results AMB INR Fingerstick AMB INR Fingerstick 1.1 Last Edit by Itzel Staley RN on 08/28/24 13:52 S/P ADMISSION JUST RESUMED WARFARIN YESTERDAY Assessment & Plan Assessment & Plan (1) Current use of anticoagulant therapy: Code(s): Z79.01 - terminal make up operator (current) use of anticoagulants Category: Medical
--- OUTSIDE RECORDS SUMMARY | 2024-08-28 14:29 | XMS_ITS | Clinical Summary ---
Author Organization [address] [facility] Address [address] [place] [address] Phone Care Team Providers Care Grinder And Honer Operator Automatic Name Role Phone Unavailable Primary Care Provider Unavailabl e Surgical History Surgery Date Site/Laterality Comments OTHER SURGICAL HISTORY PROCEDURE: [place] UVULECTOMY EXCISION UVULA; COMMENT: for sleep apnea [...]
--- OUTSIDE RECORDS SUMMARY | 2024-08-28 14:29 | XMS_ITS | Patient Health Record ---
Author Organization [facility] Address [address] [place] [address] Care Team Providers Care Rn Intern Name Role Phone Dallin Flores Primary Care Provider Stefan Heller Unavailable [phone] Ruchi Castro Unavailable [phone] Allergies No Known Allergies Results Component Value Reference Range Notes HEMOGLOBIN A1C (GLYCOHEMOGLO BIN) Reviewed date:03/18/2024 10:51:47 AM Interpretation: Performing Lab: Notes/Report: TOTAL HEMOGLOBIN (HGBA1C) 7.8 HEMOGLOBIN A1C (GLYCOHEMOGLO BIN) Reviewed date:08/01/2024 11:29:42 AM Interpretation: Performing Lab: Notes/Report: HEMOGLOBIN A1C % (HH) 7.4 Reason For Referral No Information Medications Medication [...] Polyneuropathy due to type 2 diabetes mellitus (797641076) Type 2 diabetes mellitus with diabetic polyneuropathy (E11.42) Active confirmed Vital Signs Height 5ft 7in in 08/01/2024 Weight 210 lbs 08/01/2024 BMI 32.89 kg/m2 08/01/2024 Procedures Procedure Date Ordered Date Performed Result Body Sit e 07682-VEEJSJS NAIL, 6 OR MORE 03/18/2024 N/A 13209-XUXO SKIN LESIONS, OVER 4 03/18/2024 N/A Encounters Encounter Location Date Provider Diagnosis [address] [address] 12/21/2023 StefanStorey Type 1 diabetes mellitus with diabetic polyneuropathy E10.42 ; Pain in left toe(s) M79.675 ; Pain in right toe(s) M79.674 ; Tinea unguium B35.1 ; Other hammer toe(s) (acquired), right foot M20.41 ; Metatarsalgia, left foot M77.42 ; Metatarsalgia, right foot M77.41 ; Other hammer toe(s) (acquired), left foot M20.42 and Subungual hematoma of toenail of left foot, initial encounter S90.222A [address] [address] 03/18/2024 Ruchi Castro Type 2 diabetes mellitus with diabetic polyneuropathy E11.42 and Tinea unguium B35.[address] [address] 08/01/2024 Ruchi Castro Other hammer toe(s) (acquired), [...] X ray : Foot, right 3V 06/17/2019 40654-MLUQOHY NAIL, 6 OR MORE 03/18/2024 95065- I&D ABSCESS-COMPLICATED,MULTI 02/2019 38646-DLVK SKIN LESIONS, OVER 4 01/15/20 19 50768-PNDH SKIN LESIONS, OVER 4 02/29/20 22 48314-PAIC SKIN LESIONS, OVER 4 08/30/19 23 97727-FYEA SKIN LESIONS, OVER 4 03/18/20 24 42557, E0393-WYXCK/INJECT, JOINT/BURSA 0 06/17/2019 Next Appt Details Provider Name:Ruchi chamberlain, 11/07/2024 11:00:00 AM, [address] [facility], [address], [place], [address], Insurance Providers Payer Name Payer Address Payer Phone Subscriber Number Group Number Insured Name Patient Relationship to Insured Coverage Start Date Coverage End Date Medicare National [employer] [address] [place] [address] [id number] Fede Estrada Self - patient is the insured Medical (General) History Medical History History ICD Code Back,Hip,and Knee pain CAD (Cholesterol) Cataracts Diabetic High blood pressure Numbness Reflux ( GERD) chronic sinusitis Vascular phlebitis (clots) Measles Mumps Chicken pox Surgical History Surgery Date(Month/Year) intestinal surgery-large intestine remov ed 2014 hernia 2018 uvula removed Hospitalization History Reason Date(Month/Year) [facility]- wire caught on leg 01/2024 [facility]- Infected toe 01/2019
--- OUTSIDE RECORDS SUMMARY | 2024-08-28 14:29 | XMS_ITS | Encounter Summary ---
Author Organization [facility] Address [address] [place] [address] Phone Care Team Providers Care Tool Grinding Technician Name Role Phone Dallin Flores MD Primary Care Provider [phone] Encounter Details Date Type Department Care Team (Late st Contact Info) Description 04/10/2022 Telephone [facility] [address] [place] [id number] Neftaly Sorensen MD Social History Tobacco Use [...] on filedocumented in this encounter Care Teams Tool Grinding Technician Relationship Specialty Start Date End Date Dallin Flores MD [address] [place] [address], [address] [place] [id number] PCP - General 05/03/20 documented as of this encounter
--- OUTSIDE RECORDS SUMMARY | 2024-08-28 14:29 | XMS_ITS | Data Portability ---
Author Organization [place] [facility] Address [address] [place] [address] [place] [address] Care Team Providers Care Psychiatric Np Name Role Phone JAMISON BLUM Primary Care Provider Assessment Encounter Date Assessment Date Assessment LastModified by Organization Details LastModified Time 07/19/2020 07/19/2020 Overview/History : 69 y/o M with PMHx sig for UC s/p total colectomy, IDDM, PE, DVT on coumadin, HLD, HTN, and peripheral neuropathy, new to , who presents w/ c/o urinary and fecal incontinence x2 days. Patient reports this happened a long time ago when he had an infection after a messed up prostate surgery . Patient reports transient back pain last night, denies injury or fall. Admits to shaking chills and worsening chronic diarrhea. No hematuria or hematochezia. He is s/p b/l TKR, left side in Apr, right side approx 2 weeks ago. He was re-admitted 3 days after discharge for urinary retention, had posey placed and discharged home with urology follow up. Patient called urology office to report leakage around posey, [facility] came and removed it Sunday. Now patient reports urinary incontinence, he did have urinary burning that resolved this morning. Reportedly last INR therapeutic. Exam: febrile, tachycardic, diastolic hypotension, normal resps, O2 sat 90-94% on RA, ill appearing with intermittent shaking rigors. GENERAL: well developed, well nourished, appears stated age, sitting uncomfortably in mild distress. HEENT: normocephalic, atraumatic, sinuses nontender, PERRLA, EOMI, sclera anicteric, no conjunctival injection, nares patent, posterior pharynx without lesions, or erythema, mmm. RESP: normal I:E, breathing non-labored, mildly tachypneic, no accessory muscle use, decreased BS and rhonchi in the RML and RUL, no wheezes or rales. CARDIO: Regular tachycardia, normal S1, S2, no murmurs, rubs, or gallops, radial pulses 2+ bilaterally. ABD: soft, non-tender, mildly distended, hyperactive BS x4. EXTREMITIES: cool, well perfused, s/p b/l TKR, surgical scars healing well without erythema, edema, drainage, or crusting, calves soft, nontender, no cyanosis, or rashes. NEURO: awake, fatigued, oriented x3, no focal neuro deficits, moving all extremities spontaneously. SKIN: pale, dewy, skin intact, good turgor, no cyanosis, ecchymosis, rash, lesions, abrasions, or lacerations. DDx considered, but not limited to: pneumosepsis urosepsis septic arthritis spinal abscess COVID Work up/Results: pt escalated to ED for further work up. Plan/Discussion: pt escalated to ED for further eval and mgmt of sepsis with multiple possible sources of infection. Patient and understand and agree with this plan. 911 called, report given to EMS on scene. In order to obtain further information and compare any laboratory results/values, I have accessed patient records on the [employer]. This information was pertinent in my medical decision making today. Time On Scene with Patient: 00:53:31 - Referred - Point of Care: Emergency Department [email or web address] Not available 07/19/2020 17:29:10 Plan of Treatment Reminders Order Date Submit Date Provider Last Modified By Organization Details Last Modified Time Details Appointments None record ed. Lab None record ed. Referral None record ed. Procedures None record ed. Surgeries None record ed. Imaging None record ed. Medication Orders None record ed. Patient TargetsNo targets recorded. Patient InstructionsNo instructions recorded. Reason for Referral None Reported. Problems Name Problem SNOMED Code Status Onset Date Resolution Date Notes Provider Name and Address Organization Details Recorded Time Diabetes mellitus 40177629 Active 021 CRIS CALDERON [address], [place], [address] , [place] [facility] 16:25:43 Problem Notes None recorded. Medical Equipment None Reported. Allergies No known drug allergies Medications Name Sig Start Date Stop Date Status Note LastModified by Organization Details LastModified Time doxycycline hyclate 100 mg capsule TAKE 1 CAPSULE BY MOUTH TWICE A DAY FOR 10 DAYS 07/19 completed Not Available Not Available Not Available simvastatin 10 mg tablet TAKE ONE TABLET BY MOUTH EVERY DAY active Not Available Not Available No t Available warfarin 2.5 mg tablet TAKE ONE TABLET EVERY OTHER DAY (ALONG WITH 5MG) ALTERNATI NG WITH 5MG EVERY OTHER DAY active Not Available Not Available No t Available tramadol 50 mg tablet active Not Available Not Available No t Available cefadroxil 500 mg capsule 07/19 completed Not Available Not Available Not Available clindamycin 1 % topical gel APPLY TWICE A DAY TO FACE UNTIL RESOLVED active Not Available Not Available No t Available tamsulosin 0.4 mg capsule TAKE 1 CAPSULE BY MOUTH EVERY DAY active Not Available Not Available No t Available Humalog U-100 Insulin 100 unit/mL subcutaneou s solution INJECT 70 UNITS SUBCUTANE OUSLY DAILY active Not Available Not Available No t Available cephalexin 500 mg capsule TAKE 1 CAPSULE BY MOUTH THREE TIMES A DAY FOR 7 DAYS 07/19 completed Not Available Not Available Not Available metformin 1,000 mg tablet TAKE 1 TABLET BY MOUTH TWICE DAILY WITH FOOD active Not Available Not Available No t Available lisinopril 10 mg tablet TAKE 1 TABLET BY MOUTH ONCE DAILY active Not Available Not Available No t Available warfarin 5 mg tablet TAKE ONE TABLET BY MOUTH EVERY DAY active Not Available Not Available No t Available omeprazole 20 mg capsule,del ayed release TAKE 1 CAPSULE BY MOUTH EVERY DAY active Not Available Not Available No t Available folic acid 1 mg tablet TAKE 1 TABLET BY MOUTH ONCE DAILY active Not Available Not Available No t Available warfarin 1 mg tablet active Not Available Not Available No t Available doxycycline hyclate 100 mg tablet TAKE 1 TABLET BY MOUTH TWICE A DAY FOR 10 DAYS 07/19 completed Not Available Not Available Not Available amoxicillin 875 mg-potassiu m clavulanate 125 mg tablet TAKE 1 TABLET BY MOUTH TWICE A DAY FOR 10 DAYS 07/19 completed Not Available Not Available Not Available amoxicillin 500 mg-potassiu m clavulanate 125 mg tablet TAKE 1 TABLET (500 MG OF AMOXICILL IN TOTAL) BY MOUTH 2 (TWO) TIMES A DAY FOR 7 DAYS. 07/19 completed Not Available Not Available Not Available oxycodone 5 mg tablet TAKE 1 TABLET BY MOUTH EVERY 6 HOURS NEEDED FOR PAIN 07/19 completed Not Available Not Available Not Available enoxaparin 30 mg/0.3 mL subcutaneou s syringe INJECT 1 SYRINGE SUBCUTANE OUSLY EVERY 12 HOURS 07/19 completed Not Available Not Available Not Available cyclobenzap rine 5 mg tablet TAKE 1 TABLET BY MOUTH 3 TIMES A DAY NEEDED. 07/19 completed Not Available Not Available Not Available pregabalin 150 mg capsule TAKE ONE CAPSULE BY MOUTH TWICE DAILY active Not Available Not Available No t Available loperamide active Not Available Not Av ailable Not Available amlodipine active Not Available Not Av ailable Not Available Allergy Relief (cetirizine ) 10 mg tablet TAKE 1 TABLET BY MOUTH EVERY DAY active Not Available Not Available No t Available ProAir RespiClick 90 mcg/actuati on breath activated INHALE 2 PUFFS INTO THE LUNGS EVERY 4 (FOUR) HOURS NEEDED (SHORTNES S OF BREATH OR WHEEZING) . 07/19 completed Not Available Not Available Not Available Accu-Chek Fastclix Lancet Drum USE 4 TIMES A DAY. active Not Available Not Available No t Available FreeStyle Michael 14 Day Sensor kit USE DAILY FOR 14 DAYS active Not Available Not Available No t Available Vitals Date Recorded Heart rate Respiratory rate Body temperature Oxygen saturation Oxygen saturation in Arterial blood by Pulse oximetry Oxygen saturation Oxygen saturation in Arterial blood by Pulse oximetry Body temperature Body temperature Systolic blood pressure Diastolic blood pressure Provider Name and Address Organization Details Last Updated DateTime 106 /min 20 /min 100.5 [degF] 94 % 94 % 96 % 96 % 101.3 [degF] 100.9 [degF] 112 mm[Hg] 46 mm[Hg] Not Available [facility] 16:31:13 Social History Question Answer Notes LastModified by Organizat ion Details LastModified Time Tobacco Smoking Status Never Smoker CRIS CALDERON [address], [place], [address], [place] [facility] 07/19/2020 16:35:13 Do You Have An Advance Directive? Yes [email or web address] Information not available 07/19/2020 What Is Your Code Status? Full Code [employer] Information not available 07/19/2020 Within The Past 12 Months, Has It Happened That The Food You Bought Just Didn't Last And You Didn't Have Money To Get More. No [employer] Information not available 07/19/2020 Within The Past 12 Months, Have You Worried That Your Food Would Run Out Before You Got Money To Buy More. No [employer] Information not available 07/19/2020 Fall Risk: Do You Feel Unsteady When Standing Or Walking? No [employer] Information not available 07/19/2020 Excessive Alcohol Or Drug Use No [employer] Information not available 07/19/2020 We Know From Many Of Our Patients That Covering All Of Their Costs Can Be Difficult At Times. This Can Cause Stress And Impact Health. In The Past Year, Have You Been Unable To Get Any Of The Following When It Was Really Needed? No [employer] Information not available 07/19/2020 Sex: Unknown Functional Status None recorded. Mental Status None recorded. Family History Relationship Description Onset Age of this Age Resolved Age Notes LastModified by Organization Details LastModified Time Brother Diabetes mellitus [email or web address] Not available 2020 16:36:22 Medical History Condition Response Coronary Artery Disease N COPD N Depression N Diabetes Y Cancer N Stroke N Asthma N High Cholesterol Y Pulmonary Embolism Y Hypertension Y Kidney Disease N Past Encounters Encounter ID Performer Location Encounter Start Date Encounter Closed Date Diagnosis/Indication Diagnosis SNOMED-CT Code Diagnosis ICD10 Code Diagnosis Note [id number] CRIS CALDERON [facility] - [address] [address] 07/19/2020 16:23:45 07/20/2020 18:28:50 Sepsis 52995065 A41.9 Pneumonia 878097884 J18. 9 History of right total knee replacement 7942299108 473024 Z96.651 Type 2 taryn betes mellitus 19888253 E11.9 History of ulcerative colitis 767653712 Z87.19 Health Concerns Section Related Observation LastModified by Organization Detai ls LastModified Time None Recorded Concern Status LastModified by Organization Details LastModified Time None Recorded Advance Directives Directive Y: Payers Insurance Date Sequence Insurance Name Policy Number Policy Orta Covered Member ID Orta Member ID Guarantor Name 07/19/2020 1 *SELF PAY* Fede Estrada [id number] Fede Estrada 07/19/2020 1 [employer] - [employer] - [employer] LOC[employer] 33 (PPO) Fede Estrada [id number] Fede Estrada 07/19/2020 1 JORDAN - [employer] DD - [employer]IVERS [facility] 33 (PPO) Fede Estrada [id number] Fede Estrada Notes Date Note Type Note Provider Name and Address Organization Details Recorded Time 07/19/2020 text/html 69 y/o M with PM Hx sig for UC s/p total colectomy, IDDM, PE, DVT on coumadin, HLD, HTN, and peripheral neuropathy, new to , who presents w/ c/o urinary and fecal incontinence x2 days. Patient reports this happened a long time ago when he had an infection after a messed up prostate surgery . Patient reports transient back pain last night, denies injury or fall. Admits to shaking chills and worsening chronic diarrhea. No hematuria or hematochezia. He is s/p b/l TKR, left side in Apr, right side approx 2 weeks ago. He was re-admitted 3 days after discharge for urinary retention, had posey placed and discharged home with urology follow up. Patient called urology office to report leakage around posey, [facility] came and removed it Sunday. Now patient reports urinary incontinence, he did have urinary burning that resolved this morning. Reportedly last INR therapeutic. CRIS CALDERON [address], [place], [address], [place] [facility] 07/19/2020 17:31:08
--- OUTSIDE RECORDS SUMMARY | 2024-08-28 14:29 | XMS_ITS ---
Author Organization [facility] Address [address] [place] [address] Care Team Providers Care Retort Press Operator Name Role Phone Dallin Flores Primary Care Provider Setfan Heller Unavailable [phone] Ruchi Castro Unavailable [phone] Allergies No Known Allergies REASON FOR VISIT [...] 08/01/2024 Encounters Encounter Location Date Provider Diagnosis [facility] [address] [address] 08/01/2024 Ruchi Castro Other hammer toe(s) (acquired), [...] Provider Name:Ruchimariah chamberlain, 11/07/2024 11:00:00 AM, [address] [facility] [facility], [address], [place], [address], Procedure Notes * Category Sub-Category Detail Notes [...] to maintain effectiveness in symptomatic relief - 83533 Keratoma Treatment Parring or Cutting o f [...] instrumentation by the physician of record - 09616 Progress Notes * Fede ESTRADADOB:1950 (74 yo M)Acc No.[id number]:08/01/2024 Progress Note Patient:?Fede ESTRADA Provider:?Ruchi Castro DPM :1950???Age:74 Y???Sex:Male Joseph e:08/01/2024 Address:[address] [place], [place] [id number] Pcp:Dallin Flores Subjective: * Chief Complaints: * [...] and pains?denies.?Weakness?denies.?Integ.:?Young?denies.?Scars?denies.?Corns/calluses?denies.?Ingrown nails?denies.?Painful nails?denies.?Open Sores?denies.?Rashes?denies.?Neurologic:?Difficulty sleeping?denies.?Brain disorder?denies.?Numbness?denies.?Balance t rouble?denies.?Confusion?denies.?Fainting/blackouts?denies.?Tingling?denies.?Rod mors?denies.? * Medical History:? * Surgical History:?intestinal surgery-large intestine removed 2015hernia 2018uvula removed * Hospitalization/Major Diagno stic Procedure:?[facility]- Infected toe 12/31/2018[facility]- wire caught on leg [...] to maintain effectiveness in symptomatic relief - 68961.?Keratoma Treatment:?Parring or Cutting of Benign Hyperkeratotic Lesion(s)?(-57) [...] instrumentation by the physician of record - 22582.? * Procedure Codes:?79660 DEBRI DE NAIL, 6 OR MORE, Modifiers: XS 61762 TRIM SKIN LESIONS, OVER 4, Modifiers: XS [...] DPM Date:?0 08/01/2024 Generated for Matt hunter/Cecilio/eTransmitting on:?08/28/2024 02:29 PM EDT History and Physical Notes * [...] d iminished Sensory and motor testing performed:: [facility] normal Pedal pulse taking performed:: 2+ Footwear [...]
--- OUTSIDE RECORDS SUMMARY | 2024-08-28 14:29 | XMS_ITS ---
Author Organization [facility] Address [address] [place] [address] Care Team Providers Care Obstetrics Gynecology Physician Name Role Phone Dallin Flores Primary Care Provider Stefan Heller Unavailable [phone] Ruchi Castro Unavailable [phone] Allergies No Known Allergies REASON FOR VISIT [...] Polyneuropathy due to type 2 diabetes mellitus (526727734) Type 2 diabetes mellitus with diabetic polyneuropathy (E11.42) Active confirmed Vital Signs Height 5ft 7in in 03/18/2024 Weight 210 lbs 03/18/2024 BMI 32.89 kg/m2 03/18/2024 Procedures Procedure Date Ordered Date Performed Result Body Sit e 73111-FOTJUJX NAIL, 6 OR MORE 03/18/2024 N/A 60224-FOQA SKIN LESIONS, OVER 4 03/18/2024 N/A Encounters Encounter Location Date Provider Diagnosis [facility] [address] [address] 03/18/2024 Ruchi Castro Type 2 diabetes mellitus with diabetic polyneuropathy E11.42 and Tinea unguium B35.1 Assessments Encounter Date Diagnosis (ICD Code) Assessment Notes Treatment Notes Treatment Clinical Notes Section Notes 03/18/2024 Type 2 diabetes mellitus with diabetic polyneuropathy (ICD-10 - E11.42) 03/18/2024 Tinea unguium (ICD-10 - B35.1) Plan Of Treatment Pending Test Test Name Order Date 51175-XYFQCFY NAIL, 6 OR MORE 03/18/2024 54598-SLTN SKIN LESIONS, OVER 4 03/18/20 24 Next Appt Details Follow Up: 4 Months, Reason: Provider Name:Ruchi chamberlain, 11/07/2024 11:00:00 AM, [address], [place], [address], Procedure Notes * Category Sub-Category Detail Notes [...] use of a nail nipper and/or dremel-type grinder chipper, to a more viable healthy nail plate [...] to maintain effectiveness in symptomatic relief - 34097 Keratoma Treatment Parring or Cutting o f Benign Hyperkeratotic Lesion(s) (-57) More than 4 Lesions - The Benign hyperkeratotic lesions, ( 5) in total, locations as stated and described in exam, were pared, and/or cut utilizing a sterile 15 blade, tissue nippers, and/or power dremel instrumentation - 17150 Progress Notes * Fede ESTRADADOB:1950 (74 yo M)Acc No.[id number]:03/18/2024 Progress Note Patient:?Fede ESTRADA Provider:?Ruchi Castro DPM :1950???Age:74 Y???Sex:Male Joseph e:03/18/2024 Address:[address], [place] Pcp:Dallin Flores Subjective: * Chief Complaints: * [...] 2014hernia 2017uvula removed * Hospitalization/Major Diagno stic Procedure:?[facility]- Infected toe 12/31/2018[facility]- wire caught on leg [...] use of a nail nipper and/or dremel-type grinder chipper, to a more viable healthy nail plate [...] to maintain effectiveness in symptomatic relief - 24717.?Keratoma Treatment:?Parring or Cutting of Benign Hyperkeratotic Lesion(s)?(-57) More than 4 Lesions - The Benign hyperkeratotic lesions, ( 5) in total, locations as stated and described in exam, were pared, and/or cut utilizing a sterile 15 blade, tissue nippers, and/or power dremel instrumentation - 66000.? * Procedure Codes:?53001 DEBRI DE NAIL, 6 OR MORE, Modifiers: XS 97518 TRIM SKIN LESIONS, OVER 4, Modifiers: XS * Follow Up:?4 Months * Images: * Sign off status: Completed true * Provider:?Ruchi Castro DPM Date:?05/18/2023 Generated for Matt hunter/Cecilio/eTkiannaitting on:?08/28/2024 02:29 PM EDT History and Physical [...]
--- OUTSIDE RECORDS SUMMARY | 2024-08-28 14:30 | XMS_ITS ---
Author Organization [facility] Address [address] [address] Care Team Providers Care Sludge Control Operator Name Role Phone Dallin Flores Primary Care Provider Stefan Heller Unavailable [phone] Allergies No Known Allergies REASON FOR VISIT [...] 12/21/2023 Encounters Encounter Location Date Provider Diagnosis [facility] [address] [address] 12/21/2023 Stefan Marshall Type 1 diabetes mellitus [...] 3 Months, Reason: Provider Name:Ruchi Weinberg cintia, 11/07/2024 11:00:00 AM, [facility], [facility] [address], [place], [address], Procedure Notes * Category Sub-Category Detail Notes [...] as necessary. Patient chooses, no pharmaceutical tx (97807) Keratoma Treatment Parring or Cutting o f Benign Hyperkeratotic Lesion(s) 14479 ( >4 Lesions) - The Benign hyperkeratotic lesions, as described above were pared, and/or cut utilizing a sterile #15 blade, tissue nippers, and/or dremel Progress Notes * Fede ESTRADADOB:1950 (73 yo M)Acc No.[id number]:12/21/2023 Progress Note Patient:?Fede Estrada Provider:?Stefan Marshall DPM :1950???Age:73 Y???Sex:Male Joseph e:12/21/2023 Address:[address] [place] [address], [facility] Pcp:Dallin Flores Subjective: * Chief Complaints: * [...] 2014hernia 2018uvula removed * Hospitalization/Major Diagno stic Procedure:?[facility]- Infected toe 12/31/2018 * Family History:?Mother: [...] as necessary. Patient chooses, no pharmaceutical tx (20806).?Keratoma Treatment:?Parring or Cutting of Benign Hyperkeratotic Lesion(s)?57049 ( >4 Lesions) - The Benign hyperkeratotic lesions, as described above were pared, and/or cut utilizing a sterile #15 blade, tissue nippers, and/or dremel.? * Procedure Codes:?30029 DEBRI DE NAIL, 6 OR MORE, Modifiers: XS 55122 TRIM SKIN LESIONS, OVER 4, Modifiers: XS [...] DPM Date:? 024 Generated for Printi ng/Faxing/eTransmitting on:?08/28/2024 02:29 PM EDT History and Physical [...]
--- OUTSIDE RECORDS SUMMARY | 2024-08-28 14:30 | XMS_ITS | Clinical Summary ---
Author Organization [facility] Address [address] [address] Phone Care Team Providers Care Cardiopulmonary Physical Therapist Name Role Phone Dallin Flores MD Primary Care Provider [phone] Allergies Active Allergy Reactions Criticality Noted Date [...] 1 (one) time per week 3 Active fluticasone (FLONASE) 50 MCG/ACT nasal spray Administer 1 spray into each nostril 1 (one) time each day Active Magnesium 400 MG tablet Take 400 mg by mouth 1 (one) time each day Active Multiple Vitamin (multivitamin) capsule Take 1 capsule by mouth 1 (one) time each day Active hydroCHLOROthia zide 12.5 MG tablet TAKE 1 TABLET DAILY 90 tablet 3 5 Active Active Problems Problem Noted Date Diagnosed [...] (08/04/2020): INR being followed at home by [facility] after hosp dc. Gastroesophageal reflux [...] based on patterns using the new system USP current use of insulin 04/09/2017 02/02/2021 Obesity 04/09/2017 02/02/2021 Prostate specific antigen ab ove reference range 04/09/2017 02/02/2021 Overview (08/04/2020): eval'd by Dr Box Repeat PSA 2.63 in 2017. TURP around 2001 with nl biopsies. Last [...] Of [place] [address] [place] [address] Chayito Pearce ARNP from Last 3 Months [...] this topic Insurance Medicare Medicare Care Teams Cardiopulmonary Physical Therapist Relationship Specialty Start Date End Date Dallin Flores MD [address] [place] [address], [address] [place] [address] PCP - General 05/03/20
--- OUTSIDE RECORDS SUMMARY | 2024-08-28 14:30 | XMS_ITS | Encounter Summary ---
Author Organization [facility] Address [address] [place] [address] Care Team Providers Care Pari Mutuel Ticket Seller Name Role Phone Unavailable Primary Care Provider Unavailabl e Encounter Details Date Type Department Care Team (Late st Contact Info) Description 04/03/2024 Lab Requisition [facility] Lab [address] [facility] [place] [address] Edvin Pham PA [address] [address] Gross hematuria Social History Tobacco [...] and pathological findings. 04/21/2024 4:03 PM EST [facility] Addendum electronically signed by Becky Christian MD on 04/21/2024 at 4:03 PM Final Diagnosis Urine, Voided ([id number]): Negative for high grade urothelial carcinoma. Note: UroVysion testing to follow. 04/21/2024 4:03 PM EST [facility] Clinical Information [id number] Urine cytology/urine FISH 04/21/2024 4:03 PM [facility] Gross Description A. Urine, Voided, : [id number] RECD 1 TP CYTO 1 TP FISH. 04/21/2024 4:03 PM [facility] Disclaimer Unless otherwise specified, all tissue is 10% NB formalin fixed and paraffin embedded. Technical pathology services provided by [facility] at [address] [place] [address] [address] [address] (CLIA #[id number]/July Pittman MD, Vegetable Farm Worker) 04/21/2024 4:03 PM EST [facility] Tissue Urine specimen from urethra / Unknown 03/27/2024 04/03/2024 1:33 PM EST us [facility] PATHOLOGY ORDERAB LES Edited Result - Final [facility] [address] [place] [address], documented in this encounter Visit Diagnoses Diagnosis Gross hematuria documented in this encounter
--- OUTSIDE RECORDS SUMMARY | 2024-08-28 14:30 | XMS_ITS | Continuity of Care Document ---
Author Organization [facility] Address [address] [place] [address] Phone Care Team Providers Care Bobbin Cleaning Machine Operator Name Role Phone Shea Carmichael PA-C Unavailable [...] E&M Established 15 Mins [facility], [address], [place], [id number], [place] tel:[phone] CVR - [place] - [place] Venous insufficiency (chronic) (peripheral) 5 Jany Valdivia. [facility] [facility], Suite [facility], [place], [place], [id number] , [place]. tel: [phone] [facility], [address] [place] [address] [address], [id number], [place] tel:[phone] CVR - [place] - [place] Varicose veins of bilateral lower extremities with other complications 5 Oly Reddy. [address] [place] [address], [address], [place], [address], [place]. tel: [phone] Referring Provider: Maureen Aldridge MD, [address] [place] [address] Suite [facility], [place], [address]. tel:[phone] [facility], [address] [place] [address] [address], [place], [id number], [place] tel:[phone] CVR - [place] - [place] Encounter for follow-up examination after completed treatment for conditions other than malignant neoplasmVaricose veins of left lower extremity with other complications 5 Oly Reddy. [address] [place] [address], [address], [place], [address], [place]. tel: [phone] Referring Provider: Maureen Aldridge MD, [address] [place] [address] Suite [facility], [place], [address]. tel:[phone] [facility], [address] [place] [address] [address], [id number], [place] tel:[phone] CVR - [place] - [place] Encounter for follow-up examination after completed treatment for conditions other than malignant neVaricose veins of right lower extremity with other complications 5 Oly Reddy. [address] [place] [address], [address], [place], [address], [place]. tel: [phone] Referring Provider: Maureen Aldridge MD, [address] [place] [address] [address], [place], [address]. tel:[phone] [facility], [address] [place] [address] Dr [address], [id number], [place] tel:[phone] CVR - [place] - [place] Varicose veins of left lower extremity with other complications Feb-2 0 5 Oly Reddy. [address] [place] [address], Suite [facility], [place], [address], [place]. tel:[phone] Referring Provider: Maureen Aldridge MD, [address] [place] [address] Suite [facility], [place], [address]. tel:[phone] [facility], [address] [place] [address] [address], [id number], [place] tel:[phone] CVR - [place] - [place] Encounter for follow-up examination after completed treatment for conditions other than malignant neVaricose veins of right lower extremity with other complications Feb- 5 Oly Reddy. [address] [place] [address], Suite [facility], [place], [address], [place]. tel:[phone] Referring Provider: Maureen Aldridge MD, [address] [place] [address] Suite [facility], [place], [address]. tel:[phone] [facility], [address] [place] [address] Dr [address], [id number], [place] tel:[phone] CVR - [place] - [place] Varicose veins of right lower extremity with other complications b- 5 Oly Reddy. [address] [place] [address], [address], [place], [address], [place]. tel:[phone] Referring Provider: Maureen Aldridge MD, [address] [place] [address] Suite [facility], [place], [address]. tel:[phone] [facility], [address] [place] [address] Dr [address], [id number], [place] tel:[phone] CVR - [place] - [place] Varicose veins of right lower extremity with other complications 5 Oly Reddy. [address] [place] [address], [address] [place] [address], [address], [place]. tel: [phone] [facility], [address] [place] [address] Dr [address] 1000[place], [id number], [place] tel:[phone] CVR - [place] - [place] Encounter for follow-up examination after completed treatment for conditions other than malignant neoplasmVaricose veins of left lower extremity with other complications 5 Oly Reddy. [address] [place] [address], Suite [facility], [place], [address], [place]. tel: [phone] Referring Provider: Maureen Aldridge MD, [address] [place] [address], [facility]. tel:[phone] [facility], [address] [place] [address] [address] 1000[place], [id number], [place] tel:[phone] CVR - [place] - [place] Varicose veins of left lower extremity with other complications 5 Oly Reddy. [address] [place] [address], Suite [facility], [place], [address], [place]. tel: [phone] [facility], [address] [place] [address] [address] 1000[place], [id number], [place] tel:[phone] CVR - [place] - [place] Varicose veins of left lower extremity with other complications 5 Oly Reddy. [address] [place] [address], Suite [facility], [place], [address], [place]. tel: [phone] [facility], [address] [place] [address] [address] 1000[place], [id number], [place] tel:[phone] CVR - [place] - [place] Encounter for follow-up examination after completed treatment for conditions other than malignant neoplasmVaricose veins of right lower extremity with other complications 5 Oly Reddy. [address] [facility], [address], [place], [address], [place]. tel:[phone] Referring Provider: Maureen Aldridge MD, [address] [place] [address] [address], [place], [address]. tel:[phone] [facility], [address] [place] [address] [address], [place], [id number], [place] tel:[phone] CVR - [place] - [place] Varicose veins of right lower extremity with other complications 5 Oly Reddy. [address] [place] [address], [address], [place], [address], [place]. tel:[phone] [facility], [address] [place] [address] [address], [place], [id number], [place] tel:[phone] CVR - [place] - [place] Varicose veins of right lower extremity with other complications 5 Oly Reddy. [address] [place] [address], [address], [place], [address], [place]. [phone] Office/Oupt E&M New Pt 45 Mins [facility], [address] [place] [address] [address], [place], [id number], [place] tel:[phone] CVR - [place] - [place] Varicose veins of bilateral lower extremities with other complications 4 Jany Valdivia. [address] [place] [address], [address], [place], [place], [id number] , [place]. [phone] Referring Provider: Steph LYNCH, [address], [place], [address]. tel:[phone] [facility], [address] [place] [address] Dr [address], [place], [id number], [place] tel:[phone] CVR - [place] - [place] Varicose veins of bilateral lower extremities with other complications 4 Milind Finney. [address] [place], [place], [id number] , . tel: [phone] Referring Provider: Steph LYNCH, [address], [place], [address]. tel:[phone] Office/Outpt E&M Established 15 Mins [facility] [place], [address] [place] [address] Dr [address] 1000[place], [id number], [place] [phone] CVR - [place] - [place] Body mass index (BMI) 27.0-27.9, adultVenous insufficiency (chronic) (peripheral)Varico se veins of bilateral lower extremities with pain 0 Morongoroberto carlos Magaña. [address] [facility], [address], [facility], . [phone] Referring Provider: Steph LYNCH, [address], [place], [place], [facility]. tel:[phone] [facility] [place], [address] [place] [address] Dr [address] 1000[place], [id number], [place] tel:[phone] CVR - [place] - [place] Varicose veins of bi low extrem w oth complications 0 Milind Finney. [address] [place], [place], [id number] , . [phone] Referring Provider: Steph LYNCH, [address], [address], [place], [address]. tel:[phone] [facility] [place], [address] [place] [address] Dr [address] 1000[place], [id number], [place] tel:[phone] CVR - [place] - [place] Spider Veins - (Telangiectasia) 9 Morongo CRIS Archana. [address] [facility], [address] [place] [address], [facility], [place]. tel:[phone] Referring Provider: Steph LYNCH [address], [place], [address]. tel:[phone] [facility] [place], [address] [place] [address] Dr [address] 1000[place], [id number], [place] tel:[phone] CVR - [place] - [place] Spider Veins - (Telangiectasia) 9 Morongo PA Archana. [address] [facility], [address], [place], [facility], . tel:[phone] Referring Provider: Steph LYNCH, [address], [place], [place], [facility]. tel:[phone] [facility] [place], [address] [place] [address] Dr [address] 1000[place], [id number], [place] tel:[phone] CVR - [place] - [place] Spider Veins - (Telangiectasia) 9 Morongo PA Archana. [address] [facility], [address], [place], [facility], [place]. tel:[phone] Referring Provider: Steph LYNCH, [address], [place], [place], [facility]. tel:[phone] [facility] [place], [address] [place] [address] [address] 1000[place], [id number], [place] tel:[phone] CVR - [place] - [place] Spider Veins - (Telangiectasia) 9 Morongo PA Archana. [address] [facility], [address], [place], [address], [place]. tel:[phone] Referring Provider: Steph LYNCH, [address], [place], [facility]. tel:[phone] Office/Outpt E&M Established 10 Mins [facility] [place], [address] [place] [address] Dr [address] 1000[place], [id number], [place] tel:[phone] CVR - [place] - [place] Essential (primary) hypertensionVarico se veins of bi low extrem w oth complicationsVenou s insufficiency (chronic) (peripheral) 9 Cristal Magaña. [address] [facility], [address], [place], [address], [place]. [phone] Referring Provider: Steph LYNCH, [address], [place], [address]. tel:[phone] [facility], [address] [place] [address] [address] 1000[place], [id number], [place] tel:[phone] CVR - [place] - [place] Varicose veins of bi low extrem w oth complications 9 Bud Robbins. [address] [place] [address], [address], [place], [place], [id number] , [place]. tel:[phone] Referring Provider: Steph LYNCH, [address] [facility] [[email or web address] [address], [place], [address]. tel:[phone] [facility] [place], [address] [place] [address] [address], [place], [id number], [place] tel:[phone] CVR - [place] - [place] Encntr for f/u exam aft trtmt for cond oth than malig neoplmVaricose veins of right low extrm w oth complications 9 Bud Robbins. [address] [place] [address], [address], [place], [place], [id number] , [place]. tel:[phone] Referring Provider: Steph LYNCH, [address], [place], [address]. tel:[phone] [facility] [place], [address] [place] [address] [address] 1000[place], [id number], [place] tel:[phone] CVR - [place] - [place] Varicose veins of right low extrm w oth complications 9 Oly Reddy. [address] [facility], [address], [place], [address], [place]. [phone] Referring Provider: Steph LYNCH, [address], [address], [place], [address]. tel:[phone] [facility] [place], [address] [place] [address] Dr Aliyah 1000[address] 1000[place], [id number], [place] tel:[phone] CVR - [place] - [place] Encntr for f/u exam aft trtmt for cond oth than malig neoplmVaricose veins of bi low extrem w oth complications 9 Bud Robbins. [address] [facility], [address], [place], [place], [id number] , [place]. tel:[phone] Referring Provider: Steph LYNCH, [address], [address], [place], [address]. tel:[phone] [facility], [address] [place] [address] Dr [address] 1000[place], [id number], [place] tel:[phone] CVR - [place] - [place] Pain in left leg 9 Bud Robbins. [address] [facility], [address], [place], [place], [id number] , [place]. [phone] Referring Provider: Steph LYNCH, [address], [address], [place], [address]. tel:[phone] [facility], [address] [place] [address] [address], [place], [id number], [place] tel:[phone] CVR - [place] - [place] Varicose veins of left lower extremities w oth complications 9 Oly Reddy. [address] [facility], [address], [place], [address], [place]. [phone] Referring Provider: Steph LYNCH, [address], [address], [place], [address]. tel:[phone] [facility], [address] [place] [address] [address]Suite [place], [id number], [place] tel:[phone] CVR - [place] - [place] Varicose veins of right low extrm w oth complications 9 Oly Reddy. [address] [facility], [address], [place], [address], [place]. tel:[phone] Referring Provider: Steph LYNCH, [address], [address], [place], [address]. tel:[phone] [facility] [place], [address] [place] [address] Dr [address] 1000[place], [id number], [place] tel:[phone] CVR - [place] - [place] Encntr for f/u exam aft trtmt for cond oth than malig neoplmVaricose veins of right low extrm w oth complications 9 Bud Robbins. [address] [facility], [address], [place], [place], [id number] , [place]. [phone] Referring Provider: Steph LYNCH, [address], [address], [place], [address]. tel:[phone] [facility] [place], [address] [place] [address] Dr [address]Suite [place], [id number], [place] tel:[phone] CVR - [place] - [place] Varicose veins of left lower extremities w oth complications 9 Oly Reddy. [address] [facility], [address], [place], [address], [place]. tel:[phone] Referring Provider: Steph LYNCH, [address], [address], [place], [address]. tel:[phone] [facility] [place], [address] [place] [address] [address]Suite [place], [id number], [place] tel:[phone] CVR - [place] - [place] Varicose veins of right low extrm w oth complications 9 Oly Reddy. [facility] [facility], [address], [place], [address], [place]. [phone] Referring Provider: Steph LYNCH, [address], [place], [address]. tel:[phone] [facility] [place], [address] [place] [address] [address] 1000[place], [id number], [place] tel:[phone] CVR - [place] - [place] Encntr for f/u exam aft trtmt for cond oth than malig neoplmVaricose veins of left lower extremities w oth complications 9 Bud Robbins. [address] [facility], [address], [place], [place], [id number] , [place]. tel:[phone] Referring Provider: Steph LYNCH, [address], [place], [address]. tel:[phone] [facility] MD [place], [address] [place] [address] [address], [place], [id number], [place] tel:[phone] CVR - [place] - [place] Varicose veins of left lower extremities w oth complications 9 Oly Reddy. [facility] [facility], [address], [place], [address], [place]. [phone] Referring Provider: Steph LYNCH, [address], [place], [address]. tel:[phone] Office/Outpt E&M Established 10 Mins [facility] [place], [address] [place] [address] [address] 1000[place], [id number], [place] tel:[phone] CVR - [place] - [place] Chronic venous htn w oth comp of bilateral low extrmBody mass index (BMI) 26.0-26.9, adult 9 Silvestre Jay. [address] [place] [address], [address], [place], [address], [place]. tel:[phone] Referring Provider: Steph LYNCH, [address], [place], [address]. tel:[phone] Office/Oupt E&M New Pt 45 Mins [facility] [place], [address] [facility] [address], [place], [id number], [place] tel:[phone] CVR - [place] - [place] Body mass index (BMI) 26.0-26.9, adultVaricose veins of bi low extrem w oth complicationsVenou s insufficiency (chronic) (peripheral) 9 Oly Reddy. [address] [facility], [address], [place], [address], [place]. tel:[phone] Referring Provider: Steph LYNCH, [address], [place], [address]. tel:[phone] [facility] [place], [address] [facility] [address], [place], [id number], [place] tel:[phone] CVR - [place] - [place] Varicose veins of bi low extrem w oth complications 9 Bud Robbins. [address] [facility], [address], [place], [place], [id number] , [place]. tel:[phone] Referring Provider: Steph LYNCH, [address], [place], [address]. tel:[phone] Family History Family Member Type Diagnosis Age At Onset No Information Payers Payer name Insurance type Covered republican ID Authorruth mireles(s) BCBS BCN Medicare Plus Blue MB [id number] Social History Type Description Quantity Date Captured [...] provided Related to V V w/Othr Complictns (Evax-Qewjf-Gsrjgvai); BILAT Patient education booklet given Related to V V w/Othr Complictns (Qgkn-Vqnod-Yyoxvbai); BILAT Giving Encouragement to Exercise Related to [...] given Related to V V w/Othr Complictns (Esel-Xcbwo-Cbmcfjww); BILAT Pre and post instruc tions reviewed and provided Related to V V w/Othr Complictns (Rkfu-Hewfr-Ssuuubni); BILAT Assessments Type Assessment Date No Information Patient Care Teams Name Effective Dates (start - stop) Status Members No Information
--- OUTSIDE RECORDS SUMMARY | 2024-08-28 14:30 | XMS_ITS | Encounter Summary ---
Author Organization [facility] Address [address] [place] [address] Phone Care Team Providers Care Consumer Experience Consultant Name Role Phone Dallin Flores MD Primary Care Provider [phone] Encounter Details Date Type Department Care Team (Late st Contact Info) Description 09/15/2020 Orders Only [facility] [address] [place] [id number] Neftaly Sorensen MD Stage 3a chronic kidney [...] (HCC) documented in this encounter Care Teams Consumer Experience Consultant Relationship Specialty Start Date End Date Dallin Flores MD [address] [place] [address], [address] [place], [place] [id number] PCP - General 05/03/20 documented as of this encounter
== END 2024-08-28 14:26 | disposition home or self-care (01) ==
LOC: HO.ACS 13:26
PROVIDERS: PCP Internal Medicine; Visit Provider Internal Medicine Medical Oncology
DX: Z79.01 Long term (current) use of anticoagulants (principal)

== ENCOUNTER → 2024-08-28 13:26 | Outpatient (BNVA) | payer MEDICARE, SELFPAY | PROVIDERS: PCP Internal Medicine; Visit Provider Internal Medicine Medical Oncology | DX: I26.99 Other pulmonary embolism without acute cor pulmonale (principal); Z79.01 Long term (current) use of anticoagulants; Z51.81 Encounter for therapeutic drug level monitoring | CPT/HCPCS: 85610; 99211 ==

== ENCOUNTER 2024-08-29 11:34 | Outpatient (AMB) | payer MEDICARE, SELFPAY ==
[2024-08-29 11:42] LABS: Prothrombin Time Whole Bld POC 15.4 sec (11.1-13.5); ~PT, ~INR - Anti Coag Clinic 1.3 (0.9-1.1)
--- NOTE | 2024-08-29 11:58 | MHC.OFFVISCO ---
Intake Intake Visit Reasons: Anticoagulation Allergies No Known Allergies Allergy (Mild, Verified 08/29/24 11:35) N/A Medication List - Last Reconciled 08/29/24 by Itzel Staley RN atorvastatin 20 mg PO DAILY cetirizine 10 mg PO DAILY doxycycline hyclate 100 mg PO BID enoxaparin mg See Protocol subcut ergocalciferol (vitamin D2) PO DAILY fluticasone propionate 50 mcg/actuation 1 spray intranasal DAILY folic acid 0.8 mg PO DAILY hydrochlorothiazide 12.5 mg PO DAILY insulin lispro subcut lisinopril 5 mg PO DAILY loperamide 4 mg PO BID PRN magnesium glycinate 400 mg PO DAILY metformin 1,000 mg PO BID omeprazole 20 mg PO DAILY pregabalin 150 mg PO BID tamsulosin 0.8 mg PO DAILY warfarin 2.5 mg See Protocol PO DAILY warfarin 5 mg See Protocol PO DAILY Nursing Note INR 1.3 out of therapeutic range Medications and supplements reviewed Patient status: s/p intestinal blockage, and sinus infection 2more day of antbx Medications or supplements: resumed warfarin and lovenox wed Diet: good Denies any signs and symptoms of bleeding or clotting or unusual bruising Bleeding, bruising, clotting discussed Nutritional guidance given: avoid all greens, eat foods to help raise the INR (orange and reds) Dose: 10mg today 5m sat 7.5mg sun and recheck Sunday F/U INR Date: 09/01/24 ?? Patient verbalizing understanding of instructions given with read back . Anti-Coag Initial Assessment Social Hx Patient Tobacco Use Status: Never used Tobacco alcohol intake: never Questionnaires HAS-BLED Does the patient had uncontrolled Hypertension?: No Does the patient have renal disease?: Yes Does the patient have liver disease?: No Does the patient have a history of stroke?: No Has the patient had major bleeding or predisposition to bleeding?: No Does the patient have labile INRs?: Yes Is the patient over 65 years of age?: Yes Is the patient on medications that gives them a predisposition to bleeding?: Yes Does the patient use alcohol?: No HAS-BLED Score: 4 CHADSVASC Age: 66-74 Gender: Male Does the patient have a history of CHF?: No Does the patient have a history of Hypertension?: Yes Does the patient have a history of Stroke/TIA/Thromboembolism?: Yes Does the patient have a history of Vascular Disease (prior MA, PAD or aortic plaque)?: No Does the patient have a history of Diabetes?: Yes CHADS VACS Score: 5 Bashir Prediction Score Rsk VTE Active Cancer: No Previous VTE, excluding superficial vein thrombosis: Yes Reduced mobility: No 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 , DVT/PE) With-in last month Trauma and/or Surgery: No Elderly 70 year or older: Yes Heart and/or Respiratory Failure: No Acute Myocardial infarction and/or Ischemic Stroke: No Acute Infection and/or Rheumatologic Disorder: No Obesity (BMI 30 or greater): No Ongoing Hormonal Treatment: No Score: 7 Bashir Score less than 4; Low Risk of VTE Bashir Score 4 or greater; High Risk of VTE Coding Level of Care Code Est Patient Level 1 Diagnoses Current use of anticoagulant therapy Z79.01 Results AMB INR Fingerstick AMB INR Fingerstick 1.3 Last Edit by Itzel Staley RN on 08/29/24 11:48 MANUAL ENTRY Assessment & Plan Assessment & Plan (1) Current use of anticoagulant therapy: Code(s): Z79.01 - tank terminal gauger (current) use of anticoagulants Category: Medical
--- OUTSIDE RECORDS SUMMARY | 2024-08-29 12:00 | XMS_ITS ---
Author Organization [facility] Address [address] [place] [address] Care Team Providers Care Fabric Normalizer Name Role Phone Dallin Flores Primary Care Provider Stefan Heller Unavailable [phone] Ruchi Castro Unavailable [phone] Allergies No Known Allergies REASON FOR VISIT [...] Polyneuropathy due to type 2 diabetes mellitus (296672416) Type 2 diabetes mellitus with diabetic polyneuropathy (E11.42) Active confirmed Vital Signs Height 5ft 7in in 03/18/2024 Weight 210 lbs 03/18/2024 BMI 32.89 kg/m2 03/18/2024 Procedures Procedure Date Ordered Date Performed Result Body Sit e 67469-AXJFPPA NAIL, 6 OR MORE 03/18/2024 N/A 86970-SHIR SKIN LESIONS, OVER 4 03/18/2024 N/A Encounters Encounter Location Date Provider Diagnosis [facility] [address] [address] 03/18/2024 Ruchi Castro Type 2 diabetes mellitus with diabetic polyneuropathy E11.42 and Tinea unguium B35.1 Assessments Encounter Date Diagnosis (ICD Code) Assessment Notes Treatment Notes Treatment Clinical Notes Section Notes 03/18/2024 Type 2 diabetes mellitus with diabetic polyneuropathy (ICD-10 - E11.42) 03/18/2024 Tinea unguium (ICD-10 - B35.1) Plan Of Treatment Pending Test Test Name Order Date 99764-TSMLZMT NAIL, 6 OR MORE 03/18/2024 93953-QSRR SKIN LESIONS, OVER 4 03/18/20 24 Next Appt Details Follow Up: 4 Months, Reason: Provider Name:Ruchi chamberlain, 11/07/2024 11:00:00 AM, [address], [place], [address], Procedure Notes * Category Sub-Category Detail Notes [...] use of a nail nipper and/or dremel-type track grinder, to a more viable healthy nail [...] to maintain effectiveness in symptomatic relief - 56749 Keratoma Treatment Parring or Cutting o f Benign Hyperkeratotic Lesion(s) (-57) More than 4 Lesions - The Benign hyperkeratotic lesions, ( 5) in total, locations as stated and described in exam, were pared, and/or cut utilizing a sterile 15 blade, tissue nippers, and/or power dremel instrumentation - 87795 Progress Notes * Fede ESTRADADOB:1950 (74 yo M)Acc No.[id number]:03/18/2024 Progress Note Patient:?Fede ESTRADA Provider:?Ruchi Castro DPM :1950???Age:74 Y???Sex:Male Joseph e:03/18/2024 Address:[address], [id number] Pcp:Dallin Flores Subjective: * Chief Complaints: * [...] 2017uvula removed * Hospitalization/Major Diagno stic Procedure:?[facility]- Infected toe 12/31/2018[facility]- wire caught on [...] use of a nail nipper and/or dremel-type track grinder, to a more viable healthy nail [...] to maintain effectiveness in symptomatic relief - 53528.?Keratoma Treatment:?Parring or Cutting of Benign Hyperkeratotic Lesion(s)?(-57) More than 4 Lesions - The Benign hyperkeratotic lesions, ( 5) in total, locations as stated and described in exam, were pared, and/or cut utilizing a sterile 15 blade, tissue nippers, and/or power dremel instrumentation - 07718.? * Procedure Codes:?30678 DEBRI DE NAIL, 6 OR MORE, Modifiers: XS 10533 TRIM SKIN LESIONS, OVER 4, Modifiers: XS * Follow Up:?4 Months * Images: * Sign off status: Completed true * Provider:?Ruchi Castro DPM Date:?05/18/2023 Generated for Matt hunter/Cecilio/eTkiannaitting on:?08/29/2024 12:00 PM EDT History and Physical Notes * [...]
--- OUTSIDE RECORDS SUMMARY | 2024-08-29 12:00 | XMS_ITS | Encounter Summary ---
Author Organization [facility] Address [address] [place] [address] Phone Care Team Providers Care Branch Logistics Supervisor Name Role Phone Dallin Flores MD Primary Care Provider [phone] Encounter Details Date Type Department Care Team (Late st Contact Info) Description 04/10/2022 Telephone [facility] [address] [place] [phone] Neftaly Sorensen MD Social History Tobacco Use [...] on filedocumented in this encounter Care Teams Branch Logistics Supervisor Relationship Specialty Start Date End Date Dallin Flores MD [address] [place] [address], [address] [place] [phone] PCP - General 05/03/20 documented as of this encounter
--- OUTSIDE RECORDS SUMMARY | 2024-08-29 12:00 | XMS_ITS ---
Author Organization [facility] Address [address] [place] [address] Care Team Providers Care Quality Control Engineering Technician Name Role Phone Dallin Flores Primary Care Provider Stefan Heller Unavailable [phone] Ruchi Castro Unavailable [phone] Allergies No Known Allergies REASON FOR VISIT [...] 08/01/2024 Encounters Encounter Location Date Provider Diagnosis [facility] [address] [address] 08/01/2024 Ruchi Castro Other hammer toe(s) (acquired), [...] Provider Name:Ruchimariah chamberlain, 11/07/2024 11:00:00 AM, [address] [facility], [address], [place], [address], Procedure Notes * Category Sub-Category Detail Notes [...] use of a nail nipper and/or dremel-type sapphire stylus grinder, to a more viable healthy nail [...] to maintain effectiveness in symptomatic relief - 13493 Keratoma Treatment Parring or Cutting o f [...] instrumentation by the physician of record - 01565 Progress Notes * Fede ESTRADADOB:1950 (74 yo M)Acc No.[id number]:08/01/2024 Progress Note Patient:?Fede ESTRADA Provider:?Ruchi Castro DPM :1950???Age:74 Y???Sex:Male Joseph e:08/01/2024 Address:[address] [place], [place] [id number] Pcp:Dallin Flores Subjective: * Chief Complaints: * [...] 2015hernia 2018uvula removed * Hospitalization/Major Diagno stic Procedure:?[facility]- Infected toe 12/31/2018[facility]- wire caught on leg [...] use of a nail nipper and/or dremel-type sapphire stylus grinder, to a more viable healthy nail [...] to maintain effectiveness in symptomatic relief - 57412.?Keratoma Treatment:?Parring or Cutting of Benign Hyperkeratotic Lesion(s)?(-57) [...] instrumentation by the physician of record - 16728.? * Procedure Codes:?23337 DEBRI DE NAIL, 6 OR MORE, Modifiers: XS 68404 TRIM SKIN LESIONS, OVER 4, Modifiers: XS [...] DPM Date:?0 08/01/2024 Generated for Matt hunter/Cecilio/eTransmitting on:?08/29/2024 12:00 PM EDT History and Physical [...] d iminished Sensory and motor testing performed:: [facility] normal Pedal pulse taking performed:: [...]
--- OUTSIDE RECORDS SUMMARY | 2024-08-29 12:00 | XMS_ITS | Continuity of Care Document ---
Author Organization [facility] Address [address] [place] [address] Phone Care Team Providers Care Connie Scratcher Name Role Phone Shea Carmichael PA-C Unavailable [...] E&M Established 15 Mins [facility], [address], [place], [id number], [place] tel:[phone] CV[place] Venous insufficiency (chronic) (peripheral) 5 Jany Valdivia. [facility], Suite [facility], [place], [place], [id number] , [place]. tel: [phone] [facility], [address] [place] [address] [address], [id number], [place] tel:[phone] CVR - [place] Varicose veins of bilateral lower extremities with other complications 5 Oly Reddy. [address] [place] [address], [address], [place], [address], [place]. tel: [phone] Referring Provider: Maureen Aldridge MD, [address] [place] [address] Suite [facility], [place], [address]. tel:[phone] [facility], [address] [place] [address] [address], [place], [id number], [place] tel:[phone] CVR - [place] Encounter for follow-up examination after completed treatment for conditions other than malignant neoplasmVaricose veins of left lower extremity with other complications 5 Oly Reddy. [address] [place] [address], [address], [place], [address], [place]. tel: [phone] Referring Provider: Maureen Aldridge MD, [address] [place] [address] Suite [facility], [place], [address]. tel:[phone] [facility], [address] [place] [address] [address], [id number], [place] tel:[phone] CVR - [place] Encounter for follow-up examination after completed treatment for conditions other than malignant neVaricose veins of right lower extremity with other complications 5 Oly Reddy. [address] [place] [address], [address], [place], [address], [place]. tel: [phone] Referring Provider: Maureen Aldridge MD, [address] [place] [address] [address], [place], [address]. tel:[phone] [facility], [address] [place] [address] Dr [address], [id number], [place] tel:[phone] CVR - [place] Varicose veins of left lower extremity with other complications Feb-2 0 5 Oly Reddy. [address] [place] [address], Suite [facility], [place], [address], [place]. tel:[phone] Referring Provider: Maureen Aldridge MD, [address] [place] [address] Suite [facility], [place], [address]. tel:[phone] [facility], [address] [place] [address] [address], [id number], [place] tel:[phone] CVR - [place] Encounter for follow-up examination after completed treatment for conditions other than malignant neVaricose veins of right lower extremity with other complications Feb- 5 Oly Reddy. [address] [place] [address], Suite [facility], [place], [address], [place]. tel:[phone] Referring Provider: Maureen Aldridge MD, [address] [place] [address] Suite [facility], [place], [address]. tel:[phone] [facility], [address] [place] [address] Dr [address], [id number], [place] tel:[phone] CVR - [place] Varicose veins of right lower extremity with other complications b- 5 Oly Reddy. [address] [place] [address], [address], [place], [address], [place]. tel:[phone] Referring Provider: Maureen Aldridge MD, [address] [place] [address] Suite [facility], [place], [address]. tel:[phone] [facility], [address] [place] [address] Dr [address] 1000[place], [id number], [place] tel:[phone] CVR - [place] Varicose veins of right lower extremity with other complications 5 Oly Reddy. [address] [place] [address], [address] [place] [address], [address], [place]. tel: [phone] [facility], [address] [place] [address] Dr [address] 1000[address] 1000[place], [id number], [place] tel:[phone] CVR - [place] Encounter for follow-up examination after completed treatment for conditions other than malignant neoplasmVaricose veins of left lower extremity with other complications 5 Oly Reddy. [address] [place] [address], Suite [facility], [place], [address], [place]. tel: [phone] Referring Provider: Maureen Aldridge MD, [address] [place] [address], [facility]. tel:[phone] [facility], [address] [place] [address] [address] 1000[place], [id number], [place] tel:[phone] CVR - [place] Varicose veins of left lower extremity with other complications 5 Oly Reddy. [address] [place] [address], Suite [facility], [place], [address], [place]. tel: [phone] [facility], [address] [place] [address] [address], [id number], [place] tel:[phone] CVR - [place] Varicose veins of left lower extremity with other complications 5 Oly Reddy. [address] [place] [address], Suite [facility], [place], [address], [place]. tel: [phone] [facility], [address] [place] [address] [address] 1000[place], [id number], [place] tel:[phone] CVR - [place] Encounter for follow-up examination after completed treatment for conditions other than malignant neoplasmVaricose veins of right lower extremity with other complications 5 Oly Reddy. [address] [facility], [address], [place], [address], [place]. tel:[phone] Referring Provider: Maureen Aldridge MD, [address] [place] [address] [address], [place], [address]. tel:[phone] [facility], [address] [place] [address] [address], [place], [id number], [place] tel:[phone] CVR - [place] Varicose veins of right lower extremity with other complications 5 Oly Reddy. [address] [place] [address], [address], [place], [address], [place]. tel:[phone] [facility], [address] [place] [address] Dr [address], [place], [id number], [place] tel:[phone] CVR - [place] Varicose veins of right lower extremity with other complications 5 Oly Reddy. [address] [place] [address], [address], [place], [address], [place]. [phone] Office/Oupt E&M New Pt 45 Mins [facility], [address] [place] [address] [address], [place], [id number], [place] tel:[phone] CVR - [place] Varicose veins of bilateral lower extremities with other complications 4 Jany Valdivia. [address] [place] [address], [address], [place], [place], [id number] , [place]. [phone] Referring Provider: Steph LYNCH, [address], [place], [address]. tel:[phone] [facility], [address] [place] [address] Dr [address], [place], [id number], [place] tel:[phone] CVR - [place] Varicose veins of bilateral lower extremities with other complications 4 Milind Finney. [address] [place], [place], [id number] , . [phone] Referring Provider: Steph LYNCH, [address], [place], [address]. tel:[phone] Office/Outpt E&M Established 15 Mins [facility] [place], [address] [place] [address] Dr [address] 1000[place], [id number], [place] [phone] CVR - [place] Body mass index (BMI) 27.0-27.9, adultVenous insufficiency (chronic) (peripheral)Varico se veins of bilateral lower extremities with pain 0 Klamathroberto carlos Magaña. [address] [facility], [address], [facility], . [phone] Referring Provider: Steph LYNCH, [address], [place], [place], [employer]. tel:[phone] [facility] [place], [address] [place] [address] Dr [address] 1000[address] 1000[place], [id number], [place] tel:[phone] CVR - [place] Varicose veins of bi low extrem w oth complications 0 Milind Finney. [address] [place], [place], [id number] , . [phone] Referring Provider: Steph LYNCH, [address], [address], [place], [address]. tel:[phone] [facility] [place], [address] [place] [address] Dr [address] 1000[address] 1000[place], [id number], [place] tel:[phone] CVR - [place] Spider Veins - (Telangiectasia) 9 [place] CRIS Archana. [address] [facility], [address] [place] [address], [facility], [place]. tel:[phone] Referring Provider: Steph LYNCH [address], [place], [address]. tel:[phone] [facility] [place], [address] [place] [address] Dr [address] 1000[place], [id number], [place] tel:[phone] CVR - [place] Spider Veins - (Telangiectasia) 9 [place] PA Archana. [address] [facility], [address], [place], [facility], . tel:[phone] Referring Provider: Steph LYNCH, [address], [address], [place], [place], [employer]. tel:[phone] [facility] [place], [address] [place] [address] Dr [address] 1000[address] 1000[place], [id number], [place] tel:[phone] CVR - [place] Spider Veins - (Telangiectasia) 9 [place] PA Archana. [address] [facility], [address], [place], [facility], [place]. tel:[phone] Referring Provider: Steph LYNCH, [address], [address], [place], [place], [employer]. tel:[phone] [facility] MD [place], [address] [place] [address] Dr [address] 1000[place], [id number], [place] tel:[phone] CVR - [place] Spider Veins - (Telangiectasia) 9 [place] PA Archana. [address] [facility], [address], [place], [address], [place]. tel:[phone] Referring Provider: Steph LYNCH, [address], [address], [place], [place], [employer]. tel:[phone] Office/Outpt E&M Established 10 Mins [facility] [place], [address] [place] [address] Dr [address] 1000Suite 1000[place], [id number], [place] tel:[phone] CVR - [place] Essential (primary) hypertensionVarico se veins of bi low extrem w oth complicationsVenou s insufficiency (chronic) (peripheral) 9 Cristal Magaña. [address] [facility], [address], [place], [address], [place]. [phone] Referring Provider: Steph LYNCH, [address], [place], [address]. tel:[phone] [facility], [address] [place] [address] [address] 1000V[place], [id number], [place] tel:[phone] CVR - [place] Varicose veins of bi low extrem w oth complications 9 Bud Robbins. [address] [place] [address], [address], [place], [place], [id number] , [place]. tel:[phone] Referring Provider: Steph LYNCH, [address] [facility] [address], [place], [address]. tel:[phone] [facility] [place], [address] [place] [address] [address], [place], [id number], [place] tel:[phone] CVR - [place] Encntr for f/u exam aft trtmt for cond oth than malig neoplmVaricose veins of right low extrm w oth complications 9 Bud Robbins. [address] [place] [address], [address], [place], [place], [id number] , [place]. tel:[phone] Referring Provider: Steph LYNCH, [address], [place], [address]. tel:[phone] [facility] [place], [address] [place] [address] Dr [address] 1000[address] 1000[place], [id number], [place] tel:[phone] CVR - [place] Varicose veins of right low extrm w oth complications 9 Oly Reddy. [address] [facility], [address], [place], [address], [place]. [phone] Referring Provider: Steph LYNCH, [address], [address], [place], [address]. tel:[phone] [facility] [place], [address] [place] [address] Dr Aliyah 1000Suite 1000[place], [id number], [place] tel:[phone] CVR - [place] Encntr for f/u exam aft trtmt for cond oth than malig neoplmVaricose veins of bi low extrem w oth complications 9 Bud Robbins. [address] [facility], [address], [place], [place], [id number] , [place]. tel:[phone] Referring Provider: Steph LYNCH, [address], [address], [place], [address]. tel:[phone] [facility], [address] [place] [address] Dr [address] 1000[place], [id number], [place] tel:[phone] CVR - [place] Pain in left leg 9 Bud Robbins. [address] [facility], [address], [place], [place], [id number] , [place]. [phone] Referring Provider: Steph LYNCH, [address], [address], [place], [address]. tel:[phone] [facility], [address] [place] [address] [address], [place], [id number], [place] tel:[phone] CVR - [place] Varicose veins of left lower extremities w oth complications 9 Oly Reddy. [address] [facility], [address], [place], [address], [place]. [phone] Referring Provider: Steph LYNCH, [address], [address], [place], [address]. tel:[phone] [facility], [address] [place] [address] [address]Suite [place] Waggoner [place], [id number], [place] tel:[phone] CVR - [place] Varicose veins of right low extrm w oth complications 9 Oly Reddy. [address] [facility], [address], [place], [address], [place]. tel:[phone] Referring Provider: Steph LYNCH, [address], [address], [place], [address]. tel:[phone] [facility] [place], [address] [place] [address] Dr [address] 1000Suite 1000[place], [id number], [place] tel:[phone] CVR - [place] Encntr for f/u exam aft trtmt for cond oth than malig neoplmVaricose veins of right low extrm w oth complications 9 Bud Robbins. [address] [facility], [address], [place], [place], [id number] , [place]. [phone] Referring Provider: Steph LYNCH, [address], [address], [place], [address]. tel:[phone] [facility] [place], [address] [place] [address] Dr [address]Suite [place], [id number], [place] tel:[phone] CVR - [place] - [place] Varicose veins of left lower extremities w oth complications 9 Oly Reddy. [address] [facility], [address], [place], [address], [place]. tel:[phone] Referring Provider: Steph LYNCH, [address], [address], [place], [address]. tel:[phone] [facility] MD [place]EL, [address] [place] [address] [address]Suite [place], [id number], [place] tel:[phone] CVR - [place] Varicose veins of right low extrm w oth complications 9 Oly Reddy. [facility] [facility], [address], [place], [address], [place]. [phone] Referring Provider: Steph LYNCH, [address], [place], [address]. tel:[phone] [facility] MD [place], [address] [place] [address] Dr [address]Suite 1000[place], [id number], [place] tel:[phone] CVR - [place] Encntr for f/u exam aft trtmt for cond oth than malig neoplmVaricose veins of left lower extremities w oth complications 9 Bud Robbins. [address] [facility], [address], [place], [place], [id number] , [place]. tel:[phone] Referring Provider: Steph LYNCH, [address], [place], [address]. tel:[phone] [facility] MD [place]EL, [address] [place] [address] [address], [place], [id number], [place] tel:[phone] CVR - [place] Varicose veins of left lower extremities w oth complications 9 Oly Reddy. [facility] [facility], [address], [place], [address], [place]. [phone] Referring Provider: Steph LYNCH, [address], [place], [address]. tel:[phone] Office/Outpt E&M Established 10 Mins [facility] MD [place], [address] [place] [address] Dr [address] 1000Suite 1000[place], [id number], [place] tel:[phone] CVR - [place] Chronic venous htn w oth comp of bilateral low extrmBody mass index (BMI) 26.0-26.9, adult 9 Silvestre Jay. [address] [place] [address], [address], [place], [address], [place]. tel:[phone] Referring Provider: Steph LYNCH, [address], [place], [address]. tel:[phone] Office/Oupt E&M New Pt 45 Mins [facility] MD ISABEL, [address] [facility] [address], [place], [id number], [place] tel:[phone] CVR - [place] Body mass index (BMI) 26.0-26.9, adultVaricose veins of bi low extrem w oth complicationsVenou s insufficiency (chronic) (peripheral) 9 Oly Reddy. [address] [facility], [address], [place], [address], [place]. tel:[phone] Referring Provider: Steph LYNCH, [address], [place], [address]. tel:[phone] [facility] MD ISABEL, [address] [facility] [address], [place], [id number], [place] tel:[phone] CVR - [place] Varicose veins of bi low extrem w oth complications 9 Bud Robbins. [address] [facility], [address], [place], [place], [id number] , [place]. tel:[phone] Referring Provider: Steph LYNCH, [address], [place], [address]. tel:[phone] Family History Family Member Type Diagnosis Age At Onset No Information Payers Payer name Insurance type Covered republican ID Authorruth mireles(s) BCBS BCN Medicare Plus Blue MB [id number] Social History Type Description Quantity Date Captured [...] provided Related to V V w/Othr Complictns (Yhir-Fdohz-Stwgmaiv); BILAT Patient education booklet given Related to V V w/Othr Complictns (Tmzp-Pdkuz-Dpxwzwtr); BILAT Giving Encouragement to Exercise Related to [...] given Related to V V w/Othr Complictns (Ifbl-Iqnxc-Pquovmxd); BILAT Pre and post instruc tions reviewed and provided Related to V V w/Othr Complictns (Ofhn-Yvdgm-Iesquxpg); BILAT Assessments Type Assessment Date No Information Patient Care Teams Name Effective Dates (start - stop) Status Members No Information
--- OUTSIDE RECORDS SUMMARY | 2024-08-29 12:00 | XMS_ITS | Patient Health Record ---
Author Organization [facility] Address [address] [place] [address] Care Team Providers Care Water Treatment Operator Name Role Phone Dallin Flores Primary Care Provider Stefan Heller Unavailable [phone] Ruchi Castro Unavailable [phone] Allergies No Known Allergies Results Component Value [...] Polyneuropathy due to type 2 diabetes mellitus (079368689) Type 2 diabetes mellitus with diabetic polyneuropathy (E11.42) Active confirmed Vital Signs Height 5ft 7in in 08/01/2024 Weight 210 lbs 08/01/2024 BMI 32.89 kg/m2 08/01/2024 Procedures Procedure Date Ordered Date Performed Result Body Sit e 55877-OTUQILM NAIL, 6 OR MORE 03/18/2024 N/A 68127-JQCJ SKIN LESIONS, OVER 4 03/18/2024 N/A Encounters Encounter Location Date Provider Diagnosis [address] [address] 12/21/2023 StefanStorey Type 1 diabetes mellitus with diabetic polyneuropathy E10.42 ; Pain in left toe(s) M79.675 ; Pain in right toe(s) M79.674 ; Tinea unguium B35.1 ; Other hammer toe(s) (acquired), right foot M20.41 ; Metatarsalgia, left foot M77.42 ; Metatarsalgia, right foot M77.41 ; Other hammer toe(s) (acquired), left foot M20.42 and Subungual hematoma of toenail of left foot, initial encounter S90.222A [address] [address] 03/18/2024 Ruchi Castro Type 2 diabetes mellitus with diabetic polyneuropathy E11.42 and Tinea unguium B35.[address] [address] 08/01/2024 Ruchi Castro Other hammer toe(s) (acquired), [...] X ray : Foot, right 3V 06/17/2019 48168-LUYRGMI NAIL, 6 OR MORE 03/18/2024 03841- I&D ABSCESS-COMPLICATED,MULTI 02/2019 20376-VSYM SKIN LESIONS, OVER 4 01/15/20 19 98579-MJKI SKIN LESIONS, OVER 4 02/29/20 22 76496-OKSG SKIN LESIONS, OVER 4 08/30/19 23 61208-VLYR SKIN LESIONS, OVER 4 03/18/20 24 43054, M0229-ZALUG/INJECT, JOINT/BURSA 0 06/17/2019 Next Appt Details Provider Name:Ruchi chamberlain, 11/07/2024 11:00:00 AM, [address] [facility], [address], [place], [address], Insurance Providers Payer Name Payer Address Payer Phone Subscriber Number Group Number Insured Name Patient Relationship to Insured Coverage Start Date Coverage End Date Medicare National [employer] [address] [place] [address] [id number] Fede Estrada Self - patient is the insured Medical (General) History Medical History History ICD Code Back,Hip,and Knee pain CAD (Cholesterol) Cataracts Diabetic High blood pressure Numbness Reflux ( GERD) chronic sinusitis Vascular phlebitis (clots) Measles Mumps Chicken pox Surgical History Surgery Date(Month/Year) intestinal surgery-large intestine remov ed 2014 hernia 2018 uvula removed Hospitalization History Reason Date(Month/Year) [facility]- wire caught on leg 01/2024 [facility]- Infected toe 01/2019
--- OUTSIDE RECORDS SUMMARY | 2024-08-29 12:00 | XMS_ITS | Clinical Summary ---
Author Organization [address] [facility] Address [address] [place] [address] Phone Care Team Providers Care Sonar Subsystem Equipment Operator Name Role Phone Unavailable Primary Care Provider Unavailabl e Surgical History Surgery Date Site/Laterality Comments OTHER SURGICAL HISTORY PROCEDURE: NE UVULECTOMY EXCISION UVULA; COMMENT: for sleep apnea [...]
--- OUTSIDE RECORDS SUMMARY | 2024-08-29 12:01 | XMS_ITS | Encounter Summary ---
Author Organization [facility] Address [address] [place] [address] Care Team Providers Care Tire Mechanic Name Role Phone Unavailable Primary Care Provider Unavailabl e Encounter Details Date Type Department Care Team (Late st Contact Info) Description 04/03/2024 Lab Requisition [facility] - Main Lab [address] [facility] [place] [address] Edvin Pham PA [address] [address] Gross hematuria Social History Tobacco [...] and pathological findings. 04/21/2024 4:03 PM EST [facility] ([facility]) [facility] Addendum electronically signed by Becky Christian MD on 04/21/2024 at 4:03 PM Final Diagnosis Urine, Voided ([id number]): Negative for high grade urothelial carcinoma. Note: UroVysion testing to follow. 04/21/2024 4:03 PM EST [facility] Clinical Information [id number] Urine cytology/urine FISH 04/21/2024 4:03 PM [facility] Gross Description A. Urine, Voided, : [id number] RECD 1 TP CYTO 1 TP FISH. 04/21/2024 4:03 PM [facility] Disclaimer Unless otherwise specified, all tissue is 10% NB formalin fixed and paraffin embedded. Technical pathology services provided by [facility] at [address] [place] [address] [address] [address] (CLIA #[id number] Pittman MD, Field Crop Farming Supervisor) 04/21/2024 4:03 PM EST [facility] Tissue Urine specimen from urethra / Unknown 03/27/2024 04/03/2024 1:33 PM EST us [facility] PATHOLOGY ORDERAB LES Edited Result - Final [facility] [address] [place] [address], documented in this encounter Visit Diagnoses Diagnosis Gross hematuria documented in this encounter
--- OUTSIDE RECORDS SUMMARY | 2024-08-29 12:01 | XMS_ITS ---
Author Organization [facility] Address [address] [address] Care Team Providers Care It Project Manager Name Role Phone Dallin Floers Primary Care Provider Stefan Heller Unavailable [phone] Allergies No Known Allergies REASON FOR VISIT [...] 12/21/2023 Encounters Encounter Location Date Provider Diagnosis [facility] [address] [address] 12/21/2023 Stefan Marshall Type 1 diabetes mellitus [...] Provider Name:Ruchi Weinberg cintia, 11/07/2024 11:00:00 AM, [facility], [facility] [address], [place], [address], Procedure Notes * Category Sub-Category Detail Notes [...] as necessary. Patient chooses, no pharmaceutical tx (15105) Keratoma Treatment Parring or Cutting o f Benign Hyperkeratotic Lesion(s) 98168 ( >4 Lesions) - The Benign hyperkeratotic lesions, as described above were pared, and/or cut utilizing a sterile #15 blade, tissue nippers, and/or dremel Progress Notes * Fede ESTRADADOB:1950 (73 yo M)Acc No.[id number]:12/21/2023 Progress Note Patient:?Fede Estrada Provider:?Stefan Marshall DPM :1950???Age:73 Y???Sex:Male Joseph e:12/21/2023 Address:[address] [place] [address], [facility] Pcp:Dallin Flores Subjective: * Chief Complaints: * [...] 2014hernia 2018uvula removed * Hospitalization/Major Diagno stic Procedure:?[facility]- Infected toe 12/31/2018 * Family History:?Mother: [...] as necessary. Patient chooses, no pharmaceutical tx (91384).?Keratoma Treatment:?Parring or Cutting of Benign Hyperkeratotic Lesion(s)?61924 ( >4 Lesions) - The Benign hyperkeratotic lesions, as described above were pared, and/or cut utilizing a sterile #15 blade, tissue nippers, and/or dremel.? * Procedure Codes:?71778 DEBRI DE NAIL, 6 OR MORE, Modifiers: XS 62080 TRIM SKIN LESIONS, OVER 4, Modifiers: XS [...] DPM Date:? 024 Generated for Printi ng/Faxing/eTransmitting on:?08/29/2024 12:00 PM EDT History and Physical [...]
--- OUTSIDE RECORDS SUMMARY | 2024-08-29 12:01 | XMS_ITS | Clinical Summary ---
Author Organization [facility] Address [address] [address] Phone Care Team Providers Care Drive Man Name Role Phone Dallin Flores MD Primary Care Provider [phone] Allergies Active Allergy Reactions Criticality Noted Date [...] (08/04/2020): INR being followed at home by [facility] after hosp dc. Gastroesophageal [...] based on patterns using the new system senior care current use of insulin 04/09/2017 02/02/2021 Obesity [...] [place] [address] [place] [address] Chayito Pearce ARNP from Last 3 Months [...] this topic Insurance Medicare Medicare Care Teams Drive Man Relationship Specialty Start Date End Date Dallin Flores MD [address] [place] [address], [address] [place] [address] PCP - General 05/03/20
--- OUTSIDE RECORDS SUMMARY | 2024-08-29 12:01 | XMS_ITS | Encounter Summary ---
Author Organization [facility] Address [address] [place] [address] Phone Care Team Providers Care Debate Director Name Role Phone Dallin Flores MD Primary Care Provider [phone] Encounter Details Date Type Department Care Team (Late st Contact Info) Description 09/15/2020 Orders Only [facility] [address] [place] [id number] Neftaly Sorensen MD Stage 3a chronic kidney [...] (HCC) documented in this encounter Care Teams Debate Director Relationship Specialty Start Date End Date Dallin Flores MD [address] [place] [address], [address] [place], [place] [id number] PCP - General 05/03/20 documented as of this encounter
== END 2024-08-29 12:08 | disposition home or self-care (01) ==
LOC: HO.ACS 11:34
PROVIDERS: PCP Internal Medicine; Visit Provider Internal Medicine Medical Oncology
DX: Z79.01 Long term (current) use of anticoagulants (principal)

== ENCOUNTER → 2024-08-29 11:34 | Outpatient (BNVA) | payer MEDICARE, SELFPAY | PROVIDERS: PCP Internal Medicine; Visit Provider Internal Medicine Medical Oncology | DX: I26.99 Other pulmonary embolism without acute cor pulmonale (principal); Z79.01 Long term (current) use of anticoagulants; Z51.81 Encounter for therapeutic drug level monitoring | CPT/HCPCS: 85610; 99211 ==

== ENCOUNTER 2024-09-01 11:08 | Outpatient (AMB) | payer MEDICARE, SELFPAY ==
[2024-09-01 11:12] LABS: Prothrombin Time Whole Bld POC 23.3 sec (11.1-13.5); ~PT, ~INR - Anti Coag Clinic 1.9 (0.9-1.1)
--- NOTE | 2024-09-01 11:20 | MHC.OFFVISCO ---
Intake Intake Visit Reasons: Anticoagulation Allergies No Known Allergies Allergy (Mild, Verified 09/01/24 11:08) N/A Medication List - Last Reconciled 09/01/24 by Cintia Martel, PUNEET atorvastatin 20 mg PO DAILY cetirizine 10 mg PO DAILY doxycycline hyclate 100 mg PO BID enoxaparin mg See Protocol subcut ergocalciferol (vitamin D2) PO DAILY fluticasone propionate 50 mcg/actuation 1 spray intranasal DAILY folic acid 0.8 mg PO DAILY hydrochlorothiazide 12.5 mg PO DAILY insulin lispro subcut lisinopril 5 mg PO DAILY loperamide 4 mg PO BID PRN magnesium glycinate 400 mg PO DAILY metformin 1,000 mg PO BID omeprazole 20 mg PO DAILY pregabalin 150 mg PO BID tamsulosin 0.8 mg PO DAILY warfarin 2.5 mg See Protocol PO DAILY warfarin 5 mg See Protocol PO DAILY Nursing Note INR: 1.9 out of therapeutic range of 2-3 Medications and supplements reviewed No changes in health, diet, medications, or supplements, Denies any signs and symptoms of bleeding or bruising or clotting. Bleeding, bruising, clotting discussed Nutritional guidance given to avoid greens today and to have a serving of foods that raises the INR Dose: 5mg X 4 days and 7.5mg X 3 days (M/W/F) F/U INR: 2 weeks Patient verbalizes understanding of instructions given Anti-Coag Initial Assessment Social Hx Patient Tobacco Use Status: Never used Tobacco alcohol intake: never Coding Level of Care Code Est Patient Level 1 Diagnoses Current use of anticoagulant therapy Z79.01 Assessment & Plan Assessment & Plan (1) Current use of anticoagulant therapy: Code(s): Z79.01 - terminal operations manager (current) use of anticoagulants Category: Medical
--- OUTSIDE RECORDS SUMMARY | 2024-09-01 11:54 | XMS_ITS | Continuity of Care Document ---
Author Organization [facility] Address [address] [facility] [address] [place] [address] Phone Care Team Providers Care Automatic Brine Mixer Operator Name Role Phone Shea Carmichael PA-C [...] E&M Established 15 Mins [facility], [address], [place], [id number], [place] tel:[phone] [place] Venous insufficiency (chronic) (peripheral) 5 Jany Valdivia. [facility], Suite [facility], [place], [place], [id number] , [place]. tel: [phone] [facility], [address] [place] [address] [address], [id number], [place] tel:[phone] [place] Varicose veins of bilateral lower extremities with other complications 5 Oly Reddy. [address] [place] [address], [address], [place], [address], [place]. tel: [phone] Referring Provider: Maureen Aldridge MD, [address] [place] [address] Suite [facility], [place], [address]. tel:[phone] [facility], [address] [place] [address] [address], [place], [id number], [place] tel:[phone] [place] Encounter for follow-up examination after completed treatment for conditions other than malignant neoplasmVaricose veins of left lower extremity with other complications 5 Oly Reddy. [address] [place] [address], [address], [place], [address], [place]. tel: [phone] Referring Provider: Maureen Aldridge MD, [address] [place] [address] Suite [facility], [place], [address]. tel:[phone] [facility], [address] [place] [address] [address], [id number], [place] tel:[phone] [place] Encounter for follow-up examination after completed treatment for conditions other than malignant neVaricose veins of right lower extremity with other complications 5 Oly Reddy. [address] [place] [address], [address], [place], [address], [place]. tel: [phone] Referring Provider: Maureen Aldridge MD, [address] [place] [address] [address], [place], [address]. tel:[phone] [facility], [address] [place] [address] Dr [address], [id number], [place] tel:[phone] [place] Varicose veins of left lower extremity with other complications Feb-2 0 5 Oly Reddy. [address] [place] [address], Suite [facility], [place], [address], [place]. tel:[phone] Referring Provider: Maureen Aldridge MD, [address] [place] [address] Suite [facility], [place], [address]. tel:[phone] [facility], [address] [place] [address] [address], [id number], [place] tel:[phone] [place] Encounter for follow-up examination after completed treatment for conditions other than malignant neVaricose veins of right lower extremity with other complications Feb- 5 Oly Reddy. [address] [place] [address], Suite [facility], [place], [address], [place]. tel:[phone] Referring Provider: Maureen Aldridge MD, [address] [place] [address] Suite [facility], [place], [address]. tel:[phone] [facility], [address] [place] [address] Dr [address], [id number], [place] tel:[phone] [place] Varicose veins of right lower extremity with other complications b- 5 Oly Reddy. [address] [place] [address], [address], [place], [address], [place]. tel:[phone] Referring Provider: Maureen Aldridge MD, [address] [place] [address] Suite [facility], [place], [address]. tel:[phone] [facility], [address] [place] [address] Dr [address] 1000[place], [id number], [place] tel:[phone] [place] Varicose veins of right lower extremity with other complications 5 Oly Reddy. [address] [place] [address], [address] [place] [address], [address], [place]. tel: [phone] [facility], [address] [place] [address] Dr [address] 1000[address] 1000[place], [id number], [place] tel:[phone] [place] Encounter for follow-up examination after completed treatment for conditions other than malignant neoplasmVaricose veins of left lower extremity with other complications 5 Oly Reddy. [address] [place] [address], Suite [facility], [place], [address], [place]. tel: [phone] Referring Provider: Maureen lAdridge MD, [address] [place] [address], [facility]. tel:[phone] [facility], [address] [place] [address] [address] 1000[place], [id number], [place] tel:[phone] [place] Varicose veins of left lower extremity with other complications 5 Oly Reddy. [address] [place] [address], Suite [facility], [place], [address], [place]. tel: [phone] [facility], [address] [place] [address] [address] 1000[place], [id number], [place] tel:[phone] [place] Varicose veins of left lower extremity with other complications 5 Oly Reddy. [address] [place] [address], Suite [facility], [place], [address], [place]. tel: [phone] [facility], [address] [place] [address] [address] 1000[place], [id number], [place] tel:[phone] [place] Encounter for follow-up examination after completed treatment for conditions other than malignant neoplasmVaricose veins of right lower extremity with other complications 5 Oly Reddy. [address] [facility], [address], [place], [address], [place]. tel:[phone] Referring Provider: Maureen Aldridge MD, [address] [place] [address] [address], [place], [address]. tel:[phone] [facility], [address] [place] [address] [address], [place], [id number], [place] tel:[phone] [place] Varicose veins of right lower extremity with other complications 5 Oly Reddy. [address] [place] [address], [address], [place], [address], [place]. tel:[phone] [facility], [address] [place] [address] Dr [address], [place], [id number], [place] tel:[phone] [place] Varicose veins of right lower extremity with other complications 5 Oly Reddy. [address] [place] [address], [address], [place], [address], [place]. [phone] Office/Oupt E&M New Pt 45 Mins [facility], [address] [place] [address] [address], [place], [id number], [place] tel:[phone] [place] Varicose veins of bilateral lower extremities with other complications 4 Jany Valdivia. [address] [place] [address], [address], [place], [place], [id number] , [place]. [phone] Referring Provider: Steph LYNCH, [address], [place], [address]. tel:[phone] [facility], [address] [place] [address] Dr [address], [place], [id number], [place] tel:[phone] [place] Varicose veins of bilateral lower extremities with other complications 4 Milind Finney. [address] [place], [place], [id number] , . [phone] Referring Provider: Steph LYNCH, [address], [place], [address]. tel:[phone] Office/Outpt E&M Established 15 Mins [facility] [place], [address] [place] [address] Dr [address] 1000[address] 1000[place], [id number], [place] [phone] [place] Body mass index (BMI) 27.0-27.9, adultVenous insufficiency (chronic) (peripheral)Varico se veins of bilateral lower extremities with pain 0 Cocopahroberto carlos Magaña. [address] [facility], [address], [facility], . [phone] Referring Provider: Steph LYNCH, [address], [place], [place], [facility]. tel:[phone] [facility] [place], [address] [place] [address] Dr [address] 1000[address] 1000[place], [id number], [place] tel:[phone] [place] Varicose veins of bi low extrem w oth complications 0 Milind Finney. [address] [place], [place], [id number] , . [phone] Referring Provider: Steph LYNCH, [address], [address], [place], [address]. tel:[phone] [facility] [place], [address] [place] [address] Dr [address] 1000[address] 1000[place], [id number], [place] tel:[phone] [place] Spider Veins - (Telangiectasia) 9 [place] CRIS Archana. [address] [facility], [address] [place] [address], [facility], [place]. tel:[phone] Referring Provider: Steph LYNCH [address], [place], [address]. tel:[phone] [facility] [place], [address] [place] [address] Dr [address] 1000[address] 1000[place], [id number], [place] tel:[phone] [place] Spider Veins - (Telangiectasia) 9 [place] PA Archana. [address] [facility], [address], [place], [facility], . tel:[phone] Referring Provider: Steph LYNCH, [address], [place], [place], [facility]. tel:[phone] [facility] [place], [address] [place] [address] Dr [address] 1000[address] 1000[place], [id number], [place] tel:[phone] [place] Spider Veins - (Telangiectasia) 9 [place] PA Archana. [address] [facility], [address], [place], [facility], [place]. tel:[phone] Referring Provider: Steph LYNCH, [address], [address], [place], [place], [facility]. tel:[phone] [facility] [place], [address] [place] [address] Dr [address] 1000[address] 1000[place], [id number], [place] tel:[phone] [place] Spider Veins - (Telangiectasia) 9 [place] PA Archana. [address] [facility], [address], [place], [address], [place]. tel:[phone] Referring Provider: Steph LYNCH, [address], [address], [place], [facility]. tel:[phone] Office/Outpt E&M Established 10 Mins [facility] [place], [address] [place] [address] Dr [address] 1000Suite 1000[place], [id number], [place] tel:[phone] [place] Essential (primary) hypertensionVarico se veins of bi low extrem w oth complicationsVenou s insufficiency (chronic) (peripheral) 9 Cristal Magaña. [address] [facility], [address], [place], [address], [place]. [phone] Referring Provider: Steph LYNCH, [address], [place], [address]. tel:[phone] [facility], [address] [place] [address] [address]Suite 1000[place], [id number], [place] tel:[phone] [place] Varicose veins of bi low extrem w oth complications 9 Bud Robbins. [address] [place] [address], [address], [place], [place], [id number] , [place]. tel:[phone] Referring Provider: Steph LYNCH, [address] [facility] [address], [place], [address]. tel:[phone] [facility] [place], [address] [place] [address] [address], [place], [id number], [place] tel:[phone] [place] Encntr for f/u exam aft trtmt for cond oth than malig neoplmVaricose veins of right low extrm w oth complications 9 Bud Robbins. [address] [place] [address], [address], [place], [place], [id number] , [place]. tel:[phone] Referring Provider: Steph LYNCH, [address], [place], [address]. tel:[phone] [facility] [place], [address] [place] [address] Dr [address] 1000Suite 1000[place], [id number], [place] tel:[phone] [place] Varicose veins of right low extrm w oth complications 9 Oly Reddy. [address] [facility], [address], [place], [address], [place]. [phone] Referring Provider: Steph LYNCH, [address], [address], [place], [address]. tel:[phone] [facility] [place], [address] [place] [address] Dr Aliyah 1000Suite 1000[place], [id number], [place] tel:[phone] [place] Encntr for f/u exam aft trtmt for cond oth than malig neoplmVaricose veins of bi low extrem w oth complications 9 Bud Robbins. [address] [facility], [address], [place], [place], [id number] , [place]. tel:[phone] Referring Provider: Steph LYNCH, [address], [address], [place], [address]. tel:[phone] [facility], [address] [place] [address] Dr [address] 1000[place], [id number], [place] tel:[phone] [place] Pain in left leg 9 Bud Robbins. [address] [facility], [address], [place], [place], [id number] , [place]. [phone] Referring Provider: Steph LYNCH, [address], [address], [place], [address]. tel:[phone] [facility], [address] [place] [address] [address], [place], [id number], [place] tel:[phone] [place] Varicose veins of left lower extremities w oth complications 9 Oly Reddy. [address] [facility], [address], [place], [address], [place]. [phone] Referring Provider: Steph LYNCH, [address], [address], [place], [address]. tel:[phone] [facility], [address] [place] [address] [address]Suite [place], [id number], [place] tel:[phone] [place] Varicose veins of right low extrm w oth complications 9 Oly Reddy. [address] [facility], [address], [place], [address], [place]. tel:[phone] Referring Provider: Steph LYNCH, [address], [address], [place], [address]. tel:[phone] [facility] [place], [address] [place] [address] Dr Ly 1000Suite 1000[place], [id number], [place] tel:[phone] [place] Encntr for f/u exam aft trtmt for cond oth than malig neoplmVaricose veins of right low extrm w oth complications 9 Bud Robbins. [address] [facility], [address], [place], [place], [id number] , [place]. [phone] Referring Provider: Steph LYNCH, [address], [address], [place], [address]. tel:[phone] [facility] [place], [address] [place] [address] Dr Ly 1000Suite [place], [id number], [place] tel:[phone] [place] Varicose veins of left lower extremities w oth complications 9 Oly Reddy. [address] [facility], [address], [place], [address], [place]. tel:[phone] Referring Provider: Steph LYNCH, [address], [address], [place], [address]. tel:[phone] [facility] [place], [address] [place] [address] [address]Suite [place], [id number], [place] tel:[phone] [place] Varicose veins of right low extrm w oth complications 9 Oly Reddy. [facility] [facility], [address], [place], [address], [place]. [phone] Referring Provider: Steph LYNCH, [address], [place], [address]. tel:[phone] [facility] [place], [address] [place] [address] Dr [address] 1000Suite 1000[place] MD, [id number], [place] tel:[phone] [place] Encntr for f/u exam aft trtmt for cond oth than malig neoplmVaricose veins of left lower extremities w oth complications 9 Bud Robbins. [address] [facility], [address], [place], [place], [id number] , [place]. tel:[phone] Referring Provider: Steph LYNCH, [address], [place], [address]. tel:[phone] [facility] [place], [address] [place] [address] [address], [place], [id number], [place] tel:[phone] [place] Varicose veins of left lower extremities w oth complications 9 Oly Reddy. [facility] [facility], [address], [place], [address], [place]. [phone] Referring Provider: Steph LYNCH, [address], [place], [address]. tel:[phone] Office/Outpt E&M Established 10 Mins [facility] [place], [address] [place] [address] Dr [address] 1000Suite 1000[place], [id number], [place] tel:[phone] [place] Chronic venous htn w oth comp of bilateral low extrmBody mass index (BMI) 26.0-26.9, adult 9 Silvestre Jay. [address] [place] [address], [address], [place], [address], [place]. tel:[phone] Referring Provider: Steph LYNCH, [address], [place], [address]. tel:[phone] Office/Oupt E&M New Pt 45 Mins [facility] [place], [address] [facility] [address], [place], [id number], [place] tel:[phone] [place] Body mass index (BMI) 26.0-26.9, adultVaricose veins of bi low extrem w oth complicationsVenou s insufficiency (chronic) (peripheral) 9 Oly Reddy. [address] [facility], [address], [place], [address], [place]. tel:[phone] Referring Provider: Steph LYNCH, [address], [place], [address]. tel:[phone] [facility] [place], [address] [facility] [address], [place], [id number], [place] tel:[phone] [place] Varicose veins of bi low extrem w oth complications 9 Bud Robbins. [address] [facility], [address], [place], [place], [id number] , [place]. tel:[phone] Referring Provider: Steph LYNCH, [address], [place], [address]. tel:[phone] Family History Family Member Type Diagnosis Age At Onset No Information Payers Payer name Insurance type Covered democrat ID Authorruth mireles(s) BCBS BCN Medicare Plus Blue MB [id number] Social History Type Description Quantity Date Captured [...] provided Related to V V w/Othr Complictns (Xubq-Msgad-Wjydqepe); BILAT Patient education booklet given Related to V V w/Othr Complictns (Adqp-Evdly-Refpthbo); BILAT Giving Encouragement to Exercise Related to [...] given Related to V V w/Othr Complictns (Eevm-Zdxxa-Yzmobiig); BILAT Pre and post instruc tions reviewed and provided Related to V V w/Othr Complictns (Ihoy-Fieli-Yjxulxnu); BILAT Assessments Type Assessment Date No Information Patient Care Teams Name Effective Dates (start - stop) Status Members No Information
--- OUTSIDE RECORDS SUMMARY | 2024-09-01 11:54 | XMS_ITS | Patient Health Record ---
Author Organization [facility] Address [address] [place] [address] Care Team Providers Care Twx Operator Name Role Phone Dallin Flores Primary Care Provider Stefan Heller Unavailable [phone] Ruchi Castro Unavailable [phone] Allergies No Known Allergies Results Component Value [...] Polyneuropathy due to type 2 diabetes mellitus (471566490) Type 2 diabetes mellitus with diabetic polyneuropathy (E11.42) Active confirmed Vital Signs Height 5ft 7in in 08/01/2024 Weight 210 lbs 08/01/2024 BMI 32.89 kg/m2 08/01/2024 Procedures Procedure Date Ordered Date Performed Result Body Sit e 76100-EPDRETA NAIL, 6 OR MORE 03/18/2024 N/A 72466-OBEX SKIN LESIONS, OVER 4 03/18/2024 N/A Encounters Encounter Location Date Provider Diagnosis [address] [address] 12/21/2023 StefanStorey Type 1 diabetes mellitus with diabetic polyneuropathy E10.42 ; Pain in left toe(s) M79.675 ; Pain in right toe(s) M79.674 ; Tinea unguium B35.1 ; Other hammer toe(s) (acquired), right foot M20.41 ; Metatarsalgia, left foot M77.42 ; Metatarsalgia, right foot M77.41 ; Other hammer toe(s) (acquired), left foot M20.42 and Subungual hematoma of toenail of left foot, initial encounter S90.222A [address] [address] 03/18/2024 Ruchi Castro Type 2 diabetes mellitus with diabetic polyneuropathy E11.42 and Tinea unguium B35.[address] [address] 08/01/2024 Ruchi Castro Other hammer toe(s) (acquired), [...] X ray : Foot, right 3V 06/17/2019 25687-RHYQIYF NAIL, 6 OR MORE 03/18/2024 36372- I&D ABSCESS-COMPLICATED,MULTI 02/2019 16342-BQEQ SKIN LESIONS, OVER 4 01/15/20 19 26337-EFVC SKIN LESIONS, OVER 4 02/29/20 22 90438-YUOI SKIN LESIONS, OVER 4 08/30/19 23 79713-OLPP SKIN LESIONS, OVER 4 03/18/20 24 55828, V1705-SBYZS/INJECT, JOINT/BURSA 0 06/17/2019 Next Appt Details Provider Name:Ruchi chamberlain, 11/07/2024 11:00:00 AM, [address] [facility], [address], [place], [address], Insurance Providers Payer Name Payer Address Payer Phone Subscriber Number Group Number Insured Name Patient Relationship to Insured Coverage Start Date Coverage End Date Medicare National [employer] [address] [place] [address] [id number] Fede Estrada Self - patient is the [...]
--- OUTSIDE RECORDS SUMMARY | 2024-09-01 11:55 | XMS_ITS ---
Author Organization [facility] Address [address] [address] Care Team Providers Care Garbage Truck Dispatcher Name Role Phone Dallin Flores Primary Care Provider Stefan Heller Unavailable [phone] Allergies No Known Allergies REASON FOR VISIT [...] 12/21/2023 Encounters Encounter Location Date Provider Diagnosis [facility] [address] [address] 12/21/2023 Stefan Marshall Type 1 diabetes mellitus [...] Provider Name:Ruchi Weinberg cintia, 11/07/2024 11:00:00 AM, [facility], [facility] [address], [place], [address], Procedure Notes * Category Sub-Category Detail Notes [...] as necessary. Patient chooses, no pharmaceutical tx (45340) Keratoma Treatment Parring or Cutting o f Benign Hyperkeratotic Lesion(s) 43976 ( >4 Lesions) - The Benign hyperkeratotic lesions, as described above were pared, and/or cut utilizing a sterile #15 blade, tissue nippers, and/or dremel Progress Notes * Fede ESTRADADOB:1950 (73 yo M)Acc No.[id number]:12/21/2023 Progress Note Patient:?Fede Estrada Provider:?Stefan Marshall DPM :1950???Age:73 Y???Sex:Male Joseph e:12/21/2023 Address:[address] [place] [address], [facility] Pcp:Dallin Flores Subjective: * Chief Complaints: * [...] 2014hernia 2018uvula removed * Hospitalization/Major Diagno stic Procedure:?[facility]- Infected toe 12/31/2018 * Family History:?Mother: dece [...] as necessary. Patient chooses, no pharmaceutical tx (31648).?Keratoma Treatment:?Parring or Cutting of Benign Hyperkeratotic Lesion(s)?88133 ( >4 Lesions) - The Benign hyperkeratotic lesions, as described above were pared, and/or cut utilizing a sterile #15 blade, tissue nippers, and/or dremel.? * Procedure Codes:?32933 DEBRI DE NAIL, 6 OR MORE, Modifiers: XS 68395 TRIM SKIN LESIONS, OVER 4, Modifiers: XS [...] DPM Date:? 024 Generated for Printi ng/Faxing/eTransmitting on:?09/01/2024 11:54 AM EDT History and Physical Notes * [...]
--- OUTSIDE RECORDS SUMMARY | 2024-09-01 11:55 | XMS_ITS ---
Author Organization [facility] Address [address] [place] [address] Care Team Providers Care Instructional Designer Name Role Phone Dallin Flores Primary Care Provider Stefan Heller Unavailable [phone] Ruchi Castro Unavailable [phone] Allergies No Known Allergies REASON FOR VISIT [...] Polyneuropathy due to type 2 diabetes mellitus (169188944) Type 2 diabetes mellitus with diabetic polyneuropathy (E11.42) Active confirmed Vital Signs Height 5ft 7in in 03/18/2024 Weight 210 lbs 03/18/2024 BMI 32.89 kg/m2 03/18/2024 Procedures Procedure Date Ordered Date Performed Result Body Sit e 75037-MWXBUVQ NAIL, 6 OR MORE 03/18/2024 N/A 92191-KPAZ SKIN LESIONS, OVER 4 03/18/2024 N/A Encounters Encounter Location Date Provider Diagnosis [facility] [address] [address] 03/18/2024 Ruchi Castro Type 2 diabetes mellitus with diabetic polyneuropathy E11.42 and Tinea unguium B35.1 Assessments Encounter Date Diagnosis (ICD Code) Assessment Notes Treatment Notes Treatment Clinical Notes Section Notes 03/18/2024 Type 2 diabetes mellitus with diabetic polyneuropathy (ICD-10 - E11.42) 03/18/2024 Tinea unguium (ICD-10 - B35.1) Plan Of Treatment Pending Test Test Name Order Date 73623-CCBAHJF NAIL, 6 OR MORE 03/18/2024 87656-XLRN SKIN LESIONS, OVER 4 03/18/20 24 Next Appt Details Follow Up: 4 Months, Reason: Provider Name:Ruchi chamberlain, 11/07/2024 11:00:00 AM, [address], [place], [address], Procedure Notes * Category Sub-Category Detail Notes [...] use of a nail nipper and/or dremel-type loader magazine grinder, to a more viable healthy nail [...] to maintain effectiveness in symptomatic relief - 61919 Keratoma Treatment Parring or Cutting o f Benign Hyperkeratotic Lesion(s) (-57) More than 4 Lesions - The Benign hyperkeratotic lesions, ( 5) in total, locations as stated and described in exam, were pared, and/or cut utilizing a sterile 15 blade, tissue nippers, and/or power dremel instrumentation - 79818 Progress Notes * Fede ESTRADADOB:1950 (74 yo M)Acc No.[id number]:03/18/2024 Progress Note Patient:?Fede ESTRADA Provider:?Ruchi Castro DPM :1950???Age:74 Y???Sex:Male Joseph e:03/18/2024 Address:[address], [id number] Pcp:Dallin Flores Subjective: * Chief Complaints: * [...] 2014hernia 2017uvula removed * Hospitalization/Major Diagno stic Procedure:?[facility]- Infected toe 12/31/2018[facility]- wire caught on leg [...] use of a nail nipper and/or dremel-type loader magazine grinder, to a more viable healthy nail [...] to maintain effectiveness in symptomatic relief - 53260.?Keratoma Treatment:?Parring or Cutting of Benign Hyperkeratotic Lesion(s)?(-57) More than 4 Lesions - The Benign hyperkeratotic lesions, ( 5) in total, locations as stated and described in exam, were pared, and/or cut utilizing a sterile 15 blade, tissue nippers, and/or power dremel instrumentation - 66363.? * Procedure Codes:?01319 DEBRI DE NAIL, 6 OR MORE, Modifiers: XS 47096 TRIM SKIN LESIONS, OVER 4, Modifiers: XS * Follow Up:?4 Months * Images: * Sign off status: Completed true * Provider:?Ruchi Castro DPM Date:?05/18/2023 Generated for Matt hunter/Cecilio/eTalvinsmitting on:?09/01/2024 11:54 AM EDT History and Physical [...]
--- OUTSIDE RECORDS SUMMARY | 2024-09-01 11:55 | XMS_ITS | Encounter Summary ---
Author Organization [facility] Address [address] [place] [address] Phone Care Team Providers Care Institute Scientist Name Role Phone Dallin Flores MD Primary Care Provider [phone] Encounter Details Date Type Department Care Team (Late st Contact Info) Description 09/15/2020 Orders Only [facility] [address] [place] [phone] Neftaly Sorensen MD Stage 3a chronic kidney [...] (HCC) documented in this encounter Care Teams Institute Scientist Relationship Specialty Start Date End Date Dallin Flores MD [address] [place] [address], [address] [place], [place] [id number] PCP - General 05/03/20 documented as of this encounter
--- OUTSIDE RECORDS SUMMARY | 2024-09-01 11:55 | XMS_ITS | Encounter Summary ---
Author Organization [facility] Address [address] [place] [address] Phone Care Team Providers Care X Ray Equipment Servicer Name Role Phone Dallin Flores MD Primary Care Provider [phone] Encounter Details Date Type Department Care Team (Late st Contact Info) Description 04/10/2022 Telephone [facility] [address] [place] [phone] Neftaly Sorensen MD Social History Tobacco Use [...] on filedocumented in this encounter Care Teams X Ray Equipment Servicer Relationship Specialty Start Date End Date Dallin Flores MD [address] [place] [address], [address] [place] [phone] PCP - General 05/03/20 documented as of this encounter
--- OUTSIDE RECORDS SUMMARY | 2024-09-01 11:55 | XMS_ITS ---
Author Organization [facility] Address [address] [place] [address] Care Team Providers Care Raw Mill Operator Name Role Phone Dallin Flores Primary Care Provider Stefan Heller Unavailable [phone] Ruchi Castro Unavailable [phone] Allergies No Known Allergies REASON FOR VISIT [...] 08/01/2024 Encounters Encounter Location Date Provider Diagnosis [facility] [address] [address] 08/01/2024 Ruchi Castro Other hammer toe(s) (acquired), [...] Provider Name:Ruchimariah chamberlain, 11/07/2024 11:00:00 AM, [address] [facility], [address], [place], [address], Procedure Notes * Category Sub-Category Detail Notes [...] use of a nail nipper and/or dremel-type external grinder, to a more viable healthy nail [...] to maintain effectiveness in symptomatic relief - 20777 Keratoma Treatment Parring or Cutting o f [...] instrumentation by the physician of record - 93967 Progress Notes * Fede ESTRADADOB:1950 (74 yo M)Acc No.[id number]:08/01/2024 Progress Note Patient:?Fede ESTRADA Provider:?Ruchi Castro DPM :1950???Age:74 Y???Sex:Male Joseph e:08/01/2024 Address:[address] [place], [place] [id number] Pcp:Dallin Flores Subjective: * Chief Complaints: * [...] 2015hernia 2018uvula removed * Hospitalization/Major Diagno stic Procedure:?[facility]- Infected toe 12/[facility]- wire caught on [...] use of a nail nipper and/or dremel-type external grinder, to a more viable healthy nail [...] to maintain effectiveness in symptomatic relief - 47886.?Keratoma Treatment:?Parring or Cutting of Benign Hyperkeratotic Lesion(s)?(-57) [...] instrumentation by the physician of record - 33037.? * Procedure Codes:?47751 DEBRI DE NAIL, 6 OR MORE, Modifiers: XS 02864 TRIM SKIN LESIONS, OVER 4, Modifiers: XS [...] DPM Date:?0 08/01/2024 Generated for Matt hunter/Cecilio/eTransmitting on:?09/01/2024 11:54 AM EDT History and Physical [...] d iminished Sensory and motor testing performed:: [facility] normal Pedal pulse taking performed:: 2+ Footwear [...]
--- OUTSIDE RECORDS SUMMARY | 2024-09-01 11:55 | XMS_ITS | Clinical Summary ---
Author Organization [facility] Address [address] [address] Phone Care Team Providers Care Track Template Maker Name Role Phone Dallin Flores MD Primary Care Provider [phone] Allergies Active Allergy Reactions Criticality Noted Date [...] (08/04/2020): INR being followed at home by [facility] after hosp dc. Gastroesophageal reflux [...] based on patterns using the new system [facility] current use of insulin 04/09/2017 02/02/2021 Obesity [...] [place] [address] [place] [address] Chayito Pearce ARNP from Last 3 Months [...] this topic Insurance Medicare Medicare Care Teams Track Template Maker Relationship Specialty Start Date End Date Dallin Flores MD [address] [place] [address], [address] [place] [address] PCP - General 05/03/20
== END 2024-09-01 11:33 | disposition home or self-care (01) ==
LOC: HO.ACS 11:08
PROVIDERS: PCP Internal Medicine; Visit Provider Internal Medicine Medical Oncology
DX: Z79.01 Long term (current) use of anticoagulants (principal)

== ENCOUNTER → 2024-09-01 11:08 | Outpatient (BNVA) | payer MEDICARE, SELFPAY | PROVIDERS: PCP Internal Medicine; Visit Provider Internal Medicine Medical Oncology | DX: I26.99 Other pulmonary embolism without acute cor pulmonale (principal); Z79.01 Long term (current) use of anticoagulants; Z51.81 Encounter for therapeutic drug level monitoring | CPT/HCPCS: 85610; 99211 ==

== ENCOUNTER 2024-09-02 11:57 | Outpatient (AMB) | payer MEDICARE, SELFPAY ==
--- NOTE | 2024-09-02 12:00 | HO.NEPHOV ---
Vital Signs 09/02/24 12:01 09/02/24 12:09 Height 5 ft 6 in Weight 228 lb BMI 36.8 BP 142/60 H 120/60 Blood Pressure Location Lt brachial Lt brachial Position Sitting Sitting Pulse 75 Pulse Source Pulse Oximeter Pulse Oximetry (%) 95 Oxygen Delivery Method Room Air Intake Visit Reasons: R/S 08/05/2024/ LVM Financial Services Assistant Required: No Accompanied by: Self / Same As Patient Allergies No Known Allergies Allergy (Mild, Verified 09/02/24 12:03) N/A Medication List - Last Reconciled 09/02/24 by Neftaly Sorensen MD atorvastatin 20 mg PO DAILY cetirizine 10 mg PO DAILY doxycycline hyclate 100 mg PO BID enoxaparin mg See Protocol subcut ergocalciferol (vitamin D2) PO DAILY fluticasone propionate 50 mcg/actuation 1 spray intranasal DAILY folic acid 0.8 mg PO DAILY hydrochlorothiazide 12.5 mg PO DAILY insulin lispro subcut ketoconazole 2% topical lisinopril 5 mg PO DAILY loperamide 4 mg PO BID PRN magnesium glycinate 400 mg PO DAILY metformin 1,000 mg PO BID omeprazole 20 mg PO DAILY pregabalin 150 mg PO BID tamsulosin 0.8 mg PO DAILY warfarin 2.5 mg See Protocol PO DAILY warfarin 5 mg See Protocol PO DAILY HPI Comments Details: Fede is a 73-year-old man with history of hypertension diabetes mellitus and chronic kidney disease. He was usually in [facility] for a insect bite in his legs. He was asked to go for renal follow-up. He was seen by me for the last several years in my previous practice and he has decided to stay with me. He is unhappy with the care provided by the nurse practitioner at [facility] 04/21/24 4 weeks ago he had hematuria Painless Underwent CT and Cystoscopy - reportedly normal Currently resolved 09/02/24 74-year-old male presenting with follow-up care for a recently resolved intestinal obstruction and management of chronic hypertension and diabetes. The intestinal obstruction occurred approximately two weeks ago, characterized by a three-day inability to pass stool despite food intake, and was treated with an NG tube without surgical intervention. Since the procedure, there have been no further gastrointestinal complaints. His Type 2 Diabetes Mellitus is currently managed with Metformin, showing good control with a last reported Hemoglobin A1c of 6.1%. The patient is averse to using newer medications such as Jardiance due to cost. His blood pressure occasionally reads high but typically stabilizes, suggesting fluctuating yet mostly controlled hypertension. [facility] Surgical History History of knee replacement History of nasal septoplasty Hx of tonsillectomy H/O uvulectomy H/O hernia repair History of intestinal surgery Family History Father No problems noted. Mother No problems noted. Social History Household Members: Spouse Housing: House Alcohol intake: never Patient Tobacco Use Status: Never used Tobacco Physical Exam Vital Signs: Last Vital Signs Pulse 75 09/02/24 12:01 BP 120/60 09/02/24 12:09 Pulse Ox 95 09/02/24 12:01 Oxygen Delivery Method Room Air 09/02/24 12:01 BMI result Body Mass Index 36.8 Comfortable Neck supple no JVD. Lungs entry equal no rales. Heart S1-S2 heard no gallop or rub. Abdomen soft nontender. Neuro alert awake oriented. No asterixis. Extremities no edema. Results Reviewed Nephrology Results: Sodium 144 mmol/L (135-145) 08/04/24 Potassium 4.7 mmol/L (3.3-5.1) 08/04/24 Chloride 114 mmol/L (96-108) H 08/04/24 Carbon Dioxide 21 mmol/L (22-29) L 08/04/24 BUN 26 mg/dL (9-16) H 08/04/24 Creatinine 1.34 mg/dL (0.5-1.4) 08/04/24 Calcium 10.1 mg/dL (8.4-10.2) 08/04/24 Assessment & Plan Assessment & Plan (1) CKD (chronic kidney disease): Code(s): N18.9 - Chronic kidney disease, unspecified Category: Medical Plan 74-year-old man with CKD in a setting of longstanding diabetes mellitus hypertension. He has stage III CKD. Renal function stable. Goal is to slow the progression of the kidney disease. Maintain blood pressure less than 130/80 and A1c less than 7%. Continue with Kentrell inhibitors for renal protection. He will benefit from SGLT2 inhibitors. However, he is unable to take due to cost consideration I have encouraged him to stay on low-sodium diet. Continue to avoid nephrotoxic agents including NSAIDs. I will follow along with the team and monitor renal function as needed. Orders: Orders Creatinine Urine 6 Months N18.9 - Chronic kidney disease, unspecified Basic Metabolic Panel 6 Months N18.9 - Chronic kidney disease, unspecified Total Protein Urine Random 6 Months N18.9 - Chronic kidney disease, unspecified UA and rflx microscopic 6 Months N18.9 - Chronic kidney disease, unspecified Coding Level of Care Code Est Pt Level 4 (30224) Diagnoses CKD (chronic kidney disease) N18.9
[2024-09-02 12:01] VITALS: BP 142/60; PULSE 75; O2SAT 95; BMI 36.8
[2024-09-02 12:09] VITALS: BP 120/60
--- OUTSIDE RECORDS SUMMARY | 2024-09-02 13:19 | XMS_ITS | Patient Health Record ---
Author Organization [facility] Address [address] [place] [address] Care Team Providers Care Steel Checker Name Role Phone Dallin Flores Primary Care Provider Stefan Heller Unavailable [phone] Ruchi Castro Unavailable [phone] Allergies No Known Allergies Results Component Value [...] Polyneuropathy due to type 2 diabetes mellitus (269745871) Type 2 diabetes mellitus with diabetic polyneuropathy (E11.42) Active confirmed Vital Signs Height 5ft 7in in 08/01/2024 Weight 210 lbs 08/01/2024 BMI 32.89 kg/m2 08/01/2024 Procedures Procedure Date Ordered Date Performed Result Body Sit e 59407-TBQKAAL NAIL, 6 OR MORE 03/18/2024 N/A 84687-QDOV SKIN LESIONS, OVER 4 03/18/2024 N/A Encounters Encounter Location Date Provider Diagnosis [address] [address] 12/21/2023 StefanStorey Type 1 diabetes mellitus with diabetic polyneuropathy E10.42 ; Pain in left toe(s) M79.675 ; Pain in right toe(s) M79.674 ; Tinea unguium B35.1 ; Other hammer toe(s) (acquired), right foot M20.41 ; Metatarsalgia, left foot M77.42 ; Metatarsalgia, right foot M77.41 ; Other hammer toe(s) (acquired), left foot M20.42 and Subungual hematoma of toenail of left foot, initial encounter S90.222A [address] [address] 03/18/2024 Ruchi Castro Type 2 diabetes mellitus with diabetic polyneuropathy E11.42 and Tinea unguium B35.[address] [address] 08/01/2024 Ruchi Castro Other hammer toe(s) (acquired), [...] X ray : Foot, right 3V 06/17/2019 62721-MALHOAP NAIL, 6 OR MORE 03/18/2024 70165- I&D ABSCESS-COMPLICATED,MULTI 02/2019 04860-FZKJ SKIN LESIONS, OVER 4 01/15/20 19 43020-BJLR SKIN LESIONS, OVER 4 02/29/20 22 37813-PDKB SKIN LESIONS, OVER 4 08/30/19 23 65291-TNXT SKIN LESIONS, OVER 4 03/18/20 24 73093, T6448-KFAHJ/INJECT, JOINT/BURSA 0 06/17/2019 Next Appt Details Provider Name:Ruchi chamberlain, 11/07/2024 11:00:00 AM, [address] [facility] [facility], [address], [place], [address], Insurance Providers Payer Name Payer Address Payer Phone Subscriber Number Group Number Insured Name Patient Relationship to Insured Coverage Start Date Coverage End Date Medicare [employer] [address] [place] [address] [id number] Fede Estrada Self - patient is the insured Medical (General) History Medical History History ICD Code Back,Hip,and Knee pain CAD (Cholesterol) Cataracts Diabetic High blood pressure Numbness Reflux ( GERD) chronic sinusitis Vascular phlebitis (clots) Measles Mumps Chicken pox Surgical History Surgery Date(Month/Year) intestinal surgery-large intestine remov ed 2014 hernia 2018 uvula removed Hospitalization History Reason Date(Month/Year) [facility]- wire caught on leg 01/2024 [facility]- Infected toe 01/2019
--- OUTSIDE RECORDS SUMMARY | 2024-09-02 13:19 | XMS_ITS | Continuity of Care Document ---
Author Organization [facility] Address [address] [facility] [address] [place] [address] Phone Care Team Providers Care Musical String Maker Name Role Phone Shea Carmichael PA-C Unavailable [...] E&M Established 15 Mins [facility], [address], [place], [id number], [place] tel:[phone] [place] Venous insufficiency (chronic) (peripheral) 5 Jany Valdivia. [facility] [facility], Suite [facility], [place], [place], [id number] , [place]. tel: [phone] [facility], [address] [place] [address] [address], [id number], [place] tel:[phone] [place] Varicose veins of bilateral lower extremities with other complications 5 Oly Reddy. [address] [place] [address], [address], [place], [address], [place]. tel: [phone] Referring Provider: Maureen Aldridge MD, [address] [place] [address] Suite [facility], [place], [address]. tel:[phone] [facility], [address] [place] [address] [address], [place], [id number], [place] tel:[phone] [place] Encounter for follow-up examination after completed treatment for conditions other than malignant neoplasmVaricose veins of left lower extremity with other complications 5 Oly Reddy. [address] [place] [address], [address], [place], [address], [place]. tel: [phone] Referring Provider: Maureen Aldridge MD, [address] [place] [address] Suite [facility], [place], [address]. tel:[phone] [facility], [address] [place] [address] [address], [id number], [place] tel:[phone] [place] Encounter for follow-up examination after completed treatment for conditions other than malignant neVaricose veins of right lower extremity with other complications 5 Oly Reddy. [address] [place] [address], [address], [place], [address], [place]. tel: [phone] Referring Provider: Maureen Aldridge MD, [address] [place] [address] [address], [place], [address]. tel:[phone] [facility], [address] [place] [address] Dr [address], [id number], [place] tel:[phone] CV[place] Varicose veins of left lower extremity with other complications Feb-2 0 5 Oly Reddy. [address] [place] [address], Suite [facility], [place], [address], [place]. tel:[phone] Referring Provider: Maureen Aldridge MD, [address] [place] [address] Suite [facility], [place], [address]. tel:[phone] [facility], [address] [place] [address] [address], [id number], [place] tel:[phone] CVR - [place] Encounter for follow-up examination after completed treatment for conditions other than malignant neVaricose veins of right lower extremity with other complications Feb- 5 Oly Reddy. [address] [place] [address], Suite [facility], [place], [address], [place]. tel:[phone] Referring Provider: Maureen Aldridge MD, [address] [place] [address] Suite [facility], [place], [address]. tel:[phone] [facility], [address] [place] [address] Dr [address], [id number], [place] tel:[phone] CVR - [place] Varicose veins of right lower extremity with other complications b- 5 Oly Reddy. [address] [place] [address], [address], [place], [address], [place]. tel:[phone] Referring Provider: Maureen Aldridge MD, [address] [place] [address] Suite [facility], [place], [address]. tel:[phone] [facility], [address] [place] [address] Dr [address], [id number], [place] tel:[phone] CVR - [place] Varicose veins of right lower extremity with other complications 5 Oly Reddy. [address] [place] [address], [address] [place] [address], [address], [place]. tel: [phone] [facility], [address] [place] [address] Dr [address] 1000[place], [id number], [place] tel:[phone] CVR - [place] Encounter for follow-up examination after completed treatment for conditions other than malignant neoplasmVaricose veins of left lower extremity with other complications 5 Oly Reddy. [address] [place] [address], Suite [facility], [place], [address], [place]. tel: [phone] Referring Provider: Maureen Aldridge MD, [address] [place] [address], [facility]. tel:[phone] [facility], [address] [place] [address] [address] 1000[place], [id number], [place] tel:[phone] CVR - [place] Varicose veins of left lower extremity with other complications 5 Oly Reddy. [address] [place] [address], Suite [facility], [place], [address], [place]. tel: [phone] [facility], [address] [place] [address] [address] 1000[place], [id number], [place] tel:[phone] CVR - [place] Varicose veins of left lower extremity with other complications 5 Oly Reddy. [address] [place] [address], Suite [facility], [place], [address], [place]. tel: [phone] [facility], [address] [place] [address] [address] 1000[place], [id number], [place] tel:[phone] CVR - [place] Encounter for follow-up examination after completed treatment for conditions other than malignant neoplasmVaricose veins of right lower extremity with other complications 5 Oly Reddy. [address] [facility], [address], [place], [address], [place]. tel:[phone] Referring Provider: Maureen Aldridge MD, [address] [place] [address] [address], [place], [address]. tel:[phone] [facility], [address] [place] [address] [address], [place], [id number], [place] tel:[phone] CVR - [place] Varicose veins of right lower extremity with other complications 5 Oly Reddy. [address] [place] [address], [address], [place], [address], [place]. tel:[phone] [facility], [address] [place] [address] Dr [address], [place], [id number], [place] tel:[phone] CVR - [place] Varicose veins of right lower extremity with other complications 5 Oly Reddy. [address] [place] [address], [address], [place], [address], [place]. [phone] Office/Oupt E&M New Pt 45 Mins [facility], [address] [place] [address] [address], [place], [id number], [place] tel:[phone] CVR - [place] Varicose veins of bilateral lower extremities with other complications 4 Jany Valdivia. [address] [place] [address], [address], [place], [place], [id number] , [place]. [phone] Referring Provider: Steph LYNCH, [address], [place], [address]. tel:[phone] [facility], [address] [place] [address] Dr [address], [place], [id number], [place] tel:[phone] CVR - [place] Varicose veins of bilateral lower extremities with other complications 4 Milind Finney. [address] [place], [place], [id number] , . [phone] Referring Provider: Steph LYNCH, [address], [place], [address]. tel:[phone] Office/Outpt E&M Established 15 Mins [facility], [address] [place] [address] Dr [address] 1000[place], [id number], [place] [phone] CVR - [place] Body mass index (BMI) 27.0-27.9, adultVenous insufficiency (chronic) (peripheral)Varico se veins of bilateral lower extremities with pain 0 Cowl[place]roberto carlos Magaña. [address] [facility], [address], [facility], . [phone] Referring Provider: Steph LYNCH, [address], [place], [place], [facility]. tel:[phone] [facility], [address] [place] [address] Dr [address] 1000[address] 1000[place], [id number], [place] tel:[phone] CVR - [place] Varicose veins of bi low extrem w oth complications 0 Milind Finney. [address] [place], [place], [id number] , . [phone] Referring Provider: Steph LYNCH, [address], [address], [place], [address]. tel:[phone] [facility], [address] [place] [address] Dr [address] 1000[address] 1000[place], [id number], [place] tel:[phone] CVR - [place] Spider Veins - (Telangiectasia) 9 [place] CRIS Archana. [address] [facility], [address] [place] [address], [facility], [place]. tel:[phone] Referring Provider: Steph LYNCH [address], [place], [address]. tel:[phone] [facility], [address] [place] [address] Dr [address] 1000[address] 1000[place], [id number], [place] tel:[phone] CVR - [place] Spider Veins - (Telangiectasia) 9 [place] PA Archana. [address] [facility], [address], [place], [facility], . tel:[phone] Referring Provider: Steph LYNCH, [address], [place], [place], [facility]. tel:[phone] [facility] [place], [address] [place] [address] Dr [address] 1000Suite 1000[place], [id number], [place] tel:[phone] CVR - [place] Spider Veins - (Telangiectasia) 9 [place] PA Archana. [address] [facility], [address], [place], [facility], [place]. tel:[phone] Referring Provider: Steph LYNCH, [address], [place], [facility]. tel:[phone] [facility], [address] [place] [address] Dr [address] 1000[address] 1000[place], [id number], [place] tel:[phone] CVR - [place] Spider Veins - (Telangiectasia) 9 [place] PA Archana. [address] [facility], [address], [place], [address], [place]. tel:[phone] Referring Provider: Steph LYNCH, [address], [place], [place], [facility]. tel:[phone] Office/Outpt E&M Established 10 Mins [facility], [address] [place] [address] Dr [address] 1000Suite 1000[place], [id number], [place] tel:[phone] CVR - [place] Essential (primary) hypertensionVarico se veins of bi low extrem w oth complicationsVenou s insufficiency (chronic) (peripheral) 9 Cristal Magaña. [address] [facility], [address], [place], [address], [place]. [phone] Referring Provider: Steph LYNCH, [address], [place], [address]. tel:[phone] [facility], [address] [place] [address] [address] 1000[place], [id number], [place] tel:[phone] CVR - [place] Varicose veins of bi low extrem w oth complications 9 Bud Robbins. [address] [place] [address], [address], [place], [place], [id number] , [place]. tel:[phone] Referring Provider: Steph LYNCH, [address] [facility] [address], [place], [address]. tel:[phone] [facility], [address] [place] [address] [address], [place], [id number], [place] tel:[phone] CVR - [place] Encntr for f/u exam aft trtmt for cond oth than malig neoplmVaricose veins of right low extrm w oth complications 9 Bud Robbins. [address] [place] [address], [address], [place], [place], [id number] , [place]. tel:[phone] Referring Provider: Steph LYNCH, [address], [place], [address]. tel:[phone] [facility], [address] [place] [address] Dr [address] 1000Suite 1000[place], [id number], [place] tel:[phone] CVR - [place] Varicose veins of right low extrm w oth complications 9 Oly Reddy. [address] [facility], [address], [place], [address], [place]. [phone] Referring Provider: Steph LYNCH, [address], [address], [place], [address]. tel:[phone] [facility], [address] [place] [address] Dr Aliyah 1000Suite 1000[place] MD, [id number], [place] tel:[phone] CVR - [place] Encntr for f/u exam aft trtmt for cond oth than malig neoplmVaricose veins of bi low extrem w oth complications 9 Bud Robbins. [address] [facility], [address], [place], [place], [id number] , [place]. tel:[phone] Referring Provider: Steph LYNCH, [address], [address], [place], [address]. tel:[phone] [facility], [address] [place] [address] Dr [address] 1000[place], [id number], [place] tel:[phone] CVR - [place] Pain in left leg 9 Bud Robbins. [address] [facility], [address], [place], [place], [id number] , [place]. [phone] Referring Provider: Steph LYNCH, [address], [address], [place], [address]. tel:[phone] [facility], [address] [place] [address] [address], [place], [id number], [place] tel:[phone] CVR - [place] Varicose veins of left lower extremities w oth complications 9 Oly Reddy. [address] [facility], [address], [place], [address], [place]. [phone] Referring Provider: Steph LYNCH, [address], [address], [place], [address]. tel:[phone] [facility], [address] [place] [address] [address]Suite [place], [id number], [place] tel:[phone] CVR - [place] Varicose veins of right low extrm w oth complications 9 Oly Reddy. [address] [facility], [address], [place], [address], [place]. tel:[phone] Referring Provider: Steph LYNCH, [address], [address], [place], [address]. tel:[phone] [facility], [address] [place] [address] Dr [address] 1000Suite 1000[place], [id number], [place] tel:[phone] CVR - [place] Encntr for f/u exam aft trtmt for cond oth than malig neoplmVaricose veins of right low extrm w oth complications 9 Bud Robbins. [address] [facility], [address], [place], [place], [id number] , [place]. [phone] Referring Provider: Steph LYNCH, [address], [address], [place], [address]. tel:[phone] [facility], [address] [place] [address] Dr Ly 1000Suite [place], [id number], [place] tel:[phone] CVR - [place] Varicose veins of left lower extremities w oth complications 9 Oly Reddy. [address] [facility], [address], [place], [address], [place]. tel:[phone] Referring Provider: Steph LYNCH, [address], [address], [place], [address]. tel:[phone] [facility], [address] [place] [address] [address]Suite [place], [id number], [place] tel:[phone] CVR - [place] Varicose veins of right low extrm w oth complications 9 Oly Reddy. [facility] [facility], [address], [place], [address], [place]. [phone] Referring Provider: Steph LYNCH, [address], [place], [address]. tel:[phone] [facility], [address] [place] [address] Dr [address] 1000[address] 1000[place], [id number], [place] tel:[phone] CVR - [place] Encntr for f/u exam aft trtmt for cond oth than malig neoplmVaricose veins of left lower extremities w oth complications 9 Bud Robbins. [address] [facility], [address], [place], [place], [id number] , [place]. tel:[phone] Referring Provider: Steph LYNCH, [address], [place], [address]. tel:[phone] [facility] MD [facility], [address] [place] [address] [address], [place], [id number], [place] tel:[phone] CVR - [place] Varicose veins of left lower extremities w oth complications 9 Oly Reddy. [facility] [facility], [address], [place], [address], [place]. [phone] Referring Provider: Steph LYNCH, [address], [place], [address]. tel:[phone] Office/Outpt E&M Established 10 Mins [facility], [address] [place] [address] Dr [address] 1000Suite 1000[place], [id number], [place] tel:[phone] CVR - [place] Chronic venous htn w oth comp of bilateral low extrmBody mass index (BMI) 26.0-26.9, adult 9 Silvestre Jay. [address] [place] [address], [address], [place], [address], [place]. tel:[phone] Referring Provider: Steph LYNCH, [address], [place], [address]. tel:[phone] Office/Oupt E&M New Pt 45 Mins [facility], [address] [facility] [address], [place], [id number], [place] tel:[phone] CVR - [place] Body mass index (BMI) 26.0-26.9, adultVaricose veins of bi low extrem w oth complicationsVenou s insufficiency (chronic) (peripheral) 9 Oly Reddy. [address] [facility], [address], [place], [address], [place]. tel:[phone] Referring Provider: Steph LYNCH, [address], [place], [address]. tel:[phone] [facility], [address] [facility] [address], [place], [id number], [place] tel:[phone] CVR - [place] Varicose veins of bi low extrem w oth complications 9 Bud Robbins. [address] [facility], [address], [place], [place], [id number] , [place]. tel:[phone] Referring Provider: Steph LYNCH, [address], [place], [address]. tel:[phone] Family History Family Member Type Diagnosis Age At Onset No Information Payers Payer name Insurance type Covered green party ID Authorruht mireles(s) BCBS BCN Medicare Plus Blue MB [id number] Social History Type Description Quantity Date Captured [...] provided Related to V V w/Othr Complictns (Loga-Tzvnf-Unaiwyys); BILAT Patient education booklet given Related to V V w/Othr Complictns (Fgrl-Scgut-Ryxpekau); BILAT Giving Encouragement to Exercise Related to [...] given Related to V V w/Othr Complictns (Gmaq-Efbrv-Epkzwwuu); BILAT Pre and post instruc tions reviewed and provided Related to V V w/Othr Complictns (Eqnv-Gorls-Kpobwsui); BILAT Assessments Type Assessment Date No Information Patient Care Teams Name Effective Dates (start - stop) Status Members No Information
--- OUTSIDE RECORDS SUMMARY | 2024-09-02 13:19 | XMS_ITS | Encounter Summary ---
Author Organization [facility] Address [address] [place] [address] Phone Care Team Providers Care Specialty Finishing Utility Person Name Role Phone Dallin Flores MD Primary Care Provider [phone] Encounter Details Date Type Department Care Team (Late st Contact Info) Description 04/10/2022 Telephone [facility] [address] [place] [id number] Neftaly Sorensen MD Social History Tobacco Use [...] on filedocumented in this encounter Care Teams Specialty Finishing Utility Person Relationship Specialty Start Date End Date Dallin Flores MD [address] [place] [address], [address] [place] [phone] PCP - General 05/03/20 documented as of this encounter
--- OUTSIDE RECORDS SUMMARY | 2024-09-02 13:19 | XMS_ITS | Encounter Summary ---
Author Organization [facility] Address [address] [place] [address] Phone Care Team Providers Care Missionary Coordinator Name Role Phone Dallin Flores MD Primary Care Provider [phone] Encounter Details Date Type Department Care Team (Late st Contact Info) Description 09/15/2020 Orders Only [facility] [address] [place] [id number] Neftaly Sorensen MD Stage 3a chronic kidney [...] (HCC) documented in this encounter Care Teams Missionary Coordinator Relationship Specialty Start Date End Date Dallin Flores MD [address] [place] [address], [address] [place], [place] [phone] PCP - General 05/03/20 documented as of this encounter
--- OUTSIDE RECORDS SUMMARY | 2024-09-02 13:19 | XMS_ITS ---
Author Organization [facility] Address [address] [facility] [place] [address] Care Team Providers Care Wet Chemistry Analyst Name Role Phone Dallin Flores Primary Care Provider Stefan Heller Unavailable [phone] Ruchi Castro Unavailable [phone] Allergies No Known Allergies REASON FOR VISIT [...] Polyneuropathy due to type 2 diabetes mellitus (354328212) Type 2 diabetes mellitus with diabetic polyneuropathy (E11.42) Active confirmed Vital Signs Height 5ft 7in in 03/18/2024 Weight 210 lbs 03/18/2024 BMI 32.89 kg/m2 03/18/2024 Procedures Procedure Date Ordered Date Performed Result Body Sit e 47874-GUATYDS NAIL, 6 OR MORE 03/18/2024 N/A 88186-XMRL SKIN LESIONS, OVER 4 03/18/2024 N/A Encounters Encounter Location Date Provider Diagnosis [facility] [address] [address] 03/18/2024 Ruchi Castro Type 2 diabetes mellitus with diabetic polyneuropathy E11.42 and Tinea unguium B35.1 Assessments Encounter Date Diagnosis (ICD Code) Assessment Notes Treatment Notes Treatment Clinical Notes Section Notes 03/18/2024 Type 2 diabetes mellitus with diabetic polyneuropathy (ICD-10 - E11.42) 03/18/2024 Tinea unguium (ICD-10 - B35.1) Plan Of Treatment Pending Test Test Name Order Date 35045-RSJRMDA NAIL, 6 OR MORE 03/18/2024 69937-OHDR SKIN LESIONS, OVER 4 03/18/20 24 Next Appt Details Follow Up: 4 Months, Reason: Provider Name:Ruchi chamberlain, 11/07/2024 11:00:00 AM, [address], [place], [address], Procedure Notes * Category Sub-Category Detail Notes [...] use of a nail nipper and/or dremel-type corn grinder, to a more viable healthy nail [...] to maintain effectiveness in symptomatic relief - 91420 Keratoma Treatment Parring or Cutting o f Benign Hyperkeratotic Lesion(s) (-57) More than 4 Lesions - The Benign hyperkeratotic lesions, ( 5) in total, locations as stated and described in exam, were pared, and/or cut utilizing a sterile 15 blade, tissue nippers, and/or power dremel instrumentation - 98889 Progress Notes * Fede ESTRADADOB:1950 (74 yo M)Acc No.[id number]:03/18/2024 Progress Note Patient:?Fede ESTRADA Provider:?Ruchi Castro DPM :1950???Age:74 Y???Sex:Male Joseph e:03/18/2024 Address:[address], [place] Pcp:Dallin Flores Subjective: * Chief Complaints: * [...] 2014hernia 2017uvula removed * Hospitalization/Major Diagno stic Procedure:?[facility]- Infected toe 12/31/2018[facility]- wire caught on [...] use of a nail nipper and/or dremel-type corn grinder, to a more viable healthy nail [...] to maintain effectiveness in symptomatic relief - 11667.?Keratoma Treatment:?Parring or Cutting of Benign Hyperkeratotic Lesion(s)?(-57) More than 4 Lesions - The Benign hyperkeratotic lesions, ( 5) in total, locations as stated and described in exam, were pared, and/or cut utilizing a sterile 15 blade, tissue nippers, and/or power dremel instrumentation - 62955.? * Procedure Codes:?31609 DEBRI DE NAIL, 6 OR MORE, Modifiers: XS 09102 TRIM SKIN LESIONS, OVER 4, Modifiers: XS * Follow Up:?4 Months * Images: * Sign off status: Completed true * Provider:?Ruchi Castro DPM Date:?05/18/2023 Generated for Matt hunter/Cecilio/eTkiannaitting on:?09/02/2024 01:18 PM EDT History and Physical Notes * [...]
--- OUTSIDE RECORDS SUMMARY | 2024-09-02 13:19 | XMS_ITS ---
Author Organization [facility] Address [address] [facility] [place] [address] Care Team Providers Care Coating And Baking Operator Name Role Phone Dallin Flores Primary Care Provider Stefan Heller Unavailable [phone] Ruchi Castro Unavailable [phone] Allergies No Known Allergies REASON FOR VISIT [...] 08/01/2024 Encounters Encounter Location Date Provider Diagnosis Line [facility] [address] [address] 08/01/2024 Ruchi Castro Other hammer toe(s) (acquired), [...] Provider Name:Ruchimariah chamberlain, 11/07/2024 11:00:00 AM, [address], [address], [place], [address], Procedure Notes * Category Sub-Category Detail Notes [...] use of a nail nipper and/or dremel-type snag grinder, to a more viable healthy nail [...] to maintain effectiveness in symptomatic relief - 28173 Keratoma Treatment Parring or Cutting o f [...] instrumentation by the physician of record - 03274 Progress Notes * Fede ESTRADADOB:1950 (74 yo M)Acc No.[id number]:08/01/2024 Progress Note Patient:?Fede ESTRADA Provider:?Ruchi Castro DPM :1950???Age:74 Y???Sex:Male Joseph e:08/01/2024 Address:[address] [place], [place] [address] Pcp:Dallin Flores Subjective: * Chief Complaints: * [...] 2015hernia 2018uvula removed * Hospitalization/Major Diagno stic Procedure:?[facility]- Infected toe 12/31/2018[facility]- wire caught on [...] use of a nail nipper and/or dremel-type snag grinder, to a more viable healthy nail [...] to maintain effectiveness in symptomatic relief - 93730.?Keratoma Treatment:?Parring or Cutting of Benign Hyperkeratotic Lesion(s)?(-57) [...] instrumentation by the physician of record - 47023.? * Procedure Codes:?31685 DEBRI DE NAIL, 6 OR MORE, Modifiers: XS 08807 TRIM SKIN LESIONS, OVER 4, Modifiers: XS [...] DPM Date:?0 08/01/2024 Generated for Matt hunter/Cecilio/eTransmitting on:?09/02/2024 01:19 PM EDT History and Physical Notes * [...] d iminished Sensory and motor testing performed:: [facility] normal Pedal pulse taking performed:: 2+ [...]
--- OUTSIDE RECORDS SUMMARY | 2024-09-02 13:19 | XMS_ITS | Clinical Summary ---
Author Organization [address] [facility] Address [address] [place] [address] Phone Care Team Providers Care Nurse Transitional Name Role Phone Unavailable Primary Care Provider Unavailabl e Surgical History Surgery Date Site/Laterality Comments OTHER SURGICAL HISTORY PROCEDURE: [place] UVULECTOMY EXCISION UVULA; COMMENT: for sleep apnea [...]
--- OUTSIDE RECORDS SUMMARY | 2024-09-02 13:20 | XMS_ITS | Encounter Summary ---
Author Organization [facility] Address [address] [place] [address] Care Team Providers Care Virtual Reality Specialist Name Role Phone Unavailable Primary Care Provider Unavailabl e Encounter Details Date Type Department Care Team (Late st Contact Info) Description 04/03/2024 Lab Requisition [facility] Lab [address] [facility] [place] [address] Edvin Pham PA [address] [address] Gross hematuria Social History Tobacco [...] and pathological findings. 04/21/2024 4:[address] [facility]) [facility] Addendum electronically signed by Becky Christian MD on 04/21/2024 at 4:03 PM Final Diagnosis Urine, Voided ([id number]): Negative for high grade urothelial carcinoma. Note: UroVysion testing to follow. 04/21/2024 4:[address] [facility] Clinical Information [id number] Urine cytology/urine FISH 04/21/2024 4:03 PM [facility] Gross Description A. Urine, Voided, : [id number] RECD 1 TP CYTO 1 TP FISH. 04/21/2024 4:03 PM [facility] Disclaimer Unless otherwise specified, all tissue is 10% NB formalin fixed and paraffin embedded. Technical pathology services provided by [facility] at [address] [place] [address] [address] [address] (CLIA #[id number]/July Pittman MD, Environmental Department Manager) 04/21/2024 4:[address] [facility] Tissue Urine specimen from urethra / Unknown 03/27/2024 04/03/2024 1:33 PM EST us [facility] PATHOLOGY ORDERAB LES Edited Result - Final [facility] [address] [place] [address], documented in this encounter Visit Diagnoses Diagnosis Gross hematuria documented in this encounter
--- OUTSIDE RECORDS SUMMARY | 2024-09-02 13:20 | XMS_ITS ---
Author Organization [facility] Address [address] [place] [address] Care Team Providers Care Eyelet Cutter Name Role Phone Dallin Flores Primary Care Provider Stefan Heller Unavailable [phone] Allergies No Known Allergies REASON FOR VISIT [...] 12/21/2023 Encounters Encounter Location Date Provider Diagnosis [facility] [address] [address] 12/21/2023 Stefan Marshall Type 1 diabetes mellitus [...] Provider Name:Ruchi Weinberg cintia, 11/07/2024 11:00:00 AM, [facility], [facility] [address], [place], [address], Procedure Notes * Category Sub-Category Detail Notes [...] as necessary. Patient chooses, no pharmaceutical tx (76226) Keratoma Treatment Parring or Cutting o f Benign Hyperkeratotic Lesion(s) 79241 ( >4 Lesions) - The Benign hyperkeratotic lesions, as described above were pared, and/or cut utilizing a sterile #15 blade, tissue nippers, and/or dremel Progress Notes * Fede ESTRADADOB:1950 (73 yo M)Acc No.[id number]:12/21/2023 Progress Note Patient:?Fede Estrada Provider:?Stefan Marshall DPM :1950???Age:73 Y???Sex:Male Joseph e:12/21/2023 Address:[address] [place] [address], [facility] Pcp:Dallin Flores Subjective: * Chief Complaints: * [...] 2014hernia 2018uvula removed * Hospitalization/Major Diagno stic Procedure:?[facility]- Infected toe 12/31/2018 * Family History:?Mother: [...] as necessary. Patient chooses, no pharmaceutical tx (12225).?Keratoma Treatment:?Parring or Cutting of Benign Hyperkeratotic Lesion(s)?90331 ( >4 Lesions) - The Benign hyperkeratotic lesions, as described above were pared, and/or cut utilizing a sterile #15 blade, tissue nippers, and/or dremel.? * Procedure Codes:?58347 DEBRI DE NAIL, 6 OR MORE, Modifiers: XS 08480 TRIM SKIN LESIONS, OVER 4, Modifiers: XS [...] DPM Date:? 024 Generated for Printi ng/Faxing/eTransmitting on:?09/02/2024 01:19 PM EDT History and Physical [...]
--- OUTSIDE RECORDS SUMMARY | 2024-09-02 13:20 | XMS_ITS | Clinical Summary ---
Author Organization [facility] Address [address] [address] Phone Care Team Providers Care Veneer Joiner Name Role Phone Dallin Flores MD Primary Care Provider [phone] Allergies Active Allergy Reactions Criticality Noted Date [...] [place] [address] [place] [address] Chayito Pearce ARNP from Last 3 Months [...] this topic Insurance Medicare Medicare Care Teams Veneer Joiner Relationship Specialty Start Date End Date Dallin Flores MD [address] [place] [address], [address] [place] [address] PCP - General 05/03/20
== END 2024-09-02 12:13 | disposition home or self-care (01) ==
LOC: HO.HKA 11:57
PROVIDERS: PCP Internal Medicine; Visit Provider Internal Medicine Hypertension Specialist
DX: N18.9 Chronic kidney disease, unspecified (principal)
CPT/HCPCS: 99214

== ENCOUNTER → 2024-09-02 11:57 | Outpatient (BNVA) | payer MEDICARE, SELFPAY | PROVIDERS: PCP Internal Medicine; Visit Provider Internal Medicine Hypertension Specialist | DX: I12.9 Hypertensive chronic kidney disease with stage 1 through stage 4 chronic kidney disease, or unspecified chronic kidney disease (principal); N18.30 Chronic kidney disease, stage 3 unspecified; Z79.84 Long term (current) use of oral hypoglycemic drugs | CPT/HCPCS: 99212 ==

== ENCOUNTER 2024-10-07 11:02 | Outpatient (AMB) | payer MEDICARE, SELFPAY ==
[2024-10-07 11:22] LABS: Prothrombin Time Whole Bld POC 43.6 sec (11.1-13.5); ~PT, ~INR - Anti Coag Clinic 3.6 (0.9-1.1)
--- NOTE | 2024-10-07 11:28 | MHC.OFFVISCO ---
Intake Intake Visit Reasons: Anticoagulation Allergies No Known Allergies Allergy (Mild, Verified 10/07/24 11:07) N/A Medication List - Last Reconciled 10/07/24 by Cintia Martel RN atorvastatin 20 mg PO DAILY cetirizine 10 mg PO DAILY doxycycline hyclate 100 mg PO BID enoxaparin mg See Protocol subcut ergocalciferol (vitamin D2) PO DAILY fluticasone propionate 50 mcg/actuation 1 spray intranasal DAILY folic acid 0.8 mg PO DAILY hydrochlorothiazide 12.5 mg PO DAILY insulin lispro subcut ketoconazole 2% topical lisinopril 5 mg PO DAILY loperamide 4 mg PO BID PRN magnesium glycinate 400 mg PO DAILY metformin 1,000 mg PO BID omeprazole 20 mg PO DAILY pregabalin 150 mg PO BID tamsulosin 0.8 mg PO DAILY warfarin 2.5 mg See Protocol PO DAILY warfarin 5 mg See Protocol PO DAILY Nursing Note INR: 3.6 out of therapeutic range of 2-3 Medications and supplements reviewed Patient status: feels well Medications or supplements: no changes Diet: usual diet for pt Denies any signs and symptoms of bleeding or clotting or unusual bruising Bleeding, bruising, clotting discussed Nutritional guidance given: to have a serving of greens today. Pt states he will have asparagus Dose: decrease today's dose to 2.5mg (5mg) then usual dose of 5mg X 4 days and 7.5mg X 3 days (M/W/F) F/U INR Date: 2 weeks? Patient verbalizing understanding of instructions given. Anti-Coag Initial Assessment Social Hx Patient Tobacco Use Status: Never used Tobacco alcohol intake: never Coding Level of Care Code Est Patient Level 1 Diagnoses Current use of anticoagulant therapy Z79.01 Results AMB INR Fingerstick AMB INR Fingerstick 3.6 Last Edit by Cintia Martel RN on 10/07/24 11:12 interface delay Assessment & Plan Assessment & Plan (1) Current use of anticoagulant therapy: Code(s): Z79.01 - terminal clerk (current) use of anticoagulants Category: Medical
--- OUTSIDE RECORDS SUMMARY | 2024-10-07 12:35 | XMS_ITS | Data Portability ---
Author Organization [place] [facility] Address [address] [place] [address] [place] [address] Care Team Providers Care Hearing Aid Assembly Supervisor Name Role Phone JAMISON BLUM Primary Care [...] I have accessed patient records on the [employer]. This information was pertinent in [...] Address Organization Details Recorded Time Diabetes mellitus [id number] Active 021 [address]IS [facility]ON [address], [facility] [place] [place], [address] , [place] [facility] 16:25:43 Problem Notes None recorded. Medical [...] Never Smoker [facility] [address], [place], [address], [place] [facility] 07/19/2020 16:35:13 Do You Have An Advance Directive? Yes [email or web address] Information not available 07/19/2020 What Is Your Code Status? Full Code [employer] Information not available 07/19/2020 Within The Past 12 Months, Has It Happened That The Food You Bought Just Didn't Last And You Didn't Have Money To Get More. No [employer] Information not available 07/19/2020 Within The Past 12 Months, Have You Worried That Your Food Would Run Out Before You Got Money To Buy More. No [employer] Information not available 07/19/2020 Fall Risk: Do You Feel Unsteady When Standing Or Walking? No [employer] Information not available 07/19/2020 Excessive Alcohol Or Drug Use No [employer] Information not available 07/19/2020 We Know From Many Of Our Patients That Covering All Of Their Costs Can Be Difficult At Times. This Can Cause Stress And Impact Health. In The Past Year, Have You Been Unable To Get Any Of The Following When It Was Really Needed? No [employer] Information not available 07/19/2020 Sex: Unknown Functional Status None recorded. Mental Status None recorded. Family History Relationship Description Onset Age of this Age Resolved Age Notes LastModified by Organization Details LastModified Time Brother Diabetes mellitus [employer] Not available 2020 16:36:22 Medical History Condition Response Diabetes Y Coronary Artery Disease N High Cholesterol Y Pulmonary Embolism Y Cancer N Hypertension Y Stroke N Asthma N COPD N Depression N Kidney Disease N Past Encounters Encounter ID Performer Location Encounter Start Date Encounter Closed Date Diagnosis/Indication Diagnosis SNOMED-CT Code Diagnosis ICD10 Code Diagnosis Note [id number] [facility] - [address] [address] 07/19/2020 16:23:45 07/20/2020 18:28:50 Sepsis 60226047 A41.9 Pneumonia 224450926 J18. 9 History of right total knee replacement 4344666431 498366 Z96.651 Type 2 taryn betes mellitus 08748335 E11.9 History of ulcerative colitis 073783300 Z87.19 Health Concerns Section Related Observation LastModified by Organization Detai ls LastModified Time None Recorded Concern Status LastModified by Organization Details LastModified Time None Recorded Advance Directives Directive Y: Payers Insurance Date Sequence Insurance Name Policy Number Policy Orta Covered Member ID Orta Member ID Guarantor Name 07/19/2020 1 *SELF PAY* Fede Estrada [id number] Fede Estrada 07/19/2020 1 [employer] - [employer] - [employer] LOCAL 33 (PPO) Fede Estrada [id number] Fede Estrada 07/19/2020 1 [place] - [employer] - [employer] SALES DRIVERS [facility] 33 (PPO) Fede Estrada [id number] Fede Estrada Notes Date Note Type [...] INR therapeutic. CR[facility] CALDERON [address], [place], [address], [place] [facility] 07/19/2020 17:31:08
== END 2024-10-07 11:31 | disposition home or self-care (01) ==
LOC: HO.ACS 11:02
PROVIDERS: PCP Internal Medicine; Visit Provider Internal Medicine Medical Oncology
DX: Z79.01 Long term (current) use of anticoagulants (principal)

== ENCOUNTER → 2024-10-07 11:02 | Outpatient (BNVA) | payer MEDICARE, SELFPAY | PROVIDERS: PCP Internal Medicine; Visit Provider Internal Medicine Medical Oncology | DX: I26.99 Other pulmonary embolism without acute cor pulmonale (principal); Z79.01 Long term (current) use of anticoagulants; Z51.81 Encounter for therapeutic drug level monitoring | CPT/HCPCS: 85610; 99211 ==

== ENCOUNTER 2024-10-20 10:38 | Outpatient (AMB) | payer MEDICARE, SELFPAY ==
[2024-10-20 11:03] LABS: Prothrombin Time Whole Bld POC 29.6 sec (11.1-13.5); ~PT, ~INR - Anti Coag Clinic 2.5 (0.9-1.1)
--- NOTE | 2024-10-20 11:05 | MHC.OFFVISCO ---
Intake Intake Visit Reasons: Anticoagulation Allergies No Known Allergies Allergy (Mild, Verified 10/07/24 11:07) N/A Medication List - Last Reconciled 10/20/24 by Cintia Martel, [place] atorvastatin 20 mg PO DAILY cetirizine 10 mg PO DAILY doxycycline hyclate 100 mg PO BID enoxaparin mg See Protocol subcut ergocalciferol (vitamin D2) PO DAILY fluticasone propionate 50 mcg/actuation 1 spray intranasal DAILY folic acid 0.8 mg PO DAILY hydrochlorothiazide 12.5 mg PO DAILY insulin lispro subcut ketoconazole 2% topical lisinopril 5 mg PO DAILY loperamide 4 mg PO BID PRN magnesium glycinate 400 mg PO DAILY metformin 1,000 mg PO BID omeprazole 20 mg PO DAILY pregabalin 150 mg PO BID tamsulosin 0.8 mg PO DAILY warfarin 2.5 mg See Protocol PO DAILY warfarin 5 mg See Protocol PO DAILY Nursing Note INR: 2.5 in therapeutic range of 2-3 Medications and supplements reviewed No changes in health, diet, medications, or supplements, Denies any signs and symptoms of bleeding or bruising or clotting. Bleeding, bruising, clotting discussed Nutritional guidance given to balance foods that raise the INR with foods that lower the INR Dose: 5mg X 4 days and 7.5mg X 3 days F/U INR: 2 weeks suggested but pt insists on 4 weeks Patient verbalizes understanding of instructions given Anti-Coag Initial Assessment Social Hx Patient Tobacco Use Status: Never used Tobacco alcohol intake: never Coding Level of Care Code Est Patient Level 1 Diagnoses Current use of anticoagulant therapy Z79.01 Assessment & Plan Assessment & Plan (1) Current use of anticoagulant therapy: Code(s): Z79.01 - extermination supervisor (current) use of anticoagulants Category: Medical
== END 2024-10-20 11:09 | disposition home or self-care (01) ==
LOC: HO.ACS 10:38
PROVIDERS: PCP Internal Medicine; Visit Provider Internal Medicine Medical Oncology
DX: Z79.01 Long term (current) use of anticoagulants (principal)

== ENCOUNTER → 2024-10-20 10:38 | Outpatient (BNVA) | payer MEDICARE, SELFPAY | PROVIDERS: PCP Internal Medicine; Visit Provider Internal Medicine Medical Oncology | DX: I26.99 Other pulmonary embolism without acute cor pulmonale (principal); Z79.01 Long term (current) use of anticoagulants; Z51.81 Encounter for therapeutic drug level monitoring | CPT/HCPCS: 85610; 99211 ==

== ENCOUNTER 2024-11-17 10:47 | Outpatient (AMB) | payer MEDICARE, SELFPAY ==
[2024-11-17 11:01] LABS: Prothrombin Time Whole Bld POC 47.6 sec (11.1-13.5); ~PT, ~INR - Anti Coag Clinic 4.0 (0.9-1.1)
--- NOTE | 2024-11-17 11:05 | MHC.OFFVISCO ---
Intake Intake Visit Reasons: Anticoagulation Allergies No Known Allergies Allergy (Mild, Verified 11/17/24 10:57) N/A Nursing Note INR: 4.0?out of therapeutic range Pt S/P MOHS procedure on left cheek for basal cell ca. Pt states he did not have to hold warfarin. Left cheek is mildly swollen but is healing. Medications and supplements reviewed Patient status: feels well otherwise Medications or supplements: no changes Diet: usual diet for pt Denies any signs and symptoms of bleeding or clotting or unusual bruising Bleeding, bruising, clotting discussed Nutritional guidance given: to have a serving of greens today Dose: decrease today's dose to 5mg (7.5mg) then usual dose of 5mg X 4 days and 7.5mg X 3 days (M/W/F) F/U INR Date: 4 weeks Patient verbalizing understanding of instructions given. Anti-Coag Initial Assessment Social Hx Patient Tobacco Use Status: Never used Tobacco alcohol intake: never Coding Level of Care Code Est Patient Level 1 Diagnoses Current use of anticoagulant therapy Z79.01 Assessment & Plan Assessment & Plan (1) Current use of anticoagulant therapy: Code(s): Z79.01 - FPC (current) use of anticoagulants Category: Medical
--- OUTSIDE RECORDS SUMMARY | 2024-11-17 11:59 | XMS_ITS | Encounter Summary ---
Author Organization [facility] Address [address] [place] [address] Phone Care Team Providers Care Algorithm Developer Name Role Phone Dallin Flores MD Primary Care Provider [phone] Encounter Details Date Type Department Care Team (Late st Contact Info) Description 09/15/2020 Orders Only [facility] [address] [place] [address] Neftaly Sorensen MD Stage 3a chronic kidney [...] (HCC) documented in this encounter Care Teams Algorithm Developer Relationship Specialty Start Date End Date Dallin Flores MD [address] [place] [address], [address] [place], [place] [id number] PCP - General 05/03/20 documented as of this encounter
--- OUTSIDE RECORDS SUMMARY | 2024-11-17 12:00 | XMS_ITS | Encounter Summary ---
Author Organization [facility] Address [address] [place] [address] [place] [address] Phone Care Team Providers Care Scrap Hooker Name Role Phone Jarrett Angeles MD Unavailable Sangita Rivas MD Unavailable [phone] Dallin Flores MD Unavailable [phone] Jonathan Sterling MD Unavailable [phone] Dallin Flores MD Primary Care Provider Reason for Visit * Reason Onset Date Comments Medication Refill 11/13/2024 Warfarin Encounter Details Date Type Department Care Team (Late st Contact Info) Description 11/13/2024 Refill [facility] Medicine [address] [place] [address] Dallin Flores MD 22 [facility], [address] [place] [address] [email or web address] Medication Refill (Warfarin) Social History Tobacco Use Types Packs/Day Years Used Date Smoking Tobacco: Never Passive Smoke Exposure: Never Smokeless Tobacco: Never Alcohol Use Standard Drinks/Week Comments Yes 0 (1 standard drink = 0.6 oz pur e alcohol) Occasional Education Answer Date Recorded Are you interested in more education? Not on charissa e 08/17/2022 Are you concerned about learning? Not on file 08/17/2022 No 08/17/2022 No 08/17/2022 Digital Access Answer Date Recorded No 09/13/2022 No 09/13/2022 Reliable internet access at home? Not on file 09/13/2022 Device with a working camera? Not on file Intimate Partner Violence Answer Date R ecorded Denied Basic Needs Not on file 05/23/2024 In the past 12 months have y ou been in a relationship with a person who hurts, threatens, or tries to control you? No 05/23/2024 Worried food would run out Not on file 05/23 In the past 12 months have y ou been in a relationship with a person who hurts, threatens, or tries to control you? No 05/23/2024 Sex and Gender Information Value Date Recorded Sex Assigned at Male 10/05/2019 11:45 AM EDT Legal Sex Male 9:59 PM EDT Gender Identity Male 10/05/2019 11:45 AM EDT Sexual Orientation Not on file documented as of this encounter Progress Notes * Yara Tucker MA - 11/13/2024 1:21 PM EDT Rx Care Gap Status - Instructions for Clinical Staff (prescriber discretion applies): > Mismatch review guide > At least one request does not meet full criteria. Specifics below. Visit Info Last visit: 07/07/2024 Dallin Flores MD - Family [facility] > Requested f/u: Not specified Upcoming visit: 11/18/2024 Dallin Flores MD - Family Medicine [facility] ACTIONS TAKEN BY Yara Tucker MA - Protocol not met Warfarin (Coumadin) Rx Protocol NOTE: Pls remind pt to get lab draws on schedule. - warfarin sodium - warfarin sodium Criteria not met; renew for up to 3 months. Visit in the past 14 months: Yes Clinical criteria: - INR within past 6 weeks: No - BMP within past year: Yes Lab Results Component Value Date SODIUM 141 05/21/2024 POTASSIUM 4.4 05/21/2024 CHLORIDE 107 05/21/2024 CO2 24 05/21/2024 BUN 23 (H) 05/21/2024 CREATININE 1.20 05/21/2024 EGFR 64 05/21/2024 * Cristhian Denia - 11/13/2024 10:20 AM EDT Pt called in requesting refills of warfarin 2.5 mg tab and 5 mg tab be sent to [facility]. Please contact and advise. Central Support Rap Artist (Please do not reply to this user; this inbox is not monitored.) Thank you. documented in this encounter Plan of Treatment Upcoming Encounters Date Type Department Care Team (Late st Contact Info) Description 11/18/2024 11:15 AM EDT Office Visit [facility] Medicine [address] [place] [address] [place] [address] Dallin Flores MD [address] [place] [address], [address] [place] [address] 02/04/2025 11:00 AM EDT Nutrition [facility] [address] [place] [address] [place] [address] Sangita Rivas MD [address] [place] [address], [address] [place] [address] Sandra Melchor LDN [address] [place] [address], [address] [place] [address] 05/04/2025 11:20 AM EST Office Visit [facility] [address] [place] [address] Yara Cool CNP [address] [place] [address], [address] [place] [address] documented as of this encounter Visit Diagnoses Diagnosis Anticoagulated on Coumadin History of pulmonary embolus (PE) documented in this encounter Additional Health Concerns Assessment Noted Time PHQ-2 Depression Total Score: 0 05/23/19 25 11:00 AM EST documented as of this encounter Care Teams Scrap Hooker Relationship Specialty Start Date End Date Dallin Flores MD [address] [place] [address], [address] [place] [address] PCP - General Internal Medicine 06/18/17 Jarrett Angeles MD [address] [place] [address], [address] [place] [address] Historical LMR Provider 02/06/17 Sangita Rivas MD [address] [place] [address], [address] [place] [address] Historical LMR Provider 02/06/17 Dallin Flores MD [address] [place] [address], [address] [address] Historical LMR Provider 02/06/17 Jonathan Sterling MD [address] [place] [address], [address] [address] Historical LMR Provider 02/06/17 documented as of this encounter Additional Source Comments The information contained in this document represents components of the legal health record. It is not the complete legal health record.[facility]
--- OUTSIDE RECORDS SUMMARY | 2024-11-17 12:00 | XMS_ITS | Patient Health Record ---
Author Organization [facility] Address [address] [place] [address] Care Team Providers Care Supervisor Boat Outfitting Name Role Phone Dallin Flores Primary Care Provider Stefan Heller Unavailable [phone] Ruchi Castro Unavailable [phone] Allergies No Known Allergies Results Component Value Reference Range Notes HEMOGLOBIN A1C (GLYCOHEMOGLO BIN) Reviewed date:03/18/2024 10:51:47 AM Interpretation: Performing Lab: Notes/Report: TOTAL HEMOGLOBIN (HGBA1C) 7.8 HEMOGLOBIN A1C (GLYCOHEMOGLO BIN) Reviewed date:08/01/2024 11:29:42 AM Interpretation: Performing Lab: Notes/Report: HEMOGLOBIN A1C % (HH) 7.4 HEMOGLOBIN A1C (GLYCOHEMOGLO BIN) Reviewed date:11/07/2024 11:11:06 AM Interpretation: Performing Lab: Notes/Report: HEMOGLOBIN A1C % (HH) 7.5 Reason For Referral No Information Medications Medication SIG (Take, Route, Frequency, Duration) Notes Start Date End Date Status Ozempic Not-Taking Warfarin Sodium 5 MG 1 tablet Orally Onc e a day; Duration: 30 day(s) Active metFORMIN HCl 1000 MG 1 tablet with a meal Orally Once a day; Duration: 30 day(s) Active Extra Depth Orthopedic Shoes (1 Pair) with Customized Heat Molded Multidensity Innersoles (3 Pair) as directed Dx: IDDM/Polyneuropathy (E10.42), Hammertoe Foot Deformity (M20.41,M20.42), Preulcerative Skin Lesion(s) (L85.1) 01/14/2019 Not-Taking Pregabalin Not-Takin g Simvastatin 10 MG 1 tablet in the evening Orally Once a day; Duration: 30 day(s) Not-Taking Lisinopril 10 MG 1 tablet Orally Once a day; Duration: 30 day(s) Active Omeprazole 20 MG 1 capsule Orally Onc e a day; Duration: 30 day(s) Active Loperamide HCl 2 MG 1 tablet as needed Orally Four times a day Active Work Note . . . return to work o n 01/23/19 01/14/2019 Not-Taking Pregabalin 150 MG 1 capsule Orally Onc e a day Active Warfarin Sodium 2.5 MG 1 tablet Orally Once a day; Duration: 30 day(s) mon, sun, sun Active amLODIPine Besylate 2.5 MG 1 tablet Orally Once a day; Duration: 30 day(s) Active Simvastatin 10 MG 1 tablet in the evening Orally Once a day; Duration: 30 day(s) Active Folic Acid 1 MG 1 tablet Orally Once a day; Duration: 30 day(s) Active Insulin pump Active Custom Orthotics as directed A ctive Clindamycin HCl Acti ve Folic Acid 1 MG 1 tablet Orally Once a day; Duration: 30 day(s) Not-Taking Ciclopirox 0.77 % 1 application thin film topically to nails Externally Once a day; Duration: 30 days Active amLODIPine Besy-Benazepril HCl 2.5-10 MG as directed Orally Not-Takin g Extra Depth Orthopedic Shoes (1 Pair) with Customized Heat Molded Multidensity Innersoles (3 Pair) as directed Dx: IDDM/Polyneuropathy (E10.42), Hammertoe Foot Deformity (M20.41,M20.42), Preulcerative Skin Lesion(s) (L85.1) 08/01/2024 Active Lisinopril 10 MG 1 tablet Orally Once a day; Duration: 30 day(s) 01/01/2019 Not-Taking Omeprazole 20 MG 1 capsule Orally Onc e a day; Duration: 30 day(s) Not-Taking Loperamide HCl 2 MG 1 tablet as needed Orally Four times a day 01/01/2019 Not-Taking metFORMIN HCl 1000 MG 1 tablet with a meal Orally Once a day; Duration: 30 day(s) 01/01/2019 Not-Taking Immunizations Vaccine Route Administration Date Status Comme nts Influenza Unknown 12/24/2023 Administered Social History Tobacco Use: Social History Observation [...] Problem Status W/U Status Risk Notes Problem Type 2 diabetes mellitus with diabetic polyneuropathy (E11.42) Active confirmed Vital Signs Height 5ft 7in in 11/07/2024 Weight 228 lbs 11/07/2024 BMI 35.71 kg/m2 11/07/2024 Procedures Procedure Date Ordered Date Performed Result Body Sit e 76569-FYKAYKX NAIL, 6 OR MORE 03/18/2024 N/A 59973-KXFI SKIN LESIONS, OVER 4 03/18/2024 N/A Encounters Encounter Location Date Provider Diagnosis [address] [address] 12/21/2023 Stefan Marshall Type 1 diabetes mellitus [...] toenail of left foot, initial encounter S90.222A [address] [address] 03/18/2024 Ruchi Castro Type 2 diabetes mellitus with diabetic polyneuropathy E11.42 and Tinea unguium B35.[address] [address] 08/01/2024 Ruchi Castro Other hammer toe(s) (acquired), right foot M20.41 ; Other hammer toe(s) (acquired), left foot M20.42 ; Type 2 diabetes mellitus with diabetic polyneuropathy E11.42 and Tinea unguium B35.1 [facility] [place] [address] [place] [address] 11/07/2024 Ruchi Castro Onychomycosis B35.1 and Type 2 diabetes mellitus with diabetic polyneuropathy E11.42 Assessments Encounter Date Diagnosis (ICD Code) Assessment [...] INSTRUCTIONS. pdf (DIABETIC FOOT CARE INSTRUCTIONS. pdf) 11/07/2024 Onychomycosis (ICD-10 - B35.1) 11/07/2024 Type 2 diabetes mellitus with diabetic polyneuropathy (ICD-10 - E11.42) 08/01/2024 Other hammer toe(s) (acquired), left foot [...] X ray : Foot, right 3V 06/17/2019 34762-WURDFOD NAIL, 6 OR MORE 03/18/2024 03841- I&D ABSCESS-COMPLICATED,MULTI 02/2019 99515-PGMR SKIN LESIONS, OVER 4 01/15/20 19 19279-HELO SKIN LESIONS, OVER 4 02/29/20 22 49020-SACU SKIN LESIONS, OVER 4 08/30/19 23 07372-WNDH SKIN LESIONS, OVER 4 03/18/20 24 92520, D5349-LXKEF/INJECT, JOINT/BURSA 0 06/17/2019 Next Appt Details Provider Name:Ruchi Weinberg cintia, 02/10/2025 11:00:00 AM, [address] [facility], [facility] [address], [place], [address], Insurance Providers Payer Name Payer Address Payer Phone Subscriber Number Group Number Insured Name Patient Relationship to Insured Coverage Start Date Coverage End Date Medicare National Govt Svcs Inc [address] [facility] [place] [address] [id number] Fede Estrada Self - patient is the insured Medical (General) History Medical History History ICD Code Back,Hip,and Knee pain CAD (Cholesterol) Cataracts Diabetic High blood pressure Numbness Reflux ( GERD) chronic sinusitis Vascular phlebitis (clots) Measles Mumps Chicken pox Surgical History Surgery Date(Month/Year) intestinal surgery-large intestine remov ed 2015 hernia 2018 uvula removed Hospitalization History Reason Date(Month/Year) blockage between stomach and intestine 2 025 [facility]- wire caught on leg 01/2024 [facility]- Infected toe 01/2019
--- OUTSIDE RECORDS SUMMARY | 2024-11-17 12:00 | XMS_ITS | Data Portability ---
Author Organization [place] - [facility] Address [address] [place] [address] [place] [address] Care Team Providers Care Water Valve Mechanic Name Role Phone JAMISON BLUM Primary Care Provider [phone] Assessment Encounter Date Assessment Date Assessment LastModified [...] I have accessed patient records on the [employer]. This information was pertinent in my medical decision making today. Time On Scene with Patient: 00:53:31 - Referred - Point of Care: Emergency Department [email or web address] Not available 07/19/2020 17:29:10 Plan of Treatment [...] Address Organization Details Recorded Time Diabetes mellitus 76299864 Active 021 CRIS CALDERON [address] [facility] [place], [address], [place] [facility] 16:25:43 Problem Notes None recorded. Medical [...] Pulse oximetry Body temperature Body temperature Systolic And Diastolic Provider Name and Address Organization Details Last Updated DateTime 106 /min 20 /min 100.5 [degF] 94 % 94 % 96 % 96 % 101.3 [degF] 100.9 [degF] 112/46 mm[Hg] Not Available [facility] 16:31:13 Social History Question Answer Notes LastModified by Organizat ion Details LastModified Time Tobacco Smoking Status Never Smoker CRIS CALDERON [address], [place], [address], [place] [facility] 07/19/2020 16:35:13 Do You Have An Advance Directive? Yes [employer] Information not available 07/19/2020 What Is Your Code Status? Full Code [employer] Information not available 07/19/2020 Within The Past 12 Months, Has It Happened That The Food You Bought Just Didn't Last And You Didn't Have Money To Get More. No [employer] Information not available 07/19/2020 Within The Past 12 Months, Have You Worried That Your Food Would Run Out Before You Got Money To Buy More. No [employer] Information not available 07/19/2020 Fall Risk: Do You Feel Unsteady When Standing Or Walking? No [employer] Information not available 07/19/2020 Excessive Alcohol Or Drug Use No [employer] Information not available 07/19/2020 We Know From Many Of Our Patients That Covering All Of Their Costs Can Be Difficult At Times. This Can Cause Stress And Impact Health. In The Past Year, Have You Been Unable To Get Any Of The Following When It Was Really Needed? No [employer] Information not available 07/19/2020 Sex: Unknown Functional Status None recorded. Mental Status None recorded. Family History Relationship Description Onset Age of this Age Resolved Age Notes LastModified by Organization Details LastModified Time Brother Diabetes mellitus Say-Heyclaribel Not available 2020 16:36:22 Medical History Condition Response Coronary Artery Disease N COPD N Depression N Cancer N Stroke N High Cholesterol Y Kidney Disease N Diabetes Y Asthma N Pulmonary Embolism Y Hypertension Y Past Encounters Encounter ID Performer Location Encounter Start Date Encounter Closed Date Diagnosis/Indication Diagnosis SNOMED-CT Code Diagnosis ICD10 Code Diagnosis Note [id number] CRIS CALDERON [facility] - [address] [address] 07/19/2020 16:23:45 07/20/2020 18:28:50 Sepsis 03914952 A41.9 Pneumonia 869704408 J18. 9 History of right total knee replacement 0176805699 877384 Z96.651 Type 2 taryn betes mellitus 01802671 E11.9 History of ulcerative colitis 045889344 Z87.19 Health Concerns Section Related Observation LastModified by Organization Detai ls LastModified Time None Recorded Concern Status LastModified by Organization Details LastModified Time None Recorded Advance Directives Directive Y: Payers Insurance Date Sequence Insurance Name Policy Number Policy Orta Covered Member ID Orta Member ID Guarantor Name 07/19/2020 1 *SELF PAY* Fede Estrada [id number] Fede Estrada 07/19/2020 1 [employer] - [place] [employer] [place] [id number] (O) Fede Estrada [id number] Fede Estrada 07/19/2020 1 JORDAN - [place] [employer] [place] [id number] ([facility]) Fede Estrada [id number] Fede Estrada
--- OUTSIDE RECORDS SUMMARY | 2024-11-17 12:00 | XMS_ITS | Encounter Summary ---
Author Organization [facility] Address [address] [place] [address] Care Team Providers Care Flat Examiner Name Role Phone Unavailable Primary Care Provider Unavailabl e Encounter Details Date Type Department Care Team (Late st Contact Info) Description 04/03/2024 Lab Requisition [facility] - Main Lab [address] [facility] [place] [address] Edvin Pham PA [address] [address] Gross hematuria Social History Tobacco [...] and pathological findings. 04/21/2024 4:03 PM EST [facility] Addendum electronically signed by Becky Christian MD on 04/21/2024 at 4:03 PM Final Diagnosis Urine, Voided ([id number]): Negative for high grade urothelial carcinoma. Note: UroVysion testing to follow. 04/21/2024 4:03 PM EST [facility] Clinical Information [id number] Urine cytology/urine FISH 04/21/2024 4:03 PM [facility] Gross Description A. Urine, Voided, : [id number] RECD 1 TP CYTO 1 TP FISH. 04/21/2024 4:03 PM [facility] Disclaimer Unless otherwise specified, all tissue is 10% NB formalin fixed and paraffin embedded. Technical pathology services provided by [facility] at [address] [place] [address] [address], [place] [address] (CLIA #[id number] Pittman MD, [facility]) 04/21/2024 4:03 PM EST [facility] Tissue Urine specimen from urethra / Unknown 03/27/2024 04/03/2024 1:33 PM EST us Edvin [facility] PATHOLOGY ORDERAB LES Edited Result - Final [facility] [address] [place] [address], documented in this encounter Visit Diagnoses Diagnosis Gross hematuria documented in this encounter
== END 2024-11-17 11:09 | disposition home or self-care (01) ==
LOC: HO.ACS 10:47
PROVIDERS: PCP Internal Medicine; Visit Provider Internal Medicine Medical Oncology
DX: Z79.01 Long term (current) use of anticoagulants (principal)

== ENCOUNTER → 2024-11-17 10:47 | Outpatient (BNVA) | payer MEDICARE, SELFPAY | PROVIDERS: PCP Internal Medicine; Visit Provider Internal Medicine Medical Oncology | DX: I26.99 Other pulmonary embolism without acute cor pulmonale (principal); Z79.01 Long term (current) use of anticoagulants; Z51.81 Encounter for therapeutic drug level monitoring | CPT/HCPCS: 85610; 99211 ==

== ENCOUNTER 2024-12-30 11:06 | Outpatient (AMB) | payer MEDICARE, SELFPAY ==
[2024-12-30 11:18] LABS: Prothrombin Time Whole Bld POC 35.0 sec (11.1-13.5); ~PT, ~INR - Anti Coag Clinic 2.9 (0.9-1.1)
--- NOTE | 2024-12-30 11:27 | MHC.OFFVISCO ---
Intake Intake Visit Reasons: Anticoagulation Allergies No Known Allergies Allergy (Mild, Verified 12/30/24 11:12) N/A Medication List - Last Reconciled 12/30/24 by Cintia Martel, PUNEET atorvastatin 20 mg PO DAILY cetirizine 10 mg PO DAILY doxycycline hyclate 100 mg PO BID enoxaparin mg See Protocol subcut ergocalciferol (vitamin D2) PO DAILY fluticasone propionate 50 mcg/actuation 1 spray intranasal DAILY folic acid 0.8 mg PO DAILY hydrochlorothiazide 12.5 mg PO DAILY insulin lispro subcut ketoconazole 2% topical lisinopril 5 mg PO DAILY loperamide 4 mg PO BID PRN magnesium glycinate 400 mg PO DAILY metformin 1,000 mg PO BID omeprazole 20 mg PO DAILY pregabalin 150 mg PO BID tamsulosin 0.8 mg PO DAILY warfarin 2.5 mg See Protocol PO DAILY warfarin 5 mg See Protocol PO DAILY Nursing Note INR: 2.9 in therapeutic range of 2-3 Medications and supplements reviewed No changes in health, diet, medications, or supplements, Denies any signs and symptoms of bleeding or bruising or clotting. Bleeding, bruising, clotting discussed Nutritional guidance given to have a serving of greens today Dose: 5mg X 4 days and 7.5mg X 3 days (M/W/F) F/U INR: 4 weeks Patient verbalizes understanding of instructions given Anti-Coag Initial Assessment Social Hx Patient Tobacco Use Status: Never used Tobacco alcohol intake: never Coding Level of Care Code Est Patient Level 1 Diagnoses Current use of anticoagulant therapy Z79.01 Assessment & Plan Assessment & Plan (1) Current use of anticoagulant therapy: Code(s): Z79.01 - predatory animal exterminator (current) use of anticoagulants Category: Medical
--- OUTSIDE RECORDS SUMMARY | 2024-12-30 13:25 | XMS_ITS | Encounter Summary ---
Author Organization [facility] Address [address] [place] [address] Phone Care Team Providers Care Bow Rehairer Name Role Phone Dallin Flores MD Primary Care Provider [phone] Encounter Details Date Type Department Care Team (Late st Contact Info) Description 09/15/2020 Orders Only [facility] [address] [place] [phone] Neftaly Sorensen MD Stage 3a chronic kidney [...] (HCC) documented in this encounter Care Teams Bow Rehairer Relationship Specialty Start Date End Date Dallin Flores MD [address] [place] [address], [address] [place], [place] [phone] PCP - General 05/03/20 documented as of this encounter
--- OUTSIDE RECORDS SUMMARY | 2024-12-30 13:26 | XMS_ITS | Encounter Summary ---
Author Organization [facility] Address [address] [place] [address] Phone Care Team Providers Care Cleaner Assistant Name Role Phone Dallin Flores MD Primary Care Provider Encounter Details Date Type Department Care Team (Late st Contact Info) Description 04/10/2022 Telephone [facility] [address] [place] [phone] Neftaly Sorensen MD Social History Tobacco Use [...] on filedocumented in this encounter Care Teams Cleaner Assistant Relationship Specialty Start Date End Date Dallin Flores MD [address] [place] [address], [address] [place] [id number] PCP - General 05/03/20 documented as of this encounter
--- OUTSIDE RECORDS SUMMARY | 2024-12-30 13:26 | XMS_ITS | Patient Health Record ---
Author Organization [facility] Address [address] [place] [address] Care Team Providers Care Networks Computer Consultant Name Role Phone Dallin Flores Primary Care Provider Stefan Heller Unavailable [phone] Ruchi Castro Unavailable [phone] Allergies No Known Allergies Results Component Value [...] Polyneuropathy due to type 2 diabetes mellitus (237360598) Type 2 diabetes mellitus with diabetic polyneuropathy (E11.42) Active confirmed Vital Signs Height 5ft 7in in 11/07/2024 Weight 228 lbs 11/07/2024 BMI 35.71 kg/m2 11/07/2024 Procedures Procedure Date Ordered Date Performed Result Body Sit e 73509-WYRLNVR NAIL, 6 OR MORE 03/18/2024 N/A 84099-UFIR SKIN LESIONS, OVER 4 03/18/2024 N/A Encounters Encounter Location Date Provider Diagnosis [address] [address] 03/18/2024 Ruchi Matthew Type 2 diabetes mellitus with diabetic polyneuropathy E11.42 and Tinea unguium B35.[address] [address] 08/01/2024 Ruchi Matthew Other hammer toe(s) (acquired), right foot M20.41 ; Other hammer toe(s) (acquired), left foot M20.42 ; Type 2 diabetes mellitus with diabetic polyneuropathy E11.42 and Tinea unguium B35.[address] [address] 11/07/2024 Ruchi Matthew Onychomycosis B35.1 and Type 2 diabetes mellitus [...] X ray : Foot, right 3V 06/17/2019 34001-RTODNDB NAIL, 6 OR MORE 03/18/2024 31172- I&D ABSCESS-COMPLICATED,MULTI 02/2019 10987-QJQA SKIN LESIONS, OVER 4 01/15/20 19 86320-TPTG SKIN LESIONS, OVER 4 02/29/20 22 72674-GDSF SKIN LESIONS, OVER 4 08/30/19 23 26113-YCRG SKIN LESIONS, OVER 4 03/18/20 24 66994, W4585-XIBLT/INJECT, JOINT/BURSA 0 06/17/2019 Next Appt Details Provider Name:Ruchi Weinberg cintia, 02/10/2025 11:00:00 AM, [facility], [place] [address], [place], [address], Insurance Providers Payer Name Payer Address Payer Phone Subscriber Number Group Number Insured Name Patient Relationship to Insured Coverage Start Date Coverage End Date Medicare National Govt Svcs Inc [address] [place] [address] [id number] Fede Estrada Self - patient is the [...] blockage between stomach and intestine 2 025 [facility] wire caught on leg 01/2024 [facility]- Infected toe 01/2019
--- OUTSIDE RECORDS SUMMARY | 2024-12-30 13:26 | XMS_ITS | Clinical Summary ---
Author Organization [facility] Address [address] [address] Phone Care Team Providers Care Jewelry Repairer Name Role Phone Dallin Flores MD Primary Care Provider [phone] Allergies Active Allergy Reactions Criticality Noted Date [...] (08/04/2020): INR being followed at home by [facility] after hosp dc. Gastroesophageal reflux [...] 12am 10 12am 40 12am 100mg/dl 4hrs 12pm 11 430p 10 We discussed adjustment to afternoon/evening I:C ratio to reduce risk for low blood sugars in evenings Will be upgrading to Tandem X2 and Dexcom in CIQ tomorrow, aware that pump changes may need to be made based on patterns using the new system correction current use of insulin 04/09/2017 02/02/2021 Obesity 04/09/2017 02/02/2021 Prostate specific antigen ab ove reference range 04/09/2017 02/02/2021 Overview (08/04/2020): eval'd by Dr Box Repeat PSA 2.63 in 2016. TURP around 2001 with nl biopsies. Last Assessment & Plan: He had Urology eval with Dr Box, was told he is ok. PSA 2/3 in Apr 2016 Ulcerative colitis 04/09/2017 1 Overview (08/04/2020): Hx colectomy 2012. Now bowel fx is normal, with soft liquidy stools 5-8x/day Immunizations Immunization Administration Dates Next Due Influenza [...] 09/04/2023, 04/24/2023, Additional history exists Influenza Vaccine (#1) 2024 3, 03/02/2021, 02/10/2020, Additional history exists Pneumococcal Vaccine: 50+ Years Completed 09/30/2018, 09/24/2017, 12/01/2013, Additional history exists Pneumococcal Vaccine: Peds (0 to 5 Years) and At-Risk Patients (6 to 49 Years) Discontinued 09/30/2018, 09/24/2017, 12/01/2013, Additional history exists Hepatitis B Vaccine Aged Out No longe r eligible based on patient's age to complete this topic Insurance Medicare Medicare Care Teams Jewelry Repairer Relationship Specialty Start Date End Date Dallin Flores MD [address] [place] [address], [address] [place] [address] PCP - General 05/03/20
--- OUTSIDE RECORDS SUMMARY | 2024-12-30 13:26 | XMS_ITS | Clinical Summary ---
Author Organization [facility] Address [address] [place] [id number] Phone Care Team Providers Care Qual Field Manager Name Role Phone Jarrett Angeles MD Unavailable [phone] Sangita Rivas MD Unavailable [phone] Dallin Flores MD Unavailable [phone] Jonathan Sterling MD Unavailable [phone] Dallin Flores MD Primary Care Provider Allergies Active Allergy Reactions Criticality Noted Date Comments Azathioprine 08/04/2020 Medications albuterol sulfate 90 mcg/actuation AePB Inhale 2 puffs into the lungs every 4 (four) hours as needed (shortness of breath or wheezing). 1 each 020 Active tamsulosin (FLOMAX) 0.4 mg Cap Take 0.4 mg by mouth daily. Active hydroCHLOROthia zide (HYDRODIURIL) 12.5 MG tablet TAKE 1 TABLET BY MOUTH 1 TIME EACH DAY. 022 Active dexAMETHasone (DECADRON) 4 MG tablet Take 4 mg by mouth 2 (two) times a day. 022 Active folic acid (FOLVITE) 1 MG tablet TAKE 1 TABLET BY MOUTH ONCE DAILY 90 tablet 3 022 Active cetirizine (ZYRTEC) 10 MG tablet Take 1 tablet (10 mg total) by mouth daily. 90 tablet 3 023 Active insulin pen needles, disposable, 32 gauge x 5/32 NdleIndications :Type 2 diabetes mellitus with diabetic nephropathy 1 each by Miscellaneous route as needed. 90 each 3 023 Active LANTUS SOLOSTAR U-100 INSULIN 100 unit/mL (3 mL) InPn injection pen Inject up to 50 units once daily in the event of insulin pump failure 15 mL 3 023 Active loperamide (IMODIUM) 2 mg capsule TAKE 1 CAPSULE FOUR TIMES A DAY NEEDED FOR DIARRHEA 180 capsule 7 023 Active fluticasone propionate (FLONASE) 50 mcg/actuation nasal spray 1 spray by Nasal route daily. 48 g 1 024 Active diclofenac sodium (VOLTAREN) 1 % GelIndications: Injury of left shoulder, initial encounter Apply 2 g topically 4 (four) times a day. 30 g 10 024 Active lisinopril (PRINIVIL,ZESTR IL) 5 MG tabletIndicatio ns:Type 2 diabetes mellitus with diabetic nephropathy, with long-term current use of insulin,Primary hypertension TAKE 1 TABLET DAILY 90 tablet 3 025 Active azelastine (ASTELIN) 137 mcg (0.1 %) nasal spray 025 Active atorvastatin (LIPITOR) 20 MG tabletIndicatio ns:Hypertriglyc eridemia Take 1 tablet (20 mg total) by mouth daily. 90 tablet 3 025 Active omeprazole (PRILOSEC) 20 MG capsule TAKE 1 CAPSULE DAILY 90 capsule 3 025 Active warfarin (COUMADIN) 5 MG tabletIndicatio ns:Anticoagulat ed on Coumadin,Histor y of pulmonary embolus (PE) Take 1 tablet (5 mg total) by mouth daily. 90 tablet 025 Active warfarin (COUMADIN) 2.5 MG tabletIndicatio ns:Anticoagulat ed on Coumadin Take one tablet by mouth on Sunday and with one 5mg tablet, for a total dose of 7.5 mg. 45 tablet 1 025 Active pregabalin (LYRICA) 200 MG capsuleIndicati ons:Type 2 diabetes mellitus with diabetic mononeuropathy, with long-term current use of insulin Take 1 capsule (200 mg total) by mouth 2 (two) times a day. TAKE 1 CAPSULE BY MOUTH TWO TIMES A DAY Strength: 150 mg 60 capsule 11 025 Active metFORMIN (GLUCOPHAGE) 1000 MG tabletIndicatio ns:Type 2 diabetes mellitus with diabetic nephropathy TAKE 1 TABLET TWICE A DAY WITH MEALS 180 tablet 3 025 Active HUMALOG U-100 INSULIN 100 unit/mL injection vialIndications :Type 2 diabetes mellitus with diabetic mononeuropathy, with long-term current use of insulin Inject via insulin pump for total daily dose of 165 units 150 mL 3 025 Active metFORMIN (GLUCOPHAGE) 1000 MG tabletIndicatio ns:Type 2 diabetes mellitus with diabetic nephropathy TAKE 1 TABLET TWICE A DAY WITH MEALS 180 tablet 025 2024 Discontinued HUMALOG U-100 INSULIN 100 unit/mL injection vialIndications :Type 2 diabetes mellitus with diabetic mononeuropathy, with long-term current use of insulin Inject via insulin pump for total daily dose of 120 units 110 mL 3 025 2024 Discontinued(Nas dill) Active Problems Problem Noted Date Diagnosed Date Basal cell carcinoma (BCC) of skin of face 11/18 Overview (11/18/2024): October 2024 Neuropathy 11/18/2024 Overview (11/18/2024): BLE and now starting in his hands. 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 Advised to continue on Paxlovid and finish course. Advised that he could return to work on Sunday as planned as long as symptoms are improving and he has been fever free for over 24 hours without the use of fever reducing medication. Work note given. Patient notes that overall all symptoms are improving, back pain seems musculoskeletal in nature. Lungs clear on auscultation today. Advised to get up and down slowly if feeling dizzy when changing position. Advised to increase hydration. Patient advised to call with any worsening symptoms or if he develops rebound symptoms after finishing Paxlovid prescription. Pt verbalized understanding, agreeable to plan. S/P total knee arthroplasty, right 07/12/2020 Primary osteoarthritis of both knees 04/22/2020 Overview (04/22/2020): Seemadeline [facility], planned R TKR in April, then L TKR in July 2020 Age-related incipient cataract of left eye 06/28 Overview (06/28/2018): He is at low to moderate risk [...] may resume after when eating and drinking. Diabetic nephropathy associa elie with type 1 diabetes mellitus 09/24/2017 Overview (03/27/2022): Proteinuria averaging 1.5g protein. Sees dr Gonsalez . Mar 2022: Currently followed by Dr. Sorensen, had YANNI after knee replacement due to urine retention. Assessment & Plan (06/17/2020 6:18 PM EST): Microalbuminuria Recent GFR 69 On lisinopril therapy Blood pressure is well controlled Assessment & Plan (10/10/2018 9:52 PM EDT): Microalbuminuria Recent GFR 63, indicating very mild CKD On lisinopril therapy Blood pressure is well controlled Type 2 diabetes mellitus wit h diabetic mononeuropathy, with long-term current use of insulin 08/21/2017 Overview (12/12/2021): Doing quite well on his home insulin pump, has a CGM which controls his insulin dose September 2020: He is trilled with his new pump which is also a CGM. November 2021: Brief flare of hypoglycemia while on prednisone for neck pain Assessment & Plan (10/30/2024 12:52 PM EDT): - His A1c level is currently at 7.5%, which is consistent with the previous reading of 7.4% in 07/2024. - His overall time in range on the current download was 52% between 70 and 180, 36% between 180 and 250, and 12% above 250, showing improvement from the previous 2 weeks. His average blood glucose level is 185, slightly above the target range. - He was advised to carry his glucometer during travel for backup in case of device malfunction. He was also advised to gradually increase his exercise duration from 10 to 15 minutes once comfortable. He was encouraged to consult with a [facility] specialist to explore more affordable insurance plans that could cover [place]. He was reminded to be mindful of his carbohydrate intake and ensure accurate entry into his pump settings to avoid hypoglycemia or hyperglycemia. - A sample of Dexcom G7 and Skin-Prep was provided. - He reports numbness in his hands and swelling in his feet, which has been progressively worsening over the past 2 months. - Encouraged to have vitamin b12 evaluated, lab ordered, potential B12 deficiency due to long-term metformin use. Orders: POCT Hemoglobin A1c Vitamin B12; Future Assessment & Plan (05/01/2024 11:59 AM EST): Has continued to do well with Tandem X2 with control IQ, continues to struggle with bolusing prior to the meal, discussed the importance of this We discussed CGM data, TIR is 49%, [place] continues to enter the same carb amount meal to meal, aiming to adjust bolus to a desired insulin amount, 10-15 units, [place] continue to plans to work on being more accurate with carb counting as well as bolus timing [place] had been responding to Mounjaro therapy well with much reduced insulin requirement and improved glucose control as well as modest weight loss, however he has been unable to continue this due to cost Up to date on eye and foot care, due for annual labwork, [place] will be seeing primary care at the end of the month and plans to have labwork done following that visit Encouraged to continue efforts at healthy eating an staying active [place] will continue to follow up every 3 months to remain adherent to Medicare guidelines for insulin pump supplies Assessment & Plan (02/27/2024 12:32 PM EST): Has continued to do well with Tandem X2 with control IQ, continues to struggle with bolusing prior to the meal, discussed the importance of this We discussed CGM data, TIR is 63%, [place] commonly enters the same carb amount and after further discussion it seems that he is not carb counting meal to meal, [place] plans to work on this [place] had been responding to Mounjaro therapy well with much reduced insulin requirement and improved glucose control as well as modest weight loss, however he has been unable to continue this due to cost Up to date on eye and foot care, due for annual labwork, [place] is reminded to have this done before next visit, lab orders are pending Encouraged to continue efforts at healthy eating an staying active [place] will continue to follow up every 3 months to remain adherent to Medicare guidelines for insulin pump supplies Assessment & Plan (01/30/2024 9:02 PM EDT): Has continued to do well with Tandem X2 with control IQ, continues to struggle with bolusing prior to the meal, discussed the importance of this We discussed CGM data, TIR is 57%, [place] commonly enters the same carb amount and after further discussion it seems that he is not carb counting meal to meal, we discussed strategies and resources to use to help carb counting be a bit more accurate [place] had been responding to Mounjaro therapy well with much reduced insulin requirement and improved glucose control as well as modest weight loss, however he has been unable to continue this due to cost Up to date on eye and foot care, due for annual labwork and this was placed for [place] to have done at his convenience Encouraged to continue efforts at healthy eating an staying active [place] will continue to follow up every 3 months to remain adherent to Medicare guidelines for insulin pump supplies Assessment & Plan (09/04/2023 3:38 PM EDT): Control is reasonable based upon his recent A1C of 7.6% and his insulin pump and dexcom downloads. No frequent or severe hypoglycemia. His post prandial levels have been running higher due to not always bolusing before his meals, he is waiting until the glucose levels start rising and then will bolus. Discussed the importance of him bolusing prior to the meals to help prevent the post prandial spikes. Continue to work on eating healthy and being active. To call or message with any issues managing his glucose levels. Up to date with [employer] Labs ordered and reviewed today Assessment & Plan (04/27/2023 9:30 AM EST): Has continued to do well with Tandem X2 with control IQ, recent issues with supply company led to running out of supplies, [place] will begin MDI therapy as he awaits the resolution of this, we discussed dosing today We discussed CGM data, TIR is 64% TIR and his overall stability in glucose is much improved, it does appear that he is using carb boluses as corrections and we will address this again once [place] is back on pump therapy [place] had been responding to Mounjaro therapy well with much reduced insulin requirement and improved glucose control as well as modest weight loss, however he has been unable to continue this due to cost Encouraged to continue efforts at healthy eating an staying active DPN continues to be well controlled on Lyrica therapy [place] is back on ACEi therapy and doing well on this, his blood pressure has been well controlled [place] will return to meet with me in 3 and 6 months and is encouraged to stay in touch as needed Assessment & Plan (11/23/2022 1:29 PM EDT): Has continued to do well with Tandem X2 with control IQ We discussed CGM data,his time in target range (70-180)has risen to 66% TIR and his overall stability in glucose is much improved His variability is slightly improved and his average glucose is fairly stable compared to last visit He continues to have a nightly ice cream and reports he will try to reduce his dinner portions as they have grown more recently We optimized his Mounjaro therapy and cautioned his insulin requirement may be lower particularly as he continues to lose weight Reviewed hypoglycemia prevention, recognition and management. Encouraged to continue efforts at healthy eating [place] will return to meet with Dr Rivas in 3 months and myself in 6 months He is encouraged to stay in touch as needed Assessment & Plan (08/20/2022 6:11 PM EDT): Has continued to do well with Tandem X2 with control IQ We discussed CGM data,his time in target range (70-180)has risen to 66% TIR and his overall stability in glucose is much improved There has been some increased variability related to newer Mounjaro use and entering fake carbs We slightly adjusedt insulin pump evening ICR today to optimize his evening glycemic control without entering fake carbs [place] is advised that as he continues on Mounjaro therapy he may see that his insulin requirement is lower particularly as he continues to lose weight Reviewed hypoglycemia prevention, recognition and management. Encouraged to continue efforts at healthy eating [place] will return to meet with Dr Rivas in 3 months and myself in 6 months He is encouraged to stay in touch as needed Assessment & Plan (05/23/2022 5:38 PM EST): Has continued to do well with Tandem X2 with control IQ We discussed CGM data,his time in target range has risen to 60% TIR and his overall stability in glucose is much improved We did not adjust insulin pump settings today but [place] is advised that as he continues on Mounjaro therapy he may see that his insulin requirement is lower particularly as he continues to lose weight Encouraged to continue efforts at healthy eating [place] will return to meet with me in 6 months and is encouraged to stay in touch as needed Assessment & Plan (03/22/2022 4:41 PM EST): Continues to do well with Tandem X2 with control IQ with his A1c 7.1% which is much improved from 8.1% during the summer. We discussed CGM data, 18% TIR (100-180) is suboptimal, although this reflects his overeating last week with the Variability is due to some inconsistency in bolusing at meals with continued improvement than in the past. We discussed using a smart phone therese such as [employer] to better evaluate his carb counting Encouraged to enter his carbs accurately and bolus as appropriate We did not adjust insulin pump settings today although we discussed increasing his Ozempic in the future as needed His gold blower reports his foot pain is mostly related to arthritic feet versus neuropathy. Reviewed hypoglycemia prevention, recognition and management. Encouraged to continue to make healthy diet choices and remain as physically active as tolerates. Encouraged to contact us with any concerns or question and follow up in 3 months. Assessment & Plan (01/20/2022 11:22 AM EDT): Continues to do well with Tandem X2 with control IQ We discussed CGM data, 32% TIR (100-180) is suboptimal, although improved from late November following steroid therapy second to cervicalgia, variability is due to some inconsistency in bolusing at meals with continued improvement than in the past We did not adjust insulin pump settings today although we discussed this may be necessary with increasing his Ozempic We discussed optimizing GLP1ra therapy, this will further improve prandial control, may reduce insulin requirment and will certainly help [place] with weight loss efforts Monofilament test 10/10. Reports burning at night and interested interested in new in office capsaicin therapy for feet. Encouraged to follow up with podiatry. [place] will return to meet with our clinical educator staff in 2 months, he will return to meet with Dr Rivas in 4 months Assessment & Plan (11/18/2021 2:50 PM EDT): Has continued to do well with Tandem X2 with control IQ We discussed CGM data, 41% TIR (100-180) is suboptimal, variability is due to inconsistency in bolusing at meals though this is much better than in the past We did not adjust insulin pump settings today We discussed addition of GLP1ra therapy to [place]'s regimen, this will improve prandial control, may reduce insulin requirment and will certainly help [place] with weight loss efforts [place] will return to meet with our clinical educator staff in 2 months, he will return to meet with me in 6 months Assessment & Plan (05/12/2021 5:36 PM EST): Has been doing well with Tandem X2 with control IQ and since our last visit last month is now entering carb counts into his insulin pump, this has worked well for reducing his overall glucose We discussed CGM, most recently 46% TIR (100-180) compared to 17% last month and time >180 is down to 52% from 83% We discussed optimized carb ratio to help with prandial glucose control but [place] is strongly advised to ensure that his carb counts are accurate so that he can get the most appropriate doses [place] will return to meet with our clinical educator staff in 2 weeks, he will return to meet with me in 4 months Assessment & Plan (04/07/2021 9:56 AM EST): Upgraded to Tandem X2 with control IQ since our last visit, he seems unclear with many features in the insulin pump which we will review at upcoming visit For now advised to enter carbs to be eaten prior to eating to help improve prandial control May need adjustments to current settings but we will evaluate this once he has been able to use his current settings more appropriately For now for upcoming procedure, [place] is advised to set EXERCISE MODE which will make his target more conservative (140) for the time frame prior to and during procedure, he is advised to turn this off once he is eating/drinking or if he notes that his glucose patterns are running high on this setting after the procedure We discussed the importance of not turning off the insulin pump, he is running high currently due to manually suspending pump in the early am, provided correction dose at this visit Assessment & Plan (06/17/2020 6:17 PM EST): [place] continues to do his best with [...] concerns, we will follow up in September Assessment & Plan (02/19/2020 6:07 PM EDT): [place] is doing his best with healthy lifestyle, his activity is suboptimal though due to knee pain, he is awaiting knee surgery scheduled for April We discussed optimizing preop glucose control, A1c Encouraged to continue to self monitor blood sugars are consistently as he can, resuming CGM will be helpful to [place]'s overall glucose management and control Encouraged to see gold blower for routine care of feet, we discussed possible issues associated with thick callouses at toes, reduced sensation at distal feet charles Encouraged to contact me with any questions or concerns, we will follow up in May Assessment & Plan (10/10/2018 10:01 PM EDT): We discussed the importance of a healthy balanced diet, [place]'s evening meal is likely large in portions, poor in choices and late in timing, all of which is negatively affecting his overnight/fasting blood sugars We did not adjust overnight basal rates and instead focused on more optimal insulin dosing for his evening meal, in the meantime [place] is advised to try to improve his diet We discussed the effect of periodic intraarticular cortisone injections on blood sugars and insulin requirement, we created addition basal pattern so that [place] can use this for a period of time after his cortisone treatment Continues on Lyrica for DPN, managed well [place] is encouraged to call with any questions or concerns, we will follow up in 6 months Family history of hemochromatosis 06/01/2017 Assessment & Plan (06/01/2017 12:19 PM EST): We discussed that there is no need to do genetic testing for Fede. His daughter is a mayers known to have the disease. He has no known history of hemochromatosis, but we could check a ferritin in the future. Doing while anticoagulated will make the test unreliable. Injury of right rotator cuff 06/01/2017 Overview (06/01/2017): He is at low to moderate risk [...] if needed can come from Dr. Rivas. Anticoagulated on Coumadin 04/09/2017 Overview (07/29/2020): INR being followed at home by [facility] after hosp dc. Elevated PSA 04/09/2017 Overview (09/30/2018): eval'd by Dr Box Repeat PSA 2.63 in 2016. TURP around 2001 with nl biopsies. Assessment & Plan (04/09/2017 5:05 PM EST): He had Urology eval with Dr Box, was told he is ok. PSA 2/3 in Apr 2016 GERD (gastroesophageal reflux disease) 7 History of hypercoagulable state 04/09/2017 Assessment & Plan (06/01/2017 12:10 PM EST): Will stop Coumadin now, can be off [...] Dr. Christiansen. He is not taking Plavix. History of pulmonary embolus (PE) 04/09/2017 Overview (09/30/2018): Had 2 pulm emboli, one discovered incidentally. 2nd P.E. Was after his hernia surgery, started with DVT LE. Assessment & Plan (06/01/2017 12:12 PM EST): He has had 2 prior episodes, the most recent of which was 2 years ago. Sign of current disease. Hypertension 04/09/2017 Overview (10/15/2020): stable Assessment & Plan (10/30/2024 12:52 PM EDT): Blood pressure is in good range today, target bp is <130/80, continues on ACEi Assessment & Plan (05/01/2024 10:49 AM EST): Blood pressure is in good range today, target bp is <130/80, continues on ACEi Assessment & Plan (02/27/2024 11:57 AM EST): Blood pressure is in good range today, target bp is <130/80, continues on ACEi Assessment & Plan (01/30/2024 8:59 PM EDT): Blood pressure is in good range today, target bp is <130/80, continues on ACEi Assessment & Plan (11/23/2022 1:12 PM EDT): Good blood pressure in office today, 124/66 Continue HCTZ and low sodium, heart healthy diet Consider ACEi/ARB as indicated in future for renal protective benefits with T2DM Assessment & Plan (08/20/2022 5:39 PM EDT): Good blood pressure in office today, 122/70 Continue HCTZ and low sodium, heart healthy diet Consider ACEi/ARB as indicated in future for renal protective benefits with T2DM Assessment & Plan (05/23/2022 5:39 PM EST): Blood pressure is elevated today, historically this has been at the upper end of desired range, target bp is <130/80, continues on ACEi Assessment & Plan (03/22/2022 4:22 PM EST): Blood pressure is well controlled, continues on ACEi Heart healthy, low sodium diet is encouraged Assessment & Plan (01/19/2022 3:51 PM EDT): Blood pressure is reasonably well controlled, continues on ACEi Assessment & Plan (11/18/2021 1:53 PM EDT): Blood pressure is reasonably well controlled, continues on ACEi Assessment & Plan (05/12/2021 5:28 PM EST): Blood pressure is well controlled, continues on ACEi Assessment & Plan (06/17/2020 6:18 PM EST): Blood pressure is well controlled, continues on ACEi Assessment & Plan (02/19/2020 6:02 PM EDT): Blood pressure is well controlled, continues on ACEi Assessment & Plan (10/10/2018 9:48 PM EDT): Blood pressure is well controlled, continues on ACEi Assessment & Plan (07/16/2017 5:30 PM EDT): Blood pressure is well controlled on current regimen which includes ACEI Hypertriglyceridemia 04/09/2017 Overview (05/23/2024): Worsening with wt gain Work on diet Apr 2024: change simvastatin to lipitor Assessment & Plan (10/30/2024 12:52 PM EDT): - His triglyceride levels have improved from 618 to 447, but they are still above the target of less than 150. - He was advised to maintain a heart-healthy diet and regular exercise regimen. He asks about other treatments to consider and we was recommended to discuss with PCP who is managing - He is currently on atorvastatin 20 mg daily Assessment & Plan (05/23/2024 11:15 AM EST): Orders: atorvastatin (LIPITOR) 20 MG tablet; Take 1 tablet (20 mg total) by mouth daily. Lipid panel; Future Assessment & Plan (11/23/2022 1:13 PM EDT): Continue on statin therapy Last triglyceride 503 in 2019 Assessment & Plan (08/20/2022 5:42 PM EDT): Continue on statin therapy Needs updated lipid panel Last triglyceride 503 in 2019 Assessment & Plan (02/19/2020 6:02 PM EDT): Continues on low intensity statin therapy, LDL at goal TG was elevated on most recent lipid panel dated September 2018, due for updated routine labs including lipids Assessment & Plan (10/10/2018 9:50 PM EDT): Continues on low intensity statin therapy, LDL at goal TG remain elevated and these may continue to improve as blood sugar control improves, diet lower in processed carbohydrates would also benefit TG levels Insulin pump in place 04/09/2017 Assessment & Plan (10/30/2024 12:52 PM EDT): Images from the original note were not included. We did not adjust insulin pump settings, Encouraged working on more accurate carb counting Assessment & Plan (05/01/2024 10:49 AM EST): Current insulin pump setting Time Basal Rates? ICR ISF Target IOB 12am 2.0u/hr 8 40 110mg/dl 5hrs 12pm 2.0 9 40 430pm 2.0 6 40 TOTAL 48u/day We did not adjust insulin pump settings, Encouraged working on pre-bolusing and more accurate carb counting Assessment & Plan (02/27/2024 11:54 AM EST): Current insulin pump setting Time Basal Rates? ICR ISF Target IOB 12am 2.0u/hr 8 40 110mg/dl 5hrs 12pm 2.0 9 40 430pm 2.0 6 40 TOTAL 48u/day We did not adjust insulin pump settings, Encouraged working on pre-bolusing and more accurate carb counting Assessment & Plan (01/30/2024 9:00 PM EDT): Current insulin pump setting Time Basal Rates? ICR ISF Target IOB 12am 2.0u/hr 8 40 110mg/dl 5hrs 12pm 2.0 9 40 430pm 2.0 6 40 TOTAL 48u/day We did not adjust insulin pump settings, Encouraged working on pre-bolusing and more accurate carb counting Assessment & Plan (09/04/2023 3:28 PM EDT): He is using the dexcom G7 sensor and the tandem tslim insulin pump. He is getting his supplies from [facility] Assessment & Plan (04/27/2023 9:23 AM EST): Current insulin pump setting Time Basal Rates? ICR ISF Target IOB 12am 2.0u/hr 8 40 110mg/dl 5hrs 12pm 2.0 9 40 430pm 2.0 6 40 TOTAL 48u/day We did not adjust insulin pump settings, [place] will resume these when his pump supplies are available again We discussed basal insulin dosing and reasonable estimates for carb count (10) rounding up to nearest 1u and for correction factor (50) [place]'s A1c responded well to Mounjaro therapy, his insulin requirement is now higher, double that in November, since off this therapy which he was unable to afford Assessment & Plan (11/23/2022 1:25 PM EDT): New insulin pump setting Time Basal Rates? ICR ISF Target IOB 12am 2.0u/hr 8 40 110mg/dl 5hrs 12pm 2.0 9 40 430pm 2.0 6 40 TOTAL 48u/day [place] is pleased with his evening glucose since tightening is ICR from 8 to 6 last visit He is no longer entering fake carbs and finds it helpful when he boluses for his nightly ice cream, although he boluses for food ahead of eating only 2% of the time We reviewed only inputing his actual carbs prior to eating giving a little time for sugars to return to baseline. Reviewed concept of insulin stacking with potential dangers. Encouraged him to continue to use the Sleep and Exercise modes as these have helped prevent lows and maintained his sugars in a safe range. Assessment & Plan (08/20/2022 6:00 PM EDT): New insulin pump setting Time Basal Rates? ICR ISF Target IOB 12am 2.0u/hr 8 40 110mg/dl 5hrs 12pm 2.0 9 40 430pm 2.0 6 40 TOTAL 48u/day We modestly tightened [place]'s evening insulin to carb ratio from 8 to 6 so he will not have to enter fake carbs risking insulin stacking and potential lows. [place] understands to just input his actual carbs only and give a little time for sugars to return to baseline. Reviewed concept of insulin stacking with potential dangers. Encouraged him to continue to use the sleep and Exercise modes as these have helped prevent lows and maintained his sugars in a safe range. Assessment & Plan (05/23/2022 5:31 PM EST): Current insulin pump setting Time Basal Rates? ICR ISF Target IOB 12am 2.0u/hr 8 40 110mg/dl 5hrs 12pm 2.0 9 40 430pm 2.0 8 40 TOTAL 48u/day We did not adjust insulin pump settings today [place]'s A1c has responded well to a change to Moujaro, as we optimize his dose he is advised to continue to monitor his glucose patterns as he may require less insulin Assessment & Plan (03/22/2022 4:21 PM EST): Current insulin pump setting Time Basal Rates? ICR ISF Target IOB 12am 2.0u/hr 8 40 110mg/dl 5hrs 12pm 2.0 9 40 430pm 2.0 8 40 TOTAL 48u/day We did not adjust insulin pump settings today [place]'s A1c has responded well to adjusting his Ozempic slightly higher at his last visit.[place] may benefit from optimized insulin delivery however it would be better to assess his glycemic control during routine daily life. His latest CGM data reflects the where he enjoyed the holiday feast and leftovers . [place] is encouraged to count carbs as accurately as he can and to continue to dose insulin prior to eating as consistently as he can. Recommended use of a smart phone therese such as [employer] Or [employer] to help evaluate and count carbs as needed. Assessment & Plan (01/20/2022 11:04 AM EDT): Current insulin pump setting Time Basal Rates? ICR ISF Target IOB 12am 2.0u/hr 8 40 110mg/dl 5hrs 12pm 2.0 9 40 430pm 2.0 8 40 TOTAL 48u/day We did not adjust insulin pump settings today [place] may benefit from optimized insulin delivery however since we discussed adjusting Ozempic we will hold off on this until we can assess the impact on glycemic control of this medication at an increased dose [place] is encouraged to count carbs as accurately as he can and to continue to dose insulin prior to eating as consistently as he can Assessment & Plan (11/18/2021 2:41 PM EDT): Current insulin pump setting Time Basal Rates? ICR ISF Target IOB 12am 2.0u/hr 8 40 110mg/dl 5hrs 12pm 2.0 9 40 430pm 2.0 8 40 TOTAL 48u/day We did not adjust insulin pump settings today [place] may benefit from optimized insulin delivery however since we discussed starting Ozempic we will hold off on this until we can assess the impact on glycemic control of this medication [place] is encouraged to count carbs as accurately as he can and to continue to dose insulin prior to eating as consistently as he can Assessment & Plan (05/12/2021 5:29 PM EST): New insulin pump setting Time Basal Rates? ICR ISF Target IOB 12am 2.0u/hr 8 40 110mg/dl 5hrs 12pm 2.0 9 40 430pm 2.0 8 40 TOTAL 48u/day We adjusted the carb ratios to help optimize prandial glucose control [place] is encouraged to count carbs as accurately as he can Assessment & Plan (04/07/2021 10:03 AM EST): Current insulin pump setting Time Basal Rates? ICR ISF Target IOB 12am 2.0u/hr 10 40 110mg/dl 5hrs 12pm 2.0 11 40 430pm 2.0 10 40 TOTAL 48u/day We did not adjust pump settings today [place] is encouraged to use his pump features more appropriately, particularly bolusing before meals We will assess his patterns at our upcoming visit and adjust settings as needed Advised to never manually suspend pump, we discussed autosuspend and auto reductions in basal delivery for given CGM readings Assessment & Plan (06/17/2020 6:12 PM EST): Current insulin pump setting Time Basal Rates? [...] based on patterns using the new system Assessment & Plan (02/19/2020 6:04 PM EDT): Current insulin pump setting Time Basal Rates? Time ICR Time ISF Time Target IOB 12am 2.0u/hr 12am 10 12am 40 12am 100mg/dl 4hrs 12pm 13 430p 10 We did not adjust insulin pump settings today [place] would benefit from CGM and an order is placed for him, based on CGM data [place] will be able to more proactively manage his glucose patterns and changes can be made to his settings as needed based on these Assessment & Plan (10/10/2018 9:47 PM EDT): New insulin pump setting Time Basal Rates Time ICR Time ISF Time Target IOB BASAL1 12am 1.7u/hr 12am 1:10 12 am 1:40 12 am 100mg/dl 4hrs 12pm 1:13 430pm 1:10 BASAL2 12am 2.0u/hr We created an alternate basal pattern (basal2) which [place] will switch to at the time of his next cortisone shot and continue this for 7-10 days until blood sugars seem to be getting lower We also adjusted the late afternoon I:C ratio to help with coverage for heavier evening meal We adjusted the max basal and max bolus amounts so that [place] can dose enough insulin as needed or run higher temp rates Encouraged to call with any questions or concerns Assessment & Plan (07/16/2017 5:30 PM EDT): Morning I:C ratio optimized to reduce postprandial spikes Current insulin pump setting Time Basal Rates Time ICR Time ISF Time Target IOB 12am 1.3u/hr 12am 1:10 12 am 1:40 12 am 10 4hrs 12pm 1:13 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 Patient should concentrate on developing healthy habits of aerobic and light weight training exercise for 30-60 minutes, averaging at least 3-4 times a week. This should include light weight training, core strengthening, flexibility, and at least 30 minutes of aerobic exercise. Also try to cut down or eliminate carbohydrates and unnecessary calories from beverages. Assessment & Plan (04/27/2023 9:24 AM EST): Weight is up since last month, [place] had lost weight while on Mounjaro therapy BMI is ~34 Advised to continue efforts at healthy lifestyle Assessment & Plan (11/23/2022 1:15 PM EDT): [place] has lost 13lb since starting Mounjaro in early July He is encouraged to eat a healthy diet and to stay as active as he can Assessment & Plan (05/23/2022 5:32 PM EST): [place] declined a weight today, he had a modest weight loss late in the year With Mounjaro therapy it is likely that [place] will have further sustained weight loss He is encouraged to eat a healthy diet and to stay as active as he can Assessment & Plan (11/18/2021 1:55 PM EDT): Nearly 10lb weight loss since April We addressed weight loss potential from GLP1ra therapy, Ozempic in particular This therapy is likely to lower insulin requirement and improve glucose control as well Given instructions on Ozempic pen use and sample pen provided Assessment & Plan (05/12/2021 5:31 PM EST): There has been a steady weight gain since last September of over 20lb We discussed some basic concepts around avoiding late evening snacking, watching portions at evening meal [place] is able to 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 if late day appt is available, he is encouraged to bring his as well Right rotator cuff tear 04/09/2017 Type 2 diabetes mellitus with diabetic nephropat hy 04/09/2017 Assessment & Plan (10/30/2024 12:52 PM EDT): Most recent GFR on file is 64, from Apr 2024 Blood pressure goal is <130/80 ideally and this is borderline today [place] is tolerating ACEi therapy well Follows with nephrology Assessment & Plan (05/01/2024 12:13 PM EST): Most recent GFR on file is 65, from December 2022 Blood pressure goal is <130/80 ideally and this is at goal today [place] is tolerating ACEi therapy well Follows with nephrology Assessment & Plan (01/30/2024 8:49 PM EDT): Most recent GFR on file is 65, from December Blood pressure goal is <130/80 ideally and this is at goal today [place] is tolerating ACEi therapy well Follows with nephrology Assessment & Plan (04/27/2023 9:25 AM EST): Most recent GFR on file is 65, from December Blood pressure goal is <130/80 ideally and this is at goal today [place] is tolerating ACEi therapy well Follows with nephrology Assessment & Plan (11/23/2022 1:22 PM EDT): Most recent GFR on file is 69, this is from 2019 Blood pressure goal is <130/80 ideally We discussed importance of optimal glucose management which will support healthy renal function Follows with nephrology Assessment & Plan (08/20/2022 6:01 PM EDT): Most recent GFR on file is 69, this is from 2019 Blood pressure goal is <130/80 ideally We discussed importance of optimal glucose management which will support healthy renal function Assessment & Plan (05/23/2022 5:33 PM EST): Most recent GFR on file is 69, this is from 2019 Blood pressure goal is <130/80 ideally, this is elevated today We discussed importance of more optimal glucose management which will support healthy renal function Assessment & Plan (11/18/2021 2:50 PM EDT): Most recent GFR on file is 69, this is from 2019 Blood pressure goal is <130/80 ideally, this is at top of goal range today We discussed importance of more optimal glucose management which will support healthy renal function Assessment & Plan (05/12/2021 5:32 PM EST): Most recent GFR on file is 69, this is from over a year ago Blood pressure goal is <130/80 ideally, this is in good control today We discussed importance of more optimal glucose management which will support healthy renal function Assessment & Plan (04/07/2021 10:00 AM EST): Most recent GFR on file is 60 Blood pressure goal is <130/80 ideally We discussed importance of more optimal glucose management which will reduce progression of diabetic renal disease Assessment & Plan (07/16/2017 5:29 PM EDT): We made adjustments in early day I:C ratio to help optimize mealtime insulin delivery, advised to call if he is experiencing any concerning blood sugar patterns related to this Neuropathy continues to be an issue for [place], he is not taking Gabapentin at the recommended dosage due to middle of the day dosing, we discussed continuing the morning dosage but doubling the evening dose to 600mg, we may consider increasing the morning dose as well if pain is not adequately controlled, he is advised to continue his soaks and massage as well as consistent exercise all of which will help control symptoms as well Assessment & Plan (04/09/2017 5:02 PM EST): Use extra insulin, get appt with Dr Rivas for pump rate adjustment. Ulcerative colitis 04/09/2017 Overview (09/30/2018): Hx colectomy 2012. Now bowel fx is normal, with soft liquidy stools 5-8x/day Resolved Problems Problem Noted Date Diagnosed Date Resolved Date ERRONEOUS ENCOUNTER--DISREGARD 09/07/2020 05/17/2022 Encounters Date Type Department Care Team Description 12/09/2024 Telephone [facility] [address] [place] [address] Dallin Flores MD Medication Management 12/09/2024 Telephone [facility] [address] [place] [address] Sangita Rivas MD Medication Management 12/01/[address] [place] [address] Shabana Moreno PA-C Medication Refill 11/18/2024 11:15 AM EDT Office Visit [address] [place] [address] Dallin Flores MD Basal cell carcinoma (BCC) of skin of other part of face (Primary Dx); Type 2 diabetes mellitus with diabetic mononeuropathy, with long-term current use of insulin; Neuropathy; Class 1 obesity with serious comorbidity and body mass index (BMI) of 34.0 to 34.9 in adult, unspecified obesity type 11/13/[address] [place] [address] Dallin Flores MD Medication Refill (Warfarin) 11/13/[address] [place] [address] Dallin Flores MD Triage (Red + numbness in hands + 3 months) 11/13/[address] [place] [address] Dallin Flores MD Medication Refill 11/04/[address] [address] Dallin Flores MD Medication Refill (warfarin) 10/30/2024 12:37 PM EDT - 10/30/2024 11:59 PM EDT Hospital Encounter [facility] [address] [place] [address] [place] [address] Yara Cool CNP Discharge Disposition: Home or Self Care 10/30/2024 11:20 AM EDT Office Visit [address] [place] [address] Yara Cool CNP Type 2 diabetes mellitus with diabetic mononeuropathy, with long-term current use of insulin (Primary Dx); Type 2 diabetes mellitus with diabetic nephropathy, with long-term current use of insulin; Insulin pump in place; Hypertriglyceridemi a; Primary hypertension 10/15/[address] [place] [address] Dallin Flores MD Medication Refill (Pt is requesting refills for the following medications, and would like a 90 day supply on all the medications also pt said his I & R is checked once a month and the nurse advised pt to take an extra 2.5 mg on the Warfarin. Contact and advise, best contact [phone], The medication is not lasting until the next refill, pt said he is 10 days short. /warfarin (COUMADIN) 2.5 MG tablet /HUMALOG U-100 INSULIN 100 unit/mL injection vial/atorvastatin (LIPITOR) 20 MG tablet /) 09/30/2024 Orders Only [address] [place] [address] ProviderNelson MD from Last 3 Months Immunizations Immunization Administration Dates Next Due COVID-19 (Pre-02/12) Pfizer Vaccine, mRNA, PF 08/15/2020,07/24/2020 INFLUENZA, SPLIT VIRUS, TRIVALENT PF 01/21/2015 INFLUENZA, SPLIT VIRUS, TRIV ALENT W/ PRESERVATIVE IM 02/24/2010 Influenza High-Dose Quadriva lent Preservative Free IM 02/04/2022,02/10/2020 Influenza High-Dose Trivalen t Preservative Free IM 12/20/2023,03/06/2019,02/20/2018,02/07 Influenza Quadrivalent Adjuv anted Preservative Free IM 01/17/2023 Influenza Quadrivalent Prese rvative Free IM 03/02/2021 Influenza trivalent preserva tive free intradermal 03/19/2016 Influenza, Unspecified Formulation 02/24/2010 Pneumococcal conjugate PCV13 09/24/2017 Pneumococcal polysaccharide PPSV23 09/30,12/01/2013,02/24/2010,03/20 RSV Vaccine (bivalent) 03/20/2023 RSV Vaccine (monovalent, adjuvanted) 03/21/2023 Td (adult),2 Lf Tetanus Toxo id, PF, Adsorbed 10/29/2019 Tdap 03/17/2024,06/23/2018 Zoster live 03/19/2016,03/18/2016 Zoster recombinant 02/28/2024,,10/30/2017,08/30 Family History Medical History Relation Comments Diabetes Brother 1 Hypertension Brother 1 Diabetes Brother 2 Hypertension Brother 2 Diabetes Brother 3 Hypertension Brother 3 Relation Status Comments Brother 1 Brother 2 Brother 3 Social History Tobacco Use Types Packs/Day Years Used Date Smoking Tobacco: Never Passive Smoke Exposure: Never Smokeless Tobacco: Never Tobacco Cessation:Counseling Given: [...] AM EDT Sexual Orientation Not on file Last Filed Vital Signs Vital Sign Reading Time Taken Comments Blood Pressure 144/56 11/18/2024 11:03 AM EDT Pulse 71 11/18/2024 11:03 AM EDT Temperature 36.4 C (97.6 F) 11/18/2024 11:03 AM EDT Respiratory Rate 17 04/15/2021 2:19 PM EST Oxygen Saturation 96% 11/18/2024 11:03 AM EDT Inhaled Oxygen Concentration - - Weight 105.7 kg (233 lb) 11/18/2024 11:03 AM EDT Height 168.4 cm (5' 6.3 ) 11/18/2024 11:03 AM ED T Body Mass Index 37.27 11/18/2024 11:03 AM EDT Plan of Treatment Upcoming Encounters Date Type Department Care Team (Late st Contact Info) Description 02/04/2025 11:00 AM EDT Nutrition [facility] [address] [place] [address] [place] [address] Sangita Rivas MD [address] [place] [phone] Sandra Melchor LDN [address] [place] [phone] 05/04/2025 11:20 AM EST Office Visit [facility] [address] [place] [address] [place] [address] Yara Cool, VALENTINA [address] [place] [phone] Health Maintenance Due Date Last Done Comments HEPATITIS C SCREENING 01/22/1968 INFLUENZA VACCINE (#1) 2024 , 01/17/2023, 02/04/2022, Additional history exists COVID-19 VACCINE ( season) 2024 12/20/2023, 01/15/2023, 01/07/2022, Additional history exists HEMOGLOBIN A1C 05/02/2025 10/30/2024, 04/0 12/2024, 05/01/2024, Additional history exists BLOOD PRESSURE 05/21/2025 11/18/2024 DEPRESSION SCREENING 05/23/2025 05/23/2024 CREATININE LEVEL 08/04/2025 08/04/2024, , 01/08/2023, Additional history exists POTASSIUM LEVEL 08/04/2025 08/04/2024, 04/24, 01/08/2023, Additional history exists DIABETIC EYE EXAM 09/24/2025 09/24/2024, , 06/09/2022, Additional history exists Adult Td,Tdap Booster 03/17/2034 03/17/2024 , 10/29/2019, 06/23/2018 PNEUMOCOCCAL VACCINES (50+ years) Completed 09/30/2018, 09/24/2017, 12/01/2013, Additional history exists RSV VACCINE Completed 03/21/2023, 03/20/2023 ZOSTER VACCINES Completed 02/28/2024, 11/22, 10/30/2017, Additional history exists SMOKING STATUS SCREENING (Once After 26 Yrs) Completed 11/18/2024 HEPATITIS A VACCINES Aged Out No long er eligible based on patient's age to complete this topic HIB VACCINES Aged Out No longer eligi ble based on patient's age to complete this topic MENINGOCOCCAL VACCINES (ACWY) Aged Out No longer eligible based on patient's age to complete this topic MENINGOCOCCAL VACCINES (B) Aged Out N o longer eligible based on patient's age to complete this topic Medical Devices Not on file Procedures Procedure Name Priority Date/Time Associated Diagnosis Comments VITAMIN B12 Routine 10/30/2024 12:42 PM EDT Type 2 diabetes mellitus with diabetic mononeuropathy, with long-term current use of insulin POCT HEMOGLOBIN A1C Routine 10/30/2024 1 1:46 AM EDT Type 2 diabetes mellitus with diabetic mononeuropathy, with long-term current use of insulin DIABETES EYE EXAM FOR RESULT ENTRY ONLY Routine 09/24/2024 3:46 PM EDT BASIC METABOLIC PANEL Routine 08/04/2024 11:29 AM EDT from Last 3 Months or Most Recently Relevant to Health Maintenance Results * Vitamin B12 (10/30/2024 12:42 PM EDT) VITAMIN B12 309 232 - 1,245 pg/mL [facility] Blood 10/30/2024 12:4 2 PM EDT 10/30/2024 3:41 PM EDT Yara Cool CNP LAB BLOOD ORDERABLES Final Re sult [address] [address] * (ABNORMAL) POCT Hemoglobin A1c (10/30/2024 11:46 AM EDT) Hemoglobin A1c 7.5(A) 4.2 - 5.6 % [facility] Other 10/30/2024 11:4 6 AM EDT Yara Cool CNP POINT OF CARE TEST ORDERABLES Final Result Performing Organization Address [facility] Co de Phone Number [address] [address], [facility] * DIABETES EYE EXAM FOR RESULT ENTRY ONLY (09/24/2024 3:46 PM EDT) Historical Provider HEALTH MAINTENANCE Edited Result - Final * Basic metabolic panel (08/04/2024 11:29 AM EDT) Historical Provider LAB BLOOD ORDERABLES Edit ed Result - Final from Last 3 Months or Most Recently Relevant to Health Maintenance Insurance MEDICARE PART A & B MEDICARE PART A & B MEDICARE PART A & B MEDICARE PART A & B MEDICARE PART A & B MEDICARE PART A & [place] [address] [place] [address] INSURANCE Care Teams Qual Field Manager Relationship Specialty Start Date End Date Dallin Flores MD [address] [place] [address], [address] [address] [email or web address] [email or web address] - General Internal Medicine 06/18/17 Jarrett Angeles MD [address] [place] [phone] [email or web address] Historical LMR Provider 02/06/17 Sangita Rivas MD [address] [place] [address], [address] [place] [address] Historical LMR Provider 02/06/17 Dallin Flores MD [address] [place] [address], [address] [address] Historical LMR Provider 02/06/17 Jonatahn Sterling MD [address] [place] [address], [address] [address] [email or web address] Historical LMR Provider 02/06/17 Additional Source Comments The information contained in this document represents components of the legal health record. It is not the complete legal health record.[facility]
--- OUTSIDE RECORDS SUMMARY | 2024-12-30 13:26 | XMS_ITS ---
Author Organization [facility] Address [address] [place] [address] Phone Care Team Providers Care Seat Pack Inspector Name Role Phone Jarrett Angeles MD Unavailable Sangita Rivas MD Unavailable [phone] Dallin Flores MD Unavailable [phone] Jonathan Sterling MD Unavailable [phone] Dallin Flores MD Primary Care Provider Active Problems Problem Noted Date Diagnosed Date Basal cell carcinoma (BCC) of skin of face 11/18 Overview (11/18/2024): October 2024 Neuropathy 11/18/2024 Overview (11/18/2024): BLE and now starting in his hands. October 2024: incr lyrica to 200mg BID H/O total colectomy 05/23/2024 Overview (05/23/2024): For IBD Around 2014 in [place] Assessment & Plan (05/23/2024 11:15 AM EST): [...] osteoarthritis of both knees 04/22/2020 Overview (04/22/2020): Joselyn LIVINGSTON, planned R TKR in April, [...] his glucose levels. Up to date with [facility]. Labs ordered and reviewed today Assessment & [...] using a smart phone therese such as Visiogen Or Evostor to better evaluate his carb counting Encouraged to enter his carbs accurately and bolus as appropriate We did not adjust insulin pump settings today although we discussed increasing his Ozempic in the future as needed His manager sales reports his foot pain is mostly related [...] [place] will return to meet with our nursing educator staff in 2 months, he will [...] [place] will return to meet with our nursing educator staff in 2 months, he will [...] [place] will return to meet with our nursing educator staff in 2 weeks, he will [...] glucose management and control Encouraged to see manager sales for routine care of feet, we discussed [...] (07/29/2020): INR being followed at home by [facility] after hosp dc. Elevated PSA [...] smart phone therese such as LoseIt! Or [employer] to help evaluate and count carbs as [...] am 10 4hrs 12pm 1:13 4:30p 1:11 residential current use of insulin 04/09/2017 Class 1 [...] able to return to meet with our screen printing cloth spreader if late day appt is available, he [...] is normal, with soft liquidy stools 5-8x/day Current Treatment and Therapy Plans No current plan information found. Past Treatment and Therapy Plans Resolved Problems Problem Noted Date Diagnosed Date Resolved Date ERRONEOUS ENCOUNTER--DISREGARD 09/07/2020 05/17/2022
--- OUTSIDE RECORDS SUMMARY | 2024-12-30 13:26 | XMS_ITS | Clinical Summary ---
Author Organization [facility] Address [address] [place] [address] Phone Care Team Providers Care Clamp Jig Assembler Name Role Phone Unavailable Primary Care Provider Unavailabl e Surgical History Surgery Date Site/Laterality Comments OTHER SURGICAL HISTORY PROCEDURE: [place] UVULECTOMY EXCISION UVULA; COMMENT: for sleep apnea [...] Panel) 03/22/2022 Colorectal Cancer Screening: Colonoscopy 03/22/2022 Falls Risk Assessment 03/22/2022 Hepatitis C Screening 03/22/2022 Medicare Annual Wellness Visit 03/22/2022 Social Influencers of Health Screening 03/22/2022 Diabetes: Annual Urine Albumin-Creatinine Ratio (uACR) 04/06/2022 Diabetes: Blood Sugar Contro l Test (HGBA1C) 04/06/2022 Depression Screening 04/23/2024 COVID-19 Vaccine (1 - 2023-2 5 season) 2024 Influenza Vaccine (#1) 2024 RSV Immunization Adult Patie nts (1 [...]
--- OUTSIDE RECORDS SUMMARY | 2024-12-30 13:26 | XMS_ITS | Encounter Summary ---
Author Organization [facility] Address [address] [place] [address] Care Team Providers Care Cut Off Saw Tender Metal Name Role Phone Unavailable Primary Care Provider Unavailabl e Encounter Details Date Type Department Care Team (Late st Contact Info) Description 04/03/2024 Lab Requisition [facility] - Main Lab [address] [facility] [place] [address] Edvin Pham PA [address] [address] Gross hematuria Social History Tobacco [...] and pathological findings. 04/21/2024 4:03 PM EST [facility] Addendum electronically signed by Becky Christian MD on 04/21/2024 at 4:03 PM Final Diagnosis Urine, Voided ([id number]): Negative for high grade urothelial carcinoma. Note: UroVysion testing to follow. 04/21/2024 4:03 PM EST [facility] Clinical Information [id number] Urine cytology/urine FISH 04/21/2024 4:03 PM [facility] Gross Description A. Urine, Voided, : [id number] RECD 1 TP CYTO 1 TP FISH. 04/21/2024 4:03 PM [facility] Disclaimer Unless otherwise specified, all tissue is 10% NB formalin fixed and paraffin embedded. Technical pathology services provided by [facility] at [address] [place] [address] [address], [place] [address] (CLIA #[id number] Pittman MD, Dock Hand) 04/21/2024 4:03 PM EST [facility] Tissue Urine specimen from urethra / Unknown 03/27/2024 04/03/2024 1:33 PM EST us Edvin [facility] LAB PATHOLOGY ORDERAB LES Edited Result - Final [facility] [address] [place] [address], documented in this encounter Visit Diagnoses Diagnosis Gross hematuria documented in this encounter
--- OUTSIDE RECORDS SUMMARY | 2024-12-30 13:26 | XMS_ITS | Encounter Summary ---
Author Organization [facility] Address [address] [place] [address] Phone Care Team Providers Care Hydrology Professor Name Role Phone Jarrett Angeles MD Unavailable Sangita Rivas MD Unavailable [phone] Dallin Flores MD Unavailable [phone] Jonathan Sterling MD Unavailable [phone] Dallin Flores MD Primary Care Provider [phone] Encounter Details Date Type Department Care Team (Late st Contact Info) Description 07/08/2021 Telephone [facility] [address] [address] Dallin Flores MD 22 [facility], [address] [place] [address] [email or web address] Social History Tobacco Use Types Packs/Day Years Used Date Smoking Tobacco: Never Smokeless Tobacco: Never Alcohol Use Standard Drinks/Week Comments Yes 0 (1 standard drink = 0.6 oz pur e alcohol) Occasional Sex and Gender Information Value Date Recorded Sex Assigned at Male 10/05/2019 11:45 AM EDT Legal Sex Male 9:59 PM EDT Gender Identity Male 10/05/2019 11:45 AM EDT Sexual Orientation Not on file documented as of this encounter Plan of Treatment Upcoming Encounters Date Type Department Care Team (Late st Contact Info) Description 02/04/2025 11:00 AM EDT Nutrition [facility] [address] [place] [address] [place] [address] Sangita Rivas MD [address] [place] [address] Sandra Melchor, MICHAEL [address] [place] [address] 05/04/2025 11:20 AM EST Office Visit [facility] [address] [place] [address] [place] [address] Yara Cool, VALENTINA [address] [place] [address] documented as of this encounter Visit Diagnoses Not on filedocumented in this encounter Additional Health Concerns Infection Onset Date Last Indicated Resolved Time CoV-Risk 12/05/2021 12/05/2021 12/16/2021 1:23 AM EDT CoV-Presumed 05/13/2022 05/13/2022 06/03/2022 1:21 AM EST CoV-Risk 04/03/2023 04/03/2023 04/14/2023 1:22 AM EST Assessment Noted Time PHQ-2 Depression Total Score: 0 10/01/19 19 4:26 PM EDT documented as of this encounter Care Teams Hydrology Professor Relationship Specialty Start Date End Date Dallin Flores MD [address] [place] [address], [address] [place] [address] PCP - General Internal Medicine 06/18/17 Jarrett Angeles MD [address] [place] [address], [address] [place] [address] Historical LMR Provider 02/06/17 Sangita Rivas MD 22 [facility], 1st [place] [address] [email or web address] Historical LMR Provider 02/06/17 Dallin Flores MD [address] [place] [address], [address] [place] [address] [email or web address] Historical LMR Provider 02/06/17 Jonathan Sterling MD [address] [place] [address], [address] [place] [address] [email or web address] Historical LMR Provider 02/06/17 documented as of this encounter Additional Source Comments The information contained in this document represents components of the legal health record. It is not the complete legal health record.[facility]
--- OUTSIDE RECORDS SUMMARY | 2024-12-30 13:26 | XMS_ITS | Encounter Summary ---
Author Organization [facility] Address [address] [place] [address] Phone Care Team Providers Care Canal Equipment Maintenance Supervisor Name Role Phone Jarrett Angeles MD Unavailable [phone] Sangita Rivas MD Unavailable [phone] Dallin Flores MD Unavailable [phone] Jonathan Sterling MD Unavailable [phone] Dallin Flores MD Primary Care Provider [phone] Encounter Details Date Type Department Care Team (Late st Contact Info) Description 12/12/2021 Procedure Pass [address] [address] Social History Tobacco Use Types Packs/Day Years [...] Info) Description 02/04/2025 11:00 AM EDT Nutrition [facility] [address] [place] [address] Sangita Rivas MD 22 [facility], [address] [place] [address] Sandra Melchor, MICHAEL [address] [place] [address] 05/04/2025 11:20 AM EST Office Visit [facility] [address] [place] [address] Yara Cool, VALENTINA [address] [address] documented as of this encounter Visit Diagnoses [...] documented as of this encounter Care Teams Canal Equipment Maintenance Supervisor Relationship Specialty Start Date End Date Dallin Flores MD [address] [place] [address], [address] [place] [address] PCP - General Internal Medicine 06/18/17 Jarrett Angeles MD [address] [place] [address], [address] [place] [address] [email or web address] Historical LMR Provider 02/06/17 Sangita Rivas MD [address] [place] [address] [email or web address] Historical LMR Provider 02/06/17 Dallin Flores MD [address] [place] [address], [address] [place] [address] [email or web address] Historical LMR Provider 02/06/17 Jonathan Sterling MD [address] [place] [address], [address] [place], [place] [id number] [email or web address] Historical LMR Provider 02/06/17 documented as of this encounter Additional Source Comments The information contained in this document represents components of the legal health record. It is not the complete legal health record.[facility]
== END 2024-12-30 11:30 | disposition home or self-care (01) ==
LOC: HO.ACS 11:06
PROVIDERS: PCP Internal Medicine; Visit Provider Internal Medicine Medical Oncology
DX: Z79.01 Long term (current) use of anticoagulants (principal)

== ENCOUNTER → 2024-12-30 11:06 | Outpatient (BNVA) | payer MEDICARE, SELFPAY | PROVIDERS: PCP Internal Medicine; Visit Provider Internal Medicine Medical Oncology | DX: Z51.81 Encounter for therapeutic drug level monitoring (principal); Z79.01 Long term (current) use of anticoagulants | CPT/HCPCS: 85610; 99211 ==

== ENCOUNTER 2025-01-27 11:08 | Outpatient (AMB) | payer MEDICARE, SELFPAY ==
[2025-01-27 11:23] LABS: Prothrombin Time Whole Bld POC 36.2 sec (11.1-13.5); ~PT, ~INR - Anti Coag Clinic 3.0 (0.9-1.1)
--- NOTE | 2025-01-27 11:31 | MHC.OFFVISCO ---
Intake Intake Visit Reasons: Anticoagulation Allergies No Known Allergies Allergy (Mild, Verified 01/27/25 11:14) N/A Medication List - Last Reconciled 01/27/25 by Cintia Martel, PUNEET atorvastatin 20 mg PO DAILY cetirizine 10 mg PO DAILY doxycycline hyclate 100 mg PO BID enoxaparin mg See Protocol subcut ergocalciferol (vitamin D2) PO DAILY fluticasone propionate 50 mcg/actuation 1 spray intranasal DAILY folic acid 0.8 mg PO DAILY hydrochlorothiazide 12.5 mg PO DAILY insulin lispro subcut ketoconazole 2% topical lisinopril 5 mg PO DAILY loperamide 4 mg PO BID PRN magnesium glycinate 400 mg PO DAILY metformin 1,000 mg PO BID omeprazole 20 mg PO DAILY pregabalin 150 mg PO BID tamsulosin 0.8 mg PO DAILY warfarin 2.5 mg See Protocol PO DAILY warfarin 5 mg See Protocol PO DAILY Nursing Note INR: 3.0 in therapeutic range of 2-3 Medications and supplements reviewed No changes in health, diet, medications, or supplements, Denies any signs and symptoms of bleeding or bruising or clotting. Bleeding, bruising, clotting discussed Nutritional guidance given Dose: 5mg X 4 days and 7.5mg X 3 days (M/W/F) F/U INR: 4 weeks Patient verbalizes understanding of instructions given Anti-Coag Initial Assessment Social Hx Patient Tobacco Use Status: Never used Tobacco alcohol intake: never Coding Level of Care Code Est Patient Level 1 Diagnoses Current use of anticoagulant therapy Z79.01 Assessment & Plan Assessment & Plan (1) Current use of anticoagulant therapy: Code(s): Z79.01 - terminal make up operator (current) use of anticoagulants Category: Medical
--- OUTSIDE RECORDS SUMMARY | 2025-01-27 13:53 | XMS_ITS | Encounter Summary ---
Author Organization [facility] Address [address] [place] [address] Phone Care Team Providers Care Craft Manager Name Role Phone Jarrett Angeles MD Unavailable Sangita Rivas MD Unavailable [phone] Dallin Flores MD Unavailable Jonathan Sterling MD Unavailable [phone] Dallin Flores MD Primary Care Provider [phone] Encounter Details Date Type Department Care Team (Late st Contact Info) Description 01/02/2025 Orders Only [place] [address] [place] [address] Unknown, Unknown, Social History Tobacco Use Types Packs/Day Years [...] Info) Description 02/04/2025 11:00 AM EDT Nutrition [facility] [address] [place] [address] Sangita Rivas MD [address] [place] [address] Sandra Melchor LDN [address] [place] [address] 05/04/2025 11:20 AM EST Office Visit [facility] [address] [place] [address] Yara Cool, VALENTINA [address] [place] [address] documented as of this encounter Procedures Procedure Name Priority Date/Time Associated Diagnosis Comments DIABETES EYE EXAM FOR RESULT ENTRY ONLY Routine 12/29/2024 2:36 PM EDT documented in this encounter Results * HM DIABETES EYE EXAM FOR RESULT ENTRY ONLY (12/29/2024 2:36 PM EDT) us Unknown Unknown HEALTH MAINTENANCE Edited Res ult - Final documented in this encounter Visit Diagnoses Not on filedocumented in this encounter Additional Health Concerns Assessment Noted Time PHQ-2 Depression Total Score: 0 05/23/19 25 11:00 AM EST documented as of this encounter Care Teams Craft Manager Relationship Specialty Start Date End Date Dallin Flores MD [address] [place] [address], [address] [place] [address] PCP - General Internal Medicine 06/18/17 Jarrett Angeles MD [address] [place] [address], [address] [place] [address] Historical LMR Provider 02/06/17 Sangita Rivas MD [address] [place] [address], 1[address] [place] [address] Historical LMR Provider 02/06/17 Dallin Flores MD [address] [place] [address], [address] [place] [address] Historical LMR Provider 02/06/17 Jonathan Sterling MD [address] [place] [address], [address] [place] [address] Historical LMR Provider 02/06/17 documented as of this encounter Additional Source Comments The information contained in this document represents components of the legal health record. It is not the complete legal health record.[facility]
--- OUTSIDE RECORDS SUMMARY | 2025-01-27 13:53 | XMS_ITS | Patient Health Record ---
Author Organization [facility] Address [address] [place] [address] Care Team Providers Care Gas Mask Inspector Name Role Phone Dallin Flores Primary Care Provider Stefan Pedroza Unavailable [phone] Ruchi Castro Unavailable [phone] Allergies No Known Allergies Results Component Value [...] Once a day; Duration: 30 day(s) mon, wed, sun Active amLODIPine Besylate 2.5 MG 1 [...] Polyneuropathy due to type 2 diabetes mellitus (903047827) Type 2 diabetes mellitus with diabetic polyneuropathy (E11.42) Active confirmed Vital Signs Height 5ft 7in in 11/07/2024 Weight 228 lbs 11/07/2024 BMI 35.71 kg/m2 11/07/2024 Procedures Procedure Date Ordered Date Performed Result Body Sit e 11602-PDMRPWM NAIL, 6 OR MORE 03/18/2024 N/A 81505-UQZQ SKIN LESIONS, OVER 4 03/18/2024 N/A Encounters Encounter [facility] Date [facility] [address] 03/18/2024 Ruchi Castro Type 2 diabetes mellitus with diabetic polyneuropathy E11.42 and Tinea unguium B35.[address] [address] 08/01/2024 Ruchi Matthew Other hammer toe(s) (acquired), right foot M20.41 ; Other hammer toe(s) (acquired), left foot M20.42 ; Type 2 diabetes mellitus with diabetic polyneuropathy E11.42 and Tinea unguium B35.[address] [address] 11/07/2024 Ruchi Matthew Onychomycosis B35.1 and Type [...] X ray : Foot, right 3V 06/17/2019 66016-WQAWUAS NAIL, 6 OR MORE 03/18/2024 20241- I&D ABSCESS-COMPLICATED,MULTI 02/2019 47518-OUSN SKIN LESIONS, OVER 4 01/15/20 19 21323-IYRK SKIN LESIONS, OVER 4 02/29/20 22 26635-HIXB SKIN LESIONS, OVER 4 08/30/19 23 10148-FAZN SKIN LESIONS, OVER 4 03/18/20 24 30485, D7899-NTDUD/INJECT, JOINT/BURSA 0 06/17/2019 Next Appt Details Provider Name:Ruchi chamberlain, 02/10/2025 11:00:00 AM, [facility], [place] [address], [place], [address], Insurance Providers Payer Name Payer Address Payer Phone Subscriber Number Group Number Insured Name Patient Relationship to Insured Coverage Start Date Coverage End Date Medicare National [employer]t [employer] [address] [place] [address] [id number] Fede Estrada Self - patient is the [...] blockage between stomach and intestine 2 025 [facility]- wire caught on leg 01/2024 [facility]- Infected toe 01/2019
--- OUTSIDE RECORDS SUMMARY | 2025-01-27 13:53 | XMS_ITS | Encounter Summary ---
Author Organization [facility] Address [address] [place] [address] Phone Care Team Providers Care Child Development Consultant Name Role Phone Dallin Flores MD Primary Care Provider [phone] Encounter Details Date Type Department Care Team (Late st Contact Info) Description 09/15/2020 Orders Only [facility] [address] [place] [phone] Neftaly Sorensen MD Stage 3a chronic kidney [...] (HCC) documented in this encounter Care Teams Child Development Consultant Relationship Specialty Start Date End Date Dallin Flores MD [address] [place] [address], [address] [place], [place] [id number] PCP - General 05/03/20 documented as of this encounter
--- OUTSIDE RECORDS SUMMARY | 2025-01-27 13:53 | XMS_ITS | Clinical Summary ---
Author Organization [facility] Address [address] [place] [address] Phone Care Team Providers Care Head Charger Name Role Phone Unavailable Primary Care Provider Unavailabl e Surgical History Surgery Date Site/Laterality Comments OTHER SURGICAL HISTORY PROCEDURE: [place] UVULECTOMY EXCISION UVULA; COMMENT: for sleep apnea [...] Date Last Done Comments Colorectal Cancer Screening: Colonoscopy 1952 Diabetes: Annual GFR (Glomer ular Filtration Rate) 1952 Diabetes: Annual Foot Exam 01/22/1962 Diabetes: Annual Retina Eye Exam 01/22/1962 DTaP,Tdap,and Td Vaccines (1 - Tdap) 01/22/1971 Zoster Vaccines (1 of 2) 01/22/2002 Pneumococcal Vaccine: 50+ Ye ars (2 of 2 - PCV) 03/20/2004 03/20/2003 Abdominal Aortic Aneurysm (A AA) Screen 03/22/2022 Cholesterol Screening (Lipid Panel) 03/22/2022 Falls Risk Assessment 03/22/2022 Hepatitis C [...]
--- OUTSIDE RECORDS SUMMARY | 2025-01-27 13:53 | XMS_ITS | Encounter Summary ---
Author Organization [facility] Address [address] [place] [address] Care Team Providers Care Dance Master Name Role Phone Unavailable Primary Care Provider Unavailabl e Encounter Details Date Type Department Care Team (Late st Contact Info) Description 04/03/2024 Lab Requisition [facility] - Main Lab 299 [facility] [place] [address] Edvin Pham PA [address] [address] Gross hematuria Social History Tobacco [...] and pathological findings. 04/21/2024 4:03 PM EST [facility] Addendum electronically signed by Becky Christian MD on 04/21/2024 at 4:03 PM Final Diagnosis Urine, Voided ([id number]): Negative for high grade urothelial carcinoma. Note: UroVysion testing to follow. 04/21/2024 4:03 PM EST [facility] Clinical Information [id number] Urine cytology/urine FISH 04/21/2024 4:03 PM [facility] Gross Description A. Urine, Voided, : [id number] RECD 1 TP CYTO 1 TP FISH. 04/21/2024 4:03 PM [facility] Disclaimer Unless otherwise specified, all tissue is 10% NB formalin fixed and paraffin embedded. Technical pathology services provided by [facility] at [address] [place] [address] [address], [place] [address] (CLIA #[id number] Pittman MD, Chip Crusher Operator) 04/21/2024 4:03 PM EST [facility] Tissue Urine specimen from urethra / Unknown 03/27/2024 04/03/2024 1:33 PM EST us Edvin [facility] LAB PATHOLOGY ORDERAB LES Edited Result - Final [facility] [address] [place] [address], documented in this encounter Visit Diagnoses Diagnosis Gross hematuria documented in this encounter
--- OUTSIDE RECORDS SUMMARY | 2025-01-27 13:53 | XMS_ITS | Encounter Summary ---
Author Organization [facility] Address [address] [place] [address] Phone Care Team Providers Care Dividing Machine Operator Helper Name Role Phone Jarrett Angeles MD Unavailable Sangita Rivas MD Unavailable [phone] Dallin Flores MD Unavailable [phone] Jonathan Sterling MD Unavailable [phone] Dallin Flores MD Primary Care Provider Encounter Details Date Type Department Care Team (Late st Contact Info) Description 07/08/2021 Telephone [employer] [address] [address] Dallin Flores MD 22 [facility], [address] [place] [address] Social History Tobacco Use Types Packs/Day Years [...] Info) Description 02/04/2025 11:00 AM EDT Nutrition [facility] [address] [place] [address] [place] [address] Sangita Rivas MD [address] [place] [address] Sandra Melchor, MICHAEL [address] [place] [address] 05/04/2025 11:20 AM EST Office Visit [facility] [address] [place] [address] [place] [address] Yara Cool, VALENTINA [address] [place] [address] documented as of this encounter Visit Diagnoses [...] documented as of this encounter Care Teams Dividing Machine Operator Helper Relationship Specialty Start Date End Date Dallin Flores MD [address] [place] [address], [address] [place] [address] PCP - General Internal Medicine 06/18/17 Jarrett Angeles MD [address] [place] [address], [address] [place] [address] Historical LMR Provider 02/06/17 Sangita Rivas MD 22 [facility], 1st [place] [address] Historical LMR Provider 02/06/17 Dallin Flores MD [address] [place] [address], [address] [place] [address] Historical LMR Provider 02/06/17 Jonathan Sterling MD [address] [place] [address], [address] [place] [address] Historical LMR Provider 02/06/17 documented as of this encounter Additional Source Comments The information contained in this document represents components of the legal health record. It is not the complete legal health record.[facility]
--- OUTSIDE RECORDS SUMMARY | 2025-01-27 13:53 | XMS_ITS | Encounter Summary ---
Author Organization [facility] Address [address] [place] [address] Phone Care Team Providers Care Quality Facilitator Name Role Phone Dallin Flores MD Primary Care Provider [phone] Encounter Details Date Type Department Care Team (Late st Contact Info) Description 04/10/2022 Telephone [facility] [address] [place] [phone] Neftaly Sorensen MD Social History Tobacco Use [...] on filedocumented in this encounter Care Teams Quality Facilitator Relationship Specialty Start Date End Date Dallin Flores MD [address] [place] [address], [address] [place] [id number] PCP - General 05/03/20 documented as of this encounter
--- OUTSIDE RECORDS SUMMARY | 2025-01-27 13:53 | XMS_ITS ---
Author Organization [facility] Address [address] [place] [address] Phone Care Team Providers Care Solar Installation Supervisor Name Role Phone Jarrett Angeles MD Unavailable [phone] Sangita Rivas MD Unavailable [phone] Dallin Flores MD Unavailable [phone] Jonathan Sterling MD Unavailable [phone] Dallin Flores MD Primary Care Provider Active Problems Problem Noted Date Diagnosed Date Basal cell carcinoma (BCC) of skin of face 11/18 Overview (11/18/2024): October 2024 Neuropathy 11/18/2024 Overview (11/18/2024): BLE and now starting in his hands. October 2024: incr lyrica to 200mg BID H/O total colectomy 05/23/2024 Overview (05/23/2024): For IBD Around 2014 in [place] Assessment & Plan (05/23/2024 11:15 AM EST): [...] his glucose levels. Up to date with [facility]. Labs ordered and reviewed today Assessment & [...] using a smart phone therese such as [employer] to better evaluate his carb counting Encouraged to enter his carbs accurately and bolus as appropriate We did not adjust insulin pump settings today although we discussed increasing his Ozempic in the future as needed His blend plant operator reports his foot pain is mostly related [...] [place] will return to meet with our development educator staff in 2 months, he will [...] [place] will return to meet with our development educator staff in 2 months, he will [...] [place] will return to meet with our development educator staff in 2 weeks, he will [...] glucose management and control Encouraged to see blend plant operator for routine care of feet, we discussed [...] (07/29/2020): INR being followed at home by [facility] after hosp dc. Elevated [...] did not adjust insulin pump settings today [place]'s A1c has responded well to a change [...] smart phone therese such as [employer] Or [employer] to help evaluate and count carbs as [...] am 10 4hrs 12pm 1:13 4:30p 1:11 credit rating inspector current use of insulin 04/09/2017 Class 1 [...] able to return to meet with our digital marketing officer if late day appt is available, he [...]
--- OUTSIDE RECORDS SUMMARY | 2025-01-27 13:54 | XMS_ITS | Clinical Summary ---
Author Organization [facility] Address [address] [address] Phone Care Team Providers Care Press Operator Meat Name Role Phone Dallin Flores MD Primary Care Provider [phone] Allergies Active Allergy Reactions Criticality Noted Date [...] (08/04/2020): INR being followed at home by [facility] after hosp dc. Gastroesophageal reflux [...] based on patterns using the new system intermodal dispatcher current use of insulin 04/09/2017 02/02/2021 Obesity [...] this topic Insurance Medicare Medicare Care Teams Press Operator Meat Relationship Specialty Start Date End Date Dallin Flores MD [address] [place] [address], [address] [place] [address] PCP - General 05/03/20
--- OUTSIDE RECORDS SUMMARY | 2025-01-27 13:54 | XMS_ITS | Clinical Summary ---
Author Organization [facility] Address [address] [place] [address] Phone Care Team Providers Care Equipment Tester Name Role Phone Jarrett Angeles MD Unavailable Sangita Rivas MD Unavailable [phone] Dallin Flores MD Unavailable [phone] Jonathan Sterling MD Unavailable [phone] Dallin Flores MD Primary Care Provider Allergies Active Allergy Reactions Criticality Noted Date Comments Azathioprine 08/04/2020 Medications albuterol sulfate 90 mcg/actuation AePB Inhale 2 puffs into the lungs every 4 (four) hours as needed (shortness of breath or wheezing). 1 each 10/02/19 20 Active tamsulosin (FLOMAX) 0.4 mg Cap Take 0.4 mg by mouth daily. Active hydroCHLOROthiaz zach (HYDRODIURIL) 12.5 MG tablet TAKE 1 TABLET BY MOUTH 1 TIME EACH DAY. 09/22/19 22 Active dexAMETHasone (DECADRON) 4 MG tablet Take 4 mg by mouth 2 (two) times a day. 12/07/19 22 Active folic acid (FOLVITE) 1 MG tablet TAKE 1 TABLET BY MOUTH ONCE DAILY 90 tablet 3 01/20/20 22 Active cetirizine (ZYRTEC) 10 MG tablet Take 1 tablet (10 mg total) by mouth daily. 90 tablet 3 07/29/19 23 Active insulin pen needles, disposable, 32 gauge x 5/32 NdleIndications: Type 2 diabetes mellitus with diabetic nephropathy 1 each by Miscellaneous route as needed. 90 each 3 01/25/20 Active LANTUS SOLOSTAR U-100 INSULIN 100 unit/mL (3 mL) InPn injection pen Inject up to 50 units once daily in the event of insulin pump failure 15 mL 3 01/25/20 Active loperamide (IMODIUM) 2 mg capsule TAKE 1 CAPSULE FOUR TIMES A DAY NEEDED FOR DIARRHEA 180 capsule 7 04/12/20 23 Active fluticasone propionate (FLONASE) 50 mcg/actuation nasal spray 1 spray by Nasal route daily. 48 g 1 02/28/20 24 Active diclofenac sodium (VOLTAREN) 1 % GelIndications:I njury of left shoulder, initial encounter Apply 2 g topically 4 (four) times a day. 30 g 10 04/17/20 24 Active lisinopril (PRINIVIL,ZESTRI L) 5 MG tabletIndication s:Type 2 diabetes mellitus with diabetic nephropathy, with long-term current use of insulin,Primary hypertension TAKE 1 TABLET DAILY 90 tablet 3 06/18/19 25 Active azelastine (ASTELIN) 137 mcg (0.1 %) nasal spray 07/24/19 25 Active atorvastatin (LIPITOR) 20 MG tabletIndication s:Hypertriglycer idemia Take 1 tablet (20 mg total) by mouth daily. 90 tablet 3 10/16/19 25 Active omeprazole (PRILOSEC) 20 MG capsule TAKE 1 CAPSULE DAILY 90 capsule 3 11/14/19 25 Active warfarin (COUMADIN) 5 MG tabletIndication s:Anticoagulated on Coumadin,History of pulmonary embolus (PE) Take 1 tablet (5 mg total) by mouth daily. 90 tablet 11/14/19 25 Active warfarin (COUMADIN) 2.5 MG tabletIndication s:Anticoagulated on Coumadin Take one tablet by mouth on Sunday and with one 5mg tablet, for a total dose of 7.5 mg. 45 tablet 1 11/14/19 25 Active pregabalin (LYRICA) 200 MG capsuleIndicatio ns:Type 2 diabetes mellitus with diabetic mononeuropathy, with long-term current use of insulin Take 1 capsule (200 mg total) by mouth 2 (two) times a day. TAKE 1 CAPSULE BY MOUTH TWO TIMES A DAY Strength: 150 mg 60 capsule 11 11/19/19 Active metFORMIN (GLUCOPHAGE) 1000 MG tabletIndication s:Type 2 diabetes mellitus with diabetic nephropathy TAKE 1 TABLET TWICE A DAY WITH MEALS 180 tablet 3 12/04/19 Active HUMALOG U-100 INSULIN 100 unit/mL injection vialIndications: Type 2 diabetes mellitus with diabetic mononeuropathy, with long-term current use of insulin Inject via insulin pump for total daily dose of 165 units 150 mL 3 12/10/19 Active Active Problems Problem Noted Date Diagnosed Date Basal cell carcinoma (BCC) of skin of face 11/18 Overview (11/18/2024): October 2024 Neuropathy 11/18/2024 Overview (11/18/2024): BLE and now starting in his hands. October 2024: incr lyrica to 200mg BID H/O total colectomy 05/23/2024 Overview (05/23/2024): For IBD Around 2014 in [place] Assessment & Plan (05/23/2024 11:15 AM EST): [...] osteoarthritis of both knees 04/22/2020 Overview (04/22/2020): Sees YARA, planned R TKR in April, then L [...] more affordable insurance plans that could cover Mounjaro. He was reminded to be mindful of [...] his glucose levels. [facility] Labs ordered and reviewed today Assessment & [...] using a smart phone therese such as [employer] Or [employer] to better evaluate his carb counting Encouraged to enter his carbs accurately and bolus as appropriate We did not adjust insulin pump settings today although we discussed increasing his Ozempic in the future as needed His formula checker reports his foot pain is mostly related [...] [place] will return to meet with our software educator staff in 2 months, he will [...] [place] will return to meet with our software educator staff in 2 months, he will [...] [place] will return to meet with our software educator staff in 2 weeks, he will [...] glucose management and control Encouraged to see formula checker for routine care of feet, we discussed [...] (07/29/2020): INR being followed at home by [facility] after hosp dc. Elevated PSA [...] of a smart phone therese such as [employer] Or [employer] ([place] to help evaluate and count carbs as [...] am 10 4hrs 12pm 1:13 4:30p 1:11 ad terminal makeup operator current use of insulin 04/09/2017 Class 1 [...] able to return to meet with our roofing superintendent if late day appt is available, [...] Encounters Date Type Department Care Team Description 01/02/2025 Orders Only [address] [place] [address] Unknown, Unknown, 12/09/[address] [place] [address] Dallin Flores MD Medication Management 12/09/[address] [place] [address] Sangita Rivas MD Medication Management 12/01/[address] [place] [address] Shabana Moreno PA-C Medication Refill 11/18/2024 11:15 AM EDT Office Visit [address] [place] [address] Dallin Flores MD Basal cell carcinoma (BCC) of skin of other part of face (Primary Dx); Type 2 diabetes mellitus with diabetic mononeuropathy, with long-term current use of insulin; Neuropathy; Class 1 obesity with serious comorbidity and body mass index (BMI) of 34.0 to 34.9 in adult, unspecified obesity type 11/13/[address] [place] [address] Dallin Flores MD Medication Refill (Warfarin) 11/13/[address] [place] [address] Dallin Flores MD Triage (Red + numbness in hands + 3 months) 11/13/[address] [place] [address] Dallin Flores MD Medication Refill 11/04/2024 Telephone [facility] [address] [place] [address] Dallin Flores MD Medication Refill (warfarin) 10/30/2024 12:37 PM EDT - 10/30/2024 11:59 PM EDT Hospital Encounter [facility] [address] [place] [address] Yara Cool CNP Discharge Disposition: Home or Self Care 10/30/2024 11:20 AM EDT Office Visit [facility] [address] [place] [address] [place] [address] Yara Cool, VALENTINA Type 2 diabetes mellitus with diabetic mononeuropathy, with long-term current use of insulin (Primary Dx); Type 2 diabetes mellitus with diabetic nephropathy, with long-term current use of insulin; Insulin pump in place; Hypertriglyceridemi a; Primary hypertension from Last 3 Months Immunizations Immunization Administration [...] Info) Description 02/04/2025 11:00 AM EDT Nutrition [facility] [address] [place] [address] Sangita Rivas MD [address] [place] [address], [address] [place] [address] Sandra Melchor LDN [address] [place] [address] 05/04/2025 11:20 AM EST Office Visit [facility] [address] [place] [address] Yara Cool, ELECTROPLATER AUTOMATIC [address] [facility], 1st [place] [address] [email or web address] Health Maintenance Due Date Last Done Comments [...] 01/08/2023, Additional history exists DIABETIC EYE EXAM 12/29/2025 12/29/2024, , 06/08/2023, Additional history exists Adult Td,Tdap Booster 03/17/2034 [...] ENTRY ONLY Routine 12/29/2024 2:36 PM EDT VITAMIN B12 Routine 10/30/2024 12:42 PM EDT Type 2 diabetes mellitus with diabetic mononeuropathy, with long-term current use of insulin POCT HEMOGLOBIN A1C Routine 10/30/2024 1 1:46 AM EDT Type 2 diabetes mellitus with diabetic mononeuropathy, with long-term current use of insulin BASIC METABOLIC PANEL Routine 08/04/2024 11:29 AM EDT from Last 3 Months or Most Recently Relevant to Health Maintenance Results * DIABETES EYE EXAM FOR RESULT ENTRY ONLY (12/29/2024 2:36 PM EDT) us Unknown Unknown MD HEALTH MAINTENANCE Edited Res ult - Final * Vitamin B12 (10/30/2024 12:42 PM EDT) VITAMIN B12 309 232 - 1,245 pg/mL [facility] Blood 10/30/2024 12:4 2 PM EDT 10/30/2024 3:41 PM EDT us Yara Cool CNP LAB BLOOD ORDERABLES Final Re sult Performing Organization Address City/[facility]/ZIP Co de Phone Number [address] [address] * (ABNORMAL) POCT Hemoglobin A1c (10/30/2024 11:46 AM EDT) Hemoglobin A1c 7.5(A) 4.2 - 5.6 % [facility] Other 10/30/2024 11:4 6 AM EDT us Yara Cool CNP POINT OF CARE TEST ORDERABLES Final Result Performing Organization Address City/[facility]/ZIP Co de Phone Number [phone] [place] [address] * Basic metabolic panel (08/04/2024 11:29 AM EDT) us Historical Provider LAB BLOOD ORDERABLES Edit ed Result - Final from Last 3 Months or Most Recently Relevant to Health Maintenance Insurance MEDICARE PART A & B MEDICARE PART A & B MEDICARE PART A & B MEDICARE PART A & B MEDICARE PART A & B MEDICARE PART A & [place] [place] [address] INSURANCE Care Teams Equipment Tester Relationship Specialty Start Date End Date Dallin Flores MD [address] [place] [address], [address] [place] [address] [email or web address] PCP - General Internal Medicine 06/18/17 Jarrett Angeles MD [address] [place] [address], [address] [place] [address] Historical LMR Provider 02/06/17 Sangita Rivas MD [address] [place] [address], 1[address] [place] [address] [email or web address] Historical LMR Provider 02/06/17 Dallin Flores MD [address] [place] [address], [address] [place] [address] [email or web address] Historical LMR Provider 02/06/17 Jonathan Sterling MD [address] [place] [address], [address] [place] [address] [email or web address] Historical LMR Provider 02/06/17 Additional Source Comments The information contained in this document represents components of the legal health record. It is not the complete legal health record.[facility]
--- OUTSIDE RECORDS SUMMARY | 2025-01-27 13:54 | XMS_ITS | Encounter Summary ---
Author Organization [facility] Address [address] [place] [address] Phone Care Team Providers Care Pin Ball Machine Mechanic Name Role Phone Jarrett Angeles MD Unavailable [phone] Sangita Rivas MD Unavailable [phone] Dallin Flores MD Unavailable [phone] Jonathan Sterling MD Unavailable [phone] Dallin Flores MD Primary Care Provider [phone] Encounter Details Date Type Department Care Team (Late st Contact Info) Description 12/12/2021 Procedure Pass [address] [address] Social History Tobacco Use Types Packs/Day Years [...] Info) Description 02/04/2025 11:00 AM EDT Nutrition [facility] [address] [place] [address] Sangita Rivas MD 22 [facility], [address]st [place] [address] Sandra Melchor, MICHAEL [address] [place] [address] 05/04/2025 11:20 AM EST Office Visit [facility] [address] [place] [address] Yara Cool, VALENTINA [address] [address] documented as of this encounter Visit Diagnoses [...] documented as of this encounter Care Teams Pin Ball Machine Mechanic Relationship Specialty Start Date End Date Dallin Flores MD [address] [place] [address], [address] [place] [address] PCP - General Internal Medicine 06/18/17 Jarrett Angeles MD [address] [place] [address], [address] [place] [address] [email or web address] Historical LMR Provider 02/06/17 Sangita Rivas MD [address] [place] [address] [email or web address] Historical LMR Provider 02/06/17 Dallin Flores MD [address] [place] [address], [address] [place] [address] [email or web address] Historical LMR Provider 02/06/17 Jonathan Sterling MD [address] [place] [address], [address] [place], [place] [phone] [email or web address] Historical LMR Provider 02/06/17 documented as of this encounter Additional Source Comments The information contained in this document represents components of the legal health record. It is not the complete legal health record.[facility]
== END 2025-01-27 11:33 | disposition home or self-care (01) ==
LOC: HO.ACS 11:08
PROVIDERS: PCP Internal Medicine; Visit Provider Internal Medicine Medical Oncology
DX: Z79.01 Long term (current) use of anticoagulants (principal)

== ENCOUNTER → 2025-01-27 11:08 | Outpatient (BNVA) | payer MEDICARE, SELFPAY | PROVIDERS: PCP Internal Medicine; Visit Provider Internal Medicine Medical Oncology | DX: Z51.81 Encounter for therapeutic drug level monitoring (principal); Z79.01 Long term (current) use of anticoagulants | CPT/HCPCS: 85610; 99211 ==

== ENCOUNTER → 2025-02-24 11:09 | Outpatient (BNVA) | payer MEDICARE, SELFPAY | PROVIDERS: PCP Internal Medicine; Visit Provider Internal Medicine Medical Oncology | DX: Z79.01 Long term (current) use of anticoagulants (principal) | CPT/HCPCS: 85610; 99211 ==

== ENCOUNTER 2025-03-02 11:09 | Outpatient (AMB) | payer MEDICARE, SELFPAY ==
--- NOTE | 2025-03-02 11:19 | MHC.OFFVISCO ---
Intake Intake Visit Reasons: Anticoagulation Allergies No Known Allergies Allergy (Mild, Verified 03/02/25 11:12) N/A Medication List - Last Reconciled 03/02/25 by Macey Riley RN atorvastatin 20 mg PO DAILY cetirizine 10 mg PO DAILY enoxaparin mg See Protocol subcut ergocalciferol (vitamin D2) PO DAILY fluticasone propionate 50 mcg/actuation 1 spray intranasal DAILY folic acid 0.8 mg PO DAILY hydrochlorothiazide 12.5 mg PO DAILY insulin lispro subcut ketoconazole 2% topical lisinopril 5 mg PO DAILY loperamide 4 mg PO BID PRN magnesium glycinate 400 mg PO DAILY metformin 1,000 mg PO BID omeprazole 20 mg PO DAILY pregabalin 150 mg PO BID tamsulosin 0.8 mg PO DAILY warfarin 2.5 mg See Protocol PO DAILY warfarin 5 mg See Protocol PO DAILY Nursing Note INR 3.1?? out of therapeutic range- 2-3 Medications and supplements reviewed- pt states taking lions db, turkey tail mushroom supp- 2 per day x 3 weeks could poss raise inr, pt states stopped this last sunday Patient status: pt to have laser surg left eye, no hold warfarin Medications or supplements: mushroom supp Diet: same Denies any signs and symptoms of bleeding or clotting or unusual bruising Bleeding, bruising, clotting discussed Nutritional guidance given: eat a green today Dose: reduce dose today due to upcoming surg- 5 mg today then cont reg 7.5mg x 3, 5mg x 4 F/U INR Date :1 week? Patient verbalizing understanding of instructions given. Anti-Coag Initial Assessment Social Hx Patient Tobacco Use Status: Never used Tobacco alcohol intake: never Coding Level of Care Code Est Patient Level 1 Diagnoses Current use of anticoagulant therapy Z79.01 Assessment & Plan Assessment & Plan (1) Current use of anticoagulant therapy: Code(s): Z79.01 - salvage determiner (current) use of anticoagulants Category: Medical Medications: On Hold enoxaparin Hold Comment: Doctor's Order See Protocol subcut
[2025-03-02 11:20] LABS: Prothrombin Time Whole Bld POC 37.7 sec (11.1-13.5); ~PT, ~INR - Anti Coag Clinic 3.1 (0.9-1.1)
--- OUTSIDE RECORDS SUMMARY | 2025-03-02 13:28 | XMS_ITS | Encounter Summary ---
Author Organization [facility] Address [address] [place] [address] Phone Care Team Providers Care Mechanical Engineering Director Name Role Phone Dallin Flores MD Primary Care Provider [phone] Encounter Details Date Type Department Care Team (Late st Contact Info) Description 09/15/2020 Orders Only [facility] [address] [place] [phone] Neftaly Sorensen MD Stage 3a chronic kidney [...] (HCC) documented in this encounter Care Teams Mechanical Engineering Director Relationship Specialty Start Date End Date Dallin Flores MD [address] [place] [address], [address] [place], [place] [phone] PCP - General 05/03/20 documented as of this encounter
--- OUTSIDE RECORDS SUMMARY | 2025-03-02 13:28 | XMS_ITS | Encounter Summary ---
Author Organization [facility] Address [address] [place] [address] Phone Care Team Providers Care Vice President Planning Name Role Phone Jarrett Angeles MD Unavailable Sangita Rivas MD Unavailable [phone] Dallin Flores MD Unavailable [phone] Jonathan Sterling MD Unavailable [phone] Dallin Flores MD Primary Care Provider Encounter Details Date Type Department Care Team (Late st Contact Info) Description 07/08/[address] [phone] Dallin Flores MD 22 [facility], [address] [place] [address] [email or web address] Social History Tobacco Use Types Packs/Day Years [...] Care Team (Late st Contact Info) Description 05/04/2025 11:20 AM EST Office Visit [facility] [address] [place] [address] [place] [address] Yara Cool, NUTRITION TECHNICIAN [address] [address] 08/12/2025 2:00 PM EDT Nutrition [facility] [address] [place] [address] [place] [address] Sandra Melchor, MICHAEL [address] [address] [email or web address] documented as of this encounter Visit Diagnoses [...] documented as of this encounter Care Teams Vice President Planning Relationship Specialty Start Date End Date Dallin Flores MD [address] [place] [address], [address] [place] [address] [email or web address] PCP - General Internal Medicine 06/18/17 Jarrett Angeles MD [address] [place] [address], [address] [place] [address] [email or web address] Historical LMR Provider 02/06/17 Sangita Rivas MD [address] [place] [address] [email or web address] Historical LMR Provider 02/06/17 Dallin Flores MD [address] [place] [address], [address] [place] [address] [email or web address] Historical LMR Provider 02/06/17 Jonathan Sterling MD [address] [place] [address], [address] [place], [place] [phone] [email or web address] Historical LMR Provider 02/06/17 documented as of this encounter Additional Source Comments The information contained in this document represents components of the legal health record. It is not the complete legal health record.[facility]
--- OUTSIDE RECORDS SUMMARY | 2025-03-02 13:28 | XMS_ITS | Encounter Summary ---
Author Organization [facility] Address [address] [place] [address] Care Team Providers Care Band Sawing Machine Operator Name Role Phone Unavailable Primary Care Provider Unavailabl e Encounter Details Date Type Department Care Team (Late st Contact Info) Description 04/03/2024 Lab Requisition [facility] - Main Lab [address] [facility] [place] [address] Edvin Pham PA [address] [address] Gross hematuria Social History Tobacco [...] and pathological findings. 04/21/2024 4:03 PM EST [facility] ([facility]) [facility] Addendum electronically signed by Becky Christian MD on 04/21/2024 at 4:03 PM Final Diagnosis Urine, Voided ([id number]): Negative for high grade urothelial carcinoma. Note: UroVysion testing to follow. 04/21/2024 4:03 PM EST [facility] Clinical Information [id number] Urine cytology/urine FISH 04/21/2024 4:03 PM [facility] Gross Description A. Urine, Voided, : [id number] RECD 1 TP CYTO 1 TP FISH. 04/21/2024 4:03 PM [facility] Disclaimer Unless otherwise specified, all tissue is 10% NB formalin fixed and paraffin embedded. Technical pathology services provided by [facility] at [address] [place] [address] [address], [place] [address] (CLIA #[id number] Pittman MD, Technical Administrative Assistant) 04/21/2024 4:03 PM EST [facility] Tissue Urine specimen from urethra / Unknown 03/27/2024 04/03/2024 1:33 PM EST us Ed[facility] PATHOLOGY ORDERAB LES Edited Result - Final [facility] [address] [place] [address], documented in this encounter Visit Diagnoses Diagnosis Gross hematuria documented in this encounter
--- OUTSIDE RECORDS SUMMARY | 2025-03-02 13:29 | XMS_ITS ---
Author Organization [facility] Address [address] [place] [address] Phone Care Team Providers Care Correctional Agency Director Name Role Phone Jarrett Angeles MD Unavailable Sangita Rivas MD Unavailable [phone] Dallin Flores MD Unavailable [phone] Jonathan Sterling MD Unavailable [phone] Dallin Flores MD Primary Care Provider Active Problems Problem Noted Date Diagnosed Date Basal cell carcinoma (BCC) of skin of face 11/18 Overview (11/18/2024): October 2024 Neuropathy 11/18/2024 Overview (11/18/2024): BLE and now starting in his hands. October 2024: incr lyrica to 200mg BID H/O total colectomy 05/23/2024 Overview (05/23/2024): For IBD Around 2014 in [place] Assessment & Plan (05/23/2024 11:15 AM EST): [...] his glucose levels. Up to date with [facility]. Labs ordered and reviewed today Assessment [...] using a smart phone therese such as Cr[employer] Or [employer] to better evaluate his carb counting Encouraged to enter his carbs accurately and bolus as appropriate We did not adjust insulin pump settings today although we discussed increasing his Ozempic in the future as needed His cake decorator reports his foot pain is mostly related [...] [place] will return to meet with our nutrition educator staff in 2 months, he will [...] certainly help [place] with weight loss efforts [place] will return to meet with our nutrition educator staff in 2 months, he will [...] [place] will return to meet with our nutrition educator staff in 2 weeks, he will [...] glucose management and control Encouraged to see cake decorator for routine care of feet, we discussed [...] (07/29/2020): INR being followed at home by [facility] after hosp dc. Elevated PSA 04/09/2017 [...] smart phone therese such as LoseIt! Or [employer] to help evaluate and count carbs [...] am 10 4hrs 12pm 1:13 4:30p 1:11 [facility] current use of insulin 04/09/2017 Class 1 [...] able to return to meet with our tiler's assistant if late day appt is available, he [...]
--- OUTSIDE RECORDS SUMMARY | 2025-03-02 13:29 | XMS_ITS | Encounter Summary ---
Author Organization [facility] Address [address] [place] [address] Phone Care Team Providers Care Hospitalist Medical Director Name Role Phone Dallin Flores MD Primary Care Provider [phone] Encounter Details Date Type Department Care Team (Late st Contact Info) Description 04/10/2022 Telephone [facility] [address] [place] [id number] Neftaly Sorensen MD Social History Tobacco Use [...] on filedocumented in this encounter Care Teams Hospitalist Medical Director Relationship Specialty Start Date End Date Dallin Flores MD [address] [place] [address], [address] [place] [id number] PCP - General 05/03/20 documented as of this encounter
--- OUTSIDE RECORDS SUMMARY | 2025-03-02 13:29 | XMS_ITS | Clinical Summary ---
Author Organization [facility] Address [address] [address] Phone Care Team Providers Care Perfume Maker Name Role Phone Dallin Flores MD Primary Care Provider [phone] Allergies Active Allergy Reactions Criticality Noted Date [...] this topic Insurance Medicare Medicare Care Teams Perfume Maker Relationship Specialty Start Date End Date Dallin Flores MD [address] [place] [address], [address] [place] [address] PCP - General 05/03/20
--- OUTSIDE RECORDS SUMMARY | 2025-03-02 13:29 | XMS_ITS | Encounter Summary ---
Author Organization [facility] Address [address] [place] [address] [place] [address] Phone Care Team Providers Care Customer Marketing Assistant Name Role Phone Jarrett Angeles MD Unavailable Sangita Rivas MD Unavailable [phone] Dallin Flores MD Unavailable [phone] Jonathan Sterling MD Unavailable [phone] Dallin Flores MD Primary Care Provider [phone] Reason for Visit * Reason Onset Date Comments Medication Question 02/19/2025 Encounter Details Date Type Department Care Team (Late st Contact Info) Description 02/19/2025 Telephone [facility] [address] [address] Dallin Flores MD [address] [facility], [address] [place] [address] [email or web address] Medication Question Social History Tobacco Use Types Packs/Day Years [...] of this encounter Progress Notes * Yara Cool CNP - 02/19/2025 2:13 PM EDT I sent it to [facility] today, if they need a more urgent fill, they may need an emergency supply to the local pharmacy. I also wonder why the pharmacy wasn't actually dispensing the prescribed 15 vials * Betsey Li MA - 02/19/2025 2:09 PM EDT [place]'s stated the prescription for his insulin was cancelled at [facility]. I believe it was cancelled because we sent in a prescription to [facility] pharmacy on 12/09/24 * Yara Cool CNP - 02/19/2025 2:03 PM EDT The prescription has been written for 15 vials. Can we find out why the pharmacy has only been dispensing 10 vials? Also I sent this to [facility] but if he only has one vial left, does he needan emergency supply to the pharmacy? * Betsey Li MA - 02/19/2025 1:58 PM EDT Called and spoke with [place]'s regarding the prescription for HUMALOG U-100 INSULIN 100 unit/mL injection vial . She stated the prescription should [facility] not [facility]. She also stated that he is always short, he receives 10 vials but needs 13 vials. I asked how much insulin he is using and she doesn't know. I explained the directions state 165 units into the pod daily but she doesn't understand dosages. I informed her I would send this to yara for review.She agreed to the plan * Ubaldo Awad - 02/19/2025 1:52 PM EDT Pt called in, said he has not been receiving enough insulin, he said he needs 13 vials and not 10, he said he has made this request before. Pt has one vial left. He uses 15 units for every meal and more if his number is high. Please contact and advise. Central Support Converting Technician (Please do not reply to this user; this inbox is not monitored.) Thank you. documented in this encounter Plan of Treatment Upcoming Encounters Date Type Department Care Team (Late st Contact Info) Description 05/04/2025 11:20 AM EST Office Visit [facility] [address] [place] [address] [place] [address] Yara Cool CNP [address] [place] [address], [address] [place] [address] 08/12/2025 2:00 PM EDT Nutrition [facility] [address] [place] [address] Sandra Melchor LDN [address] [place] [address], [address] [place] [address] documented as of this encounter Visit Diagnoses Diagnosis Type 2 diabetes mellitus with diabetic mononeuropathy, with long-term current use of insulin documented in this encounter Additional Health Concerns Assessment Noted Time PHQ-2 Depression Total Score: 0 05/23/19 25 11:00 AM EST documented as of this encounter Care Teams Customer Marketing Assistant Relationship Specialty Start Date End Date Dallin Flores MD [address] [place] [address], [address] [place] [address] PCP - General Internal Medicine 06/18/17 Jarrett Angeles MD [address] [place] [address], [address] [address] Historical LMR Provider 02/06/17 Sangita Rivas MD [address] [place] [address], [address] [place] [address] Historical LMR Provider 02/06/17 Dallin Flores MD [address] [place] [address], [address] [place] [address] Historical LMR Provider 02/06/17 Jonathan Sterling MD [address] [place] [address], [address] [place] [address] Historical LMR Provider 02/06/17 documented as of this encounter Additional Source Comments The information contained in this document represents components of the legal health record. It is not the complete legal health record.[facility]
--- OUTSIDE RECORDS SUMMARY | 2025-03-02 13:29 | XMS_ITS | Clinical Summary ---
Author Organization [facility] Address [address] [place] [address] Phone Care Team Providers Care Regional Medical Director Name Role Phone Unavailable Primary Care Provider [...]
--- OUTSIDE RECORDS SUMMARY | 2025-03-02 13:29 | XMS_ITS | Encounter Summary ---
Author Organization [facility] Address [address] [place] [address] Phone Care Team Providers Care Biologist Aide Name Role Phone Jarrett Angeles MD Unavailable [phone] Sangita Rivas MD Unavailable [phone] Dallin Flores MD Unavailable [phone] Jonathan Sterling MD Unavailable [phone] Dallin Flores MD Primary Care Provider [phone] Reason for Visit * Reason Onset Date Comments Forms & Paperwork 02/26/2025 Anticoagluatio n [facility] Encounter Details Date Type Department Care Team (Late st Contact Info) Description 02/26/2025 Telephone [facility] [address] [phone] Yara Tucker MA [address] [place] [address] [email or web address] Forms & Paperwork (Anticoagluation clinic [facility] ) Social History Tobacco Use Types Packs/Day Years [...] Progress Notes * Yara Tucker MA - 02/26/2025 10:38 AM EST Received renewal for Anti-coagulation clinic. Placed in provider basket for signature. documented in this encounter Plan of Treatment Upcoming Encounters Date Type Department Care Team (Late st Contact Info) Description 05/04/2025 11:20 AM EST Office Visit [facility] [address] [place] [address] [place] [address] Yara Cool, VALENTINA [address] [place] [address] 08/12/2025 2:00 PM EDT Nutrition [facility] [address] [place] [address] Sandra Melchor LDN [address] [place] [address] documented as of this encounter Visit Diagnoses Not on filedocumented in this encounter Additional Health Concerns Assessment Noted Time PHQ-2 Depression Total Score: 0 05/23/19 25 11:00 AM EST documented as of this encounter Care Teams Biologist Aide Relationship Specialty Start Date End Date Dallin Flores MD [address] [place] [address], [address] [place] [address] PCP - General Internal Medicine 06/18/17 Jarrett Angeles MD [address] [place] [address], [address] [place] [address] Historical LMR Provider 02/06/17 Sangita Rivas MD [address] [place] [address], 1[address] [place] [address] Historical LMR Provider 02/06/17 Dallin Flores MD [address] [place] [address], [address] [address] Historical LMR Provider 02/06/17 Jonathan Sterling MD [address] [place] [address], [address] [address] Historical LMR Provider 02/06/17 documented as of this encounter Additional Source Comments The information contained in this document represents components of the legal health record. It is not the complete legal health record.[facility]
--- OUTSIDE RECORDS SUMMARY | 2025-03-02 13:29 | XMS_ITS | Clinical Summary ---
Author Organization [facility] Address [address] [place] [address] Phone Care Team Providers Care Hat Body Sorter Name Role Phone Jarrett Angeles MD Unavailable [phone] Sangita Rivas MD Unavailable [phone] Dallin Flores MD Unavailable [phone] Jonathan Sterling MD Unavailable [phone] Dallin Flores MD Primary Care Provider [phone] Allergies Active Allergy Reactions Criticality Noted Date [...] 90 capsule 3 025 Active warfarin (COUMADIN) 2.5 MG tabletIndicatio [...] WITH MEALS 180 tablet 3 025 Active warfarin (COUMADIN) 5 MG tabletIndicatio ns:Anticoagulat ed on Coumadin,Histor y of pulmonary embolus (PE) TAKE 1 TABLET DAILY 90 tablet 025 Active HUMALOG U-100 INSULIN 100 unit/mL injection vialIndications :Type 2 diabetes mellitus with diabetic mononeuropathy, with long-term current use of insulin Inject via insulin pump for total daily dose of 165 units 150 mL 3 025 Active warfarin (COUMADIN) 5 MG tabletIndicatio ns:Anticoagulat ed on Coumadin,Histor y of pulmonary embolus (PE) Take 1 tablet (5 mg total) by mouth daily. 90 tablet 025 2024 Discontinued HUMALOG U-100 INSULIN 100 unit/mL injection vialIndications :Type 2 diabetes mellitus with diabetic mononeuropathy, with long-term current use of insulin Inject via insulin pump for total daily dose of 165 units 150 mL 3 025 2024 Discontinued(R fuentes) Active Problems Problem Noted Date Diagnosed Date Basal cell carcinoma (BCC) of skin of face 11/18 Overview (11/18/2024): October 2024 Neuropathy 11/18/2024 Overview (11/18/2024): BLE and now starting in his hands. October 2024: incr lyrica to 200mg BID H/O total colectomy 05/23/2024 Overview (05/23/2024): For IBD Around 2014 in [place] Assessment & Plan (05/23/2024 11:15 AM EST): [...] his glucose levels. Up to date with [facility]. Labs ordered and reviewed today Assessment & [...] using a smart phone therese such as GetYourGuide Or [employer] to better evaluate his carb counting Encouraged to enter his carbs accurately and bolus as appropriate We did not adjust insulin pump settings today although we discussed increasing his Ozempic in the future as needed His link machine operator reports his foot pain is mostly [...] [place] will return to meet with our caddy staff in 2 months, he will return [...] [place] will return to meet with our caddy staff in 2 months, he will return [...] [place] will return to meet with our caddy staff in 2 weeks, he will return [...] glucose management and control Encouraged to see link machine operator for routine care of feet, we [...] (07/29/2020): INR being followed at home by [facility] after hosp dc. Elevated PSA [...] smart phone therese such as LoseIt! Or [employer] to help evaluate and count carbs as [...] am 10 4hrs 12pm 1:13 4:30p 1:11 terminal clerk current use of insulin 04/09/2017 Class 1 [...] able to return to meet with our batch freezer operator if late day appt is available, he [...] Encounters Date Type Department Care Team Description 02/26/2025 Telephone [facility] [address] [place] [address] Yara Tucker MA Forms & Paperwork ([facility] ) 02/19/2025 Telephone [facility] [address] [place] [address] Dallin Flores MD Medication Question 02/17/[address] [place] [address] Tita Barr CNP Medication Refill 02/16/[address] [place] [address] Dallin Flores MD Medication Question 02/04/2025 11:00 AM EDT Nutrition [facility] [address] [place] [address] Sangita Rivas MD Dawicki, Jessica Jeanne, LDN Type 2 diabetes mellitus with diabetic mononeuropathy, with long-term current use of insulin (Primary Dx) 01/02/2025 Orders Only [address] [place] [address] Unknown, Unknown, MD 12/09/[address] [place] [address] Dallin Flores MD Medication Management 12/09/[address] [place] [address] Sangita Rivas MD Medication Management 12/01/[address] [place] [address] Shabana Moreno PA-C Medication Refill from Last 3 Months Immunizations Immunization Administration [...] Description 05/04/2025 11:20 AM EST Office Visit [facility] [address] [address] Yara Cool, VALENTINA [address] [place] [address] 08/12/2025 2:00 PM EDT Nutrition [facility] [address] [place] [address] Sandra Melchor LDN [address] [place] [address] Health Maintenance Due Date Last Done Comments HEPATITIS C SCREENING 01/22/1968 BLOOD PRESSURE 05/21/2025 11/18/2024 DEPRESSION SCREENING 05/23/2025 05/23/2024 COVID-19 VACCINE ( season) 2025 12/28/2024, 12/20/2023, 01/15/2023, Additional history exists CREATININE LEVEL 08/04/2025 08/04/2024, , 01/08/2023, Additional history exists POTASSIUM LEVEL 08/04/2025 08/04/2024, 04/24, 01/08/2023, Additional history exists HEMOGLOBIN A1C 08/05/2025 02/04/2025, 10/21, 07/30/2024, Additional history exists DIABETIC EYE EXAM 12/29/2025 12/29/2024, , 06/08/2023, Additional history exists Adult Td,Tdap Booster 03/17/2034 03/17/2024 , 10/29/2019, 06/23/2018 PNEUMOCOCCAL VACCINES (50+ years) Completed 09/30/2018, 09/24/2017, 12/01/2013, Additional history exists RSV VACCINE Completed 03/21/2023, 03/20/2023 ZOSTER VACCINES Completed 02/28/2024, 11/22, 10/30/2017, Additional history exists SMOKING STATUS SCREENING (Once After 26 Yrs) Completed 11/18/2024 INFLUENZA VACCINE Completed 12/28/2024, , 01/17/2023, Additional history exists HEPATITIS A VACCINES Aged Out No long [...] Procedure Name Priority Date/Time Associated Diagnosis Comments POCT HEMOGLOBIN A1C Routine 02/04/2025 1 1:29 AM EDT Type 2 diabetes mellitus with diabetic mononeuropathy, with long-term current use of insulin HM DIABETES EYE EXAM FOR RESULT ENTRY ONLY Routine 12/29/2024 2:36 PM EDT BASIC METABOLIC PANEL (BMP) Routine 08/04/2024 11:29 AM EDT from Last 3 Months or Most Recently Relevant to Health Maintenance Results * (ABNORMAL) POCT Hemoglobin A1c (02/04/2025 11:29 AM EDT) Hemoglobin A1c 7.8(A) 4.2 - 5.6 % [employer]SEPH[employer] [facility] Other 02/04/2025 11:2 9 AM EDT us Sangita Rivas MD LAB POCT ENTER/EDIT ORDERABLES Final Result [employer] [facility] [address] [place] [address], [facility] * DIABETES EYE EXAM FOR RESULT ENTRY ONLY (12/29/2024 2:36 PM EDT) us Unknown Unknown HEALTH MAINTENANCE Edited Res ult - Final * Basic metabolic panel (08/04/2024 11:29 AM EDT) Historical Provider LAB BLOOD BKR ORDERABLES Edited Result - Final from Last 3 Months or Most Recently Relevant to Health Maintenance Insurance [place] [id number] MEDICARE PART A & B MEDICARE PART A & B MEDICARE PART A & B MEDICARE PART A & B MEDICARE PART A & [place] [address] [place] [address] INSURANCE Care Teams Hat Body Sorter Relationship Specialty Start Date End Date Dallin Flores MD [address] [place] [address], [address] [place] [address] PCP - General Internal Medicine 06/18/17 Jarrett Angeles MD [address] [place] [address], [address] [place] [address] Historical LMR Provider 02/06/17 Sangita Rivas MD [address] [place] [address], 1[address] [place] [address] Historical LMR Provider 02/06/17 Dallin Flores MD [address] [place] [address], [address] [place] [address] Historical LMR Provider 02/06/17 Jonathan Sterling MD [address] [place] [address], [address] [place] [address] Historical LMR Provider 02/06/17 Additional Source Comments The information contained in this document represents components of the legal health record. It is not the complete legal health record.[facility]
--- OUTSIDE RECORDS SUMMARY | 2025-03-02 13:29 | XMS_ITS | Encounter Summary ---
Author Organization [facility] Address [address] [place] [address] Phone Care Team Providers Care Bottler Name Role Phone Jarrett Angeles MD Unavailable [phone] Sangita Rivas MD Unavailable [phone] Dallin Flores MD Unavailable [phone] Jonathan Sterling MD Unavailable [phone] Dallin Flores MD Primary Care Provider [phone] Encounter Details Date Type Department Care Team (Late st Contact Info) Description 12/12/2021 Procedure Pass [address] [address] Social History Tobacco Use Types Packs/Day Years [...] Description 05/04/2025 11:20 AM EST Office Visit [facility] [address] [place] [address] Yara Cool, VALENTINA [address] [facility] [place], [place] [id number] 08/12/2025 2:00 PM EDT Nutrition [facility] [address] [place] [address] Sandra Melchor, MICHAEL [address] [facility], [address] [place] [address] documented as of this encounter Visit Diagnoses [...] documented as of this encounter Care Teams Bottler Relationship Specialty Start Date End Date Dallin Flores MD [address] [place] [address], [address] [place] [address] PCP - General Internal Medicine 06/18/17 Jarrett Angeles MD [address] [place] [address], [address] [place] [address] Historical LMR Provider 02/06/17 Sangita Rivas MD [address] [place] [address], [address] [place] [address] Historical LMR Provider 02/06/17 Dallin Flores MD [address] [place] [address], [address] [place] [address] [email or web address] Historical LMR Provider 02/06/17 Jonathan Sterling MD [address] [place] [address], [address] [place] [address] [email or web address] Historical LMR Provider 02/06/17 documented as of this encounter Additional Source Comments The information contained in this document represents components of the legal health record. It is not the complete legal health record.[facility]
== END 2025-03-02 11:33 | disposition home or self-care (01) ==
LOC: HO.ACS 11:09
PROVIDERS: PCP Internal Medicine; Visit Provider Internal Medicine Medical Oncology
DX: Z79.01 Long term (current) use of anticoagulants (principal)

== ENCOUNTER → 2025-03-02 11:09 | Outpatient (BNVA) | payer MEDICARE, SELFPAY | PROVIDERS: PCP Internal Medicine; Visit Provider Internal Medicine Medical Oncology | DX: I26.99 Other pulmonary embolism without acute cor pulmonale (principal); Z51.81 Encounter for therapeutic drug level monitoring; Z79.01 Long term (current) use of anticoagulants | CPT/HCPCS: 85610; 99211 ==

== ENCOUNTER 2025-03-05 13:27 | Outpatient (REF) | payer MEDICARE, SELFPAY ==
[2025-03-05 15:06] LABS: Appearance Urine Clear; Glucose Urine UA >=1000 mg/dL (Negative); PH 5.0 (5.0-9.0); Specific Gravity - Urine 1.025 (1.005-1.025); UMIC TRIGGER UA YES
[2025-03-05 15:31] LABS: Total Protein Urine Random 32 mg/dL (<12)
[2025-03-05 15:35] LABS: Anion Gap 11 (12-20); Blood Urea Nitrogen 29 mg/dL (9-16); Calcium 9.6 mg/dL (8.4-10.2); Carbon Dioxide 22 mmol/L (22-29); Chloride 113 mmol/L (96-108); Estimated Glomerular Filt Rate 53; Potassium 4.4 mmol/L (3.3-5.1); Sodium 142 mmol/L (135-145)
--- OUTSIDE RECORDS SUMMARY | 2025-03-05 16:46 | XMS_ITS | Encounter Summary ---
Author Organization [facility] Address [address] [place] [address] Phone Care Team Providers Care Personnel Placement Specialist Name Role Phone Dallin Flores MD Primary Care Provider [phone] Encounter Details Date Type Department Care Team (Late st Contact Info) Description 09/15/2020 Orders Only [facility] [address] [place] [phone] Neftaly Sorensen MD Stage 3a chronic kidney [...] (HCC) documented in this encounter Care Teams Personnel Placement Specialist Relationship Specialty Start Date End Date Dallin Flores MD [address] [place] [address], [address] [place], [place] [phone] PCP - General 05/03/20 documented as of this encounter
--- OUTSIDE RECORDS SUMMARY | 2025-03-05 16:47 | XMS_ITS | Encounter Summary ---
Author Organization [facility] Address [address] [place] [address] Phone Care Team Providers Care Casting House Laborer Name Role Phone Dallin Flores MD Primary Care Provider Encounter Details Date Type Department Care Team (Late st Contact Info) Description 04/10/2022 Telephone [facility] [address] [place] [phone] Neftaly Sorensen MD Social History Tobacco Use [...] on filedocumented in this encounter Care Teams Casting House Laborer Relationship Specialty Start Date End Date Dallin Flores MD [address] [place] [address], [address] [place] [phone] PCP - General 05/03/20 documented as of this encounter
--- OUTSIDE RECORDS SUMMARY | 2025-03-05 16:47 | XMS_ITS | Encounter Summary ---
Author Organization [facility] Address [address] [place] [address] Phone Care Team Providers Care Social Worker Name Role Phone Jarrett Angeles MD Unavailable Sangita Rivas MD Unavailable [phone] Dallin Flores MD Unavailable [phone] Jonathan Sterling MD Unavailable [phone] Dallin Flores MD Primary Care Provider Encounter Details Date Type Department Care Team (Late st Contact Info) Description 07/08/[address] [phone] Dallin Flores MD 22 [facility], [address] [place] [address] [email or web address] Social History Tobacco Use Types Packs/Day Years [...] Description 05/04/2025 11:20 AM EST Office Visit [facility] [address] [place] [address] [place] [address] Yara Cool, ASSISTANT CITY ATTORNEY [address] [address] 08/12/2025 2:00 PM EDT Nutrition [facility] [address] [place] [address] [place] [address] Sandra Melchor, MICHAEL [address] [address] [email or web address] documented as of this encounter Visit Diagnoses [...] documented as of this encounter Care Teams Social Worker Relationship Specialty Start Date End Date Dallin Flores MD [address] [place] [address], [address] [place] [address] [email or web address] PCP - General Internal Medicine 06/18/17 Jarrett Angeles MD [address] [place] [address], [address] [place] [address] [email or web address] Historical LMR Provider 02/06/17 Sangita Rivas MD [address] [place] [address] [email or web address] Historical LMR Provider 02/06/17 Dallin Flores MD [address] [place] [address], [address] [place] [address] [email or web address] Historical LMR Provider 02/06/17 Jonathan Sterling MD [address] [place] [address], [address] [place], [place] [phone] [email or web address] Historical LMR Provider 02/06/17 documented as of this encounter Additional Source Comments The information contained in this document represents components of the legal health record. It is not the complete legal health record.[facility]
--- OUTSIDE RECORDS SUMMARY | 2025-03-05 16:47 | XMS_ITS | Patient Health Record ---
Author Organization [facility] Address [address] [place] [address] Care Team Providers Care Mechanic Welder Truck Driver Name Role Phone Dallin Flores Primary Care Provider Stefan Pedroza Unavailable [phone] Ruchi Castro Unavailable [phone] Allergies No Known Allergies Results Component Value Reference Range Notes HEMOGLOBIN A1C (GLYCOHEMOGLO BIN) Reviewed date:03/18/2024 10:51:47 AM Interpretation: Performing Lab: Notes/Report: TOTAL HEMOGLOBIN (HGBA1C) 7.8 HEMOGLOBIN A1C (GLYCOHEMOGLO BIN) Reviewed date:08/01/2024 11:29:42 AM Interpretation: Performing Lab: Notes/Report: HEMOGLOBIN A1C % (HH) 7.4 HEMOGLOBIN A1C (GLYCOHEMOGLO BIN) Reviewed date:11/07/2024 11:11:06 AM Interpretation: Performing Lab: Notes/Report: HEMOGLOBIN A1C % (HH) 7.5 HEMOGLOBIN A1C (GLYCOHEMOGLO BIN) Reviewed date:02/10/2025 11:06:33 AM Interpretation: Performing Lab: Notes/Report: HEMOGLOBIN A1C % (HH) 7.8 Reason For Referral No Information Medications Medication SIG (Take, Route, Frequency, Duration) Notes Start Date End Date Status Simvastatin 10 MG 1 tablet in the evening Orally Once a day; Duration: 30 day(s) Not-Taking Loperamide HCl 2 MG 1 tablet as needed Orally Four times a day 01/01/2019 Not-Taking metFORMIN HCl 1000 MG 1 tablet with a meal Orally Once a day; Duration: 30 day(s) 01/01/2019 Not-Taking Omeprazole 20 MG 1 capsule Orally Onc e a day; Duration: 30 day(s) Not-Taking Pregabalin Not-Takin g Ozempic Not-Taking Lisinopril 10 MG 1 tablet Orally Once a day; Duration: 30 day(s) 01/01/2019 Not-Taking Folic Acid 1 MG 1 tablet Orally Once a day; Duration: 30 day(s) Not-Taking amLODIPine Besy-Benazepril HCl 2.5-10 MG as directed Orally Not-Takin g Ciclopirox 0.77 % 1 application thin film topically to nails Externally Once a day; Duration: 30 days Active Clindamycin HCl Acti ve Custom Orthotics as directed A ctive Folic Acid 1 MG 1 tablet Orally Once a day; Duration: 30 day(s) Active Extra Depth Orthopedic Shoes (1 Pair) with Customized Heat Molded Multidensity Innersoles (3 Pair) as directed Dx: IDDM/Polyneuropathy (E10.42), Hammertoe Foot Deformity (M20.41,M20.42), Preulcerative Skin Lesion(s) (L85.1) 08/01/2024 Active Insulin pump Active Pregabalin 150 MG 1 capsule Orally Onc e a day Active Simvastatin 10 MG 1 tablet in the evening Orally Once a day; Duration: 30 day(s) Active Warfarin Sodium 5 MG 1 tablet Orally Onc e a day; Duration: 30 day(s) Active amLODIPine Besylate 2.5 MG 1 tablet Orally Once a day; Duration: 30 day(s) Active Warfarin Sodium 2.5 MG 1 tablet Orally Once a day; Duration: 30 day(s) sun, sun, sun Active Lisinopril 10 MG 1 tablet Orally Once a day; Duration: 30 day(s) Active Loperamide HCl 2 MG 1 tablet as needed Orally Four times a day Active metFORMIN HCl 1000 MG 1 tablet with a meal Orally Once a day; Duration: 30 day(s) Active Omeprazole 20 MG 1 capsule Orally Onc e a day; Duration: 30 day(s) Active Extra Depth Orthopedic Shoes (1 Pair) with Customized Heat Molded Multidensity Innersoles (3 Pair) as directed Dx: IDDM/Polyneuropathy (E10.42), Hammertoe Foot Deformity (M20.41,M20.42), Preulcerative Skin Lesion(s) (L85.1) 01/14/2019 Not-Taking Work Note . . . return to work o n 01/23/19 01/14/2019 Not-Taking Immunizations Vaccine Route Administration Date Status Comme nts COVID-19 Pfizer BioNTech Vaccine Unknown 01/18/2025 Adm inistered Influenza Unknown 12/24/2023 Administered Influenza Unknown 01/18/2025 Administered Social History Tobacco Use: Social History [...] Polyneuropathy due to type 2 diabetes mellitus ([id number]) Type 2 diabetes mellitus with diabetic polyneuropathy (E11.42) Active confirmed Vital Signs Heart Rate 71 /min 02/10/2025 Blood pressure diastolic 69 R mm Hg 02/10/2025 Height 5ft 7in in 02/10/2025 Blood pressure systolic 120 mm Hg 02/10/2025 Weight 230 lbs 02/10/2025 BMI 36.02 kg/m2 02/10/2025 Procedures Procedure Date Ordered Date Performed Result Body Sit e 12423-FGPCAHW NAIL, 6 OR MORE 03/18/2024 N/A 24356-OTPR SKIN LESIONS, OVER 4 03/18/2024 N/A Encounters Encounter Location Date Provider Diagnosis [address] [address] 03/18/2024 Ruchi Castro Type 2 diabetes mellitus with diabetic polyneuropathy E11.42 and Tinea unguium B35.[address] [address] 08/01/2024 Ruchi Castro Other hammer toe(s) (acquired), right foot M20.41 ; Other hammer toe(s) (acquired), left foot M20.42 ; Type 2 diabetes mellitus with diabetic polyneuropathy E11.42 and Tinea unguium B35.1 [address] [place] [address] 11/07/2024 Ruchi Castro Onychomycosis B35.1 and Type 2 diabetes mellitus with diabetic polyneuropathy E11.42 [facility] [address] [address] 02/10/2025 Ruchi Castro Onychomycosis B35.1 and Type 2 [...] INSTRUCTIONS. pdf) 11/07/2024 Onychomycosis (ICD-10 - B35.1) 02/10/2025 Onychomycosis (ICD-10 - B35.1) 02/10/2025 Type 2 diabetes mellitus with diabetic polyneuropathy (ICD-10 - E11.42) 11/07/2024 Type 2 diabetes mellitus with diabetic [...] X ray : Foot, right 3V 06/17/2019 85648-DIVCMXA NAIL, 6 OR MORE 03/18/2024 18396- I&D ABSCESS-COMPLICATED,MULTI 02/2019 64608-HYIV SKIN LESIONS, OVER 4 01/15/20 19 23754-XUKQ SKIN LESIONS, OVER 4 02/29/20 22 23494-PTZZ SKIN LESIONS, OVER 4 08/30/19 23 15433-VTVD SKIN LESIONS, OVER 4 03/18/20 24 , V3555-LJSRP/INJECT, JOINT/BURSA 0 06/17/2019 Next Appt Details Provider Name:Ruchi chamberlain, 05/19/2025 10:30:00 AM, [address] [facility], [address], [place], [address], Insurance Providers Payer Name Payer Address Payer Phone Subscriber Number Group Number Insured Name Patient Relationship to Insured Coverage Start Date Coverage End Date Medicare National Govt [facility] [address] [facility] [place] [address] [id number] Fede Estrada Self - patient is the [...] 025 [facility]- wire caught on leg 01/2024 [facility]- Infected toe 01/2019
--- OUTSIDE RECORDS SUMMARY | 2025-03-05 16:47 | XMS_ITS | Encounter Summary ---
Author Organization [facility] Address [address] [place] [address] Phone Care Team Providers Care Faculty I On Call Medical Assistant Name Role Phone Jarrett Angeles MD Unavailable Sangita Rivas MD Unavailable [phone] Dallin Flores MD Unavailable [phone] Jonathan Sterling MD Unavailable [phone] Dallin Flores MD Primary Care Provider [phone] Reason for Visit * Reason Onset Date Comments Forms & Paperwork 02/26/2025 Anticoagluatio n [facility] Encounter Details Date Type Department Care Team (Late st Contact Info) Description 02/26/2025 Telephone [employer] [address] [phone] Yara Tucker MA [address] [place] [address] [email or web address] Forms & Paperwork (Anticoagluation clinic [facility] ) Social History Tobacco Use Types Packs/Day [...] Progress Notes * Yara Tucker MA - 03/02/2025 4:53 PM EST Faxed signed orders. Placed in scan bin to be scanned into chart. * Yara Tucker MA - 02/26/2025 10:38 AM EST Received renewal for Anti-coagulation clinic. Placed in provider basket for signature. documented in this encounter Plan of Treatment Upcoming Encounters Date Type Department Care Team (Late st Contact Info) Description 05/04/2025 11:20 AM EST Office Visit [facility] [address] [place] [address] Yara Cool CNP [address] [place] [address], 1[address] [place] [address] 08/12/2025 2:00 PM EDT Nutrition [address] [place] [address] Sandra Melchor LDN 22 [facility], [address] [place] [address] documented as of this encounter Visit Diagnoses Not on filedocumented in this encounter Additional Health Concerns Assessment Noted Time PHQ-2 Depression Total Score: 0 05/23/19 25 11:00 AM EST documented as of this encounter Care Teams Faculty I On Call Medical Assistant Relationship Specialty Start Date End Date Dallin Flores MD 22 [facility], [address] [place] [address] PCP - General Internal Medicine 06/18/17 Jarrett Angeles MD [address] [place] [address], [address] [address] Historical LMR Provider 02/06/17 Sangita Rivas MD 22 [facility], [address] [place] [address] Historical LMR Provider 02/06/17 Dallin Flores MD [address] [place] [address], [address] [address] Historical LMR Provider 02/06/17 Jonathan Sterling MD [address] [place] [address], [address] [address] Historical LMR Provider 02/06/17 documented as of this encounter Additional Source Comments The information contained in this document represents components of the legal health record. It is not the complete legal health record.[facility]
--- OUTSIDE RECORDS SUMMARY | 2025-03-05 16:47 | XMS_ITS | Clinical Summary ---
Author Organization [address] [facility] Address [address] [place] [address] Phone Care Team Providers Care Mobile Sales Assistant Name Role Phone Unavailable Primary Care Provider Unavailabl e Surgical History Surgery Date Site/Laterality Comments OTHER SURGICAL HISTORY PROCEDURE: NC UVULECTOMY EXCISION UVULA; COMMENT: for sleep apnea [...] (HGBA1C) 04/06/2022 Depression Screening 04/23/2024 COVID-19 Vaccine ( - 2024-2 6 season) 2024 Influenza Vaccine (#1) 2024 RSV [...]
--- OUTSIDE RECORDS SUMMARY | 2025-03-05 16:47 | XMS_ITS | Encounter Summary ---
Author Organization [facility] Address [address] [place] [address] Care Team Providers Care Wearing Apparel Shaker Name Role Phone Unavailable Primary Care Provider Unavailabl e Encounter Details Date Type Department Care Team (Late st Contact Info) Description 04/03/2024 Lab Requisition [facility] - Main Lab [address] [facility] [place] [address] Edvin Pham PA [address] [address] Gross hematuria Social History Tobacco [...] [facility]) [facility] Addendum electronically signed by Becky Christian MD on 04/21/2024 at 4:03 PM Final Diagnosis Urine, Voided ([id number]): Negative for high grade urothelial carcinoma. Note: UroVysion testing to follow. 04/21/2024 4:[address] [facility] Clinical Information [id number] Urine cytology/urine FISH 04/21/2024 4:03 PM [facility] Gross Description A. Urine, Voided, : [id number] RECD 1 TP CYTO 1 TP FISH. 04/21/2024 4:03 PM [facility] Disclaimer Unless otherwise specified, all tissue is 10% NB formalin fixed and paraffin embedded. Technical pathology services provided by [facility] at [address] [place] [address] [address], [place] [address] (CLIA #[id number]/July Pittman MD, Dba Developer) 04/21/2024 4:[address] [facility] Tissue Urine specimen from urethra / Unknown 03/27/2024 04/03/2024 1:33 PM EST us [facility] PATHOLOGY ORDERAB LES Edited Result - Final [facility] [address] [place] [address], documented in this encounter Visit Diagnoses Diagnosis Gross hematuria documented in this encounter
--- OUTSIDE RECORDS SUMMARY | 2025-03-05 16:47 | XMS_ITS | Encounter Summary ---
Author Organization [facility] Address [address] [place] [address] [place] [address] Phone Care Team Providers Care Roof Plumber Name Role Phone Jarrett Angeles MD Unavailable Sangita Rivas MD Unavailable [phone] Dallin Flores MD Unavailable [phone] Jonathan Sterling MD Unavailable [phone] Dallin Flores MD Primary Care Provider Reason for Visit * Reason Onset Date Comments Medication Question 02/19/2025 Encounter Details Date Type Department Care Team (Late st Contact Info) Description 02/19/2025 Telephone [facility] [address] [address] Dallin Flores MD 22 [facility], [address] [place] [address] [email or web address] Medication Question Social History Tobacco Use Types [...] 2:13 PM EDT I sent it to [facility] today, if they need a more urgent fill, they may need an emergency supply to the local pharmacy. I also wonder why the pharmacy wasn't actually dispensing the prescribed 15 vials * Betsey Li MA - 02/19/2025 2:09 PM EDT [place] stated the prescription for his insulin was cancelled at [facility]. I believe it was cancelled because we sent in a prescription to [facility] on 12/09/24 * Yara Cool CNP - 02/19/2025 2:03 PM EDT The prescription has been written for 15 vials. Can we find out why the pharmacy has only been dispensing 10 vials? Also I sent this to [facility], but if he only has one vial [...] high. Please contact and advise. Central Support Brush And Broom Clipper (Please do not reply to this user; this inbox is not monitored.) Thank you. documented in this encounter Plan of Treatment Upcoming Encounters Date Type Department Care Team (Late st Contact Info) Description 05/04/2025 11:20 AM EST Office Visit [facility] [address] [place] [address] [place] [address] Yara Cool CNP [address] [place] [address], [address] [place] [address] 08/12/2025 2:00 PM EDT Nutrition [facility] [address] [place] [address] Sandra Melchor LDN [address] [place] [address], [address] [place] [address] documented as of this encounter Visit Diagnoses Diagnosis Type 2 diabetes mellitus with diabetic mononeuropathy, with long-term current use of insulin documented in this encounter Additional Health Concerns Assessment Noted Time PHQ-2 Depression Total Score: 0 05/23/19 25 11:00 AM EST documented as of this encounter Care Teams Roof Plumber Relationship Specialty Start Date End Date Dallin Flores MD [address] [place] [address], [address] [place] [address] PCP - General Internal Medicine 06/18/17 Jarrett Angeles MD [address] [place] [address], [address] [address] Historical LMR Provider 02/06/17 Sangita Rivas MD [address] [place] [address], [address] [place] [address] Historical LMR Provider 02/06/17 Dallin Flores MD [address] [place] [address], [address] [place] [address] Historical LMR Provider 02/06/17 Jonathan Sterling MD [address] [place] [address], [address] [place] [address] Historical LMR Provider 02/06/17 documented as of this encounter Additional Source Comments The information contained in this document represents components of the legal health record. It is not the complete legal health record.[facility]
--- OUTSIDE RECORDS SUMMARY | 2025-03-05 16:48 | XMS_ITS ---
Author Organization [facility] Address [address] [place] [address] Phone Care Team Providers Care Bridal Service Sales And Management Name Role Phone Jarrett Angeles MD Unavailable [phone] Sangita Rivas MD Unavailable [phone] Dallin Flores MD Unavailable [phone] Jonathan Sterling MD Unavailable [phone] Dallin Flores MD Primary Care Provider Active Problems Problem Noted Date Diagnosed Date Basal cell carcinoma (BCC) of skin of face 11/18 Overview (11/18/2024): October 2024 Neuropathy 11/18/2024 Overview (11/18/2024): BLE and now starting in his hands. October 2024: incr lyrica to 200mg BID H/O total colectomy 05/23/2024 Overview (05/23/2024): For IBD Around 2014 in [place] Assessment & Plan (05/23/2024 11:15 AM EST): [...] glucose levels. Up to date with [facility]. Labs ordered and reviewed today Assessment & [...] using a smart phone therese such as [employer] Or [employer] to better evaluate his carb counting Encouraged to enter his carbs accurately and bolus as appropriate We did not adjust insulin pump settings today although we discussed increasing his Ozempic in the future as needed His crm specialist reports his foot pain is mostly related [...] [place] will return to meet with our processing clerk staff in 2 months, he will return [...] [place] will return to meet with our processing clerk staff in 2 months, he will return [...] [place] will return to meet with our processing clerk staff in 2 weeks, he will return [...] glucose management and control Encouraged to see crm specialist for routine care of feet, we discussed [...] (07/29/2020): INR being followed at home by [facility] after hosp dc. Elevated [...] smart phone therese such as [employer] Or [employer] to help evaluate and count carbs as [...] am 10 4hrs 12pm 1:13 4:30p 1:11 nursing home current use of insulin 04/09/2017 Class 1 [...] able to return to meet with our chemistry technologist if late day appt is available, he [...]
--- OUTSIDE RECORDS SUMMARY | 2025-03-05 16:48 | XMS_ITS | Clinical Summary ---
Author Organization [facility] Address [address] [address] Phone Care Team Providers Care Liquor Gallery Operator Name Role Phone Dallin Flores MD Primary Care Provider [phone] Allergies Active Allergy Reactions Criticality Noted Date [...] (08/04/2020): INR being followed at home by [facility] after hosp dc. Gastroesophageal reflux [...] this topic Insurance Medicare Medicare Care Teams Liquor Gallery Operator Relationship Specialty Start Date End Date Dallin Flores MD [address] [place] [address], [address] [place] [address] PCP - General 05/03/20
--- OUTSIDE RECORDS SUMMARY | 2025-03-05 16:48 | XMS_ITS | Clinical Summary ---
Author Organization [facility] Address [address] [place] [address] Phone Care Team Providers Care Commercial Pilot Name Role Phone Jarrett Angeles MD Unavailable Sangita Rivas MD Unavailable [phone] Dallin Flores MD Unavailable [phone] Jonathan Sterling MD Unavailable [phone] Dallin Flores MD Primary Care Provider [phone] Allergies Active Allergy Reactions Criticality Noted Date [...] Overview (05/23/2024): For IBD Around 2014 in [place] Assessment & Plan (05/23/2024 11:15 AM EST): [...] his glucose levels. Up to date with [facility]. Labs ordered and reviewed today Assessment & [...] using a smart phone therese such as [employer]dot[employer] Or Nightpro to better evaluate his carb counting Encouraged to enter his carbs accurately and bolus as appropriate We did not adjust insulin pump settings today although we discussed increasing his Ozempic in the future as needed His glass blowing instructor reports his foot pain is mostly related [...] [place] will return to meet with our dcs engineer staff in 2 months, he will return [...] [place] will return to meet with our dcs engineer staff in 2 months, he will return [...] [place] will return to meet with our dcs engineer staff in 2 weeks, he will return [...] glucose management and control Encouraged to see glass blowing instructor for routine care of feet, we discussed [...] (07/29/2020): INR being followed at home by [facility] after hosp dc. Elevated PSA 04/09/2017 [...] smart phone therese such as LoseIt! Or CalorieChloe + Isabel to help evaluate and count carbs as [...] am 10 4hrs 12pm 1:13 4:30p 1:11 mattress stuffer current use of insulin 04/09/2017 Class 1 [...] able to return to meet with our letterset press set up operator if late day appt is available, [...] Department Care Team Description 02/26/2025 Telephone [facility] [address] [place] [address] Yara Tucker MA Forms & Paperwork ([facility] ) 02/19/2025 Telephone [facility] [address] [place] [address] Dallin Flores MD Medication Question 02/17/[address] [place] [address] Tita Barr CNP Medication Refill 02/16/[address] [place] [address] Dallin Flores MD Medication Question 02/04/2025 11:00 AM EDT Nutrition [facility] Diabetes [address] [place] [address] Sangita Rivas MD Dawicki, Sandra Landry, MICHAEL Type 2 diabetes mellitus with diabetic mononeuropathy, with long-term current use of insulin (Primary Dx) 01/02/2025 Orders Only [address] [place] [address] Unknown, Unknown, MD 12/09/[address] [place] [address] Dallin Flores MD Medication Management 12/09/[address] [place] [address] Sangita Rivas MD Medication Management from Last 3 Months Immunizations Immunization Administration [...] Description 05/04/2025 11:20 AM EST Office Visit [facility] [address] [address] Yara Cool, HOUSEMAID [address] [place] [address] 08/12/2025 2:00 PM EDT Nutrition [facility] [address] [address] Sandra Melchor, MICHAEL [address] [place] [address] Health Maintenance Due Date Last Done Comments [...] patient's age to complete this topic IPV VACCINES Aged Out No longer eligi ble [...] POCT Hemoglobin A1c (02/04/2025 11:29 AM EDT) [facility] Signature Hemoglobin A1c 7.8(A) 4.2 - 5.6 % [employer] [facility] Other 02/04/2025 11:2 9 AM EDT us Sangita Rivas MD LAB POCT ENTER/EDIT ORDERABLES Final Result [employer] [facility] [address] [facility] [place] [address], [facility] * DIABETES EYE EXAM FOR RESULT ENTRY ONLY (12/29/2024 2:36 PM EDT) us Unknown Unknown HEALTH MAINTENANCE Edited Res ult - Final * Basic metabolic panel (08/04/2024 11:29 AM EDT) us Historical Provider LAB BLOOD BKR ORDERABLES Edited Result - Final from Last 3 Months or Most Recently Relevant to Health Maintenance Insurance [place] [id number] MEDICARE PART A & B MEDICARE PART A & B MEDICARE PART A & B MEDICARE PART A & B MEDICARE PART A & [place] [address] [place] [address] INSURANCE Care Teams Commercial Pilot Relationship Specialty Start Date End Date Dallin Flores MD [address] [place] [address], [address] [place] [address] PCP - General Internal Medicine 06/18/17 Jarrett Angeles MD [address] [place] [address], [address] [place] [address] Historical LMR Provider 02/06/17 Sangita Rivas MD [address] [place] [address], 1[address] [place] [address] Historical LMR Provider 02/06/17 Dallin Flores MD [address] [place] [address], [address] [place] [address] Historical LMR Provider 02/06/17 Jonathan Sterling MD [address] [place] [address], [address] [place] [address] Historical LMR Provider 02/06/17 Additional Source Comments The information contained in this document represents components of the legal health record. It is not the complete legal health record.[facility]
--- OUTSIDE RECORDS SUMMARY | 2025-03-05 16:48 | XMS_ITS | Encounter Summary ---
Author Organization [facility] Address [address] [place] [address] Phone Care Team Providers Care Wastewater Treatment Supervisor Name Role Phone Jarrett Angeles MD Unavailable [phone] Sangita Rivas MD Unavailable [phone] Dallin Flores MD Unavailable [phone] Jonathan Sterling MD Unavailable [phone] Dallin Flores MD Primary Care Provider [phone] Encounter Details Date Type Department Care Team (Late st Contact Info) Description 12/12/2021 Procedure Pass [address] [address] Social History Tobacco Use Types Packs/Day Years [...] Description 05/04/2025 11:20 AM EST Office Visit [facility] [address] [place] [address] Yara Cool, VALENTINA 22 [facility], [address] [place], [place] [phone] 08/12/2025 2:00 PM EDT Nutrition [facility] [address] [place] [address] Sandra Melchor, MICHAEL 22 [facility], [address] [place] [address] documented as of this encounter Visit Diagnoses [...] documented as of this encounter Care Teams Wastewater Treatment Supervisor Relationship Specialty Start Date End Date Dallin Flores MD [address] [place] [address], [address] [place] [address] PCP - General Internal Medicine 06/18/17 Jarrett Angeles MD [address] [place] [address], [address] [place] [address] Historical LMR Provider 02/06/17 Sangita Rivas MD [address] [place] [address], [address] [place] [address] Historical LMR Provider 02/06/17 Dallin Flores MD [address] [place] [address], [address] [place] [address] [email or web address] Historical LMR Provider 02/06/17 Jonathan Sterling MD [address] [place] [address], [address] [place] [address] [email or web address] Historical LMR Provider 02/06/17 documented as of this encounter Additional Source Comments The information contained in this document represents components of the legal health record. It is not the complete legal health record.[facility]
== END 2025-03-05 13:28 | disposition home or self-care (01) ==
LOC: HO.LAB 13:27
PROVIDERS: PCP Internal Medicine; Visit Provider Internal Medicine Hypertension Specialist
DX: N18.9 Chronic kidney disease, unspecified (principal)
CPT/HCPCS: 36415; 80048; 81001; 81003; 82570; 84156; 85610; 99211

== ENCOUNTER 2025-03-05 13:53 | Outpatient (AMB) | payer MEDICARE, SELFPAY ==
[2025-03-05 14:00] LABS: Prothrombin Time Whole Bld POC 42.3 sec (11.1-13.5); ~PT, ~INR - Anti Coag Clinic 3.5 (0.9-1.1)
--- NOTE | 2025-03-05 14:07 | MHC.OFFVISCO ---
Intake Intake Visit Reasons: Anticoagulation Allergies No Known Allergies Allergy (Mild, Verified 03/05/25 13:55) N/A Medication List - Last Reconciled 03/05/25 by Cintia Martel RN atorvastatin 20 mg PO DAILY cetirizine 10 mg PO DAILY enoxaparin mg See Protocol subcut Held on 03/02/25. Instructions: Doctor's Order ergocalciferol (vitamin D2) PO DAILY fluticasone propionate 50 mcg/actuation 1 spray intranasal DAILY folic acid 0.8 mg PO DAILY hydrochlorothiazide 12.5 mg PO DAILY insulin lispro subcut ketoconazole 2% topical lisinopril 5 mg PO DAILY loperamide 4 mg PO BID PRN magnesium glycinate 400 mg PO DAILY metformin 1,000 mg PO BID omeprazole 20 mg PO DAILY pregabalin 150 mg PO BID tamsulosin 0.8 mg PO DAILY warfarin 2.5 mg See Protocol PO DAILY warfarin 5 mg See Protocol PO DAILY Nursing Note INR: 3.5 out of therapeutic range of 2-3 S/P Laser eye surgery yesterday. States it went well. No complications. Medications and supplements reviewed Patient status: feels well Medications or supplements: no changes Diet: usual diet for pt Denies any signs and symptoms of bleeding or clotting or unusual bruising Bleeding, bruising, clotting discussed Nutritional guidance given: to have a serving of greens today. States he will have broccoli. Dose: hold today's dose of 5mg then weekly dose decreased by 2.5mg. Pt will take 5mg X 5 days and 7.5mg X 2 days (Mon & Thurs) F/U INR Date: 2 weeks, 03/17/25?? Patient verbalizing understanding of instructions with read back given. Anti-Coag Initial Assessment Social Hx Patient Tobacco Use Status: Never used Tobacco alcohol intake: never Coding Level of Care Code Est Patient Level 1 Diagnoses Current use of anticoagulant therapy Z79.01 Results AMB INR Fingerstick AMB INR Fingerstick 3.5 Last Edit by Cintia Martel RN on 03/05/25 14:11 interface delay Assessment & Plan Assessment & Plan (1) Current use of anticoagulant therapy: Code(s): Z79.01 - adjunct faculty for medical terminology (current) use of anticoagulants Category: Medical
== END 2025-03-05 14:18 | disposition home or self-care (01) ==
LOC: HO.ACS 13:53
PROVIDERS: PCP Internal Medicine; Visit Provider Internal Medicine Medical Oncology
DX: Z79.01 Long term (current) use of anticoagulants (principal)

== ENCOUNTER 2025-03-06 11:16 | Outpatient (AMB) | payer MEDICARE, SELFPAY ==
[2025-03-06 11:23] VITALS: BP 152/60; PULSE 75; O2SAT 97; BMI 38.1
--- NOTE | 2025-03-06 11:23 | HO.NEPHOV_ITS ---
Vital Signs 03/06/25 11:23 03/06/25 11:30 Height 5 ft 6 in Weight 236 lb BMI 38.1 BP 152/60 H 124/60 Blood Pressure Location Rt brachial Rt brachial Position Sitting Sitting Pulse 75 Pulse Source Pulse Oximeter Pulse Oximetry (%) 97 Oxygen Delivery Method Room Air Intake Visit Reasons: 6 Month F/U Go Go Dancer Required: No Accompanied by: Self / Same As Patient Allergies No Known Allergies Allergy (Mild, Verified 03/06/25 11:24) N/A Medication List - Last Reconciled 03/06/25 by Neftaly Sorensen MD atorvastatin 20 mg PO DAILY cetirizine 10 mg PO DAILY enoxaparin mg See Protocol subcut Held on 03/02/25. Instructions: Doctor's Order ergocalciferol (vitamin D2) PO DAILY fluticasone propionate 50 mcg/actuation 1 spray intranasal DAILY folic acid 0.8 mg PO DAILY hydrochlorothiazide 12.5 mg PO DAILY insulin lispro subcut ketoconazole 2% topical lisinopril 5 mg PO DAILY loperamide 4 mg PO BID PRN magnesium glycinate 400 mg PO DAILY metformin 1,000 mg PO BID omeprazole 20 mg PO DAILY pregabalin 150 mg PO BID tamsulosin 0.8 mg PO DAILY warfarin 2.5 mg See Protocol PO DAILY warfarin 5 mg See Protocol PO DAILY HPI Comments Details: Fede is a 73-year-old man with history of hypertension diabetes mellitus and chronic kidney disease. He was usually in [facility] for a insect bite in his legs. He was asked to go for renal follow-up. He was seen by me for the last several years in my previous practice and he has decided to stay with me. He is unhappy with the care provided by the nurse practitioner at [facility] 04/21/24 4 weeks ago he had hematuria Painless Underwent CT and Cystoscopy - reportedly normal Currently resolved 09/02/24 74-year-old male presenting with follow-up care for a recently resolved in testinal obstruction and management of chronic hypertension and diabetes. The intestinal obstruction occurred approximately two weeks ago, characterized by a three-day inability to pass stool despite food intake, and was treated with an NG tube without surgical intervention. Since the procedure, there have been no further gastrointestinal complaints. His Type 2 Diabetes Mellitus is currently managed with Metformin, showing good control with a last reported Hemoglobin A1c of 6.1%. The patient is averse to using newer medications such as Jardiance due to cost. His blood pressure occasionally reads high but typically stabilizes, suggesting fluctuating yet mostly controlled hypertension. 03/06/25 The patient is a 75-year-old male presenting with hypertension and associated symptoms. The patient has a history of hypertension and hematuria. Recent laboratory tests show stable creatinine levels at 1.32 mg/dL, unchanged since July or September 14. The patient reports a new rash that has persisted for about one to two weeks without improvement. The rash is localized and has not spread, with no prior history of similar allergic reactions. The patient has experienced weight gain, increasing from 228 to 236 pounds. The patient was previously on Mounjaro for weight management, which was discontinued due to cost issues. Blood pressure readings were elevated during the visit, potentially due to recent physical activity such as climbing stairs. [facility] Surgical History History of knee replacement History of nasal septoplasty Hx of tonsillectomy H/O uvulectomy H/O hernia repair History of intestinal surgery Family History Father No problems noted. Mother No problems noted. Social History Household Members: Spouse Housing: House Alcohol intake: never Patient Tobacco Use Status: Never used Tobacco Physical Exam Vital Signs: BMI result Body Mass Index 38.1 Comfortable Neck supple no JVD. Lungs entry equal no rales. Heart S1-S2 heard no gallop or rub. Abdomen soft nontender. Neuro alert awake oriented. No asterixis. Extremities no edema. Results Reviewed Nephrology Results: Sodium, (135-145) 142 mmol/L 03/05/25 Potassium, (3.3-5.1) 4.4 mmol/L 03/05/25 Chloride, (96-108) 113 mmol/L H 03/05/25 Carbon Dioxide, (22-29) 22 mmol/L 03/05/25 BUN, (9-16) 29 mg/dL H 03/05/25 Creatinine, (0.5-1.4) 1.32 mg/dL 03/05/25 Calcium, (8.4-10.2) 9.6 mg/dL 03/05/25 Urine Protein, (Neg-Trace) 30 (1+) mg/dL H 03/05/25 Urine Creatinine 52.93 mg/dL 03/05/25 Assessment & Plan Assessment & Plan (1) CKD (chronic kidney disease): Code(s): N18.9 - Chronic kidney disease, unspecified Category: Medical Plan 75-year-old man with CKD in a setting of longstanding diabetes mellitus hypertension. He has stage III CKD. Renal function stable. Goal is to slow the progression of the kidney disease. Maintain blood pressure less than 130/80 and A1c less than 7%. Continue with Kentrell inhibitors for renal protection. He will benefit from SGLT2 inhibitors. However, he is unable to take due to cost consideration I have encouraged him to stay on low-sodium diet. Continue to avoid nephrotoxic agents including NSAIDs. I will follow along with the team and monitor renal function as needed. Orders: Orders Basic Metabolic Panel 6 Months N18.9 - Chronic kidney disease, unspecified Coding Level of Care Code Est Pt Level 4 (90400) Diagnoses CKD (chronic kidney disease) N18.9
[2025-03-06 11:30] VITALS: BP 124/60
--- OUTSIDE RECORDS SUMMARY | 2025-03-06 17:19 | XMS_ITS | Encounter Summary ---
Author Organization [facility] Address [address] [place] [address] Phone Care Team Providers Care Sales Representative Wire Rope Name Role Phone Dallin Flores MD Primary Care Provider [phone] Encounter Details Date Type Department Care Team (Late st Contact Info) Description 09/15/2020 Orders Only [facility] [address] [place] [phone] Neftaly Sorensen MD Stage 3a chronic kidney [...] (HCC) documented in this encounter Care Teams Sales Representative Wire Rope Relationship Specialty Start Date End Date Dallin Flores MD [address] [place] [address], [address] [place], [place] [phone] PCP - General 05/03/20 documented as of this encounter
--- OUTSIDE RECORDS SUMMARY | 2025-03-06 17:19 | XMS_ITS | Encounter Summary ---
Author Organization [facility] Address [address] [place] [address] Phone Care Team Providers Care Road Packer Operator Name Role Phone Jarrett Angeles MD Unavailable Sangita Rivas MD Unavailable [phone] Dallin Flores MD Unavailable [phone] Jonathan Sterling MD Unavailable [phone] Dallin Flores MD Primary Care Provider Encounter Details Date Type Department Care Team (Late st Contact Info) Description 07/08/[address] [phone] Dallin Flores MD 22 [facility], [address] [place] [address] [email or web address] Social History Tobacco Use Types Packs/Day [...] Description 05/04/2025 11:20 AM EST Office Visit [facility] [address] [place] [address] [place] [address] Yara Cool, CLEAN UP HELPER BANQUET [address] [address] 08/12/2025 2:00 PM EDT Nutrition [facility] [address] [place] [address] [place] [address] Sandra Melchor, MICHAEL [address] [address] [email or web address] documented as of this encounter Visit [...] documented as of this encounter Care Teams Road Packer Operator Relationship Specialty Start Date End Date Dallin Flores MD [address] [place] [address], [address] [place] [address] [email or web address] PCP - General Internal Medicine 06/18/17 Jarrett Angeles MD [address] [place] [address], [address] [place] [address] [email or web address] Historical LMR Provider 02/06/17 Sangita Rivas MD [address] [place] [address] [email or web address] Historical LMR Provider 02/06/17 Dallin Flores MD [address] [place] [address], [address] [place] [address] [email or web address] Historical LMR Provider 02/06/17 Jonathan Sterling MD [address] [place] [address], [address] [place], [place] [phone] [email or web address] Historical LMR Provider 02/06/17 documented as of this encounter Additional Source Comments The information contained in this document represents components of the legal health record. It is not the complete legal health record.[facility]
--- OUTSIDE RECORDS SUMMARY | 2025-03-06 17:20 | XMS_ITS | Encounter Summary ---
Author Organization [facility] Address [address] [place] [address] Care Team Providers Care Fire Lieutenant Marine Name Role Phone Unavailable Primary Care Provider Unavailabl e Encounter Details Date Type Department Care Team (Late st Contact Info) Description 04/03/[address] [facility] [address] [facility] [place] [address] Edvin Pham PA [address] [address] Gross hematuria Social History Tobacco [...] and pathological findings. 04/21/2024 4:03 PM EST [facility] Addendum electronically signed by Becky Christian MD on 04/21/2024 at 4:03 PM Final Diagnosis Urine, Voided ([id number]): Negative for high grade urothelial carcinoma. Note: UroVysion testing to follow. 04/21/2024 4:03 PM EST [facility] Clinical Information [id number] Urine cytology/urine FISH 04/21/2024 4:03 PM [facility] Gross Description A. Urine, Voided, : [id number] RECD 1 TP CYTO 1 TP FISH. 04/21/2024 4:03 PM [facility] Disclaimer Unless otherwise specified, all tissue is 10% NB formalin fixed and paraffin embedded. Technical pathology services provided by [facility] at [address] [place] [address] [address] [address] (CLIA #[id number]/July Pittman MD, Thermodynamics Engineer) 04/21/2024 4:03 PM EST [facility] Tissue Urine specimen from urethra / Unknown 03/27/2024 04/03/2024 1:33 PM EST us Edvin [facility]YN[facility] PATHOLOGY ORDERAB LES Edited Result - Final [facility] [address] [place] [address], documented in this encounter Visit Diagnoses Diagnosis Gross hematuria documented in this encounter
--- OUTSIDE RECORDS SUMMARY | 2025-03-06 17:20 | XMS_ITS | Encounter Summary ---
Author Organization [facility] Address [address] [place] [address] Phone Care Team Providers Care Precision Lens Centerer And Edger Name Role Phone Jarrett Angeles MD Unavailable [phone] Sangita Rivas MD Unavailable [phone] Dallin Flores MD Unavailable [phone] Jonathan Sterling MD Unavailable [phone] Dallin Flores MD Primary Care Provider [phone] Reason for Visit * Reason Onset Date Comments Forms & Paperwork 02/26/2025 Anticoagluatio n [facility] Encounter Details Date Type Department Care Team (Late st Contact Info) Description 02/26/2025 [address]phone [employer] [address] [phone] Yara Tucker MA [address] [place] [address] [email or web address] Forms & Paperwork ([facility] [facility] [place] Social History Tobacco Use Types Packs/Day [...] Description 05/04/2025 11:20 AM EST Office Visit [facility] Diabetes [address] [place] [address] Yara Cool CNP [address] [place] [address], 1st [place] [address] 08/12/2025 2:00 PM EDT Nutrition [address] [place] [address] Sandra Melchor LDN 22 [facility], [address] [place] [address] documented as of this encounter Visit Diagnoses Not on filedocumented in this encounter Additional Health Concerns Assessment Noted Time PHQ-2 Depression Total Score: 0 05/23/19 25 11:00 AM EST documented as of this encounter Care Teams Precision Lens Centerer And Edger Relationship Specialty Start Date End Date Dallin Flores MD 22 [facility], [address] [place] [address] PCP - General Internal Medicine 06/18/17 Jarrett Angeles MD [address] [place] [address], [address] [address] Historical LMR Provider 02/06/17 Sangita Rivas MD 22 [facility], [address] [place] [address] Historical LMR Provider 02/06/17 Dallin Flores MD [address] [place] [address], [address] [address] Historical LMR Provider 02/06/17 Jonathan Sterling MD [address] [place] [address], [address] [address] Historical LMR Provider 02/06/17 documented as of this encounter Additional Source Comments The information contained in this document represents components of the legal health record. It is not the complete legal health record.[facility]
--- OUTSIDE RECORDS SUMMARY | 2025-03-06 17:20 | XMS_ITS | Encounter Summary ---
Author Organization [facility] Address [address] [place] [address] Phone Care Team Providers Care Funeral Service Practitioner/Embalmer Name Role Phone Dallin Flores MD Primary Care Provider [phone] Encounter Details Date Type Department Care Team (Late st Contact Info) Description 04/10/2022 Telephone [facility] [address] [place] [phone] Neftaly Sorensen MD Social History Tobacco Use [...] on filedocumented in this encounter Care Teams Funeral Service Practitioner/Embalmer Relationship Specialty Start Date End Date Dallin Flores MD [address] [place] [address], [address] [place] [phone] PCP - General 05/03/20 documented as of this encounter
--- OUTSIDE RECORDS SUMMARY | 2025-03-06 17:20 | XMS_ITS | Encounter Summary ---
Author Organization [facility] Address [address] [place] [address] [place] [address] Phone Care Team Providers Care Manager Placement Name Role Phone Jarrett Angeles MD Unavailable Sangita Rivas MD Unavailable [phone] Dallin Flores MD Unavailable [phone] Jonathan Sterling MD Unavailable [phone] Dallin Flores MD Primary Care Provider Reason for Visit * Reason Onset Date Comments Medication Question 02/19/2025 Encounter Details Date Type Department Care Team (Late st Contact Info) Description 02/19/2025 Telephone [facility] [address] [address] Dallin Flores MD 22 [facility], [address] [place] [address] [email or web address] Medication Question Social History Tobacco Use Types [...] 2:13 PM EDT I sent it to [facility] today, if they need a more urgent fill, they may need an emergency supply to the local pharmacy. I also wonder why the pharmacy wasn't actually dispensing the prescribed 15 vials * Betsey Li MA - 02/19/2025 2:09 PM EDT [place] stated the prescription for his insulin was cancelled at [facility]. I believe it was cancelled because we sent in a prescription to [facility] on 12/09/24 * Yara Cool CNP - 02/19/2025 2:03 PM EDT The prescription has been written for 15 vials. Can we find out why the pharmacy has only been dispensing 10 vials? Also I sent this to [facility], but if he only has one vial [...] high. Please contact and advise. Central Support Supervisor Pipelines (Please do not reply to this user; this inbox is not monitored.) Thank you. documented in this encounter Plan of Treatment Upcoming Encounters Date Type Department Care Team (Late st Contact Info) Description 05/04/2025 11:20 AM EST Office Visit [facility] [address] [place] [address] [place] [address] Yara Cool CNP [address] [place] [address], [address] [place] [address] 08/12/2025 2:00 PM EDT Nutrition [facility] [address] [place] [address] Sandra Melchor LDN [address] [place] [address], [address] [place] [address] documented as of this encounter Visit Diagnoses Diagnosis Type 2 diabetes mellitus with diabetic mononeuropathy, with long-term current use of insulin documented in this encounter Additional Health Concerns Assessment Noted Time PHQ-2 Depression Total Score: 0 05/23/19 25 11:00 AM EST documented as of this encounter Care Teams Manager Placement Relationship Specialty Start Date End Date Dallin Flores MD [address] [place] [address], [address] [place] [address] PCP - General Internal Medicine 06/18/17 Jarrett Angeles MD [address] [place] [address], [address] [address] Historical LMR Provider 02/06/17 Sangita Rivas MD [address] [place] [address], [address] [place] [address] Historical LMR Provider 02/06/17 Dallin Flores MD [address] [place] [address], [address] [place] [address] Historical LMR Provider 02/06/17 Jonathan Sterling MD [address] [place] [address], [address] [place] [address] Historical LMR Provider 02/06/17 documented as of this encounter Additional Source Comments The information contained in this document represents components of the legal health record. It is not the complete legal health record.[facility]
--- OUTSIDE RECORDS SUMMARY | 2025-03-06 17:21 | XMS_ITS | Clinical Summary ---
Author Organization [facility] Address [address] [place] [address] Phone Care Team Providers Care Rodeo Rider Name Role Phone Unavailable Primary Care Provider Unavailabl e Surgical History Surgery Date Site/Laterality Comments OTHER SURGICAL HISTORY PROCEDURE: [place] UVULECTOMY EXCISION UVULA; COMMENT: for sleep apnea [...]
--- OUTSIDE RECORDS SUMMARY | 2025-03-06 17:22 | XMS_ITS | Patient Health Record ---
Author Organization [facility] Address [address] [place] [address] Care Team Providers Care Ballistics Laboratory Gunsmith Name Role Phone Dallin Flores Primary Care Provider Stefan Pedroza Unavailable [phone] Ruchi Castro Unavailable [phone] Allergies No Known Allergies Results Component Value [...] Status Comme nts Influenza Unknown 12/24/2023 Administered Influenza Unknown 01/18/2025 Administered COVID-19 Pfizer BioNTech Vaccine Unknown 01/18/2025 Adm inistered Social History Tobacco Use: Social History Observation [...] Polyneuropathy due to type 2 diabetes mellitus (210304994) Type 2 diabetes mellitus with diabetic polyneuropathy (E11.42) Active confirmed Vital Signs Heart Rate 71 /min 02/10/2025 Blood pressure diastolic 69 R mm Hg 02/10/2025 Height 5ft 7in in 02/10/2025 Blood pressure systolic 120 mm Hg 02/10/2025 Weight 230 lbs 02/10/2025 BMI 36.02 kg/m2 02/10/2025 Procedures Procedure Date Ordered Date Performed Result Body Sit e 50243-MRMTBQE NAIL, 6 OR MORE 03/18/2024 N/A 52462-WHIA SKIN LESIONS, OVER 4 03/18/2024 N/A Encounters Encounter Location Date Provider Diagnosis [address] [address] 03/18/2024 Ruchi Castro Type 2 diabetes mellitus with diabetic polyneuropathy E11.42 and Tinea unguium B35.[address] [address] 08/01/2024 Ruchi Castro Other hammer toe(s) (acquired), right foot M20.41 ; Other hammer toe(s) (acquired), left foot M20.42 ; Type 2 diabetes mellitus with diabetic polyneuropathy E11.42 and Tinea unguium B35.1 [address] [place] [address] 11/07/2024 Ruchi Castro Onychomycosis B35.1 and Type 2 diabetes mellitus with diabetic polyneuropathy E11.42 [facility] [address] [address] 02/10/2025 Ruchi Castro Onychomycosis B35.1 and Type [...] X ray : Foot, right 3V 06/17/2019 17526-VGAFMBM NAIL, 6 OR MORE 03/18/2024 53191- I&D ABSCESS-COMPLICATED,MULTI 02/2019 64485-CIML SKIN LESIONS, OVER 4 01/15/20 19 05574-HTBB SKIN LESIONS, OVER 4 02/29/20 22 13752-GSNB SKIN LESIONS, OVER 4 08/30/19 23 40274-NEUD SKIN LESIONS, OVER 4 03/18/20 24 , U8266-XAJSR/INJECT, JOINT/BURSA 0 06/17/2019 Next Appt Details Provider Name:Ruchi chamberlain, 05/19/2025 10:30:00 AM, [address] [facility], [address], [place], [address], Insurance Providers Payer Name Payer Address Payer Phone Subscriber Number Group Number Insured Name Patient Relationship to Insured Coverage Start Date Coverage End Date Medicare National Govt [employer] [address] [facility] [address] [id number] Fede Estrada Self - patient is the [...] 025 [facility]- wire caught on leg 01/2024 [facility]- Infected toe 01/2019
--- OUTSIDE RECORDS SUMMARY | 2025-03-06 17:23 | XMS_ITS | Clinical Summary ---
Author Organization [facility] Address [address] [address] Phone Care Team Providers Care Printing Roller Polisher Name Role Phone Dallin Flores MD Primary Care Provider [phone] Allergies Active Allergy Reactions Criticality Noted Date [...] (08/04/2020): INR being followed at home by [facility] after hosp dc. Gastroesophageal reflux disease [...] based on patterns using the new system jail current use of insulin 04/09/2017 02/02/2021 Obesity [...] this topic Insurance Medicare Medicare Care Teams Printing Roller Polisher Relationship Specialty Start Date End Date Dallin Flores MD [address] [place] [address], [address] [place] [address] PCP - General 05/03/20
--- OUTSIDE RECORDS SUMMARY | 2025-03-06 17:23 | XMS_ITS | Clinical Summary ---
Author Organization [facility] Address [address] [place] [address] Phone Care Team Providers Care Freelance Translator Name Role Phone Jarrett Angeles MD Unavailable Sangita Rivas MD Unavailable [phone] Dallin Flores MD Unavailable [phone] Jonathan Sterling MD Unavailable [phone] Dallin Flores MD Primary Care Provider [...] Overview (05/23/2024): For IBD Around 2014 in [place] Assessment & Plan (05/23/2024 11:15 AM EST): [...] his glucose levels. Up to date with [facility]. Labs ordered and reviewed today Assessment & [...] using a smart phone therese such as [employer] to better evaluate his carb counting Encouraged to enter his carbs accurately and bolus as appropriate We did not adjust insulin pump settings today although we discussed increasing his Ozempic in the future as needed His contracts paralegal reports his foot pain is mostly related [...] glucose management and control Encouraged to see contracts paralegal for routine care of feet, we discussed [...] (07/29/2020): INR being followed at home by [facility] after hosp dc. Elevated PSA 04/09/2017 [...] smart phone therese such as [employer] Or [employer] to help evaluate and count carbs as [...] am 10 4hrs 12pm 1:13 4:30p 1:11 equipment operator intermodal yard current use of insulin 04/09/2017 Class 1 [...] able to return to meet with our communications strategist if late day appt is available, he [...] Department Care Team Description 02/26/2025 Telephone [facility] [address] [place] [address] Yara Tucker MA Forms & Paperwork ([facility] ) 02/19/2025 Telephone [facility] [address] [place] [address] Dallin Flores MD Medication Question 02/17/[address] [place] [address] Tita Barr CNP Medication Refill 02/16/[address] [place] [address] Dallin Flores MD Medication Question 02/04/2025 11:00 AM EDT Nutrition [facility] [address] [place] [address] Sangita Rivas MD Dawicki, Sandra Landry, MICHAEL Type 2 diabetes mellitus with diabetic mononeuropathy, with long-term current use of insulin (Primary Dx) 01/02/2025 Orders Only [address] [place] [address] Unknown, Unknown, MD 12/09/[address] [place] [address] Dallin Flores MD Medication Management 12/09/[address] [place] [address] Sangita Rivas MD Medication Management from Last [...] Description 05/04/2025 11:20 AM EST Office Visit [facility] [address] [address] Yara Cool, MANAGER STERILE [address] [place] [address] 08/12/2025 2:00 PM EDT Nutrition [facility] [address] [address] Sandra Melchor, MICHAEL [address] [place] [address] Health Maintenance Due Date Last Done Comments [...] POCT Hemoglobin A1c (02/04/2025 11:29 AM EDT) [facility] Signature Hemoglobin A1c 7.8(A) 4.2 - 5.6 % [facility] Other 02/04/2025 11:2 9 AM EDT us Sangita Rivas MD LAB POCT ENTER/EDIT ORDERABLES Final Result [facility] [address] [place] [address], [facility] * DIABETES EYE EXAM FOR RESULT ENTRY ONLY (12/29/2024 2:36 PM EDT) us Unknown Unknown HEALTH MAINTENANCE Edited Res ult - Final * Basic metabolic panel (08/04/2024 11:29 AM EDT) us Historical Provider LAB BLOOD BKR ORDERABLES Edited Result - Final from Last 3 Months or Most Recently Relevant to Health Maintenance Insurance [place] [id number] MEDICARE PART A & B MEDICARE PART A & B MEDICARE PART A & B MEDICARE PART A & B MEDICARE PART A & [place] [address] INSURANCE Care Teams Freelance Translator Relationship Specialty Start Date End Date Dallin Flores MD [address] [place] [address], [address] [place] [address] PCP - General Internal Medicine 06/18/17 Jarrett Angeles MD [address] [place] [address], [address] [place] [address] Historical LMR Provider 02/06/17 Sangita Rivas MD [address] [place] [address], [address] [place] [address] Historical LMR Provider 02/06/17 Dallin Flores MD [address] [place] [address], [address] [place] [address] Historical LMR Provider 02/06/17 Jonathan Sterling MD [address] [place] [address], [address] [place] [address] Historical LMR Provider 02/06/17 Additional Source Comments The information contained in this document represents components of the legal health record. It is not the complete legal health record.[facility]
--- OUTSIDE RECORDS SUMMARY | 2025-03-06 17:24 | XMS_ITS | Encounter Summary ---
Author Organization [facility] Address [address] [place] [address] Phone Care Team Providers Care Race Relations Professor Name Role Phone Jarrett Angeles MD Unavailable [phone] Sangita Rivas MD Unavailable Dallin Flores MD Unavailable [phone] Jonathan Sterling MD Unavailable Dallin Flores MD Primary Care Provider [phone] Encounter Details Date Type Department Care Team (Late st Contact Info) Description 12/12/2021 Procedure Pass [address] [address] Social History Tobacco Use Types Packs/Day Years [...] Description 05/04/2025 11:20 AM EST Office Visit [facility] [address] [place] [address] Yara Cool, VALENTINA [address] [facility], [address] [place], [place] [address] 08/12/2025 2:00 PM EDT Nutrition [facility] [address] [place] [address] Sandra Melchor, MICHAEL [address] [facility], [address] [place] [address] documented as of this encounter Visit Diagnoses [...] documented as of this encounter Care Teams Race Relations Professor Relationship Specialty Start Date End Date Dallin Flores MD [address] [place] [address], [address] [place] [address] PCP - General Internal Medicine 06/18/17 Jarrett Angeles MD [address] [place] [address], [address] [place] [address] Historical LMR Provider 02/06/17 Sangita Rivas MD [address] [place] [address], [address] [place] [address] Historical LMR Provider 02/06/17 Dallin Flores MD [address] [place] [address], [address] [place] [address] [email or web address] Historical LMR Provider 02/06/17 Jonathan Sterling MD [address] [place] [address], [address] [place] [address] [email or web address] Historical LMR Provider 02/06/17 documented as of this encounter Additional Source Comments The information contained in this document represents components of the legal health record. It is not the complete legal health record.[facility]
== END 2025-03-06 11:33 | disposition home or self-care (01) ==
LOC: HO.HKA 11:17
PROVIDERS: PCP Internal Medicine; Visit Provider Internal Medicine Hypertension Specialist
DX: N18.9 Chronic kidney disease, unspecified (principal)
CPT/HCPCS: 99214

== ENCOUNTER → 2025-03-06 11:16 | Outpatient (BNVA) | payer MEDICARE, SELFPAY | PROVIDERS: PCP Internal Medicine; Visit Provider Internal Medicine Hypertension Specialist | DX: I12.9 Hypertensive chronic kidney disease with stage 1 through stage 4 chronic kidney disease, or unspecified chronic kidney disease (principal); E11.22 Type 2 diabetes mellitus with diabetic chronic kidney disease; N18.30 Chronic kidney disease, stage 3 unspecified; Z79.4 Long term (current) use of insulin; Z79.84 Long term (current) use of oral hypoglycemic drugs; Z79.01 Long term (current) use of anticoagulants; E66.9 Obesity, unspecified; Z68.38 Body mass index [BMI] 38.0-38.9, adult | CPT/HCPCS: 99212 ==

== ENCOUNTER → 2025-04-01 11:00 | Outpatient (BNVA) | payer MEDICARE, SELFPAY | PROVIDERS: PCP Internal Medicine; Visit Provider Internal Medicine Medical Oncology | DX: Z79.01 Long term (current) use of anticoagulants (principal) | CPT/HCPCS: 85610; 99211 ==